=== PATIENT | female | born 1945 | race Caucasian/White ===

== ENCOUNTER 2017-04-13 15:05 | Inpatient (IN) | payer OTHER, MEDICARE ==
[~2017-04-13] VITALS: Ht 152.4 cm; Wt 56.3 kg
[2017-04-13] VITALS (7 sets, daily range): BP systolic 115–174; BP diastolic 66–86; PULSE 76–116; RESP 16–33; TEMP 97.6–97.8; O2SAT 93–100
[~2017-04-13 15:05] MED LIST: ALPR.25 PO; ESCI10TA PO; LEVO75TA3 PO; LOSA25TA31 PO; NADO20TA PO
--- NOTE | 2017-04-13 15:22 | PD ---
HPI Chief Complaint: Fall Time Seen by Provider: 15:08 Travel History International Travel<30 days: No Contact w/Intl Traveler<30days: No Traveled to known affect area: No History of Present Illness HPI The patient was seen and examined in the presence of the nurse. Patient called the ambulance to bring her in for evaluation of injury she suffered yesterday. Duration is 24 hours. Severity is moderate. She tripped at home in her apartment and landed on her left lower leg. She injured her left foot. She complains of pain in the foot. She has bruising on the knee and roth of the left side but no pain in either area. She has been walking on it. No alleviating factors. No other complaints than left foot pain. PFSH Past Medical History Hx Anticoagulant Therapy: No Arthritis: Yes Anxiety: Yes Cardiovascular Problems: Yes Coronary Artery Disease: Yes Thyroid Disease: Yes ?: Not Past Surgical History Hysterectomy: Yes Other Surgery: Yes (thyroid) Social History Alcohol Use: Yes (SOCIALLY ) Tobacco Use: No Substance Use: No Allergies-Medications (Allergen,Severity, Reaction): Coded Allergies: Sulfa (Verified Allergy, Severe, Rash, 04/13/17) Reported Meds & Prescriptions Reported Meds & Active Scripts Active Percocet (Oxycodone-Acetaminophen) 5-325 mg Tab 1 Tab PO Q6H PRN Reported Nadolol 80 Mg Tab 80 Mg PO DAILY Losartan (Losartan Potassium) 25 Mg Tab 25 Mg PO DAILY Levothyroxine (Levothyroxine Sodium) 75 Mcg Tab 75 Mcg PO DAILY Escitalopram (Escitalopram Oxalate) 10 Mg Tab 10 Mg PO DAILY Alprazolam 0.25 Mg Tab 0.25 Mg PO DIRECTED PRN Review of Systems General / Constitutional: No: Fever Eyes: No: Visual changes HENT: No: Headaches Cardiovascular: No: Chest Pain or Discomfort Respiratory: No: Shortness of Breath Gastrointestinal: No: Abdominal Pain Genitourinary: No: Dysuria Musculoskeletal: Positive: Pain Skin: Positive Change in Pigmentation, No Rash Neurologic: Positive: Change in Mentation, No: Weakness Psychiatric: No: Depression Endocrine: No: Polydipsia Hematologic/Lymphatic: No: Easy Bruising Physical Exam Narrative Left leg: There is some ecchymosis over the patella and roth but neither area are tender Left foot: There is ecchymosis and edema and tenderness over the forefoot. No malleoli tenderness GENERAL: Highly anxious well-developed patient with left foot pain SKIN: Focused skin assessment reveals no rash and nodules. Skin is Warm and dry. A lot of ecchymosis is over the left arm and leg primarily HEAD: Atraumatic. Normocephalic. EYES: Pupils equal and round. No scleral icterus. No injection or drainage. ENT: No nasal bleeding or discharge. Mucous membranes pink and moist. NECK: Trachea midline. No JVD. CARDIOVASCULAR: Regular rate and rhythm. No murmur appreciated. RESPIRATORY: No accessory muscle use. Clear to auscultation. Breath sounds equal bilaterally. GASTROINTESTINAL: Abdomen soft, non-tender, nondistended. Hepatic and splenic margins not palpable. MUSCULOSKELETAL: No obvious deformities. No clubbing. No cyanosis. NEUROLOGICAL: Awake and alert. No obvious cranial nerve deficits. Motor grossly within normal limits. Normal speech. PSYCHIATRIC: Very anxious mood and affect; insight and judgment poor. Data Data Last Documented VS Vital Signs Date Time Temp Pulse Resp B/P Pulse Ox O2 Delivery O2 Flow Rate FiO2 04/13/17 17:09 107 16 127/84 94 Room Air 04/13/17 15:09 97.8 Orders Foot, Complete ([id number]) (04/13/17 ) Ondansetron Inj (Zofran Inj) (04/13/17 15:30) Morphine Inj (Morphine Inj) (04/13/17 15:30) Morphine Inj (Morphine Inj) (04/13/17 16:15) Post Op Boot (Shoe) (04/13/17 ) Lorazepam Inj (Ativan Inj) (04/13/17 16:15) Basic Metabolic Panel (Bmp) (04/13/17 16:12) Complete Blood Count With Diff (04/13/17 16:12) Tibia/Fibula (Ap/Lat) (04/13/17 ) 3% Saline Inj (Sodium Chloride 3% Inj) (04/13/17 17:00) Alcohol (Ethanol) (04/13/17 16:30) Basic Metabolic Panel (Bmp) (04/13/17 18:30) Basic Metabolic Panel (Bmp) (04/13/17 20:30) Basic Metabolic Panel (Bmp) (04/13/17 22:30) Basic Metabolic Panel (Bmp) (04/14/17 00:30) Basic Metabolic Panel (Bmp) (04/14/17 02:30) Basic Metabolic Panel (Bmp) (04/14/17 04:30) Basic Metabolic Panel (Bmp) (04/14/17 06:30) Basic Metabolic Panel (Bmp) (04/14/17 08:30) Basic Metabolic Panel (Bmp) (04/14/17 10:30) Basic Metabolic Panel (Bmp) (04/14/17 12:30) Magnesium (Mg) (04/13/17 17:07) Thyroid Stimulating Hormone (04/13/17 17:07) Levothyroxine (Synthroid) (04/14/17 09:00) Nadolol (Corgard) (04/14/17 09:00) Shoe Cast (04/13/17 ) Losartan (Cozaar) (04/14/17 09:00) Clonidine (Catapres) (04/13/17 17:15) Admit To Inpatient (04/13/17 ) Vital Signs (Adult) Q4H (04/13/17 17:10) Neuro Checks Q4H (04/13/17 17:10) Activity Oob With Assistance (04/13/17 17:10) Bedside Glucose JOSELYN.AC&HS (04/13/17 17:10) Music Writer / Telemetry .CONTINUOUS (04/13/17 17:10) Intake + Output JOSELYN.QSHIFT (04/13/17 17:10) Diet Npo (04/13/17 Dinner) Sodium Chloride 0.9% Flush (Ns Flush) (04/13/17 17:15) Sodium Chloride 0.9% Flush (Ns Flush) (04/13/17 21:00) Acetaminophen (Tylenol) (04/13/17 17:15) Ondansetron Inj (Zofran Inj) (04/13/17 17:15) Complete Blood Count With Diff (04/14/17 06:00) Resp Oxygen David C Titrat 1-4 L (04/13/17 ) Pt Request For Service (04/13/17 17:10) St Request For Service (04/13/17 17:10) Case Management Consult (04/13/17 17:10) Scd Bilateral/Knee High JOSELYN.BID (04/13/17 17:10) Hollis Bilateral/Knee High JOSELYN.QSHIFT (04/13/17 17:10) Acetaminophen (Tylenol) (04/13/17 17:15) Naloxone Inj (Narcan Inj) (04/13/17 17:15) Docusate Sodium-Senna (Louann-Colace) (04/13/17 21:00) Inpatient Certification (04/13/17 ) Alcohol Withdrawal Asmt-Ciwa Q4HX18 (04/13/17 17:10) Flumazenil Inj (Romazicon Inj) (04/13/17 17:15) Lorazepam (Ativan) (04/13/17 17:15) Lorazepam (Ativan) (04/13/17 17:15) Lorazepam Inj (Ativan Inj) (04/13/17 17:15) Lorazepam Inj (Ativan Inj) (04/13/17 17:15) ^ Seizure Precautions (04/13/17 17:10) Admit Order (Ed Use Only) (04/13/17 17:22) Labs Laboratory Tests Test 04/13/17 16:30 White Blood Count 7.9 TH/MM3 Red Blood Count 3.26 MIL/MM3 Hemoglobin 9.9 GM/DL Hematocrit 30.2 % Mean Corpuscular Volume 92.7 FL Mean Corpuscular Hemoglobin 30.3 PG Mean Corpuscular Hemoglobin 32.7 % Concent Red Cell Distribution Width 14.4 % Platelet Count 415 TH/MM3 Mean Platelet Volume 7.6 FL Neutrophils (%) (Auto) 74.7 % Lymphocytes (%) (Auto) 10.4 % Monocytes (%) (Auto) 12.3 % Eosinophils (%) (Auto) 1.7 % Basophils (%) (Auto) 0.9 % Neutrophils # (Auto) 5.9 TH/MM3 Lymphocytes # (Auto) 0.8 TH/MM3 Monocytes # (Auto) 1.0 TH/MM3 Eosinophils # (Auto) 0.1 TH/MM3 Basophils # (Auto) 0.1 TH/MM3 CBC Comment DIFF FINAL Differential Comment Sodium Level 115 MEQ/L Potassium Level 4.1 MEQ/L Chloride Level 81 MEQ/L Carbon Dioxide Level 21.4 MEQ/L Anion Gap 13 MEQ/L Blood Urea Nitrogen 9 MG/DL Creatinine 0.69 MG/DL Estimat Glomerular Filtration 84 ML/MIN Rate Random Glucose 92 MG/DL Calcium Level 8.8 MG/DL Ethyl Alcohol Level LESS THAN 3 MG/DL MDM Medical Decision Making Medical Screen Exam Complete: Yes Emergency Medical Condition: Yes Medical Record Reviewed: Yes Differential Diagnosis Foot fracture, foot contusion, dislocation Narrative Course I have reviewed the patient's electronic medical record. Patient was last here in 2014 for dyspepsia symptoms. She had a sodium of 131 at that time IV placed I gave her 4 mg IV morphine and 4 g IV Zofran for symptom relief I reviewed her left foot x-rays which show no acute fracture. There is some arthritic change. Patient has some transient relief from the medication and then continued crying and asking for more pain medicine She seems to have a significant anxiety/emotional component to her presentation I gave her a second dose of morphine and Zofran as well as a dose of IV Ativan As she continued to I'll and pain regarding her left foot slight walking on it for 24 hours I continued to try to further evaluate make sure I was not missing anything. CBC shows mild anemia Metabolic profile shows critical hyponatremia of 115 CT of the foot without contrast was done to rule out occult fracture I reviewed her left tib-fib x-rays which are negative I gave her a postop shoe Patient admits to 2-4 alcoholic drinks today but this may be much higher. Suspect that she has metabolic encephalopathy from hyponatremia which is critically low at 1:15 but also some degree of alcohol withdrawal. I gave her second dose of IV Ativan for this reason. I started her on 3% sodium chloride solution at 30 cc per hour I reviewed with the hospitalist to evaluate the patient but recommended auto adjudication specialist manage this patient so I spoke with Dr. Cutler who will admit Critical Care Narrative Aggregate critical care time was 80 minutes. Time to perform other separately billable procedures was not included in the critical care time. My time did not include minutes spent treating any other patients simultaneously or on activities that did not directly contribute to the patient's treatment. The services I provided to this patient were to treat and/or prevent clinically significant deterioration that could result in: Seizure, hypoxemic brain injury , cardiopulmonary arrest I provided critical care services requiring my management, as noted below: Chart data review, documentation time, medication orders and management, vital sign assessments/reviewing monitor data, ordering and reviewing lab tests, ordering and interpreting/reviewing x-rays and diagnostic studies, care of the patient and discussion of the patient with the admitting physicians. Diagnosis Primary Impression: Acute metabolic encephalopathy Additional Impressions: Hyponatremia Alcohol withdrawal delirium Admitting Information Admitting Physician Requests: Admit Scripts Oxycodone-Acetaminophen (Percocet)5-325 mg Tab1 Tab PO Q6H PRN (PAIN) #20 TAB Ref 0 Prov:Man Baptiste MD 04/13/17 Man Baptiste MD April 13, 2017 15:22
[2017-04-13] MEDS ORDERED: MORPHINE SULFATE 4 MG/ML INJ IV PUSH ONE ×2 (15:30→16:15)
[2017-04-13] MEDS ORDERED: ONDANSETRON HCL 4 MG/2 ML VIAL IVP ONE (15:30)
[2017-04-13] MEDS ORDERED: LOSA25TA PO (15:32)
[2017-04-13] MEDS ORDERED: ESCI10TA PO (15:32)
[2017-04-13] MEDS ORDERED: LEVO75TA3 PO (15:32)
[2017-04-13] MEDS ORDERED: ALPR0.25 PO (15:32)
[2017-04-13] MEDS ORDERED: NADO80TA PO (15:32)
[2017-04-13] MEDS ORDERED: PERC5TAB12 PO (16:07)
[2017-04-13] MEDS ORDERED: LORazepam 2 MG/ML VIAL IV PUSH ONE ×2 (16:15→17:30)
--- NOTE | 2017-04-13 16:18 | RADHPO ---
EXAM DATE/TIME: 04/13/2017 15:31 [facility] COMPARISON: No previous studies available for comparison. INDICATIONS : Fell, left foot pain MEDICAL HISTORY : None. SURGICAL HISTORY : None. ENCOUNTER: Initial ACUITY: 1 day PAIN SCORE: 10/10 LOCATION: Left foot FINDINGS: There is bony fusion of the left 1st metatarsophalangeal joint. Arthritic changes are noted involvin g the tarsal-tarsal and tarsal-metatarsal joints in the midfoot. Plantar calcaneal spur is noted. T here is no acute fracture or dislocation of the left foot. There is an old healed fracture involving the shaft of the left 2nd metatarsal. CONCLUSION: 1. Arthritic changes involving the tarso-tarsal and tarsal-metatarsals joints in the midfoot. 2. Bony fusion of the left 1st metatarsophalangeal joint. 3. Plantar calcaneal spur. 4. No acute fracture or dislocation. Alex Whiteside MD on April 13, 2017 at 16:11 Board Certified Radiologist. This report was verified electronically.
[2017-04-13 16:37] LABS: AUTOMATED NEUTROPHIL # 5.9 TH/MM3 (1.8-7.7); BASOPHIL # 0.1 TH/MM3 (0-0.2); BASOPHIL % 0.9 % (0.0-2.0); EOSINOPHIL # 0.1 TH/MM3 (0-0.4); EOSINOPHIL % 1.7 % (0.0-4.0); HEMATOCRIT 30.2 % (35.0-46.0); HEMO FLAGS DIFF FINAL; LYMPH % 10.4 % (9.0-44.0); LYMPHOCYTE # 0.8 TH/MM3 (1.0-4.8); MEAN CELL VOLUME 92.7 FL (80.0-100.0); MEAN CORPUSCULAR HEMOGLOBIN 30.3 PG (27.0-34.0); MEAN CORPUSCULAR HGB CONC 32.7 % (32.0-36.0); MONO % 12.3 % (0.0-8.0); NEUT % 74.7 % (16.0-70.0); PLATELET COUNT 415 TH/MM3 (150-450); RED BLOOD COUNT 3.26 MIL/MM3 (4.00-5.30); RED CELL DISTRIBUTION WIDTH 14.4 % (11.6-17.2); WHITE BLOOD COUNT 7.9 TH/MM3 (4.0-11.0)
--- NOTE | 2017-04-13 16:43 | RADHPO ---
EXAM DATE/TIME: 04/13/2017 16:19 [facility] COMPARISON: No previous studies available for comparison. INDICATIONS : Left lower leg pain from fall MEDICAL HISTORY : None. SURGICAL HISTORY : None. ENCOUNTER: Initial ACUITY: 1 day PAIN SCORE: 10/10 LOCATION: Left lower leg FINDINGS: There is no acute fracture or dislocation of the right tibia or fibula. Moderate arthritic changes a re noted involving the patellofemoral and femoral tibial joints. CONCLUSION: 1. Moderate arthritic changes involving the femoral tibial and patellofemoral joints. 2. No acute fracture or dislocation. Alex Whiteside MD on April 13, 2017 at 16:39 Board Certified Radiologist. This report was verified electronically.
[2017-04-13 16:51] LABS: ANION GAP 13 MEQ/L (5-15); BICARBONATE 21.4 MEQ/L (21.0-32.0); BLOOD UREA NITROGEN 9 MG/DL (7-18); CHLORIDE 81 MEQ/L (98-107); POTASSIUM 4.1 MEQ/L (3.5-5.1)
[2017-04-13 16:53] LABS: SODIUM (NA) 115 MEQ/L (136-145)
[2017-04-13] MEDS ORDERED: 3% SALINE INJ 250 ML IV ONE (17:00)
[2017-04-13 17:15] LABS: GLOMERULAR FILTRATION RATE 84 ML/MIN (>89)
[2017-04-13] MEDS ORDERED: NALOXONE HCL 0.4 MG/ML AMP IV PRN (17:15)
[2017-04-13] MEDS ORDERED: LORazepam 2 MG TAB PO PRN (17:15)
[2017-04-13] MEDS ORDERED: ACETAMINOPHEN 325 MG TAB PO PRN (17:15)
[2017-04-13] MEDS ORDERED: cloNIDine HCL 0.1 MG TAB PO PRN (17:15)
[2017-04-13] MEDS ORDERED: LORazepam 2 MG/ML VIAL IV PUSH PRN (17:15)
[2017-04-13] MEDS ORDERED: ONDANSETRON HCL 4 MG/2 ML VIAL IVP PRN (17:15)
[2017-04-13] MEDS ORDERED: FLUMAZENIL 0.5 MG/5 ML VIAL IV PUSH PRN (17:15)
[2017-04-13] MEDS ORDERED: SODIUM CHLORIDE 0.9% FLUSH 10 ML FLUSH IV FLUSH PRN ×2 (17:15→18:00)
[2017-04-13] MEDS ORDERED: SODIUM CHLOR 0.9% 1000 ML INJ 1,000 ML IV SCH (17:54)
[2017-04-13] MEDS ORDERED: NITROGLYCERIN 2% OINT 1 GM PACKET TOPICAL PRN (18:00)
[2017-04-13] MEDS ORDERED: CHLORHEXIDINE GLUCONATE 2 % 1 PACK (2 CLOTHS) TOP PRN (18:00)
[2017-04-13] MEDS ORDERED: SENNOSIDES 8.6 MG TAB PO PRN (18:00)
[2017-04-13] MEDS ORDERED: MAGNESIUM HYDROXIDE SUSP 30 ML CUP PO PRN (18:00)
[2017-04-13] MEDS ORDERED: MISCELLANEOUS NURSING INFORMATION XX SCH (18:00)
[2017-04-13] MEDS ORDERED: LACTULOSE SYRUP 20 GM/30 ML CUP PO PRN (18:00)
[2017-04-13] MEDS ORDERED: ONDANSETRON HCL 4 MG/2 ML VIAL IV PRN (18:00)
[2017-04-13] MEDS ORDERED: BISACODYL 10 MG SUPP RECTAL PRN (18:00)
[2017-04-13] MEDS ORDERED: RESP: ALBUTEROL 2.5 MG/3 ML NEB (PRN) INH (18:00)
[2017-04-13 18:10] LABS: MAGNESIUM 1.5 MG/DL (1.5-2.5)
--- NOTE | 2017-04-13 18:33 | RADHPO ---
EXAM DATE/TIME: 04/13/2017 18:00 [facility] COMPARISON: CT BRAIN W/O CONTRAST, July 17, 2015, 11:07. INDICATIONS : Fell yesterday. Altered mental status. RADIATION DOSE: 57.30 CTDIvol (mGy) MEDICAL HISTORY : Hypertension. SURGICAL HISTORY : Hysterectomy. ENCOUNTER: Initial ACUITY: 2 days PAIN SCALE: 0/10 LOCATION: cranial TECHNIQUE: Multiple contiguous axial images were obtained of the head. Using automated exposure control and adj ustment of the mA and/or kV according to patient size, radiation dose was kept as low as reasonably a chievable to obtain optimal diagnostic quality images. FINDINGS: CEREBRUM: The ventricles are normal for age. No evidence of midline shift, mass lesion, hemorrhage or acute in farction. No extra-axial fluid collections are seen. POSTERIOR FOSSA: The cerebellum and brainstem are intact. The 4th ventricle is midline. The cerebellopontine angle i s unremarkable. EXTRACRANIAL: The visualized portion of the orbits is intact. Opacified right maxillary sinus and right ethmoid air cells consistent with probable sinusitis. SKULL: The calvaria is intact. No evidence of skull fracture. CONCLUSION: 1. No acute intracranial abnormality. 2. Opacified right maxillary sinus and right ethmoid air cells consistent with probable sinusitis. Alex Whiteside MD on April 13, 2017 at 18:30 Board Certified Radiologist. This report was verified electronically.
--- NOTE | 2017-04-13 18:56 | RADHPO ---
EXAM DATE/TIME: 04/13/2017 18:41 [facility] COMPARISON: CHEST SINGLE AP, August 21, 2015, 23:22. INDICATIONS : fall with left lower leg and foot pain, chest pain, pre admit. MEDICAL HISTORY : None. SURGICAL HISTORY : None. ENCOUNTER: Subsequent ACUITY: 2 days PAIN SCORE: Non-responsive. LOCATION: Bilateral chest FINDINGS: Patchy infiltrates are noted within the upper lung mancuso bilaterally consistent with possible develo ping pneumonia. Clinical correlation is recommended. The heart is mildly enlarged. Degenerative ch anges and scoliosis of the thoracolumbar spine are noted. CONCLUSION: 1. Patchiness within the upper lung mancuso bilaterally consistent with atelectasis and/or developing pneumonia. Clinical correlation is recommended. 2. Cardiomegaly. 3. Degenerative changes and scoliosis of the thoracolumbar spine. Alex Whiteside MD on April 13, 2017 at 18:52 Board Certified Radiologist. This report was verified electronically.
[2017-04-13 19:00] LABS: AST (GOT) 30 U/L (15-37)
[2017-04-13 19:01] LABS: ALT (GPT) 28 U/L (10-53); BETA-HYDROXYBUTYRATE 0.19 MMOL/L (0.00-0.39)
[2017-04-13 19:02] LABS: INDIRECT BILIRUBIN 0.6 MG/DL (0.0-0.8); TOTAL BILIRUBIN ADULT 0.8 MG/DL (0.2-1.0)
[2017-04-13 19:03] LABS: ALKALINE PHOSPHATASE 81 U/L (45-117)
[2017-04-13 19:48] LABS: POTASSIUM 3.3 MEQ/L (3.5-5.1)
[2017-04-13 19:58] LABS: CORTISOL 14.6 MCG/DL
[2017-04-13 19:59] LABS: URIC ACID 2.6 MG/DL (2.6-6.0)
[2017-04-13] MEDS ORDERED: SODIUM CHLOR 0.45% 1000 ML INJ 1,000 ML IV SCH (20:15)
[2017-04-13] MEDS ORDERED: SODIUM CHLORIDE 0.9% FLUSH 10 ML FLUSH IVF PRN (20:15)
[2017-04-13] MEDS ORDERED: POTASSIUM CHLOR 40 MEQ PREMIX 100 ML IV ONE (20:15)
--- NOTE | 2017-04-13 20:18 | PD.PROCEDR ---
Central Line Procedure REASON FOR PROCEDURE Central venous access PROCEDURE PERFORMED Central line placement: Right IJ CVL CONSENT Informed consent for procedure was obtained per Olaf Danielle. The risks and benefits of the procedure were discussed to include but limited to bleeding, clot formation, infection, and even . ANESTHESIA Local injection of 1% Lidocaine DESCRIPTION OF THE PROCEDURE The patient was placed in supine, mild Trendelenburg position. The area was exposed and cleansed with ChloraPrep, times two. Large sterile drape was used to cover the patient, with the site exposed, under sterile conditions including cap, face mask, sterile gown, and sterile gloves. On single attempt, the introducer needle was inserted with negative pressure in syringe and venous flash was obtained. The guide wire was then advanced without any restriction and the needle was removed. The dilator was used without any complications. Using Seldinger technique the triple-lumen antibiotic coated catheter was advanced over the guide wire to a depth of 16 centimeters. The guide wire was removed. All ports were aspirated with dark venous blood return and flushed easily with sterile saline. All ports were capped. Antibiotic disc was placed around central line at puncture site. The central line was secured to the skin with two interrupted 2.0 silk sutures. The area was bandaged with sterile see- through central line bandage. RADIOLOGICAL DATA Ultrasound guidance was used to locate right internal jugular vein. Doppler/ color flow was used to confirm venous flow. COMPLICATIONS: No apparent complications ESTIMATED BLOOD LOSS: Less than 1 cc. Cheo Wilkerson MD April 13, 2017 20:18
[2017-04-13 20:24] LABS: BLOOD GAS BASE EXCESS -1.8 mmol/L (-2-2); BLOOD GAS CARBOXYHEMOGLOBIN 1.8 % (0-4); BLOOD GAS HCO3 23 mmol/L (22-26); BLOOD GAS O2 HGB SATURATION 97 % (90-100); BLOOD GAS OXYGEN CONTENT 13.4 Vol % (12.0-20.0); BLOOD GAS PCO2 42 mmHG (38-42); BLOOD GAS PO2 163 mmHG (61-120); BLOOD GAS TOTAL HGB 9.6 G/DL (12.0-16.0); CRITICAL VALUE NO; DRAW SITE LT RADIAL; LITER FLOW 4 L/M; NUMBER OF ARTERIAL PUNCTURES 1; OXYGEN DEVICE NASAL CANNULA; STAT YES; TEMP CORR TO 98.6; ULNAR PULSE PRESENT
--- NOTE | 2017-04-13 20:37 | HHI.HP ---
HPI Service Critical Care Medicine Primary Care Physician No Primary Care Physician Admission Diagnosis metabolic encephalopathy,hyponatremia Diagnosis: (1) Acute metabolic encephalopathy Diagnosis: Principal (2) Hyponatremia Diagnosis: Principal (3) Hypothyroidism Diagnosis: Principal (4) Hypertension Diagnosis: Principal (5) Depression Diagnosis: Principal (6) Alcohol use Diagnosis: Principal (7) Narcotic drug use Diagnosis: Principal (8) Frequent falls Diagnosis: Principal (9) Hypokalemia Diagnosis: Principal (10) Hypomagnesemia Diagnosis: Principal (11) Normocytic anemia, not due to blood loss Diagnosis: Principal Chief Complaint: Presentation to [facility] with altered mental status Travel History International Travel<30 Days: No Contact w/Intl Traveler <30 Da: No Traveled to Known Affected Are: No History of Present Illness 71-year-old female. Date of admission 04/13/2017. Past medical history includes gait imbalance disorder with frequent falls, hypertension, depression, coronary artery disease status post stent 3, chronic benzodiazepine narcotic use and hypothyroidism. Of note she had an episode of altered mental status approximate 1 year ago due to chronic melatonin overdose according to her daughter Danielle. During the hospital sensation she actually struck her head and had 15 darwin placed at the affected site. She presents to [facility] today being brought in by her neighbor after recurrent falls on her left side. This is likely, she fell on her left leg and striking her left shoulder and left lower extremity against a wall Imaging of the leg revealed no acute fractures the left lower extremity or foot. Old left metatarsal fracture and degenerative joint disease was noted. She received morphine, Zofran with some relief. She became more agitated and received 4 mg of Ativan total and 12 mg of morphine for management of acute delirium and pain. CT head revealed no acute intracranial abnormalities except for right maxillary sinusitis/ethmoids cell sinusitis. Pertinent laboratories revealed a sodium 115. Initial thought this patient who drinks 2-4 alcoholic next daily likely more due to a son who years ago from cancer was going to withdrawals with falls at home to alcohol use. Alcohol level EGD was less than 3. Urine toxicology positive for opiates only which she takes Percocet as needed. 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 This has been held. Sodium is increased from 115 to 122 in the interim. Currently at 120 after being switched to half-normal saline. Every 2 hours sodiums continued to be drawn Review of Systems ROS Limitations: Altered Mental Status Past Family Social History Allergies: Coded Allergies: Sulfa (Verified Allergy, Severe, Rash, 04/13/17) Past Medical History Coronary artery disease with 3 stents Hypertension Depression Hypothyroidism Chronic narcotic use Chronic benzodiazepine use Past Surgical History Thyroidectomy Cardiac catheterization with 3 stents placed Reported Medications Losartan 25 mg by mouth daily Nadolol 80 mg by mouth daily Escitalopram 10 mg by mouth daily Xanax 0.25 mg every 6 hours as needed for anxiety Percocet 5/325 one tablet every 6 hours when necessary pain Levoxyl 75 g by mouth daily Nadolol 80 mg by mouth daily Active Ordered Medications Reviewed in EMR Family History Father from lung cancer. Mother of natural causes. Son one year ago with [place] cell carcinoma Social History Positive alcohol use. Daughter does not know how much but "could be a lot". Quit tobacco at age 27. No IV drug use. Physical Exam Vital Signs Vital Signs Date Time Temp Pulse Resp B/P Pulse Ox O2 Delivery O2 Flow Rate FiO2 04/13/17 19:27 93 16 115/74 93 Room Air 04/13/17 17:31 94 21 04/13/17 17:09 107 16 127/84 94 Room Air 04/13/17 15:20 18 98 Room Air 04/13/17 15:09 97.8 76 18 172/84 98 Physical Exam GENERAL: 71-year-old female, critically ill currently resting in bed on nasal cannula SKIN: Warm and dry. Multiple evolving ecchymoses to the left upper extremity, left lower extremity HEAD: Atraumatic. Normocephalic. EYES: Pupils equal and round about 3 mm bilaterally and reactive. No scleral icterus. No injection or drainage. ENT: No nasal bleeding or discharge. Mucous membranes pink and moist. Oropharynx without erythema NECK: Trachea midline. No JVD. CARDIOVASCULAR: Regular rate and rhythm. S1, S2. No S4. Without murmur RESPIRATORY: Few fine crackles appreciated posteriorly in the upper lobes bilaterally. No wheezes. Symmetrical excursion.. GASTROINTESTINAL: Abdomen soft, non-tender, nondistended. Hypoactive bowel sounds appreciated. Some ecchymosis to the left flank MUSCULOSKELETAL: Extremities with 1+ edema left lower extremity. Minimal edema left lower extremity.. NEUROLOGICAL: Arousable but falls asleep easily. Moving all 4 extremities spontaneously but not purposely. Positive gag. Currently protecting airway adequately. Laboratory Laboratory Tests Test 04/13/17 04/13/17 04/13/17 16:00 16:30 18:30 Uric Acid 2.6 Phosphorus Level 2.9 Magnesium Level 1.5 Triglycerides Level 94 Lipase 160 Thyroid Stimulating Hormone 5.400 3rd Gen White Blood Count 7.9 Red Blood Count 3.26 Hemoglobin 9.9 Hematocrit 30.2 Mean Corpuscular Volume 92.7 Mean Corpuscular Hemoglobin 30.3 Mean Corpuscular Hemoglobin 32.7 Concent Red Cell Distribution Width 14.4 Platelet Count 415 Mean Platelet Volume 7.6 Neutrophils (%) (Auto) 74.7 Lymphocytes (%) (Auto) 10.4 Monocytes (%) (Auto) 12.3 Eosinophils (%) (Auto) 1.7 Basophils (%) (Auto) 0.9 Neutrophils # (Auto) 5.9 Lymphocytes # (Auto) 0.8 Monocytes # (Auto) 1.0 Eosinophils # (Auto) 0.1 Basophils # (Auto) 0.1 CBC Comment DIFF FINAL Differential Comment Sodium Level 115 122 Potassium Level 4.1 3.3 Chloride Level 81 88 Carbon Dioxide Level 21.4 22.0 Anion Gap 13 12 Blood Urea Nitrogen 9 8 Creatinine 0.69 0.60 Estimat Glomerular Filtration 84 99 Rate Random Glucose 92 101 Calcium Level 8.8 8.1 Ethyl Alcohol Level LESS THAN 3 LESS THAN 3 Total Bilirubin 0.8 Direct Bilirubin 0.2 Indirect Bilirubin 0.6 Aspartate Amino Transf 30 (AST/SGOT) Alanine Aminotransferase 28 (ALT/SGPT) Alkaline Phosphatase 81 Ammonia 18 Troponin I LESS THAN 0.02 Total Protein 6.4 Albumin 3.5 Salicylates Level LESS THAN 1.7 B-Hydroxybutyrate 0.19 Result Diagram: 04/13/17 1630 04/13/17 1830 Imaging Last Impressions Tibia/Fibula X-Ray 04/13/17 0000 Signed Impressions: Service Date/Time: Thursday, April 13, 2017 16:19 - CONCLUSION: 1. Moderate arthritic changes involving the femoral tibial and patellofemoral joints. 2. No acute fracture or dislocation. Alex Whiteside MD Head CT 04/13/17 0000 Signed Impressions: Service Date/Time: Thursday, April 13, 2017 18:00 - CONCLUSION: 1. No acute intracranial abnormality. 2. Opacified right maxillary sinus and right ethmoid air cells consistent with probable sinusitis. Alex Whiteside MD Foot X-Ray 04/13/17 0000 Signed Impressions: Service Date/Time: Thursday, April 13, 2017 15:31 - CONCLUSION: 1. Arthritic changes involving the tarso-tarsal and tarsal-metatarsals joints in the midfoot. 2. Bony fusion of the left 1st metatarsophalangeal joint. 3. Plantar calcaneal spur. 4. No acute fracture or dislocation. Alex Whiteside MD Chest X-Ray 04/13/17 0000 Signed Impressions: Service Date/Time: Thursday, April 13, 2017 18:41 - CONCLUSION: 1. Patchiness within the upper lung mancuso bilaterally consistent with atelectasis and/or developing pneumonia. Clinical correlation is recommended. 2. Cardiomegaly. 3. Degenerative changes and scoliosis of the thoracolumbar spine. Alex Whiteside MD Assessment and Plan Assessment and Plan Neuro/Psych: Acute encephalopathy - toxic metabolic versus EtOH withdrawal versus other EtOH use Frequent falls CT brain 04/13 revealed no acute intracranial findings. Right maxillary and ethmoid space sinusitis We'll place on thiamine 100 mg IV daily/folate and multivitamin daily EtOH withdrawal protocol initiated CIWA protocol initiated Received 12 mg morphine 4 mg Ativan in ED to date Will need EEG/MRI brain/MRA brain and neck during this hospitalization once she has stabilized Holding Escitalopram 10 mg by mouth daily for depression. Holding Xanax 0.25 mg as needed for anxiety. Resume if clinically indicated Holding Percocet 5/325 tablet every 6 hours. Pain. Resume when clinically indicated CV: Hypertension Coronary artery disease status post stent 3 On nadolol 80 mg by mouth daily and losartan 25 mg daily for hypertension. As needed labetalol/hydralazine/Nitropaste to keep systolic blood pressure less than 160 Currently on one half will saline at 42 cc an hour. Initial EKG showed atrial fibrillation? Currently in sinus tachycardia. Initial troponin not indicative of underlying cardiac ischemia. Does have history of coronary artery stents 3. Resp: Possible pneumonia/aspiration versus community-acquired Chest x-ray revealed bilateral upper lobe opacities possible aspiration in light of acute delirium Nasal cannula to maintain saturations greater than equal to 92%. Currently on 4 L Incentive spirometry while awake As needed albuterol therapy for shortness of breath GI: Patient is currently nothing by mouth Protonix for GI prophylaxis Louann-Colace twice a day for bowel regimen ordered : Lynn will be placed for accurate I's and O's in a critically ill patient. UA no indication for culture Endo: Hypothyroidism TSH currently elevated 5.4. We'll check free 02/17. Will likely need increased from 75 to 88 g daily pending results Sliding-scale insulin with Accu-Cheks every 6 hours to maintain euglycemia/low regimen Renal: Creatinine currently within normal limits. Accurate I's and O's Monitor urine output Heme: Normocytic anemia No signs of active bleeding. No indications for transfusion of blood products at the present time Coags still pending ID: Possible aspiration pneumonia Check blood cultures 2, urine no indications for culture. We'll start on Zosyn/Zithromax for community-acquired pneumonia. See orders Msk: Osteoarthritis Thoracic scoliosis Left calcaneal spur old fracture 6 second metatarsal Degenerative joint disease left patellofemoral and femorotibial joints X-ray left foot revealed an effusion left first metatarsal. Arthritic changes to the tarsal/tarsal and tarsometatarsal joints. Calcaneal spur. Old fracture secondary tarsal. X-ray left tib/fib revealed moderate arthritic changes to the patellofemoral and femoral tibial joints. PT evaluate and treat FEN: Hypoosmolar Hyponatremia Hypokalemia Hypo-magnesium Serum and urine osm and urine sodium both pending at time of dictation. Cortisol within normal limits. TSH slightly elevated 5.4. Uric acid 2.6 at the lower end of normal. Discontinued 3% saline as sodium has increased from 115 to 122 within 2 hours. Currently on one half normal saline at 42 cc an hour. Serial sodiums every 2 hours. Avoid rapid correction greater than or less than 2 every 2 hours 2 g mag sulfate, 40 mEq KCl 1. Recheck in a.m. Access - Right IJ CVL placed 04/13 day #1 Prophylaxis - GI - Protonix - DVT - SCD/heparin subcutaneous will be held in light of oozing from central line Critical Care: The total critical care time was 55 minutes. Time to perform other separately billable procedures was not included in the critical care time. Code Status Full code Discussed Condition With Daughter Dr. Baptiste. Care plan discussed and all questions answered Problem Qualifiers (1) Hypothyroidism: Qualified Code: E03.9 - Hypothyroidism, unspecified type (2) Hypertension: Qualified Code: I10 - Essential hypertension (3) Depression: Qualified Code: F32.9 - Depression, unspecified depression type Cheo Wilkerson MD April 13, 2017 20:37
--- NOTE | 2017-04-13 20:46 | RADHPO ---
EXAM DATE/TIME: 04/13/2017 20:27 [facility] COMPARISON: CHEST SINGLE AP, April 13, 2017, 18:41. INDICATIONS : Central line placement. MEDICAL HISTORY : None. SURGICAL HISTORY : None. ENCOUNTER: Initial ACUITY: 1 day PAIN SCORE: Non-responsive. LOCATION: Bilateral chest FINDINGS: A right internal jugular central line has been placed and has its tip in the superior vena cava. The re is no pneumothorax. The heart is stable. The lungs are clear. Degenerative changes and scoliosi s of the thoracic spine are noted. CONCLUSION: 1. No pneumothorax status post placement of right internal jugular central line which has its tip in good position in the superior vena cava. Alex Whiteside MD on April 13, 2017 at 20:42 Board Certified Radiologist. This report was verified electronically.
[2017-04-13] MEDS ORDERED: DOCUSATE SODIUM 50 MG/SENNA 8.6 MG TAB PO SCH (21:00)
[2017-04-13] MEDS ORDERED: THIAMINE INJ 100 MG in SODIUM CHLORIDE 0.9% INJ 100 ML IV ONE (21:15)
--- NOTE | 2017-04-13 21:23 | EKG ---
Date Performed: 04/13/2017 Time Performed: 18:20:32 PTAGE: 71 years EKG: BASELINE ARTIFACT PRESENT. Atrial fibrillation with rapid ventricular response Poor R wave progression - probable normal variant Abnormal ECG NO PREVIOUS TRACING DOCTOR: Wagner Villa Interpretating Date/Time 04/13/2017 21:22:50
[2017-04-13 21:37] LABS: BLOOD, URINE NEG (NEG); GLUCOSE,URINE NEG (NEG); KETONE, URINE NEG (NEG); NITRITE,URINE NEG (NEG)
[2017-04-13 21:52] LABS: AMPHETAMINE, URINE NEG (NEG); BARBITURATES, URINE NEG (NEG); COCAINE, URINE NEG (NEG)
--- NOTE | 2017-04-13 22:03 | RADHPO ---
EXAM DATE/TIME: 04/13/2017 21:25 [facility] COMPARISON: No previous studies available for comparison. INDICATIONS : Bilateral leg swelling. MEDICAL HISTORY : Hypertension. Arthritis. Recent fall with ankle injury. Coronary artery disease. Anxiety. Thyroid di sease. SURGICAL HISTORY : Hysterectomy. Thyroid surgery. ENCOUNTER: Initial ACUITY: 2 day PAIN SCORE: Non-responsive LOCATION: Bilateral legs. TECHNIQUE: Venous ultrasound of the left and right leg was performed from the inguinal ligament to the proximal calf. Real-time, color Doppler and spectral tracing, compression and augmentation techniques were us ed. FINDINGS: RIGHT LEG: There is normal compressibility of the deep venous system from the inguinal region to the proximal ca lf. No echogenic clot is seen in the lumen of the common femoral, femoral, popliteal, and posterior tibial veins. There is a normal response of the venous system to proximal and distal augmentation an d respiration. LEFT LEG: There is normal compressibility of the deep venous system from the inguinal region to the proximal ca lf. No echogenic clot is seen in the lumen of the common femoral, femoral, popliteal, and posterior tibial veins. There is a normal response of the venous system to proximal and distal augmentation an d respiration. CONCLUSION: No evidence of deep venous thrombosis within the lower extremities. Alex Whiteside MD on April 13, 2017 at 22:01 Board Certified Radiologist. This report was verified electronically.
[2017-04-13 22:04] LABS: METHOD OF COLLECTION CATH; URINE COLOR YELLOW (YELLW/STRAW)
[2017-04-13 22:05] LABS: MUCUS URINE FEW /lpf (OCC); RBC, URINE 0-3 /hpf (0-3); SQUAMOUS EPITHELIAL CELL URINE 0-5 /hpf (0-5)
[2017-04-13 22:06] LABS: COMMENT (UR) CATH-CULT NOT IND; CULTURE IF INDICATED CATH CULTURE NOT IND; WBC, URINE 0-2 /hpf (0-5)
[2017-04-13] MEDS: SODIUM CHLORIDE 0.9% FLUSH 10 ML FLUSH IVF SCH (22:45)
[2017-04-13] MEDS: MAGNESIUM SULFATE 1 GM PREMIX 100 ML IV SCH (22:45)
[2017-04-13] MEDS: DOCUSATE SODIUM 50 MG/SENNA 8.6 MG TAB PO SCH (22:45)
[2017-04-13] MEDS: LORazepam 2 MG/ML VIAL IV PUSH PRN ×2 (22:45→23:38)
[2017-04-13] MEDS: SODIUM CHLORIDE 0.9% FLUSH 10 ML FLUSH IV FLUSH SCH ×2 (22:45)
[2017-04-13] MEDS ORDERED: CLEVIDIPINE INJ 50 ML IV SCH (23:00)
[2017-04-13] MEDS ORDERED: GELATIN 12 MM/7 MM FOAM TOPICAL ONE (23:15)
[2017-04-13] MEDS ORDERED: SODIUM CHLOR 0.45% IV ONE (23:45)
[2017-04-13] MEDS ORDERED: MAGNESIUM SULFATE IV ONE (23:45)
[2017-04-13 23:50] LABS: APTT (PATIENT) 31.3 SEC (24.3-30.1); PROTHROMBIN TIME - PATIENT 11.4 SEC (9.8-11.6)
[2017-04-14] VITALS (22 sets, daily range): BP systolic 96–160; BP diastolic 60–111; PULSE 66–118; RESP 22–31; TEMP 98.1–99.8; O2SAT 95–100
[2017-04-14 00:02] LABS: MAGNESIUM 1.5 MG/DL (1.5-2.5)
[2017-04-14 00:43] LABS: CKMB 14.2 NG/ML (0.5-3.6)
[2017-04-14] MEDS: LORazepam 2 MG/ML VIAL IV PUSH PRN ×7 (00:58→23:45)
[2017-04-14] MEDS: CHLORHEXIDINE GLUCONATE 2 % 1 PACK (2 CLOTHS) TOP SCH (04:00)
[2017-04-14 05:31] LABS: AUTOMATED NEUTROPHIL # 9.4 TH/MM3 (1.8-7.7); BASOPHIL % 0.1 % (0.0-2.0); EOSINOPHIL # 0.1 TH/MM3 (0-0.4); EOSINOPHIL % 0.5 % (0.0-4.0); HEMATOCRIT 28.2 % (35.0-46.0); HEMO FLAGS DIFF FINAL; LYMPHOCYTE # 0.4 TH/MM3 (1.0-4.8); MEAN CELL VOLUME 91.4 FL (80.0-100.0); MEAN CORPUSCULAR HEMOGLOBIN 30.9 PG (27.0-34.0); MEAN CORPUSCULAR HGB CONC 33.7 % (32.0-36.0); MONO % 8.2 % (0.0-8.0); NEUT % 87.2 % (16.0-70.0); PLATELET COUNT 415 TH/MM3 (150-450); RED BLOOD COUNT 3.08 MIL/MM3 (4.00-5.30); RED CELL DISTRIBUTION WIDTH 13.8 % (11.6-17.2); WHITE BLOOD COUNT 10.8 TH/MM3 (4.0-11.0)
[2017-04-14 05:57] LABS: ALKALINE PHOSPHATASE 88 U/L (45-117); ALT (GPT) 29 U/L (10-53); ANION GAP 9 MEQ/L (5-15); AST (GOT) 50 U/L (15-37); BICARBONATE 24.4 MEQ/L (21.0-32.0); BLOOD UREA NITROGEN 7 MG/DL (7-18); CHLORIDE 86 MEQ/L (98-107); GLOMERULAR FILTRATION RATE 109 ML/MIN (>89); MAGNESIUM 2.4 MG/DL (1.5-2.5); POTASSIUM 4.2 MEQ/L (3.5-5.1); TOTAL BILIRUBIN ADULT 0.9 MG/DL (0.2-1.0)
[2017-04-14 06:15] LABS: SODIUM (NA) 119 MEQ/L (136-145)
[2017-04-14 06:21] LABS: APTT (PATIENT) 32.9 SEC (24.3-30.1); PROTHROMBIN TIME - PATIENT 11.1 SEC (9.8-11.6)
[2017-04-14 06:38] LABS: ACETAMINOPHEN 3.8 MCG/ML (10.0-30.0)
--- NOTE | 2017-04-14 07:44 | HHI.CCPN ---
Subjective Remarks/Hospital Course 04/13: 71-year-old female. Date of admission 04/13/2017. Past medical history includes gait imbalance disorder with frequent falls, hypertension, depression, coronary artery disease status post stent 3, chronic benzodiazepine narcotic use and hypothyroidism. Of note she had an episode of altered mental status approximate 1 year ago due to chronic melatonin overdose according to her daughter Danielle. During the hospital sensation she actually struck her head and had 15 darwin placed at the affected site. She presents to [facility] today being brought in by her neighbor after recurrent falls on her left side. This is likely, she fell on her left leg and striking her left shoulder and left lower extremity against a wall Imaging of the leg revealed no acute fractures the left lower extremity or foot. Old left metatarsal fracture and degenerative joint disease was noted. She received morphine, Zofran with some relief. She became more agitated and received 4 mg of Ativan total and 12 mg of morphine for management of acute delirium and pain. CT head revealed no acute intracranial abnormalities except for right maxillary sinusitis/ethmoids cell sinusitis. Pertinent laboratories revealed a sodium 115. Initial thought this patient who drinks 2-4 alcoholic next daily likely more due to a son who years ago from cancer was going to withdrawals with falls at home to alcohol use. Alcohol level EGD was less than 3. Urine toxicology positive for opiates only which she takes Percocet as needed. 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 This has been held. Sodium is increased from 115 to 122 in the interim. Currently at 120 after being switched to half-normal saline. Every 2 hours sodiums continued to be drawn. 04/14: Awake, confused, disoriented. Moves all 4 extremities. Sodium level 119 this morning. Switching from 1/2NS to normal saline at 42 cc per hour with every 4 hourly sodiums. Discussed with patient's daughter, she feels that patient may have recently increased her alcohol intake. She states that patient was neurologically doing well till a day before her presentation and she was talking to her by phone every day for the last 2 weeks prior to her hospitalization. Objective Vital Signs Date Time Temp Pulse Resp B/P Pulse Ox O2 Delivery O2 Flow Rate FiO2 04/13/17 22:31 99 Nasal Cannula 2 04/13/17 20:34 102 20 174/86 04/13/17 17:31 21 04/13/17 15:09 97.8 Intake and Output 04/13/17 04/13/17 04/14/17 08:00 16:00 00:00 Output Total 400 ml Balance -400 ml Result Diagram: 04/14/17 0520 04/14/17 0420 Other Results Laboratory Tests Test 04/13/17 04/13/17 04/13/17 04/13/17 16:00 16:30 18:30 20:15 Uric Acid 2.6 MG/DL Phosphorus Level 2.9 MG/DL Magnesium Level 1.5 MG/DL Triglycerides Level 94 MG/DL Lipase 160 U/L Thyroid Stimulating Hormone 5.400 uIU/ML 3rd Gen White Blood Count 7.9 TH/MM3 Red Blood Count 3.26 MIL/MM3 Hemoglobin 9.9 GM/DL Hematocrit 30.2 % Mean Corpuscular Volume 92.7 FL Mean Corpuscular Hemoglobin 30.3 PG Mean Corpuscular Hemoglobin 32.7 % Concent Red Cell Distribution Width 14.4 % Platelet Count 415 TH/MM3 Mean Platelet Volume 7.6 FL Neutrophils (%) (Auto) 74.7 % Lymphocytes (%) (Auto) 10.4 % Monocytes (%) (Auto) 12.3 % Eosinophils (%) (Auto) 1.7 % Basophils (%) (Auto) 0.9 % Neutrophils # (Auto) 5.9 TH/MM3 Lymphocytes # (Auto) 0.8 TH/MM3 Monocytes # (Auto) 1.0 TH/MM3 Eosinophils # (Auto) 0.1 TH/MM3 Basophils # (Auto) 0.1 TH/MM3 CBC Comment DIFF FINAL Differential Comment Sodium Level 115 MEQ/L 122 MEQ/L Potassium Level 4.1 MEQ/L 3.3 MEQ/L Chloride Level 81 MEQ/L 88 MEQ/L Carbon Dioxide Level 21.4 MEQ/L 22.0 MEQ/L Anion Gap 13 MEQ/L 12 MEQ/L Blood Urea Nitrogen 9 MG/DL 8 MG/DL Creatinine 0.69 MG/DL 0.60 MG/DL Estimat Glomerular Filtration 84 ML/MIN 99 ML/MIN Rate Random Glucose 92 MG/DL 101 MG/DL Calcium Level 8.8 MG/DL 8.1 MG/DL Ethyl Alcohol Level LESS THAN 3 LESS THAN 3 MG/DL MG/DL Serum Osmolality 250 MOSM/KG Total Bilirubin 0.8 MG/DL Direct Bilirubin 0.2 MG/DL Indirect Bilirubin 0.6 MG/DL Aspartate Amino Transf 30 U/L (AST/SGOT) Alanine Aminotransferase 28 U/L (ALT/SGPT) Alkaline Phosphatase 81 U/L Ammonia 18 MCMOL/L Troponin I LESS THAN 0.02 NG/ML Total Protein 6.4 GM/DL Albumin 3.5 GM/DL Random Cortisol 14.6 MCG/DL Salicylates Level LESS THAN 1.7 MG/DL B-Hydroxybutyrate 0.19 MMOL/L Blood Gas Puncture Site LT RADIAL Blood Gas Patient Temperature 98.6 Blood Gas HCO3 23 mmol/L Blood Gas Base Excess -1.8 mmol/L Blood Gas Oxygen Saturation 97 % Arterial Blood pH 7.35 Arterial Blood Partial 42 mmHG Pressure CO2 Arterial Blood Partial 163 mmHG Pressure O2 Arterial Blood Oxygen Content 13.4 Vol % Arterial Blood 1.8 % Carboxyhemoglobin Arterial Blood Methemoglobin 1.0 % Blood Gas Hemoglobin 9.6 G/DL Oxygen Delivery Device NASAL CANNULA Blood Gas Liter Flow 4 L/M Test 04/13/17 04/13/17 04/13/17 04/14/17 20:32 21:18 22:45 02:30 Sodium Level 120 MEQ/L 119 MEQ/L 119 MEQ/L Urine Collection Type CATH Urine Color YELLOW Urine Turbidity CLEAR Urine pH 7.0 Urine Specific Koppel 1.012 Urine Protein NEG mg/dL Urine Glucose (UA) NEG mg/dL Urine Ketones NEG mg/dL Urine Occult Blood NEG Urine Nitrite NEG Urine Bilirubin NEG Urine Leukocyte Esterase NEG Urine RBC 0-3 /hpf Urine WBC 0-2 /hpf Urine Squamous Epithelial 0-5 /hpf Cells Urine Amorphous Sediment FEW Urine Mucus FEW /lpf Microscopic Urinalysis Comment CATH-CULT NOT IND Urine Opiates Screen POS Urine Barbiturates Screen NEG Urine Amphetamines Screen NEG Urine Benzodiazepines Screen NEG Urine Cocaine Screen NEG Urine Cannabinoids Screen NEG Urine Osmolality 375 MOSM/KG Urine Random Sodium 40 MEQ/L Prothrombin Time 11.4 SEC Prothromb Time International 1.0 RATIO Ratio Activated Partial 31.3 SEC Thromboplast Time Magnesium Level 1.5 MG/DL Total Creatine Kinase 567 U/L Creatine Kinase MB 14.2 NG/ML Creatine Kinase MB % 2.5 % Troponin I 0.23 NG/ML Thyroid Stimulating Hormone 8.370 uIU/ML 3rd Gen Acetaminophen Level 3.8 MCG/ML Test 04/14/17 04/14/17 04:20 05:20 Sodium Level 119 MEQ/L Potassium Level 4.2 MEQ/L Chloride Level 86 MEQ/L Carbon Dioxide Level 24.4 MEQ/L Anion Gap 9 MEQ/L Blood Urea Nitrogen 7 MG/DL Creatinine 0.55 MG/DL Estimat Glomerular Filtration 109 ML/MIN Rate Random Glucose 123 MG/DL Calcium Level 8.0 MG/DL Phosphorus Level 2.6 MG/DL Magnesium Level 2.4 MG/DL Total Bilirubin 0.9 MG/DL Aspartate Amino Transf 50 U/L (AST/SGOT) Alanine Aminotransferase 29 U/L (ALT/SGPT) Alkaline Phosphatase 88 U/L Total Protein 6.1 GM/DL Albumin 3.4 GM/DL White Blood Count 10.8 TH/MM3 Red Blood Count 3.08 MIL/MM3 Hemoglobin 9.5 GM/DL Hematocrit 28.2 % Mean Corpuscular Volume 91.4 FL Mean Corpuscular Hemoglobin 30.9 PG Mean Corpuscular Hemoglobin 33.7 % Concent Red Cell Distribution Width 13.8 % Platelet Count 415 TH/MM3 Mean Platelet Volume 7.0 FL Neutrophils (%) (Auto) 87.2 % Lymphocytes (%) (Auto) 4.0 % Monocytes (%) (Auto) 8.2 % Eosinophils (%) (Auto) 0.5 % Basophils (%) (Auto) 0.1 % Neutrophils # (Auto) 9.4 TH/MM3 Lymphocytes # (Auto) 0.4 TH/MM3 Monocytes # (Auto) 0.9 TH/MM3 Eosinophils # (Auto) 0.1 TH/MM3 Basophils # (Auto) 0.0 TH/MM3 CBC Comment DIFF FINAL Differential Comment Prothrombin Time 11.1 SEC Prothromb Time International 1.0 RATIO Ratio Activated Partial 32.9 SEC Thromboplast Time Lactic Acid Level 0.9 mmol/L Imaging Last Impressions Tibia/Fibula X-Ray 04/13/17 0000 Signed Impressions: Service Date/Time: Thursday, April 13, 2017 16:19 - CONCLUSION: 1. Moderate arthritic changes involving the femoral tibial and patellofemoral joints. 2. No acute fracture or dislocation. Alex Whiteside MD Head CT 04/13/17 0000 Signed Impressions: Service Date/Time: Thursday, April 13, 2017 18:00 - CONCLUSION: 1. No acute intracranial abnormality. 2. Opacified right maxillary sinus and right ethmoid air cells consistent with probable sinusitis. Alex Whiteside MD Foot X-Ray 04/13/17 0000 Signed Impressions: Service Date/Time: Thursday, April 13, 2017 15:31 - CONCLUSION: 1. Arthritic changes involving the tarso-tarsal and tarsal-metatarsals joints in the midfoot. 2. Bony fusion of the left 1st metatarsophalangeal joint. 3. Plantar calcaneal spur. 4. No acute fracture or dislocation. Alex Whiteside MD Chest X-Ray 04/13/17 0000 Signed Impressions: Service Date/Time: Thursday, April 13, 2017 18:41 - CONCLUSION: 1. Patchiness within the upper lung mancuso bilaterally consistent with atelectasis and/or developing pneumonia. Clinical correlation is recommended. 2. Cardiomegaly. 3. Degenerative changes and scoliosis of the thoracolumbar spine. Alex Whiteside MD Objective Remarks GENERAL: 71-year-old female, critically ill currently resting in bed on nasal cannula SKIN: Warm and dry. Multiple evolving ecchymoses to the left upper extremity, left lower extremity HEAD: Atraumatic. Normocephalic. EYES: Pupils equal and round about 3 mm bilaterally and reactive. No scleral icterus. No injection or drainage. ENT: No nasal bleeding or discharge. Mucous membranes pink and moist. Oropharynx without erythema NECK: Trachea midline. No JVD. CARDIOVASCULAR: Regular rate and rhythm. S1, S2. No S4. Without murmur RESPIRATORY: Few fine crackles appreciated posteriorly in the upper lobes bilaterally. No wheezes. Symmetrical excursion.. GASTROINTESTINAL: Abdomen soft, non-tender, nondistended. Hypoactive bowel sounds appreciated. Some ecchymosis to the left flank MUSCULOSKELETAL: Extremities with 1+ edema left lower extremity. Minimal edema left lower extremity.. NEUROLOGICAL: Arousable but falls asleep easily. Moving all 4 extremities spontaneously but not purposely. Positive gag. Currently protecting airway adequately. Urinary Catheter: Yes Assessment to: Continue Vascular Central Line Catheter: Yes Assessment to: Continue Date of Insertion: April 13, 2017 Line: Central Venous Catheter Side: Right Location: Jugular A/P Assessment and Plan Neuro/Psych: Acute encephalopathy - toxic metabolic versus EtOH withdrawal versus other EtOH use Frequent falls CT brain 04/13 revealed no acute intracranial findings. Right maxillary and ethmoid space sinusitis Continue thiamine 100 mg IV daily/folate and multivitamin daily. We will initiate Precedex drip to control agitation in an attempt to minimize benzodiazepines. EtOH withdrawal protocol initiated CIWA protocol initiated Received 12 mg morphine 4 mg Ativan in ED to date May need EEG/MRI brain/MRA brain and neck during this hospitalization if neurologic status does not improve with correction of hyponatremia. Holding Escitalopram 10 mg by mouth daily for depression. Holding Xanax 0.25 mg as needed for anxiety. Resume if clinically indicated Holding Percocet 5/325 tablet every 6 hours. Pain. Resume when clinically indicated CV: Hypertension Coronary artery disease status post stent 3 On nadolol 80 mg by mouth daily and losartan 25 mg daily for hypertension. As needed labetalol/hydralazine/Nitropaste to keep systolic blood pressure less than 160 On one half will saline at 42 cc an hour - switched to normal saline 04/14 Initial EKG showed atrial fibrillation? Currently in sinus tachycardia. Initial troponin not indicative of underlying cardiac ischemia. Does have history of coronary artery stents 3. Resp: Possible pneumonia/aspiration versus community-acquired Chest x-ray revealed bilateral upper lobe opacities possible aspiration in light of acute delirium Nasal cannula to maintain saturations greater than equal to 92%. Currently on 4 L Incentive spirometry while awake As needed albuterol therapy for shortness of breath GI: Patient is currently nothing by mouth Protonix for GI prophylaxis Louann-Colace twice a day for bowel regimen ordered : Shane for accurate I's and O's in a critically ill patient. UA no indication for culture Endo: Hypothyroidism TSH currently elevated 8.37 We'll check free 02/17. Will likely need increased from 75 to 88 g daily pending results Sliding-scale insulin with Accu-Cheks every 6 hours to maintain euglycemia/low regimen Renal: Creatinine currently within normal limits. Accurate I's and O's Monitor urine output Heme: Normocytic anemia No signs of active bleeding. No indications for transfusion of blood products at the present time Coags still pending ID: Possible aspiration pneumonia Check blood cultures 2, urine no indications for culture. We'll start on Zosyn/Zithromax for community-acquired pneumonia. See orders Msk: Osteoarthritis Thoracic scoliosis Left calcaneal spur old fracture 6 second metatarsal Degenerative joint disease left patellofemoral and femorotibial joints X-ray left foot revealed an effusion left first metatarsal. Arthritic changes to the tarsal/tarsal and tarsometatarsal joints. Calcaneal spur. Old fracture secondary tarsal. X-ray left tib/fib revealed moderate arthritic changes to the patellofemoral and femoral tibial joints. PT evaluate and treat FEN: Hypoosmolar Hyponatremia Hypokalemia Hypo-magnesium Serum and urine osm and urine sodium both pending at time of dictation. Cortisol within normal limits. TSH slightly elevated 5.4. Uric acid 2.6 at the lower end of normal. Discontinued 3% saline as sodium has increased from 115 to 122 within 2 hours. Currently on one half normal saline at 42 cc an hour. Serial sodiums every 2 hours. Avoid rapid correction greater than or less than 2 every 2 hours 2 g mag sulfate, 40 mEq KCl 1. Recheck in a.m. Access - Right IJ CVL placed 04/13 day #1 Prophylaxis - GI - Protonix - DVT - SCD/heparin subcutaneous will be held in light of oozing from central line Critical Care: The total critical care time was 30 minutes. Time to perform other separately billable procedures was not included in the critical care time. Jorge Shaw MD April 14, 2017 07:44
[2017-04-14] MEDS: LEVOTHYROXINE SODIUM 100 MCG VIAL IV PUSH SCH (08:00)
[2017-04-14] MEDS: SODIUM CHLOR 0.9% 1000 ML INJ 1,000 ML IV SCH ×2 (08:00→23:33)
[2017-04-14] MEDS ORDERED: DEXMEDETOMIDINE INJ 200 MCG in SODIUM CHLORIDE 0.9% INJ 50 ML IV SCH (08:30)
[2017-04-14] MEDS: PANTOPRAZOLE SODIUM 40 MG VIAL IV SCH (08:54)
[2017-04-14] MEDS: ARTIFICIAL TEARS OPTH SOLN 15 ML BTL EACH EYE SCH ×4 (08:54→18:00)
[2017-04-14] MEDS: SODIUM CHLORIDE 0.9% FLUSH 10 ML FLUSH IVF SCH (08:55)
[2017-04-14] MEDS: SODIUM CHLORIDE 0.9% FLUSH 10 ML FLUSH IV FLUSH SCH ×4 (08:55→21:00)
[2017-04-14] MEDS ORDERED: LEVOTHYROXINE SODIUM 75 MCG TAB PO SCH (09:00)
[2017-04-14] MEDS: MULTIVITAMIN TAB PO SCH (09:00)
[2017-04-14] MEDS: NADOLOL 20 MG TAB PO SCH (09:00)
[2017-04-14] MEDS ORDERED: NADOLOL 40 MG TAB PO SCH (09:00)
[2017-04-14] MEDS: THIAMINE INJ 100 MG in SODIUM CHLORIDE 0.9% INJ 100 ML IV SCH (09:00)
[2017-04-14] MEDS: FOLIC ACID 1 MG TAB PO SCH (09:00)
[2017-04-14] MEDS: DOCUSATE SODIUM 50 MG/SENNA 8.6 MG TAB PO SCH ×2 (09:00→21:00)
[2017-04-14] MEDS: LOSARTAN 25 MG TAB PO SCH (09:00)
[2017-04-15] VITALS (24 sets, daily range): BP systolic 91–173; BP diastolic 58–99; PULSE 56–104; RESP 18–27; TEMP 97.5–98; O2SAT 94–99
[2017-04-15] MEDS: CHLORHEXIDINE GLUCONATE 2 % 1 PACK (2 CLOTHS) TOP SCH (04:00)
[2017-04-15] MEDS: LEVOTHYROXINE SODIUM 100 MCG VIAL IV PUSH SCH ×2 (05:11→10:57)
[2017-04-15] MEDS: LORazepam 2 MG/ML VIAL IV PUSH PRN ×4 (05:11→23:44)
[2017-04-15 05:20] LABS: AUTOMATED NEUTROPHIL # 5.3 TH/MM3 (1.8-7.7); BASOPHIL % 0.7 % (0.0-2.0); EOSINOPHIL # 0.1 TH/MM3 (0-0.4); EOSINOPHIL % 1.8 % (0.0-4.0); HEMATOCRIT 22.8 % (35.0-46.0); LYMPH % 6.8 % (9.0-44.0); LYMPHOCYTE # 0.4 TH/MM3 (1.0-4.8); MEAN CELL VOLUME 92.3 FL (80.0-100.0); MEAN CORPUSCULAR HEMOGLOBIN 30.9 PG (27.0-34.0); MEAN CORPUSCULAR HGB CONC 33.5 % (32.0-36.0); MONO % 7.5 % (0.0-8.0); NEUT % 83.2 % (16.0-70.0); PLATELET COUNT 303 TH/MM3 (150-450); RED BLOOD COUNT 2.47 MIL/MM3 (4.00-5.30); RED CELL DISTRIBUTION WIDTH 14.2 % (11.6-17.2); WHITE BLOOD COUNT 6.3 TH/MM3 (4.0-11.0)
[2017-04-15 05:21] LABS: HEMO FLAGS DIFF FINAL
[2017-04-15 06:02] LABS: ALKALINE PHOSPHATASE 71 U/L (45-117); ALT (GPT) 31 U/L (10-53); ANION GAP 7 MEQ/L (5-15); AST (GOT) 79 U/L (15-37); BICARBONATE 24.3 MEQ/L (21.0-32.0); BLOOD UREA NITROGEN 5 MG/DL (7-18); CHLORIDE 92 MEQ/L (98-107); GLOMERULAR FILTRATION RATE 125 ML/MIN (>89); POTASSIUM 3.6 MEQ/L (3.5-5.1); TOTAL BILIRUBIN ADULT 0.8 MG/DL (0.2-1.0)
[2017-04-15 06:03] LABS: SODIUM (NA) 123 MEQ/L (136-145)
--- NOTE | 2017-04-15 07:58 | HHI.CCPN ---
Subjective Remarks/Hospital Course 04/13: 71-year-old female. Date of admission 04/13/2017. Past medical history includes gait imbalance disorder with frequent falls, hypertension, depression, coronary artery disease status post stent 3, chronic benzodiazepine narcotic use and hypothyroidism. Of note she had an episode of altered mental status approximate 1 year ago due to chronic melatonin overdose according to her daughter Danielle. During the hospital sensation she actually struck her head and had 15 darwin placed at the affected site. She presents to [facility] today being brought in by her neighbor after recurrent falls on her left side. This is likely, she fell on her left leg and striking her left shoulder and left lower extremity against a wall Imaging of the leg revealed no acute fractures the left lower extremity or foot. Old left metatarsal fracture and degenerative joint disease was noted. She received morphine, Zofran with some relief. She became more agitated and received 4 mg of Ativan total and 12 mg of morphine for management of acute delirium and pain. CT head revealed no acute intracranial abnormalities except for right maxillary sinusitis/ethmoids cell sinusitis. Pertinent laboratories revealed a sodium 115. Initial thought this patient who drinks 2-4 alcoholic next daily likely more due to a son who years ago from cancer was going to withdrawals with falls at home to alcohol use. Alcohol level EGD was less than 3. Urine toxicology positive for opiates only which she takes Percocet as needed. 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 This has been held. Sodium is increased from 115 to 122 in the interim. Currently at 120 after being switched to half-normal saline. Every 2 hours sodiums continued to be drawn. 04/14: Awake, confused, disoriented. Moves all 4 extremities. Sodium level 119 this morning. Switching from 1/2NS to normal saline at 42 cc per hour with every 4 hourly sodiums. Discussed with patient's daughter, she feels that patient may have recently increased her alcohol intake. She states that patient was neurologically doing well till a day before her presentation and she was talking to her by phone every day for the last 2 weeks prior to her hospitalization. 04/15: More awake. Not following commands this morning however per RN she was asking questions regarding why she was in the hospital earlier. Laying in bed comfortably. Objective Vital Signs Date Time Temp Pulse Resp B/P Pulse Ox O2 Delivery O2 Flow Rate FiO2 04/15/17 06:00 58 19 115/71 04/15/17 04:00 97.7 04/14/17 22:00 99 04/14/17 19:50 21 04/13/17 22:31 Nasal Cannula 2 Intake and Output 04/14/17 04/14/17 04/15/17 08:00 16:00 00:00 Intake Total 520 ml 1576 ml Output Total 3900 ml 475 ml Balance -3380 ml 1101 ml Result Diagram: 04/15/17 0500 04/15/17 0500 Imaging Last Impressions Tibia/Fibula X-Ray 04/13/17 0000 Signed Impressions: Service Date/Time: Thursday, April 13, 2017 16:19 - CONCLUSION: 1. Moderate arthritic changes involving the femoral tibial and patellofemoral joints. 2. No acute fracture or dislocation. Alex Whiteside MD Head CT 04/13/17 0000 Signed Impressions: Service Date/Time: Thursday, April 13, 2017 18:00 - CONCLUSION: 1. No acute intracranial abnormality. 2. Opacified right maxillary sinus and right ethmoid air cells consistent with probable sinusitis. Alex Whiteside MD Foot X-Ray 04/13/17 0000 Signed Impressions: Service Date/Time: Thursday, April 13, 2017 15:31 - CONCLUSION: 1. Arthritic changes involving the tarso-tarsal and tarsal-metatarsals joints in the midfoot. 2. Bony fusion of the left 1st metatarsophalangeal joint. 3. Plantar calcaneal spur. 4. No acute fracture or dislocation. Alex Whiteside MD Chest X-Ray 04/13/17 0000 Signed Impressions: Service Date/Time: Thursday, April 13, 2017 18:41 - CONCLUSION: 1. Patchiness within the upper lung mancuso bilaterally consistent with atelectasis and/or developing pneumonia. Clinical correlation is recommended. 2. Cardiomegaly. 3. Degenerative changes and scoliosis of the thoracolumbar spine. Alex Whiteside MD Objective Remarks GENERAL: 71-year-old female, currently resting in bed on nasal cannula SKIN: Warm and dry. Multiple evolving ecchymoses to the left upper extremity, left lower extremity HEAD: Atraumatic. Normocephalic. EYES: Pupils equal and round about 3 mm bilaterally and reactive. No scleral icterus. No injection or drainage. Pallor present ENT: No nasal bleeding or discharge. Mucous membranes pink and moist. Oropharynx without erythema NECK: Trachea midline. No JVD. CARDIOVASCULAR: Regular rate and rhythm. S1, S2. No S4. Without murmur RESPIRATORY: Few fine crackles appreciated posteriorly in the upper lobes bilaterally. No wheezes. Symmetrical excursion.. GASTROINTESTINAL: Abdomen soft, non-tender, nondistended. Hypoactive bowel sounds appreciated. Some ecchymosis to the left flank MUSCULOSKELETAL: Extremities with 1+ edema left lower extremity. Minimal edema left lower extremity.. NEUROLOGICAL: Arousable but falls asleep easily. Moving all 4 extremities spontaneously but not purposely. Positive gag. Currently protecting airway adequately. Urinary Catheter: Yes Assessment to: Continue Vascular Central Line Catheter: Yes Assessment to: Continue Date of Insertion: April 13, 2017 Line: Central Venous Catheter Side: Right Location: Jugular A/P Assessment and Plan Neuro/Psych: Acute encephalopathy - toxic metabolic versus EtOH withdrawal versus other EtOH use Frequent falls CT brain 04/13 revealed no acute intracranial findings. Right maxillary and ethmoid space sinusitis Continue thiamine 100 mg IV daily/folate and multivitamin daily. Continue Precedex drip to control agitation in an attempt to minimize benzodiazepines. EtOH withdrawal protocol initiated CIWA protocol initiated Received 12 mg morphine 4 mg Ativan in ED to date May need EEG/MRI brain/MRA brain and neck during this hospitalization if neurologic status does not improve with correction of hyponatremia. Holding Escitalopram 10 mg by mouth daily for depression. Holding Xanax 0.25 mg as needed for anxiety. Resume if clinically indicated Holding Percocet 5/325 tablet every 6 hours. Pain. Resume when clinically indicated CV: Hypertension Coronary artery disease status post stent 3 On nadolol 80 mg by mouth daily and losartan 25 mg daily for hypertension. As needed labetalol/hydralazine/Nitropaste to keep systolic blood pressure less than 160 On one half will saline at 42 cc an hour - switched to normal saline 04/14 Initial EKG showed atrial fibrillation? Currently in sinus tachycardia. Initial troponin not indicative of underlying cardiac ischemia. Does have history of coronary artery stents 3. Resp: Possible pneumonia/aspiration versus community-acquired Chest x-ray revealed bilateral upper lobe opacities possible aspiration in light of acute delirium Nasal cannula to maintain saturations greater than equal to 92%. Currently on 4 L Incentive spirometry while awake As needed albuterol therapy for shortness of breath GI: Patient is currently nothing by mouth Protonix for GI prophylaxis Louann-Colace twice a day for bowel regimen ordered : Lynn for accurate I's and O's in a critically ill patient. UA no indication for culture Endo: Hypothyroidism TSH currently elevated 8.37 We'll check free 02/17. Will likely need PO dose increased from 75 to 88 g daily pending results. Currently on IV Synthroid 50 g daily Sliding-scale insulin with Accu-Cheks every 6 hours to maintain euglycemia/low regimen Renal: Creatinine currently within normal limits. Accurate I's and O's Monitor urine output Heme: Normocytic anemia No signs of active bleeding. No indications for transfusion of blood products at the present time Basic anemia workup ordered ID: Possible aspiration pneumonia Check blood cultures 2, urine no indications for culture. Continue Zosyn/Zithromax for community-acquired pneumonia. Msk: Osteoarthritis Thoracic scoliosis Left calcaneal spur old fracture 6 second metatarsal Degenerative joint disease left patellofemoral and femorotibial joints X-ray left foot revealed an effusion left first metatarsal. Arthritic changes to the tarsal/tarsal and tarsometatarsal joints. Calcaneal spur. Old fracture secondary tarsal. X-ray left tib/fib revealed moderate arthritic changes to the patellofemoral and femoral tibial joints. PT evaluate and treat FEN: Hypoosmolar Hyponatremia Hypokalemia Hypo-magnesium Serum and urine osm and urine sodium both pending at time of dictation. Cortisol within normal limits. TSH slightly elevated 5.4. Uric acid 2.6 at the lower end of normal. Normal saline at 100 cc an hour Serial sodiums every 6 hours. Access - Right IJ CVL placed 04/13 Prophylaxis - GI - Protonix - DVT - SCD/heparin subcutaneous will be held in light of oozing from central line Critical Care: The total critical care time was 30 minutes. Time to perform other separately billable procedures was not included in the critical care time. Jorge Shaw MD April 15, 2017 07:58
[2017-04-15] MEDS: DOCUSATE SODIUM 50 MG/SENNA 8.6 MG TAB PO SCH ×2 (09:00→21:40)
[2017-04-15] MEDS: LOSARTAN 25 MG TAB PO SCH (09:00)
[2017-04-15] MEDS: MULTIVITAMIN TAB PO SCH (09:00)
[2017-04-15] MEDS: FOLIC ACID 1 MG TAB PO SCH (09:00)
[2017-04-15] MEDS: NADOLOL 20 MG TAB PO SCH (09:00)
[2017-04-15] MEDS: ARTIFICIAL TEARS OPTH SOLN 15 ML BTL EACH EYE SCH ×3 (09:00→18:21)
[2017-04-15] MEDS: SODIUM CHLOR 0.9% 1000 ML INJ 1,000 ML IV SCH ×2 (10:30→19:52)
[2017-04-15 10:43] LABS: RETIC % 2.8 % (0.4-3.0); REVIEW FLAG FINAL
[2017-04-15] MEDS: THIAMINE INJ 100 MG in SODIUM CHLORIDE 0.9% INJ 100 ML IV SCH (10:56)
[2017-04-15] MEDS: SODIUM CHLORIDE 0.9% FLUSH 10 ML FLUSH IV FLUSH SCH ×4 (10:57→21:40)
[2017-04-15] MEDS: SODIUM CHLORIDE 0.9% FLUSH 10 ML FLUSH IVF SCH (10:57)
[2017-04-15] MEDS: PANTOPRAZOLE SODIUM 40 MG VIAL IV SCH (10:57)
[2017-04-15] MEDS ORDERED: GADODIAMIDE PF 287 MG/ML 20 ML VIAL (for RAD MRI) IV ONE (16:10)
--- NOTE | 2017-04-15 16:46 | MG ---
cc: CAROLINA MCFADDEN Lab No: [id number] Date: 04/15/2017 Age: Sex: F Race: TECHNIQUE 17 channel EEG. DESCRIPTION The background rhythm shows generalized slowing in the theta frequency roughly 5-6 Hz amplitude 10-20 microvolts. There is some mild further slowing in the delta frequency as well at roughly 3-4 Hz. There is some muscle artifact present. No lateralizing features identified and no epileptic features identified. Hyperventilation was not done. Photic stimulation was done in a stepwise fashion with a poor driving response. INTERPRETATION Abnormal study with generalized slowing consistent with a mild degree of encephalopathy versus sleep activity. MD FRANCES Abel/jet /3:19 PM /4:45 PM
--- NOTE | 2017-04-15 18:25 | RADHPO ---
EXAM DATE/TIME: 04/15/2017 15:20 [facility] COMPARISON: No previous studies available for comparison. INDICATIONS : Altered mental status. Encephalopathy. CONTRAST: 20 cc Omniscan (gadodiamide) IV MEDICAL HISTORY : Hypertension. Cardiovascular disease SURGICAL HISTORY : Thyroidectomy. Hysterectomy. Cardiac stent. ENCOUNTER: Subsequent ACUITY: 3 day PAIN SCORE: 3/10 LOCATION: neck Percent stenosis is calculated using the diameter of the stenotic region over the diameter of the nor mal distal internal carotid artery. TECHNIQUE: Bolus infused MRA of the extracranial circulation was performed using a neurovascular coil. Post pro cessing was performed including rotating subvolume maximum intensity projections of each carotid michel ry, rotating full volume maximum intensity projections of both carotid arteries, sagittal and coronal sliding thin slab reformations of each carotid artery, and left oblique sliding thin slab reformatio n through the aortic arch to include the origin of the arch branch vessels. FINDINGS: Motion artifact degrades the examination significantly. These are the best obtainable images given th e patient's state of cooperation. AORTIC ARCH: The arch vessels are quite tortuous. Motion artifact degrades this portion of the exam. There is a th ree vessel origin of the great vessels from the aorta. No evidence of ostial narrowing. RIGHT CAROTID: The common carotid artery is intact. The carotid bulb has a normal configuration without ulceration or narrowing. The internal carotid artery lumen is smooth without stenosis. The external carotid ar shirley is intact. LEFT CAROTID: The vertebral arteries are poorly evaluated the particularly at their origins. The left vertebral art owen appears dominant and grossly patent. Right vertebral artery is poorly seen. VERTEBRALS: The vertebral arteries have a symmetric diameter. No stenotic lesions are seen. CONCLUSION: 1. Limited examination due to motion. These were the best obtainable images given the patient's state of cooperation. 2. No gross significant stenosis of either carotid artery observed. 3. Left vertebral artery grossly patent. Right is not visualized. Kaushik Miller Jr., MD on April 15, 2017 at 18:17 Board Certified Radiologist. This report was verified electronically.
[2017-04-15 18:35] LABS: SODIUM (NA) 126 MEQ/L (136-145)
--- NOTE | 2017-04-15 19:05 | RADHPO ---
EXAM DATE/TIME: 04/15/2017 15:20 [facility] COMPARISON: MRA CAROTIDS W CONTRAST, April 15, 2017, 15:20. INDICATIONS : Altered mental status. Encephalopathy. MEDICAL HISTORY : Hypertension. Cardiovascular disease SURGICAL HISTORY : Thyroidectomy. Hysterectomy. Cardiac stent. ENCOUNTER: Subsequent ACUITY: 3 day PAIN SCORE: 3/10 LOCATION: cranial Please note a normal MRA of the brain does not entirely exclude the possibility of a small aneurysm, nor the possibility of distal intracranial vessel disease. TECHNIQUE: 3D time of flight MRA was performed. Source images, multiplanar STS MIP, and 3D volume MIP reconstru ctions were reviewed. FINDINGS: The examination is limited by motion artifact. These were the best obtainable images given the patien t's state of cooperation. Variant anatomy is observed with a dominant left A1 segment and anterior co mmunicating artery. Persistent circulation bilaterally. A left vertebral artery supplies the ba silar. No right vertebral artery appreciated. Multiple areas of atherosclerotic plaque seen scattered throughout the visualized intracranial vessels. Areas of luminal narrowing are mild in nature within the supraclinoid right ICA and right M1 segment. Similar findings seen involving the left M1 segment .. Peripheral vessels are significantly limited in their evaluation. CONCLUSION: 1. Significantly limited study due to motion. These were the best obtainable images given the patient 's state of cooperation. 2. Scattered areas of mild luminal narrowing secondary to atherosclerotic plaque. Details given above . Kaushik Miller Jr., MD on April 15, 2017 at 19:01 Board Certified Radiologist. This report was verified electronically.
--- NOTE | 2017-04-15 19:07 | RADHPO ---
EXAM DATE/TIME: 04/15/2017 15:20 [facility] COMPARISON: No previous studies available for comparison. INDICATIONS : Altered mental status. Psychosis. CONTRAST: 20 cc Omniscan (gadodiamide) IV MEDICAL HISTORY : Hypertension. Cardiovascular disease SURGICAL HISTORY : Thyroidectomy. Hysterectomy. Cardiac stent. ENCOUNTER: Subsequent ACUITY: 3 day PAIN SCORE: 3/10 LOCATION: cranial TECHNIQUE: Multiplanar, multisequence MRI of the brain was performed both prior to and following the administrat ion of paramagnetic contrast. FINDINGS: The examination is degraded by motion artifact. These were the best obtainable images given the patie nt's state of cooperation. CEREBRUM: The ventricles are normal for age. No evidence of midline shift, mass lesion, hemorrhage or acute in farction. No extraaxial fluid collections are seen. The pituitary gland and suprasellar cistern are normal in configuration. WHITE MATTER: No significant signal abnormalities are seen in the white matter. POSTERIOR FOSSA: The cerebellum and brainstem are intact. The 4th ventricle is midline. The cerebellopontine angle is unremarkable. The cerebellar tonsils are normal in position. DIFFUSION IMAGING: No focal areas of restricted diffusion are seen. No evidence of acute infarction. EXTRACRANIAL: The visualized portions of the orbits and paranasal sinuses are unremarkable. POST-CONTRAST: No abnormal areas of parenchymal or dural enhancement. No evidence of blood-brain barrier breakdown. CONCLUSION: 1. Significantly limited study by motion artifact. These were the best obtainable images given the pa tient's state of cooperation. 2. No acute intracranial abnormality appreciated on these limited images. Kaushik Miller Jr., MD on April 15, 2017 at 19:04 Board Certified Radiologist. This report was verified electronically.
[2017-04-15 19:34] LABS: LDH SERUM 289 U/L (84-246)
[2017-04-15 19:59] LABS: FERRITIN 154 NG/ML (8-252); TRANSFERRIN IRON PROFILE 183 MG/DL (200-360)
[2017-04-15] MEDS: ACETAMINOPHEN 325 MG TAB PO PRN (21:40)
[2017-04-16] VITALS (27 sets, daily range): BP systolic 111–188; BP diastolic 53–99; PULSE 61–120; RESP 18–34; TEMP 97.1–98.2; O2SAT 96–100
[2017-04-16] MEDS: CHLORHEXIDINE GLUCONATE 2 % 1 PACK (2 CLOTHS) TOP SCH (04:00)
[2017-04-16] MEDS: hydrALAZINE HCL 20 MG/ML VIAL IV PUSH PRN (04:10)
[2017-04-16] MEDS: LABETALOL HCL 100 MG/20 ML VIAL IV PUSH PRN (05:26)
[2017-04-16] MEDS: SODIUM CHLOR 0.9% 1000 ML INJ 1,000 ML IV SCH ×3 (05:27→19:11)
[2017-04-16 05:33] LABS: ALKALINE PHOSPHATASE 76 U/L (45-117); ALT (GPT) 36 U/L (10-53); ANION GAP 11 MEQ/L (5-15); AST (GOT) 77 U/L (15-37); BICARBONATE 22.8 MEQ/L (21.0-32.0); BLOOD UREA NITROGEN 4 MG/DL (7-18); CHLORIDE 99 MEQ/L (98-107); GLOMERULAR FILTRATION RATE 131 ML/MIN (>89); SODIUM (NA) 133 MEQ/L (136-145); TOTAL BILIRUBIN ADULT 0.7 MG/DL (0.2-1.0)
[2017-04-16 07:35] LABS: AUTOMATED NEUTROPHIL # 6.5 TH/MM3 (1.8-7.7); BASOPHIL % 0.2 % (0.0-2.0); EOSINOPHIL # 0.1 TH/MM3 (0-0.4); EOSINOPHIL % 1.3 % (0.0-4.0); HEMATOCRIT 27.4 % (35.0-46.0); LYMPH % 7.9 % (9.0-44.0); LYMPHOCYTE # 0.6 TH/MM3 (1.0-4.8); MEAN CELL VOLUME 93.4 FL (80.0-100.0); MEAN CORPUSCULAR HEMOGLOBIN 30.9 PG (27.0-34.0); MEAN CORPUSCULAR HGB CONC 33.1 % (32.0-36.0); MONO % 7.1 % (0.0-8.0); NEUT % 83.5 % (16.0-70.0); PLATELET COUNT 369 TH/MM3 (150-450); RED BLOOD COUNT 2.94 MIL/MM3 (4.00-5.30); RED CELL DISTRIBUTION WIDTH 14.2 % (11.6-17.2); WHITE BLOOD COUNT 7.8 TH/MM3 (4.0-11.0)
[2017-04-16 07:36] LABS: HEMO FLAGS DIFF FINAL
[2017-04-16] MEDS: DOCUSATE SODIUM 50 MG/SENNA 8.6 MG TAB PO SCH ×2 (09:00→21:00)
[2017-04-16 09:24] LABS: POTASSIUM 2.9 MEQ/L (3.5-5.1)
[2017-04-16] MEDS ORDERED: POTASSIUM PHOSPHATE MONOBASIC 500 MG TAB PO/TUBE PRN (09:41)
[2017-04-16] MEDS ORDERED: POTASSIUM PHOSPHATE INJ 30 MMOL in SODIUM CHLOR 0.9% 250 ML INJ 250 ML IV PRN (09:41)
[2017-04-16] MEDS ORDERED: SODIUM PHOSPHATE INJ 30 MMOL in SODIUM CHLOR 0.9% 250 ML INJ 240 ML IV PRN (09:45)
[2017-04-16] MEDS ORDERED: POTASSIUM CHLORIDE 25 MEQ EFFERVESCENT TAB PO PRN (09:45)
[2017-04-16] MEDS ORDERED: POTASSIUM PHOSPHATE MONOBASIC 500 MG TAB PO PRN (09:45)
[2017-04-16] MEDS ORDERED: MAGNESIUM SULFATE INJ 2 GM in SODIUM CHLORIDE 0.9% INJ 96 ML IV PRN (09:45)
[2017-04-16] MEDS ORDERED: POTASSIUM CHLOR 20 MEQ PREMIX 100 ML IV PRN ×2 (09:45)
[2017-04-16] MEDS ORDERED: MAGNESIUM SULFATE INJ 4 GM in SODIUM CHLORIDE 0.9% INJ 92 ML IV PRN (09:45)
[2017-04-16] MEDS ORDERED: MAGNESIUM OXIDE 400 MG TAB PO PRN (09:45)
[2017-04-16] MEDS ORDERED: POTASSIUM CHLOR 40 MEQ PREMIX 100 ML IV PRN ×2 (09:45)
--- NOTE | 2017-04-16 09:59 | HHI.PR ---
Subjective Remarks in no acute distress. slightly lethargic but easily arousable. complaining of some back pain. daughter at the bedside. Objective Vitals Vital Signs Date Time Temp Pulse Resp B/P Pulse Ox O2 Delivery O2 Flow Rate FiO2 04/16/17 06:01 88 24 112/53 97 04/16/17 06:00 88 04/16/17 05:01 120 26 111/63 99 04/16/17 04:14 102 34 151/81 96 04/16/17 04:01 97.7 92 18 172/99 96 04/16/17 04:00 92 04/16/17 02:01 98 23 161/87 98 04/16/17 02:00 110 04/16/17 01:01 102 34 188/78 98 04/16/17 00:01 98.2 104 26 156/76 98 04/16/17 00:00 102 04/15/17 23:41 104 24 165/99 99 04/15/17 22:00 99 04/15/17 22:00 103 22 157/74 99 04/15/17 20:20 99 21 04/15/17 20:00 97.5 102 23 153/75 99 04/15/17 20:00 104 04/15/17 18:00 89 04/15/17 18:00 96 27 163/80 98 04/15/17 17:00 96 27 169/88 04/15/17 16:00 98.0 96 23 173/85 04/15/17 16:00 68 04/15/17 14:00 80 23 154/88 04/15/17 14:00 80 04/15/17 13:00 82 04/15/17 13:00 82 26 153/81 04/15/17 12:00 76 04/15/17 12:00 97.8 76 22 157/94 04/15/17 11:00 74 20 152/90 04/15/17 11:00 74 04/15/17 10:00 56 18 129/75 04/15/17 10:00 65 I/O 04/15/17 04/15/17 04/15/17 04/16/17 04/16/17 04/16/17 07:00 15:00 23:00 07:00 15:00 23:00 Intake Total 450 ml 250 ml 289 ml 830 ml Output Total 825 ml 510 ml 175 ml 1600 ml Balance -375 ml -260 ml 114 ml -770 ml Intake Oral 50 ml 30 ml IV Total 450 ml 250 ml 239 ml 800 ml Output Urine Total 825 ml 510 ml 175 ml 1600 ml Result Diagram: 04/16/1742904/16/17429 Imaging Last Impressions Neck Magnetic Resonance Angiography 04/15/17 Signed Impressions: Service Date/Time: Saturday, April 15, 2017 15:20 - CONCLUSION: 1. Limited examination due to motion. These were the best obtainable images given the patient's state of cooperation. 2. No gross significant stenosis of either carotid artery observed. 3. Left vertebral artery grossly patent. Right is not visualized. Kaushik Miller Jr., MD Chest X-Ray 04/13/172014 Signed Impressions: Service Date/Time: Thursday, April 13, 2017 20:27 - CONCLUSION: 1. No pneumothorax status post placement of right internal jugular central line which has its tip in good position in the superior vena cava. Alex Whiteside MD Tibia/Fibula X-Ray 04/13/17 Signed Impressions: Service Date/Time: Thursday, April 13, 2017 16:19 - CONCLUSION: 1. Moderate arthritic changes involving the femoral tibial and patellofemoral joints. 2. No acute fracture or dislocation. Alex Whiteside MD Lower Extremity Ultrasound 04/13/17 Signed Impressions: Service Date/Time: Thursday, April 13, 2017 21:25 - CONCLUSION: No evidence of deep venous thrombosis within the lower extremities. Alex Whiteside MD Head Magnetic Resonance Angiography 04/13/17 Signed Impressions: Service Date/Time: Saturday, April 15, 2017 15:20 - CONCLUSION: 1. Significantly limited study due to motion. These were the best obtainable images given the patient's state of cooperation. 2. Scattered areas of mild luminal narrowing secondary to atherosclerotic plaque. Details given above. Kaushik Miller Jr., MD Head CT 04/13/17 Signed Impressions: Service Date/Time: Thursday, April 13, 2017 18:00 - CONCLUSION: 1. No acute intracranial abnormality. 2. Opacified right maxillary sinus and right ethmoid air cells consistent with probable sinusitis. Alex Whiteside MD Foot X-Ray 04/13/17 Signed Impressions: Service Date/Time: Thursday, April 13, 2017 15:31 - CONCLUSION: 1. Arthritic changes involving the tarso-tarsal and tarsal-metatarsals joints in the midfoot. 2. Bony fusion of the left 1st metatarsophalangeal joint. 3. Plantar calcaneal spur. 4. No acute fracture or dislocation. Alex Whiteside MD Brain MRI 04/13/17 0000 Signed Impressions: Service Date/Time: Saturday, April 15, 2017 15:20 - CONCLUSION: 1. Significantly limited study by motion artifact. These were the best obtainable images given the patient's state of cooperation. 2. No acute intracranial abnormality appreciated on these limited images. Kaushik Miller Jr., MD Objective Remarks GENERAL: This is a well-nourished, well-developed patient, in no apparent distress. CARDIOVASCULAR: Regular rate and regular rhythm without murmurs, gallops, or rubs. RESPIRATORY: Clear to auscultation. Breath sounds equal bilaterally. No wheezes , rales, or rhonchi. GASTROINTESTINAL: Abdomen soft, non-tender, nondistended. Normal, active bowel sounds MUSCULOSKELETAL: Extremities without clubbing, cyanosis, or edema. NEURO: lethargic but easily arousable-oriented to person,place and partly to time. Procedures central line placement. Medications and IVs Current Medications Ondansetron HCl (Zofran Inj) 4 mg ONCE ONCE IVP Last administered on 15:26; Start 04/13/17 at 15:30; Stop 04/13/17 at 15:31; Status DC Morphine Sulfate (Morphine Inj) 4 mg ONCE ONCE IV PUSH Last administered on 15:27; Start 04/13/17 at 15:30; Stop 04/13/17 at 15:31; Status DC Morphine Sulfate (Morphine Inj) 4 mg ONCE ONCE IV PUSH Last administered on 16:31; Start 04/13/17 at 16:15; Stop 04/13/17 at 16:16; Status DC Lorazepam 1 mg 1 mg ONCE ONCE IV PUSH Last administered on 04/13/17 16:30; Start 04/13/17 at 16:15; Stop 04/13/17 at 16:16; Status DC Sodium Chloride (Sodium Chloride 3% Inj) 250 ml @ 30 mls/hr ONCE ONCE IV Last administered on 04/13/17 17:04; Start 04/13/17 at 17:00; Stop 04/13/17 at 17:55; Status DC Levothyroxine Sodium (Synthroid) 75 mcg DAILY PO ; Start 04/14/17 at 09:00; Stop 04/14/17 at 09:00; Status DC Nadolol (Corgard) 80 mg DAILY PO ; Start 04/14/17 at 09:00; Stop 04/14/17 at 09: 00; Status DC Losartan Potassium (Cozaar) 25 mg DAILY PO ; Start 04/14/17 at 09:00 Clonidine (Catapres) 0.1 mg Q6H PRN PO SBP> OR = 180, DBP> OR = 100; Start at 17:15 Sodium Chloride (NS Flush) 2 ml UNSCH PRN IV FLUSH FLUSH AFTER USING IV ACCESS ; Start 04/13/17 at 17:15 Sodium Chloride (NS Flush) 2 ml BID IV FLUSH Last administered on 04/15/17 19: 52; Start 04/13/17 at 21:00 Acetaminophen (Tylenol) 650 mg Q4H PRN PO TEMP > 100.4 Last administered on 21:40; Start 04/13/17 at 17:15 Ondansetron HCl (Zofran Inj) 4 mg Q6H PRN IVP NAUSEA OR VOMITING; Start at 17:15 Acetaminophen (Tylenol) 650 mg Q6H PRN PO PAIN SCALE 1 TO 2; Start 04/13/17 at 17:15; Stop 04/13/17 at 22:41; Status DC Naloxone HCl (Narcan Inj) 0.4 mg UNSCH PRN IV SEE LABEL COMMENTS; Start at 17:15 Senna/Docusate Sodium (Louann-Colace) 1 tab BID PO ; Start 04/13/17 at 21:00; Stop 04/13/17 at 21:00; Status DC Flumazenil (Romazicon Inj) 0.2 mg Q1M PRN IV PUSH SEE LABEL COMMENTS; Start at 17:15 Lorazepam (Ativan) 1 mg Q4H PRN PO CIWA 8 - 10; Start 04/13/17 at 17:15 Lorazepam (Ativan) 2 mg Q2H PRN PO CIWA 11-14; Start 04/13/17 at 17:15 Lorazepam (Ativan Inj) 2 mg Q1H PRN IV PUSH CIWA 15-20 Last administered on 23:44; Start 04/13/17 at 17:15 Lorazepam (Ativan Inj) 2 mg Q15M PRN IV PUSH CIWA > 20; Start 04/13/17 at 17:15 Lorazepam (Ativan Inj) 1 mg ONCE ONCE IV PUSH Last administered on 04/13/17 17:48; Start 04/13/17 at 17:30; Stop 04/13/17 at 17:31; Status DC Labetalol HCl (Trandate Inj) 10 mg Q1HR PRN IV PUSH SBP>160, DBP>90, HR>65 Last administered on 04/16/17 05:26; Start 04/13/17 at 18:00 Hydralazine HCl (Apresoline Inj) 10 mg Q1HR PRN IV PUSH SBP>160, DBP>90 Last administered on 04/16/17 04:10; Start 04/13/17 at 18:00 Nitroglycerin 2 inch 2 inch Q6HR PRN TOPICAL SBP>160, DBP>90; Start 04/13/17 at 18:00 Sodium Chloride (NS 1000 ml Inj) 1,000 ml @ 50 mls/hr Q20H IV Last administered on 04/13/17 17:54; Start 04/13/17 at 17:54; Stop 04/13/17 at 20:16 ; Status DC Sodium Chloride (NS Flush) 2 ml UNSCH PRN IV FLUSH FLUSH AFTER USING IV ACCESS ; Start 04/13/17 at 18:00 Sodium Chloride (NS Flush) 2 ml BID IV FLUSH Last administered on 04/15/17 21: 40; Start 04/13/17 at 21:00 Pantoprazole Sodium (Protonix Inj) 40 mg DAILY IV Last administered on 10:57; Start 04/14/17 at 09:00 Artificial Tears (Tears Naturale Opth Soln) 1 drop TID EACH EYE Last administered on 04/15/17 18:21; Start 04/13/17 at 18:00 Ondansetron HCl (Zofran Inj) 4 mg Q6H PRN IV NAUSEA OR VOMITING Last administered on 04/15/17 23:43; Start 04/13/17 at 18:00 Albuterol Sulfate (Albuterol Neb) 2.5 mg Q2HR NEB PRN INH SOB/WHEEZING; Start 04/13/17 at 18:00 Miscellaneous Information 1 [id number] Last administered on 04/13/17 18:00; Start 04/13/17 at 18:00 Chlorhexidine Gluconate (Chlorhexidine 2% Cloth) 3 pack Taper DAILY@04 TOP Last administered on 04/16/17 04:00; Start 04/14/17 at 04:00; Stop 04/10/18 at 03:59 Chlorhexidine Gluconate (Chlorhexidine 2% Cloth) 3 pack UNSCH PRN TOP HYGIENIC CARE; Start 04/13/17 at 18:00 Senna/Docusate Sodium (Louann-Colace) 1 tab BID PO Last administered on 21:40; Start 04/13/17 at 21:00 Magnesium Hydroxide (Milk Of Magnesia Liq) 30 ml Q12H PRN PO MILD - MODERATE CONSTIPATION; Start 04/13/17 at 18:00 Sennosides (Senokot) 17.2 mg Q12H PRN PO MODERATE - SEVERE CONSTIPATION; Start 04/13/17 at 18:00 Bisacodyl (Dulcolax Supp) 10 mg DAILY PRN RECTAL SEVERE CONSITIPATION; Start at 18:00 Lactulose 30 ml 30 ml DAILY PRN PO SEVERE CONSITIPATION; Start 04/13/17 at 18: 00 Magnesium Sulfate/ Dextrose 100 ml @ 100 mls/hr Q1H IV ; Start 04/13/17 at 20: 15; Stop 04/13/17 at 22:14; Status DC Sodium Chloride 1,000 ml @ 42 mls/hr [id number] IV Last administered on 21:00; Start 04/13/17 at 20:15; Stop 04/14/17 at 07:12; Status DC Potassium Chloride (KCl 40 Meq Premix Inj) 100 ml @ 25 mls/hr BOLUS ONCE IV Last administered on 04/13/17 22:50; Start 04/13/17 at 20:15; Stop 04/14/17 at 00:14; Status DC Sodium Chloride (NS Flush) DAILY IVF Last administered on 04/15/17 10:57; Start 04/13/17 at 20:15 Sodium Chloride UNSCH PRN IVF SEE PROTOCOL; Start 04/13/17 at 20:15 Thiamine HCl 100 mg/Sodium Chloride 101 ml @ 101 mls/hr ONCE ONCE IV Last administered on 04/13/17 21:59; Start 04/13/17 at 21:15; Stop 04/13/17 at 22:14 ; Status DC Thiamine HCl/ Sodium Chloride (Thiamine Inj/NS Inj) 101 ml @ 101 mls/hr DAILY IV Last administered on 04/15/17 10:56; Start 04/14/17 at 09:00 Folic Acid (Folate) 1 mg DAILY PO ; Start 04/14/17 at 09:00 Multivitamins 1 tab 1 tab DAILY PO ; Start 04/14/17 at 09:00 Clevidipine (Cleviprex Inj) 50 ml @ 0 mls/hr TITRATE IV ; Start 04/13/17 at 23: 00; Stop 04/15/17 at 15:21; Status DC Gelatin 1 foam 1 foam ONCE ONCE TOPICAL Last administered on 04/13/17 00:07; Start 04/13/17 at 23:15; Stop 04/13/17 at 23:16; Status DC Magnesium Sulfate 2 gm/Sodium Chloride 154 ml @ 77 mls/hr Q2H ONCE IV Last administered on 04/13/17 00:07; Start 04/13/17 at 23:45; Stop 04/14/17 at 01:44 ; Status DC Sodium Chloride (NS 1000 ml Inj) 1,000 ml @ 100 mls/hr Q10H IV Last administered on 04/16/17 06:10; Start 04/14/17 at 08:00 Levothyroxine Sodium (Synthroid Inj) 50 mcg DAILY@06 IV PUSH Last administered on 04/15/17 10:57; Start 04/14/17 at 08:00 Nadolol 80 mg 80 mg DAILY PO ; Start 04/14/17 at 09:00 Dexmedetomidine HCl/Sodium Chloride (Precedex Inj/NS Inj) 52 ml @ 0 mls/hr TITRATE IV Last administered on 04/14/17 08:54; Start 04/14/17 at 08:30; Stop 04/16/17 at 06:47; Status DC Gadodiamide (Omniscan Pf Inj) 20 ml STK-MED ONCE IV Last administered on 15:00; Start 04/15/17 at 16:10; Stop 04/15/17 at 16:11; Status DC Oxycodone HCl 10 mg 10 mg NOW PO Last administered on 04/16/17 00:41; Start at 00:45; Stop 04/16/17 at 02:30; Status DC Iron Sucrose/ Sodium Chloride (Venofer Inj/NS Inj) 110 ml @ 110 mls/hr DAILY IV ; Start 04/16/17 at 09:00; Stop 04/18/17 at 09:59 Date of Insertion: April 13, 2017 Line: Central Venous Catheter Side: Right Location: Jugular A/P Assessment and Plan A/P Acute encephalopathy - toxic metabolic versus EtOH withdrawal versus other EtOH use Frequent falls CT brain 04/13 revealed no acute intracranial findings. Right maxillary and ethmoid space sinusitis Continue thiamine 100 mg IV daily/folate and multivitamin daily. EtOH withdrawal protocol initiated CIWA protocol initiated Holding Escitalopram 10 mg by mouth daily for depression. Holding Xanax 0.25 mg as needed for anxiety. Resume if clinically indicated Holding Percocet 5/325 tablet every 6 hours. Pain. Resume when clinically indicated NPO for now PT/ST following. Hypertension Coronary artery disease status post stent 3 On nadolol 80 mg by mouth daily and losartan 25 mg daily for hypertension. As needed labetalol/hydralazine/Nitropaste to keep systolic blood pressure less than 160 Hypothyroidism TSH currently elevated 8.37 Currently on IV Synthroid 50 g daily. Sliding-scale insulin with Accu-Cheks every 6 hours to maintain euglycemia/low regimen Normocytic anemia No signs of active bleeding. 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 Arthritic changes to the tarsal/tarsal and tarsometatarsal joints. Calcaneal spur. Old fracture secondary tarsal. X-ray left tib/fib revealed moderate arthritic changes to the patellofemoral and femoral tibial joints. PT evaluate and treat FEN: Hypo osmolar Hyponatremia-improving. Hypokalemia-will replace. [id number]. Cortisol within normal limits. TSH slightly elevated 5.4. Uric acid 2.6 at the lower end of normal. Normal saline at 100 cc an hour Serial sodiums every 6 hours. Access - Right IJ CVL placed 04/13 Prophylaxis - GI - Protonix - DVT - SCD/heparin subcutaneous will be held in light of oozing from central line Valencia Syed MD April 16, 2017 09:59 Valencia Syed MD April 16, 2017 09:59 - GI - Protonix - DVT - SCD/heparin subcutaneous will be held in light of oozing from central line Valencia Syed MD April 16, 2017 09:59
[2017-04-16] MEDS: PANTOPRAZOLE SODIUM 40 MG VIAL IV SCH (11:18)
[2017-04-16] MEDS: THIAMINE INJ 100 MG in SODIUM CHLORIDE 0.9% INJ 100 ML IV SCH (11:19)
[2017-04-16] MEDS: IRON SUCROSE INJ 200 MG in SODIUM CHLORIDE 0.9% INJ 100 ML IV SCH (11:19)
[2017-04-16] MEDS: ARTIFICIAL TEARS OPTH SOLN 15 ML BTL EACH EYE SCH ×3 (11:20→18:38)
[2017-04-16] MEDS: SODIUM CHLORIDE 0.9% FLUSH 10 ML FLUSH IVF SCH (11:20)
[2017-04-16] MEDS: SODIUM CHLORIDE 0.9% FLUSH 10 ML FLUSH IV FLUSH SCH ×4 (11:20→21:50)
[2017-04-16] MEDS: LOSARTAN 25 MG TAB PO SCH (12:13)
[2017-04-16] MEDS: NADOLOL 20 MG TAB PO SCH (12:13)
[2017-04-16] MEDS: FOLIC ACID 1 MG TAB PO SCH (12:14)
[2017-04-16] MEDS: MULTIVITAMIN TAB PO SCH (12:14)
[2017-04-16 18:51] LABS: BICARBONATE 21.9 MEQ/L (21.0-32.0); POTASSIUM 4.6 MEQ/L (3.5-5.1)
--- NOTE | 2017-04-16 21:36 | RADHPO ---
EXAM DATE/TIME: 04/16/2017 21:00 [facility] COMPARISON: No previous studies available for comparison. INDICATIONS : Trauma, fall. Left hip pain. ORAL CONTRAST: No oral contrast ingested. RADIATION DOSE: 13.70 CTDIvol (mGy) MEDICAL HISTORY : Non-responsive. SURGICAL HISTORY : Non-responsive. ENCOUNTER: Initial ACUITY: 3 days PAIN SCALE: 8/10 LOCATION: Left hip TECHNIQUE: Volumetric scanning of the abdomen and pelvis was performed. Using automated exposure control and ad justment of the mA and/or kV according to patient size, radiation dose was kept as low as reasonably achievable to obtain optimal diagnostic quality images. FINDINGS: LOWER LUNGS: Small posterior layering bilateral pleural effusions. LIVER: Homogeneous density without lesion. There is no dilation of the biliary tree. A solitary calcified g allstone within an otherwise normal appearing gallbladder. SPLEEN: Normal size without lesion. PANCREAS: Within normal limits. KIDNEYS: Normal in size and shape. There is no mass, stone, or hydronephrosis. ADRENAL GLANDS: Within normal limits. VASCULAR: Scattered calcified atherosclerotic plaque without aneurysmal change.. BOWEL/MESENTERY: The stomach, small bowel, and colon demonstrate no acute abnormality. There is no free intraperitone al air or fluid. ABDOMINAL WALL: Within normal limits. RETROPERITONEUM: There is no lymphadenopathy. BLADDER: There is a Lynn balloon within the urinary bladder. An air-fluid level seen within the urinary bladd er. No wall thickening. No bladder stone. REPRODUCTIVE: Within normal limits. INGUINAL: There is no lymphadenopathy or hernia. MUSCULOSKELETAL: A scoliotic and degenerative lumbar spine. No fracture is observed. In particular, no left hip fractu re. CONCLUSION: 1. No acute abnormality. 2. Cholelithiasis. 3. Small bilateral pleural effusions. Kaushik Miller Jr., MD on April 16, 2017 at 21:28 Board Certified Radiologist. This report was verified electronically.
[2017-04-16] MEDS ORDERED: MORPHINE SULFATE 4 MG/ML INJ IV PUSH ONE (21:45)
[2017-04-17] VITALS (23 sets, daily range): BP systolic 117–174; BP diastolic 70–103; PULSE 56–84; RESP 12–32; TEMP 96.5–98.7; O2SAT 93–99
[2017-04-17] MEDS: CHLORHEXIDINE GLUCONATE 2 % 1 PACK (2 CLOTHS) TOP SCH (04:00)
[2017-04-17 05:15] LABS: POTASSIUM 3.9 MEQ/L (3.5-5.1)
[2017-04-17 05:19] LABS: BICARBONATE 21.9 MEQ/L (21.0-32.0)
[2017-04-17] MEDS: LEVOTHYROXINE SODIUM 100 MCG VIAL IV PUSH SCH (07:41)
[2017-04-17] MEDS: PANTOPRAZOLE SODIUM 40 MG VIAL IV SCH (09:00)
--- NOTE | 2017-04-17 09:20 | HHI.PR ---
Subjective Remarks has much improved and much more alert today. denies significant pain. daughter at the bedside. d/w the RN. Objective Vitals Vital Signs Date Time Temp Pulse Resp B/P Pulse Ox O2 Delivery O2 Flow Rate FiO2 04/17/17 05:00 74 21 117/73 97 04/17/17 04:00 98.4 68 18 129/73 95 04/17/17 04:00 74 04/17/17 02:00 73 18 120/71 99 04/17/17 02:00 72 04/17/17 00:00 98.2 73 18 122/70 99 04/17/17 00:00 70 04/16/17 22:01 70 18 117/64 98 04/16/17 22:00 70 04/16/17 20:03 98 21 04/16/17 20:01 97.1 72 24 134/80 97 04/16/17 20:00 67 04/16/17 18:00 98.1 61 25 146/81 99 04/16/17 18:00 61 04/16/17 16:00 67 04/16/17 16:00 98.1 68 27 156/88 98 04/16/17 15:00 70 24 145/82 99 04/16/17 14:00 72 24 125/78 100 04/16/17 14:00 101 04/16/17 13:00 90 24 135/66 96 04/16/17 12:10 98 04/16/17 12:00 89 04/16/17 12:00 97.8 100 23 142/72 96 04/16/17 11:00 98 23 135/78 97 04/16/17 10:00 98 04/16/17 10:00 96 22 121/81 97 I/O 04/16/17 04/16/17 04/16/17 04/17/17 04/17/17 04/17/17 07:00 15:00 23:00 07:00 15:00 23:00 Intake Total 830 ml 855 ml 1063 ml Output Total 1600 ml 560 ml 300 ml 150 ml Balance -770 ml 295 ml 763 ml -150 ml Intake Oral 30 ml 55 ml IV Total 800 ml 800 ml 1063 ml Output Urine Total 1600 ml 560 ml 300 ml 150 ml Result Diagram: 04/16/17 0430 04/17/17 0500 Imaging Last Impressions Abdomen/Pelvis CT 04/16/17 Signed Impressions: Service Date/Time: Sunday, April 16, 2017 21:00 - CONCLUSION: 1. No acute abnormality. 2. Cholelithiasis. 3. Small bilateral pleural effusions. Kaushik Miller Jr., MD Neck Magnetic Resonance Angiography 04/15/17 Signed Impressions: Service Date/Time: Saturday, April 15, 2017 15:20 - CONCLUSION: 1. Limited examination due to motion. These were the best obtainable images given the patient's state of cooperation. 2. No gross significant stenosis of either carotid artery observed. 3. Left vertebral artery grossly patent. Right is not visualized. Kaushik Miller Jr., MD Chest X-Ray 04/13/172014 Signed Impressions: Service Date/Time: Thursday, April 13, 2017 20:27 - CONCLUSION: 1. No pneumothorax status post placement of right internal jugular central line which has its tip in good position in the superior vena cava. Alex Whiteside MD Tibia/Fibula X-Ray 04/13/17 Signed Impressions: Service Date/Time: Thursday, April 13, 2017 16:19 - CONCLUSION: 1. Moderate arthritic changes involving the femoral tibial and patellofemoral joints. 2. No acute fracture or dislocation. Alex Whiteside MD Lower Extremity Ultrasound 04/13/17 Signed Impressions: Service Date/Time: Thursday, April 13, 2017 21:25 - CONCLUSION: No evidence of deep venous thrombosis within the lower extremities. Alex Whiteside MD Head Magnetic Resonance Angiography 04/13/17 Signed Impressions: Service Date/Time: Saturday, April 15, 2017 15:20 - CONCLUSION: 1. Significantly limited study due to motion. These were the best obtainable images given the patient's state of cooperation. 2. Scattered areas of mild luminal narrowing secondary to atherosclerotic plaque. Details given above. Kaushik Miller Jr., MD Head CT 04/13/17 Signed Impressions: Service Date/Time: Thursday, April 13, 2017 18:00 - CONCLUSION: 1. No acute intracranial abnormality. 2. Opacified right maxillary sinus and right ethmoid air cells consistent with probable sinusitis. Alex Whiteside MD Foot X-Ray 04/13/17 Signed Impressions: Service Date/Time: Thursday, April 13, 2017 15:31 - CONCLUSION: 1. Arthritic changes involving the tarso-tarsal and tarsal-metatarsals joints in the midfoot. 2. Bony fusion of the left 1st metatarsophalangeal joint. 3. Plantar calcaneal spur. 4. No acute fracture or dislocation. Alex Whiteside MD Brain MRI 04/13/17 0000 Signed Impressions: Service Date/Time: Saturday, April 15, 2017 15:20 - CONCLUSION: 1. Significantly limited study by motion artifact. These were the best obtainable images given the patient's state of cooperation. 2. No acute intracranial abnormality appreciated on these limited images. Kaushik Miller Jr., MD Objective Remarks GENERAL: This is a well-nourished, well-developed patient, in no apparent distress. CARDIOVASCULAR: Regular rate and regular rhythm without murmurs, gallops, or rubs. RESPIRATORY: Clear to auscultation. Breath sounds equal bilaterally. No wheezes , rales, or rhonchi. GASTROINTESTINAL: Abdomen soft, non-tender, nondistended. Normal, active bowel sounds MUSCULOSKELETAL: Extremities without clubbing, cyanosis, or edema. NEURO: much more alert today. Procedures central line placement. Medications and IVs Current Medications Ondansetron HCl (Zofran Inj) 4 mg ONCE ONCE IVP Last administered on 15:26; Start 04/13/17 at 15:30; Stop 04/13/17 at 15:31; Status DC Morphine Sulfate (Morphine Inj) 4 mg ONCE ONCE IV PUSH Last administered on 15:27; Start 04/13/17 at 15:30; Stop 04/13/17 at 15:31; Status DC Morphine Sulfate (Morphine Inj) 4 mg ONCE ONCE IV PUSH Last administered on 16:31; Start 04/13/17 at 16:15; Stop 04/13/17 at 16:16; Status DC Lorazepam 1 mg 1 mg ONCE ONCE IV PUSH Last administered on 04/13/17 16:30; Start 04/13/17 at 16:15; Stop 04/13/17 at 16:16; Status DC Sodium Chloride (Sodium Chloride 3% Inj) 250 ml @ 30 mls/hr ONCE ONCE IV Last administered on 04/13/17 17:04; Start 04/13/17 at 17:00; Stop 04/13/17 at 17:55; Status DC Levothyroxine Sodium (Synthroid) 75 mcg DAILY PO ; Start 04/14/17 at 09:00; Stop 04/14/17 at 09:00; Status DC Nadolol (Corgard) 80 mg DAILY PO ; Start 04/14/17 at 09:00; Stop 04/14/17 at 09: 00; Status DC Losartan Potassium (Cozaar) 25 mg DAILY PO Last administered on 04/16/17 12:13 ; Start 04/14/17 at 09:00 Clonidine (Catapres) 0.1 mg Q6H PRN PO SBP> OR = 180, DBP> OR = 100; Start at 17:15 Sodium Chloride (NS Flush) 2 ml UNSCH PRN IV FLUSH FLUSH AFTER USING IV ACCESS ; Start 04/13/17 at 17:15 Sodium Chloride (NS Flush) 2 ml BID IV FLUSH Last administered on 04/16/17 21: 50; Start 04/13/17 at 21:00 Acetaminophen (Tylenol) 650 mg Q4H PRN PO TEMP > 100.4 Last administered on 21:40; Start 04/13/17 at 17:15 Ondansetron HCl (Zofran Inj) 4 mg Q6H PRN IVP NAUSEA OR VOMITING; Start at 17:15 Acetaminophen (Tylenol) 650 mg Q6H PRN PO PAIN SCALE 1 TO 2; Start 04/13/17 at 17:15; Stop 04/13/17 at 22:41; Status DC Naloxone HCl (Narcan Inj) 0.4 mg UNSCH PRN IV SEE LABEL COMMENTS; Start at 17:15 Senna/Docusate Sodium (Louann-Colace) 1 tab BID PO ; Start 04/13/17 at 21:00; Stop 04/13/17 at 21:00; Status DC Flumazenil (Romazicon Inj) 0.2 mg Q1M PRN IV PUSH SEE LABEL COMMENTS; Start at 17:15 Lorazepam (Ativan) 1 mg Q4H PRN PO CIWA 8 - 10; Start 04/13/17 at 17:15 Lorazepam (Ativan) 2 mg Q2H PRN PO CIWA 11-14; Start 04/13/17 at 17:15 Lorazepam (Ativan Inj) 2 mg Q1H PRN IV PUSH CIWA 15-20 Last administered on 23:44; Start 04/13/17 at 17:15 Lorazepam (Ativan Inj) 2 mg Q15M PRN IV PUSH CIWA > 20; Start 04/13/17 at 17:15 Lorazepam (Ativan Inj) 1 mg ONCE ONCE IV PUSH Last administered on 04/13/17 17:48; Start 04/13/17 at 17:30; Stop 04/13/17 at 17:31; Status DC Labetalol HCl (Trandate Inj) 10 mg Q1HR PRN IV PUSH SBP>160, DBP>90, HR>65 Last administered on 04/16/17 05:26; Start 04/13/17 at 18:00 Hydralazine HCl (Apresoline Inj) 10 mg Q1HR PRN IV PUSH SBP>160, DBP>90 Last administered on 04/16/17 04:10; Start 04/13/17 at 18:00 Nitroglycerin 2 inch 2 inch Q6HR PRN TOPICAL SBP>160, DBP>90; Start 04/13/17 at 18:00 Sodium Chloride (NS 1000 ml Inj) 1,000 ml @ 50 mls/hr Q20H IV Last administered on 04/13/17 17:54; Start 04/13/17 at 17:54; Stop 04/13/17 at 20:16 ; Status DC Sodium Chloride (NS Flush) 2 ml UNSCH PRN IV FLUSH FLUSH AFTER USING IV ACCESS ; Start 04/13/17 at 18:00 Sodium Chloride (NS Flush) 2 ml BID IV FLUSH Last administered on 04/16/17 11: 20; Start 04/13/17 at 21:00 Pantoprazole Sodium (Protonix Inj) 40 mg DAILY IV Last administered on 11:18; Start 04/14/17 at 09:00 Artificial Tears (Tears Naturale Opth Soln) 1 drop TID EACH EYE Last administered on 04/16/17 18:38; Start 04/13/17 at 18:00 Ondansetron HCl (Zofran Inj) 4 mg Q6H PRN IV NAUSEA OR VOMITING Last administered on 04/15/17 23:43; Start 04/13/17 at 18:00 Albuterol Sulfate (Albuterol Neb) 2.5 mg Q2HR NEB PRN INH SOB/WHEEZING; Start 04/13/17 at 18:00 Miscellaneous Information 1 [id number] Last administered on 04/13/17 18:00; Start 04/13/17 at 18:00 Chlorhexidine Gluconate (Chlorhexidine 2% Cloth) 3 pack Taper DAILY@04 TOP Last administered on 04/17/17 04:00; Start 04/14/17 at 04:00; Stop 04/10/18 at 03:59 Chlorhexidine Gluconate (Chlorhexidine 2% Cloth) 3 pack UNSCH PRN TOP HYGIENIC CARE; Start 04/13/17 at 18:00 Senna/Docusate Sodium (Louann-Colace) 1 tab BID PO Last administered on 21:40; Start 04/13/17 at 21:00 Magnesium Hydroxide (Milk Of Magnesia Liq) 30 ml Q12H PRN PO MILD - MODERATE CONSTIPATION; Start 04/13/17 at 18:00 Sennosides (Senokot) 17.2 mg Q12H PRN PO MODERATE - SEVERE CONSTIPATION; Start 04/13/17 at 18:00 Bisacodyl (Dulcolax Supp) 10 mg DAILY PRN RECTAL SEVERE CONSITIPATION; Start at 18:00 Lactulose 30 ml 30 ml DAILY PRN PO SEVERE CONSITIPATION; Start 04/13/17 at 18: 00 Magnesium Sulfate/ Dextrose 100 ml @ 100 mls/hr Q1H IV ; Start 04/13/17 at 20: 15; Stop 04/13/17 at 22:14; Status DC Sodium Chloride 1,000 ml @ 42 mls/hr [id number] IV Last administered on 21:00; Start 04/13/17 at 20:15; Stop 04/14/17 at 07:12; Status DC Potassium Chloride (KCl 40 Meq Premix Inj) 100 ml @ 25 mls/hr BOLUS ONCE IV Last administered on 04/13/17 22:50; Start 04/13/17 at 20:15; Stop 04/14/17 at 00:14; Status DC Sodium Chloride (NS Flush) DAILY IVF Last administered on 04/16/17 11:20; Start 04/13/17 at 20:15 Sodium Chloride UNSCH PRN IVF SEE PROTOCOL; Start 04/13/17 at 20:15 Thiamine HCl 100 mg/Sodium Chloride 101 ml @ 101 mls/hr ONCE ONCE IV Last administered on 04/13/17 21:59; Start 04/13/17 at 21:15; Stop 04/13/17 at 22:14 ; Status DC Thiamine HCl/ Sodium Chloride (Thiamine Inj/NS Inj) 101 ml @ 101 mls/hr DAILY IV Last administered on 04/16/17 11:19; Start 04/14/17 at 09:00 Folic Acid (Folate) 1 mg DAILY PO Last administered on 04/16/17 12:14; Start 04/14/17 at 09:00 Multivitamins 1 tab 1 tab DAILY PO Last administered on 04/16/17 12:14; Start 04/14/17 at 09:00 Clevidipine (Cleviprex Inj) 50 ml @ 0 mls/hr TITRATE IV ; Start 04/13/17 at 23: 00; Stop 04/15/17 at 15:21; Status DC Gelatin 1 foam 1 foam ONCE ONCE TOPICAL Last administered on 04/13/17 00:07; Start 04/13/17 at 23:15; Stop 04/13/17 at 23:16; Status DC Magnesium Sulfate 2 gm/Sodium Chloride 154 ml @ 77 mls/hr Q2H ONCE IV Last administered on 04/13/17 00:07; Start 04/13/17 at 23:45; Stop 04/14/17 at 01:44 ; Status DC Sodium Chloride (NS 1000 ml Inj) 1,000 ml @ 100 mls/hr Q10H IV Last administered on 04/16/17 19:11; Start 04/14/17 at 08:00 Levothyroxine Sodium (Synthroid Inj) 50 mcg DAILY@06 IV PUSH Last administered on 04/17/17 07:41; Start 04/14/17 at 08:00 Nadolol 80 mg 80 mg DAILY PO Last administered on 04/16/17 12:13; Start at 09:00 Dexmedetomidine HCl/Sodium Chloride (Precedex Inj/NS Inj) 52 ml @ 0 mls/hr TITRATE IV Last administered on 04/14/17 08:54; Start 04/14/17 at 08:30; Stop 04/16/17 at 06:47; Status DC Gadodiamide (Omniscan Pf Inj) 20 ml STK-MED ONCE IV Last administered on 15:00; Start 04/15/17 at 16:10; Stop 04/15/17 at 16:11; Status DC Oxycodone HCl 10 mg 10 mg NOW PO Last administered on 04/16/17 00:41; Start at 00:45; Stop 04/16/17 at 02:30; Status DC Iron Sucrose 200 mg/Sodium Chloride 110 ml @ 110 mls/hr DAILY IV Last administered on 04/16/17 11:19; Start 04/16/17 at 09:00; Stop 04/18/17 at 09:59 Potassium Chloride 100 ml @ 50 mls/hr Q2H PRN IV For Potassium 2.8 - 3.2 mEq/ L Last administered on 04/16/17 11:20; Start 04/16/17 at 09:45 Potassium Chloride (KCl 20 Meq Premix Inj) 100 ml @ 50 mls/hr Q2H PRN IV For Potassium 2.8 - 3.2 mEq/L; Start 04/16/17 at 09:45 Potassium Bicarb/ Potassium Chloride 50 meq 50 meq UNSCH PRN PO For Potassium 3.3 - 3.5 mEq/L; Start 04/16/17 at 09:45 Potassium Chloride 100 ml @ 25 mls/hr UNSCH PRN IV For Potassium 3.3 - 3.5 mEq /L; Start 04/16/17 at 09:45 Potassium Chloride 100 ml @ 50 mls/hr Q2H PRN IV For Potassium 3.3 - 3.5 mEq/L ; Start 04/16/17 at 09:45 Magnesium Sulfate/ Sodium Chloride (Magnesium Sulfate Inj/NS Inj) 100 ml @ 50 mls/hr UNSCH PRN IV For Magnesium 0.9 - 1.1 mg/dL; Start 04/16/17 at 09:45 Magnesium Oxide 800 mg 800 mg UNSCH PRN PO For Magnesium 1.2 - 1.6 mg/dL; Start 04/16/17 at 09:45 Magnesium Sulfate/ Sodium Chloride (Magnesium Sulfate Inj/NS Inj) 100 ml @ 50 mls/hr UNSCH PRN IV For Magnesium 1.2 - 1.6 mg/dL; Start 04/16/17 at 09:45 Potassium Phosphate 2000 mg 2,000 mg Q4H PRN PO For Phosphorus < 2.5 mg/dL; Start 04/16/17 at 09:45 Sodium Phosphate/ Sodium Chloride (Sodium Phosphate Inj/NS 250 ml Inj) 250 ml @ 42 mls/hr UNSCH PRN IV For Phosphorus < 2.5 mg/dL; Start 04/16/17 at 09:45 Potassium Phosphate 2000 mg 2,000 mg UNSCH PRN PO/TUBE SEE LABEL COMMENTS; Start 04/16/17 at 09:41 Potassium Phosphate/Sodium Chloride (Potassium Phosphate Inj/NS 250 ml Inj) 260 ml @ 42 mls/hr UNSCH PRN IV SEE LABEL COMMENTS; Start 04/16/17 at 09:41 Oxycodone HCl (Roxicodone) 5 mg ONCE ONCE PO Last administered on 04/16/17 20 :24; Start 04/16/17 at 20:15; Stop 04/16/17 at 20:20; Status DC Morphine Sulfate (Morphine Inj) 2 mg ONCE ONCE IV PUSH Last administered on 21:52; Start 04/16/17 at 21:45; Stop 04/16/17 at 21:46; Status DC Date of Insertion: April 13, 2017 Line: Central Venous Catheter Side: Right Location: Jugular A/P Assessment and Plan A/P Acute encephalopathy - toxic metabolic versus EtOH withdrawal versus other- improving. EtOH use Frequent falls CT brain 04/13 revealed no acute intracranial findings. Right maxillary and ethmoid space sinusitis Continue thiamine 100 mg IV daily/folate and multivitamin daily. EtOH withdrawal protocol initiated CIWA protocol initiated Holding Escitalopram 10 mg by mouth daily for depression. Holding Xanax 0.25 mg as needed for anxiety. Resume if clinically indicated Holding Percocet 5/325 tablet every 6 hours. Pain. Resume when clinically indicated on mechanical soft diet per ST PT/ST following. Hypertension Coronary artery disease status post stent 3 On nadolol 80 mg by mouth daily and losartan 25 mg daily for hypertension. As needed labetalol/hydralazine/Nitropaste to keep systolic blood pressure less than 160 Hypothyroidism TSH currently elevated 8.37 Currently on IV Synthroid 50 g daily- change to her po regimen- TSH in a few weeks as outpatient. Sliding-scale insulin with Accu-Cheks every 6 hours to maintain euglycemia/low regimen Normocytic anemia No signs of active bleeding. 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 Arthritic changes to the tarsal/tarsal and tarsometatarsal joints. Calcaneal spur. Old fracture secondary tarsal. X-ray left tib/fib revealed moderate arthritic changes to the patellofemoral and femoral tibial joints. PT evaluate and treat Hypo osmolar Hyponatremia-resolved. Hypokalemia-replaced. Efyd-erwteuacj-laymnrdy. Cortisol within normal limits. TSH slightly elevated 5.4. Uric acid 2.6 at the lower end of normal. Normal saline at 100 cc an hour Prophylaxis - GI - Protonix - DVT - SCD/heparin subcutaneous will be held in light of oozing from central line dc central line and mendoza cath. transfer to telemetry. d/w the RN. Discharge Planning dc home within the next one-two days. the daughter wants to take her home. Valencia Syed MD Apr 17, 2017 09:20
[2017-04-17] MEDS: THIAMINE HCL 100 MG TAB PO SCH (10:00)
[2017-04-17] MEDS: IRON SUCROSE INJ 200 MG in SODIUM CHLORIDE 0.9% INJ 100 ML IV SCH (10:18)
[2017-04-17] MEDS: ARTIFICIAL TEARS OPTH SOLN 15 ML BTL EACH EYE SCH ×3 (10:19→18:00)
[2017-04-17] MEDS: FOLIC ACID 1 MG TAB PO SCH (10:20)
[2017-04-17] MEDS: MULTIVITAMIN TAB PO SCH (10:20)
[2017-04-17] MEDS: ACETAMINOPHEN 325 MG TAB PO PRN (10:20)
[2017-04-17] MEDS: DOCUSATE SODIUM 50 MG/SENNA 8.6 MG TAB PO SCH ×2 (10:20→22:46)
[2017-04-17] MEDS: LOSARTAN 25 MG TAB PO SCH (10:20)
[2017-04-17] MEDS: SODIUM CHLORIDE 0.9% FLUSH 10 ML FLUSH IVF SCH (10:21)
[2017-04-17] MEDS: NADOLOL 20 MG TAB PO SCH (10:21)
[2017-04-17] MEDS: SODIUM CHLORIDE 0.9% FLUSH 10 ML FLUSH IV FLUSH SCH ×3 (10:21→22:46)
[2017-04-17] MEDS: SODIUM CHLOR 0.9% 1000 ML INJ 1,000 ML IV SCH ×2 (11:41→21:41)
[2017-04-17] MEDS ORDERED: oxyCODONE/ACETAMINOPHEN 5 MG/325 MG TAB PO PRN (12:00)
--- NOTE | 2017-04-17 22:04 | RADHPO ---
EXAM DATE/TIME: 04/17/2017 21:31 [facility] COMPARISON: No previous studies available for comparison. INDICATIONS : Right neck swelling after IJ removal RADIATION DOSE: 10.30 CTDIvol (mGy) MEDICAL HISTORY : Hypertension. Hypothyroidism. SURGICAL HISTORY : Coronary artery stent. ENCOUNTER: Initial ACUITY: 1 day PAIN SCORE: 10/10 LOCATION: Right neck TECHNIQUE: Volumetric scanning of the neck was performed. Using automated exposure control and adjustment of th e mA and/or kV according to patient size, radiation dose was kept as low as reasonably achievable to obtain optimal diagnostic quality images. FINDINGS: Subcutaneous edema as well as thickening of the platysmas muscle is seen on the right. No fluid colle ction or hematoma. No adenopathy. Postsurgical changes and mild mucosal thickening involving the maxi llary sinuses bilaterally. CONCLUSION: 1. Edema involving the right neck. No abscess or hematoma. Kaushik Miller Jr., MD on April 17, 2017 at 22:00 Board Certified Radiologist. This report was verified electronically.
[2017-04-17] MEDS: MORPHINE SULFATE 4 MG/ML INJ IV PUSH PRN (22:29)
--- NOTE | 2017-04-17 23:46 | RADHPO ---
EXAM DATE/TIME: 04/17/2017 22:59 [facility] COMPARISON: No previous studies available for comparison. INDICATIONS : Right neck and face swelling MEDICAL HISTORY : Hypertension. Arthritis. Recent fall with ankle injury. Coronary artery disease. Anxiety. Thyroid di sease. SURGICAL HISTORY : Hysterectomy. Thyroid surgery. ENCOUNTER: Initial ACUITY: 1 day PAIN SCORE: 9/10 LOCATION: Right arm. FINDINGS: The exam is nondiagnostic secondary to lack of cooperation from the patient. At the level of the palp able abnormality no discrete mass is identified. The jugular vein is patent. CONCLUSION: 1. Nondiagnostic evaluation secondary to lack of patient cooperation. Sony Armstrong MD on April 17, 2017 at 23:43 Board Certified Radiologist. This report was verified electronically.
[2017-04-18] VITALS (16 sets, daily range): BP systolic 120–204; BP diastolic 61–111; PULSE 76–98; RESP 20–38; TEMP 96.8–99.7; O2SAT 82–99
[2017-04-18] MEDS: LORazepam 1 MG TAB PO PRN (00:52)
[2017-04-18] MEDS: LORazepam 2 MG/ML VIAL IV PUSH PRN (02:52)
[2017-04-18] MEDS: CHLORHEXIDINE GLUCONATE 2 % 1 PACK (2 CLOTHS) TOP SCH ×2 (04:00→23:15)
[2017-04-18] MEDS: LEVOTHYROXINE SODIUM 75 MCG TAB PO SCH (06:00)
[2017-04-18] MEDS: SODIUM CHLOR 0.9% 1000 ML INJ 1,000 ML IV SCH ×3 (07:41→21:44)
[2017-04-18] MEDS ORDERED: VANCOMYCIN INJ 1,250 MG in SODIUM CHLOR 0.9% 250 ML INJ 250 ML IV ONE (08:30)
[2017-04-18] MEDS ORDERED: Vancomycin Consult Pharmacy 1 EA OTHER SCH (08:30)
--- NOTE | 2017-04-18 08:43 | HHI.PR ---
Subjective Remarks significant change in her mental status since yesterday. the patient is restless and confused. had a low grade fever last night. noted that had a significant swelling at the site of previous central line. d/w the RN and the daughter at the bedside. Objective Vitals Vital Signs Date Time Temp Pulse Resp B/P Pulse Ox O2 Delivery O2 Flow Rate FiO2 04/18/17 06:11 97 Nasal Cannula 2.00 04/18/17 06:10 90 21 04/18/17 04:16 99.0 89 20 136/82 96 04/18/17 01:09 99.7 83 22 148/96 97 04/17/17 20:30 96 21 04/17/17 20:16 96.5 56 12 174/103 93 04/17/17 18:00 78 31 04/17/17 17:49 96 21 04/17/17 17:00 74 25 148/89 04/17/17 16:00 98.5 78 26 157/92 04/17/17 15:00 78 28 153/81 04/17/17 14:52 78 26 151/74 04/17/17 14:34 76 24 162/89 04/17/17 14:00 76 23 170/84 97 04/17/17 13:00 70 19 130/79 98 04/17/17 12:23 80 22 139/79 04/17/17 12:00 82 04/17/17 12:00 98.3 82 21 153/97 96 04/17/17 11:20 3 04/17/17 11:00 78 04/17/17 11:00 78 32 135/72 98 04/17/17 10:15 80 24 139/79 98 04/17/17 10:00 84 04/17/17 10:00 78 23 150/81 98 04/17/17 09:00 84 04/17/17 09:00 84 26 148/77 99 I/O 04/17/17 04/17/17 04/17/17 04/18/17 04/18/17 04/18/17 07:00 15:00 23:00 07:00 15:00 23:00 Intake Total 711 ml Output Total 150 ml 350 ml Balance -150 ml 361 ml Intake Oral 220 ml IV Total 491 ml Output Urine Total 150 ml 350 ml # Voids 1 6 Result Diagram: 04/16/17 0430 04/17/17 0500 Imaging Last Impressions Upper Extremity Ultrasound 04/17/17 Signed Impressions: Service Date/Time: April 22:59 - CONCLUSION: 1. Nondiagnostic evaluation secondary to lack of patient cooperation. Sony Armstrong MD Neck CT 04/17/17 Signed Impressions: Service Date/Time: April 21:31 - CONCLUSION: 1. Edema involving the right neck. No abscess or hematoma. Kaushik Miller Jr., MD Abdomen/Pelvis CT 04/16/17 Signed Impressions: Service Date/Time: Sunday, April 16, 2017 21:00 - CONCLUSION: 1. No acute abnormality. 2. Cholelithiasis. 3. Small bilateral pleural effusions. Kaushik Miller Jr., MD Neck Magnetic Resonance Angiography 04/15/17 Signed Impressions: Service Date/Time: Saturday, April 15, 2017 15:20 - CONCLUSION: 1. Limited examination due to motion. These were the best obtainable images given the patient's state of cooperation. 2. No gross significant stenosis of either carotid artery observed. 3. Left vertebral artery grossly patent. Right is not visualized. Kaushik Miller Jr., MD Chest X-Ray 04/13/172014 Signed Impressions: Service Date/Time: Thursday, April 13, 2017 20:27 - CONCLUSION: 1. No pneumothorax status post placement of right internal jugular central line which has its tip in good position in the superior vena cava. Alex Whiteside MD Tibia/Fibula X-Ray 04/13/17 Signed Impressions: Service Date/Time: Thursday, April 13, 2017 16:19 - CONCLUSION: 1. Moderate arthritic changes involving the femoral tibial and patellofemoral joints. 2. No acute fracture or dislocation. Alex Whiteside MD Lower Extremity Ultrasound 04/13/17 Signed Impressions: Service Date/Time: Thursday, April 13, 2017 21:25 - CONCLUSION: No evidence of deep venous thrombosis within the lower extremities. Alex Whiteside MD Head Magnetic Resonance Angiography 04/13/17 Signed Impressions: Service Date/Time: Saturday, April 15, 2017 15:20 - CONCLUSION: 1. Significantly limited study due to motion. These were the best obtainable images given the patient's state of cooperation. 2. Scattered areas of mild luminal narrowing secondary to atherosclerotic plaque. Details given above. Kaushik Miller Jr., MD Head CT 04/13/17 0000 Signed Impressions: Service Date/Time: Thursday, April 13, 2017 18:00 - CONCLUSION: 1. No acute intracranial abnormality. 2. Opacified right maxillary sinus and right ethmoid air cells consistent with probable sinusitis. Alex Whiteside MD Foot X-Ray 04/13/17 0000 Signed Impressions: Service Date/Time: Thursday, April 13, 2017 15:31 - CONCLUSION: 1. Arthritic changes involving the tarso-tarsal and tarsal-metatarsals joints in the midfoot. 2. Bony fusion of the left 1st metatarsophalangeal joint. 3. Plantar calcaneal spur. 4. No acute fracture or dislocation. Alex Whiteside MD Brain MRI 04/13/17 0000 Signed Impressions: Service Date/Time: Saturday, April 15, 2017 15:20 - CONCLUSION: 1. Significantly limited study by motion artifact. These were the best obtainable images given the patient's state of cooperation. 2. No acute intracranial abnormality appreciated on these limited images. Kaushik Miller Jr., MD Objective Remarks GENERAL: This is a well-nourished, well-developed patient, in no apparent distress. Neck; right neck is swollen, warm and hard to touch CARDIOVASCULAR: Regular rate and regular rhythm without murmurs, gallops, or rubs. RESPIRATORY: Clear to auscultation. Breath sounds equal bilaterally. No wheezes , rales, or rhonchi. GASTROINTESTINAL: Abdomen soft, non-tender, nondistended. Normal, active bowel sounds MUSCULOSKELETAL: Extremities without clubbing, cyanosis, or edema. NEURO: much more alert today. Procedures central line placement. Medications and IVs Current Medications Ondansetron HCl (Zofran Inj) 4 mg ONCE ONCE IVP Last administered on 15:26; Start 04/13/17 at 15:30; Stop 04/13/17 at 15:31; Status DC Morphine Sulfate (Morphine Inj) 4 mg ONCE ONCE IV PUSH Last administered on 15:27; Start 04/13/17 at 15:30; Stop 04/13/17 at 15:31; Status DC Morphine Sulfate (Morphine Inj) 4 mg ONCE ONCE IV PUSH Last administered on 16:31; Start 04/13/17 at 16:15; Stop 04/13/17 at 16:16; Status DC Lorazepam 1 mg 1 mg ONCE ONCE IV PUSH Last administered on 04/13/17 16:30; Start 04/13/17 at 16:15; Stop 04/13/17 at 16:16; Status DC Sodium Chloride (Sodium Chloride 3% Inj) 250 ml @ 30 mls/hr ONCE ONCE IV Last administered on 04/13/17 17:04; Start 04/13/17 at 17:00; Stop 04/13/17 at 17:55; Status DC Levothyroxine Sodium (Synthroid) 75 mcg DAILY PO ; Start 04/14/17 at 09:00; Stop 04/14/17 at 09:00; Status DC Nadolol (Corgard) 80 mg DAILY PO ; Start 04/14/17 at 09:00; Stop 04/14/17 at 09: 00; Status DC Losartan Potassium (Cozaar) 25 mg DAILY PO Last administered on 04/17/17 10:20 ; Start 04/14/17 at 09:00 Clonidine (Catapres) 0.1 mg Q6H PRN PO SBP> OR = 180, DBP> OR = 100; Start at 17:15 Sodium Chloride (NS Flush) 2 ml UNSCH PRN IV FLUSH FLUSH AFTER USING IV ACCESS ; Start 04/13/17 at 17:15; Stop 04/17/17 at 22:18; Status DC Sodium Chloride (NS Flush) 2 ml BID IV FLUSH Last administered on 04/17/17 10: 21; Start 04/13/17 at 21:00; Stop 04/17/17 at 22:18; Status DC Acetaminophen (Tylenol) 650 mg Q4H PRN PO FEVER/PAIN < 5. Last administered on 04/17/17 10:20; Start 04/13/17 at 17:15 Ondansetron HCl (Zofran Inj) 4 mg Q6H PRN IVP NAUSEA OR VOMITING; Start at 17:15; Stop 04/17/17 at 22:18; Status DC Acetaminophen (Tylenol) 650 mg Q6H PRN PO PAIN SCALE 1 TO 2; Start 04/13/17 at 17:15; Stop 04/13/17 at 22:41; Status DC Naloxone HCl (Narcan Inj) 0.4 mg UNSCH PRN IV SEE LABEL COMMENTS; Start at 17:15 Senna/Docusate Sodium (Louann-Colace) 1 tab BID PO ; Start 04/13/17 at 21:00; Stop 04/13/17 at 21:00; Status DC Flumazenil (Romazicon Inj) 0.2 mg Q1M PRN IV PUSH SEE LABEL COMMENTS; Start at 17:15 Lorazepam (Ativan) 1 mg Q4H PRN PO CIWA 8 - 10 Last administered on 04/18/17 00 :52; Start 04/13/17 at 17:15 Lorazepam (Ativan) 2 mg Q2H PRN PO CIWA 11-14; Start 04/13/17 at 17:15 Lorazepam (Ativan Inj) 2 mg Q1H PRN IV PUSH CIWA 15-20 Last administered on 04/18 02:52; Start 04/13/17 at 17:15 Lorazepam (Ativan Inj) 2 mg Q15M PRN IV PUSH CIWA > 20; Start 04/13/17 at 17:15 Lorazepam (Ativan Inj) 1 mg ONCE ONCE IV PUSH Last administered on 04/13/17 17:48; Start 04/13/17 at 17:30; Stop 04/13/17 at 17:31; Status DC Labetalol HCl (Trandate Inj) 10 mg Q1HR PRN IV PUSH SBP>160, DBP>90, HR>65 Last administered on 04/16/17 05:26; Start 04/13/17 at 18:00 Hydralazine HCl (Apresoline Inj) 10 mg Q1HR PRN IV PUSH SBP>160, DBP>90 Last administered on 04/16/17 04:10; Start 04/13/17 at 18:00 Nitroglycerin 2 inch 2 inch Q6HR PRN TOPICAL SBP>160, DBP>90; Start 04/13/17 at 18:00 Sodium Chloride (NS 1000 ml Inj) 1,000 ml @ 50 mls/hr Q20H IV Last administered on 04/13/17 17:54; Start 04/13/17 at 17:54; Stop 04/13/17 at 20:16 ; Status DC Sodium Chloride (NS Flush) 2 ml UNSCH PRN IV FLUSH FLUSH AFTER USING IV ACCESS ; Start 04/13/17 at 18:00 Sodium Chloride (NS Flush) 2 ml BID IV FLUSH Last administered on 04/17/17 22: 46; Start 04/13/17 at 21:00 Pantoprazole Sodium (Protonix Inj) 40 mg DAILY IV Last administered on 09:00; Start 04/14/17 at 09:00 Artificial Tears (Tears Naturale Opth Soln) 1 drop TID EACH EYE Last administered on 04/17/17 13:00; Start 04/13/17 at 18:00 Ondansetron HCl (Zofran Inj) 4 mg Q6H PRN IV NAUSEA OR VOMITING Last administered on 04/15/17 23:43; Start 04/13/17 at 18:00 Albuterol Sulfate (Albuterol Neb) 2.5 mg Q2HR NEB PRN INH SOB/WHEEZING; Start 04/13/17 at 18:00 Miscellaneous Information 1 [id number] Last administered on 04/13/17 18:00; Start 04/13/17 at 18:00 Chlorhexidine Gluconate (Chlorhexidine 2% Cloth) 3 pack Taper DAILY@04 TOP Last administered on 04/17/17 04:00; Start 04/14/17 at 04:00; Stop 04/10/18 at 03:59 Chlorhexidine Gluconate (Chlorhexidine 2% Cloth) 3 pack UNSCH PRN TOP HYGIENIC CARE; Start 04/13/17 at 18:00 Senna/Docusate Sodium (Louann-Colace) 1 tab BID PO Last administered on 04/17/17 22:46; Start 04/13/17 at 21:00 Magnesium Hydroxide (Milk Of Magnesia Liq) 30 ml Q12H PRN PO MILD - MODERATE CONSTIPATION; Start 04/13/17 at 18:00 Sennosides (Senokot) 17.2 mg Q12H PRN PO MODERATE - SEVERE CONSTIPATION; Start 04/13/17 at 18:00 Bisacodyl (Dulcolax Supp) 10 mg DAILY PRN RECTAL SEVERE CONSITIPATION; Start at 18:00 Lactulose 30 ml 30 ml DAILY PRN PO SEVERE CONSITIPATION; Start 04/13/17 at 18: 00 Magnesium Sulfate/ Dextrose 100 ml @ 100 mls/hr Q1H IV ; Start 04/13/17 at 20: 15; Stop 04/13/17 at 22:14; Status DC Sodium Chloride 1,000 ml @ 42 mls/hr [id number] IV Last administered on 21:00; Start 04/13/17 at 20:15; Stop 04/14/17 at 07:12; Status DC Potassium Chloride (KCl 40 Meq Premix Inj) 100 ml @ 25 mls/hr BOLUS ONCE IV Last administered on 04/13/17 22:50; Start 04/13/17 at 20:15; Stop 04/14/17 at 00:14; Status DC Sodium Chloride (NS Flush) DAILY IVF Last administered on 04/17/17 10:21; Start 04/13/17 at 20:15 Sodium Chloride UNSCH PRN IVF SEE PROTOCOL; Start 04/13/17 at 20:15 Thiamine HCl 100 mg/Sodium Chloride 101 ml @ 101 mls/hr ONCE ONCE IV Last administered on 04/13/17 21:59; Start 04/13/17 at 21:15; Stop 04/13/17 at 22:14 ; Status DC Thiamine HCl/ Sodium Chloride (Thiamine Inj/NS Inj) 101 ml @ 101 mls/hr DAILY IV Last administered on 04/16/17 11:19; Start 04/14/17 at 09:00; Stop 04/17/17 at 09:17; Status DC Folic Acid (Folate) 1 mg DAILY PO Last administered on 04/17/17 10:20; Start at 09:00 Multivitamins 1 tab 1 tab DAILY PO Last administered on 04/17/17 10:20; Start 04/14/17 at 09:00 Clevidipine (Cleviprex Inj) 50 ml @ 0 mls/hr TITRATE IV ; Start 04/13/17 at 23: 00; Stop 04/15/17 at 15:21; Status DC Gelatin 1 foam 1 foam ONCE ONCE TOPICAL Last administered on 04/13/17 00:07; Start 04/13/17 at 23:15; Stop 04/13/17 at 23:16; Status DC Magnesium Sulfate 2 gm/Sodium Chloride 154 ml @ 77 mls/hr Q2H ONCE IV Last administered on 04/13/17 00:07; Start 04/13/17 at 23:45; Stop 04/14/17 at 01:44 ; Status DC Sodium Chloride (NS 1000 ml Inj) 1,000 ml @ 100 mls/hr Q10H IV Last administered on 04/17/17 21:41; Start 04/14/17 at 08:00 Levothyroxine Sodium (Synthroid Inj) 50 mcg DAILY@06 IV PUSH Last administered on 04/17/17 07:41; Start 04/14/17 at 08:00; Stop 04/17/17 at 09:23; Status DC Nadolol 80 mg 80 mg DAILY PO Last administered on 04/17/17 10:21; Start at 09:00 Dexmedetomidine HCl/Sodium Chloride (Precedex Inj/NS Inj) 52 ml @ 0 mls/hr TITRATE IV Last administered on 04/14/17 08:54; Start 04/14/17 at 08:30; Stop 04/16/17 at 06:47; Status DC Gadodiamide (Omniscan Pf Inj) 20 ml STK-MED ONCE IV Last administered on 15:00; Start 04/15/17 at 16:10; Stop 04/15/17 at 16:11; Status DC Oxycodone HCl 10 mg 10 mg NOW PO Last administered on 04/16/17 00:41; Start at 00:45; Stop 04/16/17 at 02:30; Status DC Iron Sucrose 200 mg/Sodium Chloride 110 ml @ 110 mls/hr DAILY IV Last administered on 04/17/17 10:18; Start 04/16/17 at 09:00; Stop 04/18/17 at 09:59 Potassium Chloride 100 ml @ 50 mls/hr Q2H PRN IV For Potassium 2.8 - 3.2 mEq/ L Last administered on 04/16/17 11:20; Start 04/16/17 at 09:45; Stop 04/17/17 at 09:16; Status DC Potassium Chloride (KCl 20 Meq Premix Inj) 100 ml @ 50 mls/hr Q2H PRN IV For Potassium 2.8 - 3.2 mEq/L; Start 04/16/17 at 09:45; Stop 04/17/17 at 09:16; Status DC Potassium Bicarb/ Potassium Chloride 50 meq 50 meq UNSCH PRN PO For Potassium 3.3 - 3.5 mEq/L; Start 04/16/17 at 09:45; Stop 04/17/17 at 09:16; Status DC Potassium Chloride 100 ml @ 25 mls/hr UNSCH PRN IV For Potassium 3.3 - 3.5 mEq /L; Start 04/16/17 at 09:45; Stop 04/17/17 at 09:16; Status DC Potassium Chloride 100 ml @ 50 mls/hr Q2H PRN IV For Potassium 3.3 - 3.5 mEq/L ; Start 04/16/17 at 09:45; Stop 04/17/17 at 09:16; Status DC Magnesium Sulfate/ Sodium Chloride (Magnesium Sulfate Inj/NS Inj) 100 ml @ 50 mls/hr UNSCH PRN IV For Magnesium 0.9 - 1.1 mg/dL; Start 04/16/17 at 09:45; Stop 04/17/17 at 09:16; Status DC Magnesium Oxide 800 mg 800 mg UNSCH PRN PO For Magnesium 1.2 - 1.6 mg/dL; Start 04/16/17 at 09:45; Stop 04/17/17 at 09:16; Status DC Magnesium Sulfate/ Sodium Chloride (Magnesium Sulfate Inj/NS Inj) 100 ml @ 50 mls/hr UNSCH PRN IV For Magnesium 1.2 - 1.6 mg/dL; Start 04/16/17 at 09:45; Stop 04/17/17 at 09:16; Status DC Potassium Phosphate 2000 mg 2,000 mg Q4H PRN PO For Phosphorus < 2.5 mg/dL; Start 04/16/17 at 09:45; Stop 04/17/17 at 09:17; Status DC Sodium Phosphate/ Sodium Chloride (Sodium Phosphate Inj/NS 250 ml Inj) 250 ml @ 42 mls/hr UNSCH PRN IV For Phosphorus < 2.5 mg/dL; Start 04/16/17 at 09:45 Potassium Phosphate 2000 mg 2,000 mg UNSCH PRN PO/TUBE SEE LABEL COMMENTS; Start 04/16/17 at 09:41; Stop 04/17/17 at 09:17; Status DC Potassium Phosphate/Sodium Chloride (Potassium Phosphate Inj/NS 250 ml Inj) 260 ml @ 42 mls/hr UNSCH PRN IV SEE LABEL COMMENTS; Start 04/16/17 at 09:41; Stop 04/17/17 at 09:17; Status DC Oxycodone HCl (Roxicodone) 5 mg ONCE ONCE PO Last administered on 04/16/17 20 :24; Start 04/16/17 at 20:15; Stop 04/16/17 at 20:20; Status DC Morphine Sulfate (Morphine Inj) 2 mg ONCE ONCE IV PUSH Last administered on 21:52; Start 04/16/17 at 21:45; Stop 04/16/17 at 21:46; Status DC Thiamine HCl (Vitamin B1) 100 mg DAILY PO Last administered on 04/17/17 10:00; Start 04/17/17 at 10:00 Levothyroxine Sodium (Synthroid) 75 mcg DAILY@0600 PO ; Start 04/18/17 at 06:00 Oxycodone/ Acetaminophen (Percocet 5-325 Mg) 1 tab Q6HR PRN PO PAIN > 5 Last administered on 04/17/17 22:46; Start 04/17/17 at 12:00 Morphine Sulfate (Morphine Inj) 2 mg Q3H PRN IV PUSH breakthrough pain Last administered on 04/17/17 22:29; Start 04/17/17 at 22:15 Date of Insertion: April 13, 2017 Line: Central Venous Catheter Side: Right Location: Jugular A/P Assessment and Plan A/P Acute encephalopathy - toxic metabolic versus EtOH withdrawal - now worse compared to yesterday EtOH use Frequent falls will repeat CT head today check ABG and CXR neuro checks EtOH withdrawal protocol initiated CIWA protocol initiated NPO for now PT/ST following. right neck swelling at the site of previous central line placement neck CT with no hematoma or abscess obtain blood cultures and start broad spectrum IV antibiotics consult general surgery Hypertension Coronary artery disease status post stent 3 On nadolol 80 mg by mouth daily and losartan 25 mg daily for hypertension. As needed labetalol/hydralazine/Nitropaste to keep systolic blood pressure less than 160 Hypothyroidism TSH currently elevated 8.37 continue levothyroxine. TSH to be repeated in 2- 3 weeks as outpatient. Sliding-scale insulin with Accu-Cheks every 6 hours to maintain euglycemia/low regimen Normocytic anemia No signs of active bleeding. 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 Arthritic changes to the tarsal/tarsal and tarsometatarsal joints. Calcaneal spur. Old fracture secondary tarsal. X-ray left tib/fib revealed moderate arthritic changes to the patellofemoral and femoral tibial joints. PT evaluate and treat Hypo osmolar Hyponatremia-improving. Hypokalemia-will replace. [id number]. Cortisol within normal limits. TSH slightly elevated 5.4. Uric acid 2.6 at the lower end of normal. Normal saline at 100 cc an hour Serial sodiums every 6 hours. Prophylaxis - GI - Protonix - DVT - SCD will transfer back to ICU for close monitoring of her mental status. d/w the daughter and the RN at the bedside. Discharge Planning not ready for discharge. Valencia Syed MD Apr 18, 2017 08:43
[2017-04-18 08:50] LABS: BLOOD GAS VENOUS BASE EXCESS -5.7 mmol/L (-2-2); BLOOD GAS VENOUS HCO3 19 mmol/L (22-26); BLOOD GAS VENOUS O2 CONTENT 7.4 Vol % (9.0-17.0); BLOOD GAS VENOUS O2 HGB SAT 66 % (70-76); BLOOD GAS VENOUS PCO2 37 mmHg (44-48); BLOOD GAS VENOUS PO2 40 mmHg (35-40); BLOOD GAS VENOUS pH 7.34 (7.360-7.400); CRITICAL VALUE NO; LITER FLOW 2 L/M; OXYGEN DEVICE NASAL CANNULA; TEMP CORR TO 98.6
[2017-04-18 08:51] LABS: DRAW SITE RT RADIAL; STAT NO
[2017-04-18] MEDS: MULTIVITAMIN TAB PO SCH (09:00)
[2017-04-18] MEDS: ARTIFICIAL TEARS OPTH SOLN 15 ML BTL EACH EYE SCH ×3 (09:00→18:00)
[2017-04-18] MEDS: LOSARTAN 25 MG TAB PO SCH (09:00)
[2017-04-18] MEDS: THIAMINE HCL 100 MG TAB PO SCH (09:00)
[2017-04-18] MEDS: NADOLOL 20 MG TAB PO SCH (09:00)
[2017-04-18] MEDS: SODIUM CHLORIDE 0.9% FLUSH 10 ML FLUSH IVF SCH (09:00)
[2017-04-18] MEDS: DOCUSATE SODIUM 50 MG/SENNA 8.6 MG TAB PO SCH ×2 (09:00→21:00)
[2017-04-18] MEDS: FOLIC ACID 1 MG TAB PO SCH (09:00)
[2017-04-18] MEDS: SODIUM CHLORIDE 0.9% FLUSH 10 ML FLUSH IV FLUSH SCH ×2 (09:00→21:38)
--- NOTE | 2017-04-18 09:12 | RADHPO ---
EXAM DATE/TIME: 04/18/2017 08:55 [facility] COMPARISON: CHEST SINGLE AP, April 13, 2017, 20:27. INDICATIONS : Fever. MEDICAL HISTORY : unobtainable SURGICAL HISTORY : unobtainable ENCOUNTER: Subsequent ACUITY: 4 - 6 days PAIN SCORE: 0/10 LOCATION: Bilateral chest FINDINGS: Single AP view of the chest. The lungs are clear. Cardiomediastinal silhouette within normal limits. No evidence of pleural effusion or pneumothorax. CONCLUSION: No acute cardiopulmonary disease identified. Asher Mcgowan MD on April 18, 2017 at 9:10 Board Certified Radiologist. This report was verified electronically.
[2017-04-18] MEDS ORDERED: HALOPERIDOL LACTATE 5 MG/ML AMP IM ONE (10:00)
[2017-04-18] MEDS: PANTOPRAZOLE SODIUM 40 MG VIAL IV SCH (10:31)
[2017-04-18 12:46] LABS: AUTOMATED NEUTROPHIL # 17.6 TH/MM3 (1.8-7.7); BASOPHIL # 0.2 TH/MM3 (0-0.2); BASOPHIL % 0.9 % (0.0-2.0); EOSINOPHIL % 0.1 % (0.0-4.0); HEMATOCRIT 24.2 % (35.0-46.0); LYMPH % 4.2 % (9.0-44.0); LYMPHOCYTE # 0.9 TH/MM3 (1.0-4.8); MEAN CELL VOLUME 94.3 FL (80.0-100.0); MEAN CORPUSCULAR HEMOGLOBIN 31.9 PG (27.0-34.0); MEAN CORPUSCULAR HGB CONC 33.8 % (32.0-36.0); MONO % 8.1 % (0.0-8.0); NEUT % 86.7 % (16.0-70.0); PLATELET COUNT 295 TH/MM3 (150-450); RED BLOOD COUNT 2.57 MIL/MM3 (4.00-5.30); RED CELL DISTRIBUTION WIDTH 14.5 % (11.6-17.2); WHITE BLOOD COUNT 20.3 TH/MM3 (4.0-11.0)
[2017-04-18 12:50] LABS: HEMO FLAGS DIFF FINAL
[2017-04-18 12:58] LABS: CHLORIDE 103 MEQ/L (98-107); POTASSIUM 3.8 MEQ/L (3.5-5.1); SODIUM (NA) 133 MEQ/L (136-145)
[2017-04-18 13:02] LABS: ANION GAP 9 MEQ/L (5-15); BICARBONATE 20.9 MEQ/L (21.0-32.0); BLOOD UREA NITROGEN 6 MG/DL (7-18)
[2017-04-18] MEDS: IRON SUCROSE INJ 200 MG in SODIUM CHLORIDE 0.9% INJ 100 ML IV SCH (13:25)
[2017-04-18 14:00] LABS: ALKALINE PHOSPHATASE 117 U/L (45-117); ALT (GPT) 830 U/L (10-53); AST (GOT) 1332 U/L (15-37); GLOMERULAR FILTRATION RATE 89 ML/MIN (>89); TOTAL BILIRUBIN ADULT 1.3 MG/DL (0.2-1.0)
[2017-04-18] MEDS: PIPERACIL-TAZO 3.375 GM PREMIX 50 ML IV SCH ×3 (14:53→21:38)
[2017-04-18] MEDS: hydrALAZINE HCL 20 MG/ML VIAL IV PUSH PRN (14:53)
[2017-04-18] MEDS: VANCOMYCIN INJ 1,250 MG in SODIUM CHLOR 0.9% 250 ML INJ 250 ML IV SCH (14:54)
[2017-04-18] MEDS: MORPHINE SULFATE 4 MG/ML INJ IV PUSH PRN (17:04)
--- NOTE | 2017-04-18 17:16 | HHI.PR ---
Addendum To [facility] Progress Not Reason for addendum: Additonal documentation (CBC and CMP resulted; with leukocytosis/ and markedly elevated LFT's; patient will be treated as sepsis likely due to right facial cellulitis with broad spectrum IV antibiotics- pending the blood cultures- will consult ID and GI- will check abdominal sonogram.) Valencia Syed MD Apr 18, 2017 17:16
--- NOTE | 2017-04-18 19:08 | RADHPO ---
EXAM DATE/TIME: 04/18/2017 18:17 [facility] COMPARISON: CT ABDOMEN & PELVIS W/O CONTRAST, April 16, 2017, 21:00. INDICATIONS : Increased lab values. MEDICAL HISTORY : Hypertension. Hypothyroidism. Gait imbalance disorder. Coronary artery disease. Chronic benzodiazep ine narcotic use. Altered mental status. Depression. SURGICAL HISTORY : Thyroidectomy. Craniotomy. Cardiac cath. ENCOUNTER: Initial ACUITY: 1 day PAIN SCORE: Nonresponsive. LOCATION: Bilateral upper quadrant MEASUREMENTS: LIVER: 15.1 cm length COMMON DUCT: 5 mm RIGHT KIDNEY: 8.8 x 3.6 x 3.8 cm SPLEEN: 7.9 cm length FINDINGS: LIVER: Normal echotexture without focal lesion or ductal dilatation. COMMON DUCT: No intraluminal mass or stone visualized. GALLBLADDER: There is a solitary calcified gallstone measuring 15 mm. Patient was unable to turn left lateral decu bitus to see if this is lodged within the neck. There is mild wall thickening measuring 4 mm. A trace amount of fluid is seen adjacent to the gallbladder. PANCREAS: The visualized portions are within normal limits. RIGHT KIDNEY: No hydronephrosis, stone or mass. SPLEEN: No focal lesion. CONCLUSION: 1. Cholelithiasis with mild gallbladder wall thickening and minimal pericholecystic fluid. This raise s concern for possible acute cholecystitis. Consider HIDA scan. Kaushik Miller Jr., MD on April 18, 2017 at 19:03 Board Certified Radiologist. This report was verified electronically.
[2017-04-18] MEDS ORDERED: LORazepam 2 MG/ML VIAL IV PUSH ONE (20:45)
--- NOTE | 2017-04-18 21:09 | PD.CONS ---
HPI Service General surgery Consult Requested By Reason for Consult Right neck swelling Primary Care Physician No Primary Care Physician History of Present Illness 71-year-old female hospitalized for about 5 days with acute metabolic encephalopathy and possible pneumonia. She had been improving and was transferred out of the ICU yesterday. Unfortunately, she declined today was transferred back to intensive care. The patient had a right internal jugular central line removed yesterday. She was noted to have swelling at the site which apparently was quite pronounced yesterday. Her daughter is present and states that the swelling is actually improved today. Her white blood count went up to 20,000 today. Last night she underwent ultrasound of the neck and CT of the neck. She was noted to have soft tissue swelling and edema but no abscess or fluid collection. The history is obtained from the patient's daughter, the patient's bedside nurse, and the chart. Review of Systems ROS Limitations: Clinical Condition (review of systems is not able to be obtained from the patient due to encephalopathy), Altered Mental Status Past Family Social History Past Medical History Coronary artery disease with 3 stents Hypertension Depression Hypothyroidism Chronic narcotic use Chronic benzodiazepine use Past Surgical History Thyroidectomy Cardiac catheterization with 3 stents placed Reported Medications Reported Meds & Active Scripts Active Percocet (Oxycodone-Acetaminophen) 5-325 mg Tab 1 Tab PO Q6H PRN Reported Nadolol 80 Mg Tab 80 Mg PO DAILY Losartan (Losartan Potassium) 25 Mg Tab 25 Mg PO DAILY Levothyroxine (Levothyroxine Sodium) 75 Mcg Tab 75 Mcg PO DAILY Escitalopram (Escitalopram Oxalate) 10 Mg Tab 10 Mg PO DAILY Alprazolam 0.25 Mg Tab 0.25 Mg PO DIRECTED PRN Allergies: Coded Allergies: Sulfa (Verified Allergy, Severe, Rash, 04/13/17) Active Ordered Medications Current Medications Medications (Trade) Dose Ordered Sig/Laina Route Start Time Stop Time Status Last Admin (Cozaar) 25 mg DAILY PO 04/14/17 09:00 04/17/17 10:20 (Catapres) 0.1 mg Q6H PRN PO 04/13/17 17:15 (Tylenol) 650 mg Q4H PRN PO 04/13/17 17:15 6/1/17 10:20 (Narcan Inj) 0.4 mg UNSCH PRN IV 04/13/17 17:15 (Romazicon Inj) 0.2 mg Q1M PRN IV PUSH 04/13/17 17:15 (Ativan) 1 mg Q4H PRN PO 04/13/17 17:15 04/18/17 00:52 (Ativan) 2 mg Q2H PRN PO 04/13/17 17:15 04/18/17 13:33 (Ativan Inj) 2 mg Q1H PRN IV PUSH 04/13/17 17:15 04/18/17 02:52 (Ativan Inj) 2 mg Q15M PRN IV PUSH 04/13/17 17:15 (Trandate Inj) 10 mg Q1HR PRN IV PUSH 04/13/17 18:00 04/16/17 05:26 (Apresoline Inj) 10 mg Q1HR PRN IV PUSH 04/13/17 18:00 04/18/17 14:53 (Nitroglycerin 2% Oint) 2 inch Q6HR PRN TOPICAL 04/13/17 18:00 (NS Flush) 2 ml UNSCH PRN IV FLUSH 04/13/17 18:00 (NS Flush) 2 ml BID IV FLUSH 04/13/17 21:00 04/18/17 09:00 (Protonix Inj) 40 mg DAILY IV 04/14/17 09:00 04/18/17 10:31 (Tears Naturale Opth Soln) 1 drop TID EACH EYE 04/13/17 18:00 04/18/17 18:00 (Zofran Inj) 4 mg Q6H PRN IV 04/13/17 18:00 04/15/17 23:43 Miscellaneous Information 1 Q361D XX 04/13/17 18:00 04/13/17 18:00 (Chlorhexidine 2% Cloth) 3 pack Taper DAILY@04 TOP 04/14/17 04:00 04/10/18 03:59 04/17/17 04:00 (Chlorhexidine 2% Cloth) 3 pack UNSCH PRN TOP 04/13/17 18:00 (Louann-Colace) 1 tab BID PO 04/13/17 21:00 04/17/17 22:46 (Milk Of Magnesia Liq) 30 ml Q12H PRN PO 04/13/17 18:00 (Senokot) 17.2 mg Q12H PRN PO 04/13/17 18:00 (Dulcolax Supp) 10 mg DAILY PRN RECTAL 04/13/17 18:00 (Lactulose Liq) 30 ml DAILY PRN PO 04/13/17 18:00 (NS Flush) DAILY IVF 04/13/17 20:15 04/18/17 09:00 (NS Flush) UNSCH PRN IVF 04/13/17 20:15 (Folate) 1 mg DAILY PO 04/14/17 09:00 04/17/17 10:20 Multivitamins 1 tab 1 tab DAILY PO 04/14/17 09:00 04/17/17 10:20 (NS 1000 ml Inj) 1,000 ml @ 100 mls/hr Q10H IV 04/14/17 08:00 04/18/17 17:41 Nadolol 80 mg 80 mg DAILY PO 04/14/17 09:00 04/17/17 10:21 (Sodium Phosphate Inj/NS 250 ml Inj) 250 ml @ 42 mls/hr UNSCH PRN IV 04/16/17 09:45 (Vitamin B1) 100 mg DAILY PO 04/17/17 10:00 04/17/17 10:00 (Synthroid) 75 mcg DAILY@0600 PO 04/18/17 06:00 (Percocet 5-325 Mg) 1 tab Q6HR PRN PO 04/17/17 12:00 04/17/17 22:46 Morphine Sulfate 2 mg 2 mg Q3H PRN IV PUSH 04/17/17 22:15 04/18/17 17:04 Pharmacy Profile Note 0 ml @ 0 mls/hr UNSCH OTHER 04/18/17 08:30 Piperacillin Sod/ Tazobactam Sod 50 ml @ 100 mls/hr Q6H IV 04/18/17 09:00 04/18/17 15:00 (Vancomycin Inj/ NS 250 ml Inj) 262.5 ml @ 250 mls/hr Q18H IV 04/18/17 10:00 04/18/17 14:54 Miscellaneous Information SPECIFIC LAB TO BE DRAWN:VANCOMYCIN TROUGH DATE TO... ONCE ONCE .XX 04/20/17 15:45 04/20/17 15:46 Family History Noncontributory Social History No IV drug use or tobacco use. She does drink alcohol and the quantity is not known for certain. Physical Exam Vital Signs Vital Signs Date Time Temp Pulse Resp B/P Pulse Ox O2 Delivery O2 Flow Rate FiO2 04/18/17 18:00 99.0 80 38 120/61 04/18/17 16:00 84 35 140/77 04/18/17 14:00 86 36 163/102 96 04/18/17 12:00 97.7 92 35 204/111 96 04/18/17 08:40 95 Nasal Cannula 2.00 04/18/17 08:00 96.8 98 20 158/95 94 04/18/17 06:11 97 Nasal Cannula 2.00 04/18/17 06:10 90 21 04/18/17 04:16 99.0 89 20 136/82 96 04/18/17 01:09 99.7 83 22 148/96 97 Physical Exam GENERAL: Laying in bed, minimally responsive. She appears to be in mild respiratory distress. HEAD: Normocephalic. Atraumatic. EYES: Pupils equal round and reactive to light bilaterally. No scleral icterus. NECK: The right neck from the tragus down to the clavicle is indurated with mild erythema. I do not see any fluctuance. There is no stridor. CHEST: Tachypneic. Decreased breath sounds in the right. Mild distress. CARDIOVASCULAR: Regular rate and rhythm. ABDOMEN: Soft, mild diffuse tenderness. SKIN: Cool, pale, dry, nonjaundiced. Laboratory Laboratory Tests Test 04/18/17 04/18/17 08:35 12:40 Blood Gas Puncture Site RT RADIAL Blood Gas Patient Temperature 98.6 Venous Blood pH 7.34 Venous Blood Partial Pressure 37 CO2 Venous Blood Partial Pressure 40 O2 Venous Blood HCO3 19 Venous Blood Oxygen Saturation 66 Venous Blood Oxygen Content 7.4 Venous Blood Base Excess -5.7 Oxygen Delivery Device NASAL CANNULA Blood Gas Liter Flow 2 White Blood Count 20.3 Red Blood Count 2.57 Hemoglobin 8.2 Hematocrit 24.2 Mean Corpuscular Volume 94.3 Mean Corpuscular Hemoglobin 31.9 Mean Corpuscular Hemoglobin 33.8 Concent Red Cell Distribution Width 14.5 Platelet Count 295 Mean Platelet Volume 6.8 Neutrophils (%) (Auto) 86.7 Lymphocytes (%) (Auto) 4.2 Monocytes (%) (Auto) 8.1 Eosinophils (%) (Auto) 0.1 Basophils (%) (Auto) 0.9 Neutrophils # (Auto) 17.6 Lymphocytes # (Auto) 0.9 Monocytes # (Auto) 1.6 Eosinophils # (Auto) 0.0 Basophils # (Auto) 0.2 CBC Comment DIFF FINAL Differential Comment Sodium Level 133 Potassium Level 3.8 Chloride Level 103 Carbon Dioxide Level 20.9 Anion Gap 9 Blood Urea Nitrogen 6 Creatinine 0.66 Estimat Glomerular Filtration 89 Rate Random Glucose 114 Lactic Acid Level 1.6 Calcium Level 7.9 Total Bilirubin 1.3 Aspartate Amino Transf 1332 (AST/SGOT) Alanine Aminotransferase 830 (ALT/SGPT) Alkaline Phosphatase 117 Ammonia 58 Total Protein 5.8 Albumin 2.9 Lipase 568 Date/Time Procedure Status Source Growth 04/18/17 12:40 Aerobic Blood Culture Received Blood Peripheral Pending 04/18/17 12:40 Anaerobic Blood Culture Received Blood Peripheral Pending Result Diagram: 04/18/17 1240 04/18/17 1240 Assessment and Plan Assessment and Plan 71-year-old female with soft tissue infection of the right neck probably associated with recent central internal jugular line. She has had multiple imaging studies and the internal jugular vein was patent and there is no evidence of abscess. She has been started on vancomycin and Zosyn. I recommend continued treatment with IV antibiotics. She does not need incision and drainage at this time. Alberto Snow MD Apr 18, 2017 21:08
[2017-04-19] VITALS (55 sets, daily range): BP systolic 110–173; BP diastolic 57–114; PULSE 70–100; RESP 17–29; TEMP 97.5–98.8; O2SAT 93–99
[2017-04-19] MEDS: PIPERACIL-TAZO 3.375 GM PREMIX 50 ML IV SCH ×4 (02:45→21:01)
[2017-04-19] MEDS: LEVOTHYROXINE SODIUM 75 MCG TAB PO SCH (02:45)
[2017-04-19] MEDS: VANCOMYCIN INJ 1,250 MG in SODIUM CHLOR 0.9% 250 ML INJ 250 ML IV SCH ×2 (02:45→21:48)
[2017-04-19] MEDS: SODIUM CHLORIDE 0.9% FLUSH 10 ML FLUSH IV FLUSH SCH ×2 (09:00→21:01)
[2017-04-19] MEDS: DOCUSATE SODIUM 50 MG/SENNA 8.6 MG TAB PO SCH ×2 (09:00→21:00)
[2017-04-19] MEDS: LOSARTAN 25 MG TAB PO SCH (09:00)
[2017-04-19] MEDS: SODIUM CHLORIDE 0.9% FLUSH 10 ML FLUSH IVF SCH (09:00)
--- NOTE | 2017-04-19 09:43 | HHI.PR ---
Subjective Remarks not as restless as yesterday. but still very lethargic. no fever today. somewhat tachypneic but in no acute distress. daughter at the bedside. Objective Vitals Vital Signs Date Time Temp Pulse Resp B/P Pulse Ox O2 Delivery O2 Flow Rate FiO2 04/19/17 08:48 97 21 04/19/17 06:01 76 26 123/82 96 04/19/17 06:00 75 04/19/17 05:01 78 28 153/79 94 04/19/17 04:01 97.5 78 25 128/85 93 04/19/17 04:00 79 04/19/17 03:01 78 25 128/75 93 04/19/17 02:01 80 27 123/78 93 04/19/17 02:00 100 04/19/17 01:01 78 26 150/78 97 04/19/17 00:01 97.7 76 25 149/90 99 04/19/17 00:00 77 04/18/17 23:00 76 23 155/86 99 04/18/17 22:00 79 04/18/17 22:00 78 27 134/75 82 04/18/17 21:00 80 28 148/80 88 04/18/17 20:00 98.7 82 28 145/75 96 04/18/17 20:00 76 04/18/17 19:25 95 Nasal Cannula 2.00 04/18/17 19:00 80 27 144/100 98 04/18/17 18:00 99.0 80 38 120/61 04/18/17 16:00 84 35 140/77 04/18/17 14:00 86 36 163/102 96 04/18/17 12:00 97.7 92 35 204/111 96 I/O 04/18/17 04/18/17 04/18/17 04/19/17 04/19/17 04/19/17 07:00 15:00 23:00 07:00 15:00 23:00 Intake Total 450 ml 800 ml 1131 ml Balance 450 ml 800 ml 1131 ml Intake Oral 0 ml IV Total 450 ml 800 ml 1131 ml # Voids 6 2 1 1 Result Diagram: 04/18/17 1240 04/18/17 1240 Imaging Last Impressions Liver Ultrasound 04/18/17 0000 Signed Impressions: Service Date/Time: Rex, April 18, 2017 18:17 - CONCLUSION: 1. Cholelithiasis with mild gallbladder wall thickening and minimal pericholecystic fluid. This raises concern for possible acute cholecystitis. Consider HIDA scan. Kaushik Miller Jr., MD Chest X-Ray 04/18/17 Signed Impressions: Service Date/Time: Tuesday, April 18, 2017 08:55 - CONCLUSION: No acute cardiopulmonary disease identified. Asher Mcgowan MD Upper Extremity Ultrasound 04/17/17 Signed Impressions: Service Date/Time: April 22:59 - CONCLUSION: 1. Nondiagnostic evaluation secondary to lack of patient cooperation. Sony Armstrong MD Neck CT 04/17/17 Signed Impressions: Service Date/Time: April 21:31 - CONCLUSION: 1. Edema involving the right neck. No abscess or hematoma. Kaushik Miller Jr., MD Abdomen/Pelvis CT 04/16/17 Signed Impressions: Service Date/Time: Sunday, April 16, 2017 21:00 - CONCLUSION: 1. No acute abnormality. 2. Cholelithiasis. 3. Small bilateral pleural effusions. Kaushik Miller Jr., MD Neck Magnetic Resonance Angiography 04/15/17 Signed Impressions: Service Date/Time: Saturday, April 15, 2017 15:20 - CONCLUSION: 1. Limited examination due to motion. These were the best obtainable images given the patient's state of cooperation. 2. No gross significant stenosis of either carotid artery observed. 3. Left vertebral artery grossly patent. Right is not visualized. Kaushik Miller Jr., MD Tibia/Fibula X-Ray 04/13/17 Signed Impressions: Service Date/Time: Thursday, April 13, 2017 16:19 - CONCLUSION: 1. Moderate arthritic changes involving the femoral tibial and patellofemoral joints. 2. No acute fracture or dislocation. Alex Whiteside MD Lower Extremity Ultrasound 04/13/17 Signed Impressions: Service Date/Time: Thursday, April 13, 2017 21:25 - CONCLUSION: No evidence of deep venous thrombosis within the lower extremities. Alex Whiteside MD Head Magnetic Resonance Angiography 04/13/17 Signed Impressions: Service Date/Time: Saturday, April 15, 2017 15:20 - CONCLUSION: 1. Significantly limited study due to motion. These were the best obtainable images given the patient's state of cooperation. 2. Scattered areas of mild luminal narrowing secondary to atherosclerotic plaque. Details given above. Kaushik Miller Jr., MD Head CT 04/13/17 0000 Signed Impressions: Service Date/Time: Thursday, April 13, 2017 18:00 - CONCLUSION: 1. No acute intracranial abnormality. 2. Opacified right maxillary sinus and right ethmoid air cells consistent with probable sinusitis. Alex Whiteside MD Foot X-Ray 04/13/17 0000 Signed Impressions: Service Date/Time: Thursday, April 13, 2017 15:31 - CONCLUSION: 1. Arthritic changes involving the tarso-tarsal and tarsal-metatarsals joints in the midfoot. 2. Bony fusion of the left 1st metatarsophalangeal joint. 3. Plantar calcaneal spur. 4. No acute fracture or dislocation. Alex Whiteside MD Brain MRI 04/13/17 0000 Signed Impressions: Service Date/Time: Saturday, April 15, 2017 15:20 - CONCLUSION: 1. Significantly limited study by motion artifact. These were the best obtainable images given the patient's state of cooperation. 2. No acute intracranial abnormality appreciated on these limited images. Kaushik Miller Jr., MD Objective Remarks GENERAL: This is a well-nourished, well-developed patient, in no apparent distress. Neck; right neck is swollen, warm and hard to touch CARDIOVASCULAR: Regular rate and regular rhythm without murmurs, gallops, or rubs. RESPIRATORY: Clear to auscultation. Breath sounds equal bilaterally. No wheezes , rales, or rhonchi. GASTROINTESTINAL: Abdomen soft, non-tender, nondistended. Normal, active bowel sounds MUSCULOSKELETAL: Extremities without clubbing, cyanosis, or edema. NEURO: much more alert today. Procedures central line placement. Medications and IVs Current Medications Ondansetron HCl (Zofran Inj) 4 mg ONCE ONCE IVP Last administered on 15:26; Start 04/13/17 at 15:30; Stop 04/13/17 at 15:31; Status DC Morphine Sulfate (Morphine Inj) 4 mg ONCE ONCE IV PUSH Last administered on 15:27; Start 04/13/17 at 15:30; Stop 04/13/17 at 15:31; Status DC Morphine Sulfate (Morphine Inj) 4 mg ONCE ONCE IV PUSH Last administered on 16:31; Start 04/13/17 at 16:15; Stop 04/13/17 at 16:16; Status DC Lorazepam 1 mg 1 mg ONCE ONCE IV PUSH Last administered on 04/13/17 16:30; Start 04/13/17 at 16:15; Stop 04/13/17 at 16:16; Status DC Sodium Chloride (Sodium Chloride 3% Inj) 250 ml @ 30 mls/hr ONCE ONCE IV Last administered on 04/13/17 17:04; Start 04/13/17 at 17:00; Stop 04/13/17 at 17:55; Status DC Levothyroxine Sodium (Synthroid) 75 mcg DAILY PO ; Start 04/14/17 at 09:00; Stop 04/14/17 at 09:00; Status DC Nadolol (Corgard) 80 mg DAILY PO ; Start 04/14/17 at 09:00; Stop 04/14/17 at 09: 00; Status DC Losartan Potassium (Cozaar) 25 mg DAILY PO Last administered on 04/17/17 10:20 ; Start 04/14/17 at 09:00 Clonidine (Catapres) 0.1 mg Q6H PRN PO SBP> OR = 180, DBP> OR = 100; Start at 17:15 Sodium Chloride (NS Flush) 2 ml UNSCH PRN IV FLUSH FLUSH AFTER USING IV ACCESS ; Start 04/13/17 at 17:15; Stop 04/17/17 at 22:18; Status DC Sodium Chloride (NS Flush) 2 ml BID IV FLUSH Last administered on 04/17/17 10: 21; Start 04/13/17 at 21:00; Stop 04/17/17 at 22:18; Status DC Acetaminophen (Tylenol) 650 mg Q4H PRN PO FEVER/PAIN < 5. Last administered on 04/17/17 10:20; Start 04/13/17 at 17:15 Ondansetron HCl (Zofran Inj) 4 mg Q6H PRN IVP NAUSEA OR VOMITING; Start at 17:15; Stop 04/17/17 at 22:18; Status DC Acetaminophen (Tylenol) 650 mg Q6H PRN PO PAIN SCALE 1 TO 2; Start 04/13/17 at 17:15; Stop 04/13/17 at 22:41; Status DC Naloxone HCl (Narcan Inj) 0.4 mg UNSCH PRN IV SEE LABEL COMMENTS; Start at 17:15 Senna/Docusate Sodium (Louann-Colace) 1 tab BID PO ; Start 04/13/17 at 21:00; Stop 04/13/17 at 21:00; Status DC Flumazenil (Romazicon Inj) 0.2 mg Q1M PRN IV PUSH SEE LABEL COMMENTS; Start at 17:15 Lorazepam (Ativan) 1 mg Q4H PRN PO CIWA 8 - 10 Last administered on 04/18/17 00 :52; Start 04/13/17 at 17:15 Lorazepam (Ativan) 2 mg Q2H PRN PO CIWA 11-14 Last administered on 04/18/17 13: 33; Start 04/13/17 at 17:15 Lorazepam (Ativan Inj) 2 mg Q1H PRN IV PUSH CIWA 15-20 Last administered on 04/18 02:52; Start 04/13/17 at 17:15 Lorazepam (Ativan Inj) 2 mg Q15M PRN IV PUSH CIWA > 20; Start 04/13/17 at 17:15 Lorazepam (Ativan Inj) 1 mg ONCE ONCE IV PUSH Last administered on 04/13/17 17:48; Start 04/13/17 at 17:30; Stop 04/13/17 at 17:31; Status DC Labetalol HCl (Trandate Inj) 10 mg Q1HR PRN IV PUSH SBP>160, DBP>90, HR>65 Last administered on 04/16/17 05:26; Start 04/13/17 at 18:00 Hydralazine HCl (Apresoline Inj) 10 mg Q1HR PRN IV PUSH SBP>160, DBP>90 Last administered on 04/18/17 14:53; Start 04/13/17 at 18:00 Nitroglycerin 2 inch 2 inch Q6HR PRN TOPICAL SBP>160, DBP>90; Start 04/13/17 at 18:00 Sodium Chloride (NS 1000 ml Inj) 1,000 ml @ 50 mls/hr Q20H IV Last administered on 04/13/17 17:54; Start 04/13/17 at 17:54; Stop 04/13/17 at 20:16 ; Status DC Sodium Chloride (NS Flush) 2 ml UNSCH PRN IV FLUSH FLUSH AFTER USING IV ACCESS ; Start 04/13/17 at 18:00 Sodium Chloride (NS Flush) 2 ml BID IV FLUSH Last administered on 04/18/17 21: 38; Start 04/13/17 at 21:00 Pantoprazole Sodium (Protonix Inj) 40 mg DAILY IV Last administered on 10:31; Start 04/14/17 at 09:00 Artificial Tears (Tears Naturale Opth Soln) 1 drop TID EACH EYE Last administered on 04/18/17 18:00; Start 04/13/17 at 18:00 Ondansetron HCl (Zofran Inj) 4 mg Q6H PRN IV NAUSEA OR VOMITING Last administered on 04/15/17 23:43; Start 04/13/17 at 18:00 Albuterol Sulfate (Albuterol Neb) 2.5 mg Q2HR NEB PRN INH SOB/WHEEZING; Start 04/13/17 at 18:00 Miscellaneous Information 1 [id number] Last administered on 04/13/17 18:00; Start 04/13/17 at 18:00 Chlorhexidine Gluconate (Chlorhexidine 2% Cloth) Taper DAILY@04 TOP Last administered on 04/18/17 23:15; Start 04/14/17 at 04:00; Stop 04/10/18 at 03:59 Chlorhexidine Gluconate (Chlorhexidine 2% Cloth) 3 pack UNSCH PRN TOP HYGIENIC CARE; Start 04/13/17 at 18:00 Senna/Docusate Sodium (Louann-Colace) 1 tab BID PO Last administered on 04/17/17 22:46; Start 04/13/17 at 21:00 Magnesium Hydroxide (Milk Of Magnesia Liq) 30 ml Q12H PRN PO MILD - MODERATE CONSTIPATION; Start 04/13/17 at 18:00 Sennosides (Senokot) 17.2 mg Q12H PRN PO MODERATE - SEVERE CONSTIPATION; Start 04/13/17 at 18:00 Bisacodyl (Dulcolax Supp) 10 mg DAILY PRN RECTAL SEVERE CONSITIPATION; Start at 18:00 Lactulose 30 ml 30 ml DAILY PRN PO SEVERE CONSITIPATION; Start 04/13/17 at 18: 00 Magnesium Sulfate/ Dextrose 100 ml @ 100 mls/hr Q1H IV ; Start 04/13/17 at 20: 15; Stop 04/13/17 at 22:14; Status DC Sodium Chloride 1,000 ml @ 42 mls/hr [id number] IV Last administered on 21:00; Start 04/13/17 at 20:15; Stop 04/14/17 at 07:12; Status DC Potassium Chloride (KCl 40 Meq Premix Inj) 100 ml @ 25 mls/hr BOLUS ONCE IV Last administered on 04/13/17 22:50; Start 04/13/17 at 20:15; Stop 04/14/17 at 00:14; Status DC Sodium Chloride (NS Flush) DAILY IVF Last administered on 04/18/17 09:00; Start 04/13/17 at 20:15 Sodium Chloride UNSCH PRN IVF SEE PROTOCOL; Start 04/13/17 at 20:15 Thiamine HCl 100 mg/Sodium Chloride 101 ml @ 101 mls/hr ONCE ONCE IV Last administered on 04/13/17 21:59; Start 04/13/17 at 21:15; Stop 04/13/17 at 22:14 ; Status DC Thiamine HCl/ Sodium Chloride (Thiamine Inj/NS Inj) 101 ml @ 101 mls/hr DAILY IV Last administered on 04/16/17 11:19; Start 04/14/17 at 09:00; Stop 04/17/17 at 09:17; Status DC Folic Acid (Folate) 1 mg DAILY PO Last administered on 04/17/17 10:20; Start at 09:00 Multivitamins 1 tab 1 tab DAILY PO Last administered on 04/17/17 10:20; Start 04/14/17 at 09:00 Clevidipine (Cleviprex Inj) 50 ml @ 0 mls/hr TITRATE IV ; Start 04/13/17 at 23: 00; Stop 04/15/17 at 15:21; Status DC Gelatin 1 foam 1 foam ONCE ONCE TOPICAL Last administered on 04/13/17 00:07; Start 04/13/17 at 23:15; Stop 04/13/17 at 23:16; Status DC Magnesium Sulfate 2 gm/Sodium Chloride 154 ml @ 77 mls/hr Q2H ONCE IV Last administered on 04/13/17 00:07; Start 04/13/17 at 23:45; Stop 04/14/17 at 01:44 ; Status DC Sodium Chloride (NS 1000 ml Inj) 1,000 ml @ 100 mls/hr Q10H IV Last administered on 04/18/17 21:44; Start 04/14/17 at 08:00 Levothyroxine Sodium (Synthroid Inj) 50 mcg DAILY@06 IV PUSH Last administered on 04/17/17 07:41; Start 04/14/17 at 08:00; Stop 04/17/17 at 09:23; Status DC Nadolol 80 mg 80 mg DAILY PO Last administered on 04/17/17 10:21; Start at 09:00 Dexmedetomidine HCl/Sodium Chloride (Precedex Inj/NS Inj) 52 ml @ 0 mls/hr TITRATE IV Last administered on 04/14/17 08:54; Start 04/14/17 at 08:30; Stop 04/16/17 at 06:47; Status DC Gadodiamide (Omniscan Pf Inj) 20 ml STK-MED ONCE IV Last administered on 15:00; Start 04/15/17 at 16:10; Stop 04/15/17 at 16:11; Status DC Oxycodone HCl 10 mg 10 mg NOW PO Last administered on 04/16/17 00:41; Start at 00:45; Stop 04/16/17 at 02:30; Status DC Iron Sucrose 200 mg/Sodium Chloride 110 ml @ 110 mls/hr DAILY IV Last administered on 04/18/17 13:25; Start 04/16/17 at 09:00; Stop 04/18/17 at 09:59; Status DC Potassium Chloride 100 ml @ 50 mls/hr Q2H PRN IV For Potassium 2.8 - 3.2 mEq/ L Last administered on 04/16/17 11:20; Start 04/16/17 at 09:45; Stop 04/17/17 at 09:16; Status DC Potassium Chloride (KCl 20 Meq Premix Inj) 100 ml @ 50 mls/hr Q2H PRN IV For Potassium 2.8 - 3.2 mEq/L; Start 04/16/17 at 09:45; Stop 04/17/17 at 09:16; Status DC Potassium Bicarb/ Potassium Chloride 50 meq 50 meq UNSCH PRN PO For Potassium 3.3 - 3.5 mEq/L; Start 04/16/17 at 09:45; Stop 04/17/17 at 09:16; Status DC Potassium Chloride 100 ml @ 25 mls/hr UNSCH PRN IV For Potassium 3.3 - 3.5 mEq /L; Start 04/16/17 at 09:45; Stop 04/17/17 at 09:16; Status DC Potassium Chloride 100 ml @ 50 mls/hr Q2H PRN IV For Potassium 3.3 - 3.5 mEq/L ; Start 04/16/17 at 09:45; Stop 04/17/17 at 09:16; Status DC Magnesium Sulfate/ Sodium Chloride (Magnesium Sulfate Inj/NS Inj) 100 ml @ 50 mls/hr UNSCH PRN IV For Magnesium 0.9 - 1.1 mg/dL; Start 04/16/17 at 09:45; Stop 04/17/17 at 09:16; Status DC Magnesium Oxide 800 mg 800 mg UNSCH PRN PO For Magnesium 1.2 - 1.6 mg/dL; Start 04/16/17 at 09:45; Stop 04/17/17 at 09:16; Status DC Magnesium Sulfate/ Sodium Chloride (Magnesium Sulfate Inj/NS Inj) 100 ml @ 50 mls/hr UNSCH PRN IV For Magnesium 1.2 - 1.6 mg/dL; Start 04/16/17 at 09:45; Stop 04/17/17 at 09:16; Status DC Potassium Phosphate 2000 mg 2,000 mg Q4H PRN PO For Phosphorus < 2.5 mg/dL; Start 04/16/17 at 09:45; Stop 04/17/17 at 09:17; Status DC Sodium Phosphate/ Sodium Chloride (Sodium Phosphate Inj/NS 250 ml Inj) 250 ml @ 42 mls/hr UNSCH PRN IV For Phosphorus < 2.5 mg/dL; Start 04/16/17 at 09:45 Potassium Phosphate 2000 mg 2,000 mg UNSCH PRN PO/TUBE SEE LABEL COMMENTS; Start 04/16/17 at 09:41; Stop 04/17/17 at 09:17; Status DC Potassium Phosphate/Sodium Chloride (Potassium Phosphate Inj/NS 250 ml Inj) 260 ml @ 42 mls/hr UNSCH PRN IV SEE LABEL COMMENTS; Start 04/16/17 at 09:41; Stop 04/17/17 at 09:17; Status DC Oxycodone HCl (Roxicodone) 5 mg ONCE ONCE PO Last administered on 04/16/17 20 :24; Start 04/16/17 at 20:15; Stop 04/16/17 at 20:20; Status DC Morphine Sulfate (Morphine Inj) 2 mg ONCE ONCE IV PUSH Last administered on 21:52; Start 04/16/17 at 21:45; Stop 04/16/17 at 21:46; Status DC Thiamine HCl (Vitamin B1) 100 mg DAILY PO Last administered on 04/17/17 10:00; Start 04/17/17 at 10:00 Levothyroxine Sodium (Synthroid) 75 mcg DAILY@0600 PO ; Start 04/18/17 at 06:00 Oxycodone/ Acetaminophen (Percocet 5-325 Mg) 1 tab Q6HR PRN PO PAIN > 5 Last administered on 04/17/17 22:46; Start 04/17/17 at 12:00 Morphine Sulfate 2 mg 2 mg Q3H PRN IV PUSH breakthrough pain Last administered on 04/18/17 17:04; Start 04/17/17 at 22:15 Vancomycin HCl 1250 mg/Sodium Chloride 262.5 ml @ 262.5 mls/ hr ONCE ONCE IV ; Start 04/18/17 at 08:30; Stop 04/18/17 at 09:08; Status DC Pharmacy Profile Note 0 ml @ 0 mls/hr UNSCH OTHER ; Start 04/18/17 at 08:30 Piperacillin Sod/ Tazobactam Sod 50 ml @ 100 mls/hr Q6H IV Last administered on 04/19/17 02:45; Start 04/18/17 at 09:00 Vancomycin HCl/ Sodium Chloride (Vancomycin Inj/ NS 250 ml Inj) 262.5 ml @ 250 mls/hr Q18H IV Last administered on 04/19/17 02:45; Start 04/18/17 at 10:00 Miscellaneous Information SPECIFIC LAB TO BE DRAWN:VANCOMYCIN TROUGH DATE TO... ONCE ONCE .XX ; Start 04/20/17 at 15:45; Stop 04/20/17 at 15:46 Haloperidol Lactate (Haldol Inj) 2 mg ONCE ONCE IM Last administered on 10:28; Start 04/18/17 at 10:00; Stop 04/18/17 at 10:01; Status DC Lorazepam (Ativan Inj) 2 mg ONCE ONCE IV PUSH Last administered on 04/18/17 21 :37; Start 04/18/17 at 20:45; Stop 04/18/17 at 20:50; Status DC Date of Insertion: April 13, 2017 Line: Central Venous Catheter Side: Right Location: Jugular A/P Assessment and Plan A/P Acute encephalopathy -likely due to sepsis- patient has a history of ETOH abuse in the past Frequent falls CT head pending. neuro checks EtOH withdrawal protocol initiated CIWA protocol initiated continue IV Abx NPO for now PT/ST following. sepsis due to right facial cellulitis ( the site of previous central line) and cholecystitis continue broad spectrum IV antibiotic right facial cellulitis- at the site of previous central line neck CT with no hematoma or abscess follow blood cultures and continue broad spectrum IV antibiotics surgery consult appreciated and no need for surgical intervention at this time cholecystitis with elevated LFT's keep NPO continue IV Abx LFT's today pending . consulted GI Hypertension Coronary artery disease status post stent 3 On nadolol 80 mg by mouth daily and losartan 25 mg daily for hypertension; of note the po meds are on hold due to change in mental status As needed labetalol/hydralazine/Nitropaste to keep systolic blood pressure less than 160 Hypothyroidism TSH currently elevated 8.37 . resume levothyroxine when able to take po. TSH to be repeated in 2-3 weeks as outpatient. Sliding-scale insulin with Accu-Cheks every 6 hours to maintain euglycemia/low regimen Normocytic anemia No signs of active bleeding. 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 Arthritic changes to the tarsal/tarsal and tarsometatarsal joints. Calcaneal spur. Old fracture secondary tarsal. X-ray left tib/fib revealed moderate arthritic changes to the patellofemoral and femoral tibial joints. PT evaluate and treat Hypo osmolar Hyponatremia-improved. Hypokalemia-replaced. Lopo-cyqhhalpb-[id number]. Cortisol within normal limits. Uric acid 2.6 at the lower end of normal. continue Normal saline at 100 cc an hour Prophylaxis - GI - Protonix - DVT - SCD will continue to monitor in ICU. Discharge Planning not ready for discharge. Valencia Syed MD Apr 19, 2017 09:43
[2017-04-19] MEDS: LORazepam 2 MG/ML VIAL IV PUSH PRN (10:15)
[2017-04-19] MEDS: PANTOPRAZOLE SODIUM 40 MG VIAL IV SCH (10:15)
[2017-04-19] MEDS: MORPHINE SULFATE 4 MG/ML INJ IV PUSH PRN ×2 (10:16→15:53)
--- NOTE | 2017-04-19 10:59 | RADHPO ---
EXAM DATE/TIME: 04/19/2017 10:20 [facility] COMPARISON: CT BRAIN W/O CONTRAST, April 13, 2017, 18:00. INDICATIONS : Fall with bruising all along patients left side of her body. RADIATION DOSE: 61.10 CTDIvol (mGy) MEDICAL HISTORY : Metabolic encephalopathy SURGICAL HISTORY : ENCOUNTER: Initial ACUITY: 4 - 6 days PAIN SCALE: Non-responsive LOCATION: Left cranial bruising. TECHNIQUE: Multiple contiguous axial images were obtained of the head. Using automated exposure control and adj ustment of the mA and/or kV according to patient size, radiation dose was kept as low as reasonably a chievable to obtain optimal diagnostic quality images. FINDINGS: CEREBRUM: The ventricles are normal for age. No evidence of midline shift, mass lesion, hemorrhage or acute in farction. No extra-axial fluid collections are seen. POSTERIOR FOSSA: The cerebellum and brainstem are intact. The 4th ventricle is midline. The cerebellopontine angle i s unremarkable. EXTRACRANIAL: Moderate partial opacification of the maxillary sinuses and mucosal thickening of the sphenoid and et hmoid sinuses. SKULL: Right-sided temporoparietal soft tissue swelling. The calvaria is intact. No evidence of skull fract ure. CONCLUSION: No acute intracranial findings. Asher Mcgowan MD on April 19, 2017 at 10:55 Board Certified Radiologist. This report was verified electronically.
[2017-04-19] MEDS ORDERED: ENALAPRILAT 1.25 MG/ML VIAL IV PUSH PRN (11:00)
[2017-04-19 11:50] LABS: AUTOMATED NEUTROPHIL # 15.8 TH/MM3 (1.8-7.7); BASOPHIL % 0.2 % (0.0-2.0); EOSINOPHIL # 0.1 TH/MM3 (0-0.4); EOSINOPHIL % 0.7 % (0.0-4.0); HEMATOCRIT 22.8 % (35.0-46.0); LYMPHOCYTE # 0.5 TH/MM3 (1.0-4.8); MEAN CELL VOLUME 94.3 FL (80.0-100.0); MEAN CORPUSCULAR HEMOGLOBIN 31.7 PG (27.0-34.0); MEAN CORPUSCULAR HGB CONC 33.6 % (32.0-36.0); MONO % 4.4 % (0.0-8.0); NEUT % 91.7 % (16.0-70.0); PLATELET COUNT 121 TH/MM3 (150-450); RED BLOOD COUNT 2.41 MIL/MM3 (4.00-5.30); RED CELL DISTRIBUTION WIDTH 14.9 % (11.6-17.2); WHITE BLOOD COUNT 17.2 TH/MM3 (4.0-11.0)
[2017-04-19 11:53] LABS: HEMO FLAGS AUTO DIFF
[2017-04-19 11:59] LABS: CHLORIDE 107 MEQ/L (98-107); POTASSIUM 3.3 MEQ/L (3.5-5.1); SODIUM (NA) 138 MEQ/L (136-145)
[2017-04-19 12:02] LABS: ANION GAP 13 MEQ/L (5-15); BICARBONATE 18.1 MEQ/L (21.0-32.0)
[2017-04-19 12:03] LABS: BLOOD UREA NITROGEN 12 MG/DL (7-18)
[2017-04-19 12:06] LABS: GLOMERULAR FILTRATION RATE 95 ML/MIN (>89)
[2017-04-19 12:07] LABS: TOTAL BILIRUBIN ADULT 1.7 MG/DL (0.2-1.0)
[2017-04-19 12:08] LABS: ALKALINE PHOSPHATASE 127 U/L (45-117)
[2017-04-19 12:14] LABS: ALT (GPT) 3125 U/L (10-53)
[2017-04-19 12:27] LABS: SCAN/DIFF AUTO DIFF CONFIRMED
[2017-04-19 12:40] LABS: AST (GOT) 4923 U/L (15-37)
[2017-04-19] MEDS: NS + KCL 20 MEQ INJ 1,000 ML IV SCH (15:51)
[2017-04-19] MEDS: ARTIFICIAL TEARS OPTH SOLN 15 ML BTL EACH EYE SCH ×3 (15:54→18:00)
--- NOTE | 2017-04-19 20:33 | MB ---
cc: ROSA M LABOY MD DATE OF CONSULTATION 04/19/17 REASON FOR CONSULTATION Abnormal liver enzymes. HISTORY OF PRESENT ILLNESS A 71-year-old female patient who was admitted on April 13, 2017 with history of neurological disorder including gait imbalance, frequent falls and history of hypertension, depression, coronary artery disease status post stenting. She is in chronic benzodiazepine narcotic use and history of hypothyroidism. She presented to the hospital with a change in mental status attributed to acute metabolic encephalopathy, hyponatremia, hypothyroidism. The patient was hospitalized and was treated as such and received aggressive hydration, nutritional support and DT precautions and thiamine. During the hospitalization, she showed significant improvement, although she continued to have decreased level of consciousness part of that attributed to her medication given to relieve her chronic back pain. During hospitalization, the patient was also found to have abnormal liver enzymes at the beginning that drastically increased over the last two days to a level reaching now to an AST of 4923, ALT 5100 and they were normal on April 16. The patient's ammonia level also found to be elevated at 58, total bilirubin of 4.7. GI consulted for further evaluation. At the current time, the patient is lethargic, confused and difficult to arouse and most of the data obtained from the patient's daughter who was at the bedside. No specific symptoms reported to the daughter or to the hospital staff. The patient denies any nausea, vomiting, change in urine color or abdominal pain. Denies any fevers, chills or rigors. REVIEW OF SYSTEMS All 14 elements were negative as per family other than in history of present illness. PAST MEDICAL HISTORY 1. Neurological disorder in the form of gait imbalance and frequent falls 2. Hypertension, 3. Depression, 4. Coronary artery disease status post stenting x3 5. History of benzodiazepine dependency 6. Hypothyroidism. PAST SURGICAL HISTORY 1. Thyroidectomy 2. Cardiac cath with stent placement MEDICATIONS Reported on admission 1. Losartan 2. Nadolol 3. Citalopram 4. Xanax 5. Percocet 6. Thyroxine FAMILY HISTORY Her father from lung cancer. Mother from natural causes. SOCIAL HISTORY Positive for alcohol use. She is an ex-smoker but no history of IV drug abuse. PHYSICAL EXAMINATION GENERAL: At the current time, the patient is lethargic, not responding to communication but responds to painful stimulation, hemodynamically stable. VITAL SIGNS: Blood pressure of 123/80, respiratory rate 26, pulse 76, pulse oximetry 97%. HEAD/NECK: Normocephalic, atraumatic. Pupils equal and reactive to light. Supple neck. No lymphadenopathy. No thyromegaly. CHEST: Clear to auscultation bilaterally with decreased air entry to the bases bilaterally. HEART: Regular rate and rhythm. No murmurs. ABDOMEN: Soft, nontender. No hepatosplenomegaly. No palpable masses. EXTREMITIES: Normal pulses. No edema. NEUROLOGIC: Difficult to assess secondary to her mental status. SKIN: No rashes. LABORATORY DATA White count 17.2, platelets of 121, hemoglobin of 7.6, hematocrit 22.8. Total bilirubin 1.7, AST 4923, ALT 3125, alkaline phosphatase 127, albumin 2.9, ammonia 5.8. MISBAH negative. IMAGING STUDIES CT showed no acute abnormalities except for cholelithiasis and small bilateral pleural effusion but no evidence of acute cholecystitis. Ultrasound showed a cholelithiasis with mild gallbladder wall thickening, minimal cholecystic fluid with possibility of acute cholecystitis to consider HIDA scan. ASSESSMENT/PLAN A 71-year-old female patient who presented with 1. Acute increase in liver enzymes in the form of transaminitis suggested of acute hepatocellular injury in a previously normal liver enzymes a few days ago. Differential diagnosis includes viral hepatitis, autoimmune hepatitis, vascular occlusion or insufficiency, drug-induced and medication-induced hepatocellular injury. 2. Features suggestive of a chronic liver disease in the form of reverse of AST, ALT ratio, low platelet counts suggestive of a chronic liver disease as underlying etiology. 3. Anemia with drop in H&H without evidence of active bleeding clinically. 4. History of alcohol use in the past and toxicology screen positive for opiates in the urine. 5. Multiple medical comorbid conditions including frequent falls and change in mental status. RECOMMENDATIONS We will check viral serology for hepatitis B and C. Check liver Doppler ultrasound to rule out hepatic vein thrombosis. Avoid all hepatotoxic medications for the time being. Check other autoimmune markers including anti-smooth muscle antibodies, Anti liver kidney microsomal antibodies and would treat with lactulose for encephalopathy and consider underlying chronic liver disease. We will follow up with you. Thank you for the consultation. Rosa M QURESHI/ /7:38 PM /8:08 PM
[2017-04-19] MEDS ORDERED: SODIUM CHLORID 0.9% 500 ML INJ 500 ML IV ONE (23:15)
[2017-04-20] VITALS (42 sets, daily range): BP systolic 112–187; BP diastolic 61–123; PULSE 68–99; RESP 15–39; TEMP 97.4–97.9; O2SAT 89–100
[2017-04-20] MEDS: NS + KCL 20 MEQ INJ 1,000 ML IV SCH ×3 (01:55→20:32)
[2017-04-20] MEDS: PIPERACIL-TAZO 3.375 GM PREMIX 50 ML IV SCH ×4 (02:54→20:33)
[2017-04-20] MEDS: CHLORHEXIDINE GLUCONATE 2 % 1 PACK (2 CLOTHS) TOP SCH ×2 (04:00→20:35)
[2017-04-20] MEDS: LOSARTAN 25 MG TAB PO SCH (09:00)
[2017-04-20] MEDS: DOCUSATE SODIUM 50 MG/SENNA 8.6 MG TAB PO SCH ×2 (09:00→20:34)
[2017-04-20] MEDS: MORPHINE SULFATE 4 MG/ML INJ IV PUSH PRN ×3 (09:09→20:34)
[2017-04-20] MEDS: PANTOPRAZOLE SODIUM 40 MG VIAL IV SCH (09:44)
[2017-04-20] MEDS: SODIUM CHLORIDE 0.9% FLUSH 10 ML FLUSH IV FLUSH SCH ×2 (09:45→20:34)
[2017-04-20] MEDS: ARTIFICIAL TEARS OPTH SOLN 15 ML BTL EACH EYE SCH ×3 (09:45→18:00)
--- NOTE | 2017-04-20 10:27 | HHI.PR ---
Subjective Remarks in no acute distress. still lethargic but opens the eyes briefly to calling her name. no fever. Objective Vitals Vital Signs Date Time Temp Pulse Resp B/P Pulse Ox O2 Delivery O2 Flow Rate FiO2 04/20/17 10:05 100 21 04/20/17 06:00 75 04/20/17 06:00 78 18 134/71 89 04/20/17 05:28 68 17 119/66 97 04/20/17 04:28 97.4 68 16 124/64 98 04/20/17 04:00 68 04/20/17 03:28 70 17 112/64 98 04/20/17 02:28 68 18 142/103 98 04/20/17 02:00 70 04/20/17 01:28 70 19 137/74 98 04/20/17 00:28 97.5 72 19 140/86 98 04/20/17 00:00 71 04/19/17 22:46 70 18 123/69 98 04/19/17 22:31 70 17 120/74 98 04/19/17 22:16 70 18 130/65 98 04/19/17 22:01 70 19 120/70 97 04/19/17 22:00 88 04/19/17 21:46 76 20 149/82 96 04/19/17 21:31 72 20 127/64 97 04/19/17 21:16 70 19 112/62 96 04/19/17 21:01 70 18 116/57 97 04/19/17 20:46 70 19 110/61 96 04/19/17 20:31 70 19 118/66 97 04/19/17 20:16 72 19 113/63 97 04/19/17 20:01 97.5 72 20 120/68 96 04/19/17 20:00 76 04/19/17 19:46 72 19 127/70 97 04/19/17 19:40 96 21 04/19/17 19:31 72 20 140/66 96 04/19/17 19:16 70 19 126/68 97 04/19/17 19:01 70 19 126/68 97 04/19/17 18:31 72 21 138/77 97 04/19/17 18:16 82 24 170/114 97 04/19/17 18:01 72 22 144/83 99 04/19/17 18:00 88 04/19/17 17:46 72 19 135/69 99 04/19/17 17:31 70 20 139/77 98 04/19/17 17:16 70 20 145/69 99 04/19/17 17:01 74 20 155/67 98 04/19/17 16:01 98.8 76 21 144/75 97 04/19/17 16:00 72 04/19/17 15:01 76 21 134/81 96 04/19/17 14:01 74 22 129/71 97 04/19/17 14:00 70 04/19/17 13:01 74 21 144/79 96 04/19/17 12:01 97.9 80 27 150/88 96 04/19/17 12:00 73 04/19/17 11:00 72 20 127/73 98 04/19/17 10:30 72 20 136/68 98 I/O 04/19/17 04/19/17 04/19/17 04/20/17 04/20/17 04/20/17 07:00 15:00 23:00 07:00 15:00 23:00 Intake Total 1131 ml 863 ml 866 ml 1200 ml Output Total 0 ml 525 ml 225 ml Balance 1131 ml 863 ml 341 ml 975 ml Intake Oral 0 ml 0 ml 0 ml IV Total 1131 ml 863 ml 866 ml 1200 ml Output Urine Total 0 ml 525 ml 225 ml Stool Total 0 ml # Voids 1 # Bowel Movements 0 0 Result Diagram: 04/19/17 1115 04/19/17 1115 Imaging Last Impressions Head CT 04/19/17 0000 Signed Impressions: Service Date/Time: Wednesday, April 19, 2017 10:20 - CONCLUSION: No acute intracranial findings. Asher Mcgowan MD Liver Ultrasound 04/18/17 0000 Signed Impressions: Service Date/Time: Tuesday, April 18, 2017 18:17 - CONCLUSION: 1. Cholelithiasis with mild gallbladder wall thickening and minimal pericholecystic fluid. This raises concern for possible acute cholecystitis. Consider HIDA scan. Kaushik Miller Jr., MD Chest X-Ray 04/18/17 0000 Signed Impressions: Service Date/Time: Tuesday, April 18, 2017 08:55 - CONCLUSION: No acute cardiopulmonary disease identified. Asher Mcgowan MD Upper Extremity Ultrasound 04/17/17 0000 Signed Impressions: Service Date/Time: April 22:59 - CONCLUSION: 1. Nondiagnostic evaluation secondary to lack of patient cooperation. Sony Armstrong MD Neck CT 04/17/17 Signed Impressions: Service Date/Time: April 21:31 - CONCLUSION: 1. Edema involving the right neck. No abscess or hematoma. Kaushik Miller Jr., MD Abdomen/Pelvis CT 04/16/17 Signed Impressions: Service Date/Time: Sunday, April 16, 2017 21:00 - CONCLUSION: 1. No acute abnormality. 2. Cholelithiasis. 3. Small bilateral pleural effusions. Kaushik Miller Jr., MD Neck Magnetic Resonance Angiography 04/15/17 0000 Signed Impressions: Service Date/Time: Saturday, April 15, 2017 15:20 - CONCLUSION: 1. Limited examination due to motion. These were the best obtainable images given the patient's state of cooperation. 2. No gross significant stenosis of either carotid artery observed. 3. Left vertebral artery grossly patent. Right is not visualized. Kaushik Miller Jr., MD Tibia/Fibula X-Ray 04/13/17 Signed Impressions: Service Date/Time: Thursday, April 13, 2017 16:19 - CONCLUSION: 1. Moderate arthritic changes involving the femoral tibial and patellofemoral joints. 2. No acute fracture or dislocation. Alex Whiteside MD Lower Extremity Ultrasound 04/13/17 Signed Impressions: Service Date/Time: Thursday, April 13, 2017 21:25 - CONCLUSION: No evidence of deep venous thrombosis within the lower extremities. Alex Whiteside MD Head Magnetic Resonance Angiography 04/13/17 0000 Signed Impressions: Service Date/Time: Saturday, April 15, 2017 15:20 - CONCLUSION: 1. Significantly limited study due to motion. These were the best obtainable images given the patient's state of cooperation. 2. Scattered areas of mild luminal narrowing secondary to atherosclerotic plaque. Details given above. Kaushik Miller Jr., MD Foot X-Ray 04/13/17 0000 Signed Impressions: Service Date/Time: Thursday, April 13, 2017 15:31 - CONCLUSION: 1. Arthritic changes involving the tarso-tarsal and tarsal-metatarsals joints in the midfoot. 2. Bony fusion of the left 1st metatarsophalangeal joint. 3. Plantar calcaneal spur. 4. No acute fracture or dislocation. Alex Whiteside MD Brain MRI 04/13/17 0000 Signed Impressions: Service Date/Time: Saturday, April 15, 2017 15:20 - CONCLUSION: 1. Significantly limited study by motion artifact. These were the best obtainable images given the patient's state of cooperation. 2. No acute intracranial abnormality appreciated on these limited images. Kaushik Miller Jr., MD Objective Remarks GENERAL: This is a well-nourished, well-developed patient, in no apparent distress. Neck; right neck is swollen, warm and hard to touch CARDIOVASCULAR: Regular rate and regular rhythm without murmurs, gallops, or rubs. RESPIRATORY: Clear to auscultation. Breath sounds equal bilaterally. No wheezes , rales, or rhonchi. GASTROINTESTINAL: Abdomen soft, non-tender, nondistended. Normal, active bowel sounds MUSCULOSKELETAL: Extremities without clubbing, cyanosis, or edema. NEURO: much more alert today. Procedures central line placement. Medications and IVs Current Medications Ondansetron HCl (Zofran Inj) 4 mg ONCE ONCE IVP Last administered on 15:26; Start 04/13/17 at 15:30; Stop 04/13/17 at 15:31; Status DC Morphine Sulfate (Morphine Inj) 4 mg ONCE ONCE IV PUSH Last administered on 15:27; Start 04/13/17 at 15:30; Stop 04/13/17 at 15:31; Status DC Morphine Sulfate (Morphine Inj) 4 mg ONCE ONCE IV PUSH Last administered on 16:31; Start 04/13/17 at 16:15; Stop 04/13/17 at 16:16; Status DC Lorazepam 1 mg 1 mg ONCE ONCE IV PUSH Last administered on 04/13/17 16:30; Start 04/13/17 at 16:15; Stop 04/13/17 at 16:16; Status DC Sodium Chloride (Sodium Chloride 3% Inj) 250 ml @ 30 mls/hr ONCE ONCE IV Last administered on 04/13/17 17:04; Start 04/13/17 at 17:00; Stop 04/13/17 at 17:55; Status DC Levothyroxine Sodium (Synthroid) 75 mcg DAILY PO ; Start 04/14/17 at 09:00; Stop 04/14/17 at 09:00; Status DC Nadolol (Corgard) 80 mg DAILY PO ; Start 04/14/17 at 09:00; Stop 04/14/17 at 09: 00; Status DC Losartan Potassium (Cozaar) 25 mg DAILY PO Last administered on 04/17/17 10:20 ; Start 04/14/17 at 09:00 Clonidine (Catapres) 0.1 mg Q6H PRN PO SBP> OR = 180, DBP> OR = 100; Start at 17:15 Sodium Chloride (NS Flush) 2 ml UNSCH PRN IV FLUSH FLUSH AFTER USING IV ACCESS ; Start 04/13/17 at 17:15; Stop 04/17/17 at 22:18; Status DC Sodium Chloride (NS Flush) 2 ml BID IV FLUSH Last administered on 04/17/17 10: 21; Start 04/13/17 at 21:00; Stop 04/17/17 at 22:18; Status DC Acetaminophen (Tylenol) 650 mg Q4H PRN PO FEVER/PAIN < 5. Last administered on 04/17/17 10:20; Start 04/13/17 at 17:15 Ondansetron HCl (Zofran Inj) 4 mg Q6H PRN IVP NAUSEA OR VOMITING; Start at 17:15; Stop 04/17/17 at 22:18; Status DC Acetaminophen (Tylenol) 650 mg Q6H PRN PO PAIN SCALE 1 TO 2; Start 04/13/17 at 17:15; Stop 04/13/17 at 22:41; Status DC Naloxone HCl (Narcan Inj) 0.4 mg UNSCH PRN IV SEE LABEL COMMENTS; Start at 17:15 Senna/Docusate Sodium (Louann-Colace) 1 tab BID PO ; Start 04/13/17 at 21:00; Stop 04/13/17 at 21:00; Status DC Flumazenil (Romazicon Inj) 0.2 mg Q1M PRN IV PUSH SEE LABEL COMMENTS; Start at 17:15 Lorazepam (Ativan) 1 mg Q4H PRN PO CIWA 8 - 10 Last administered on 04/18/17 00 :52; Start 04/13/17 at 17:15 Lorazepam (Ativan) 2 mg Q2H PRN PO CIWA 11-14 Last administered on 04/18/17 13: 33; Start 04/13/17 at 17:15 Lorazepam (Ativan Inj) 2 mg Q1H PRN IV PUSH CIWA 15-20 Last administered on 04/19 10:15; Start 04/13/17 at 17:15 Lorazepam (Ativan Inj) 2 mg Q15M PRN IV PUSH CIWA > 20; Start 04/13/17 at 17:15 Lorazepam (Ativan Inj) 1 mg ONCE ONCE IV PUSH Last administered on 04/13/17 17:48; Start 04/13/17 at 17:30; Stop 04/13/17 at 17:31; Status DC Labetalol HCl (Trandate Inj) 10 mg Q1HR PRN IV PUSH SBP>160, DBP>90, HR>65 Last administered on 04/16/17 05:26; Start 04/13/17 at 18:00 Hydralazine HCl (Apresoline Inj) 10 mg Q1HR PRN IV PUSH SBP>160, DBP>90 Last administered on 04/18/17 14:53; Start 04/13/17 at 18:00 Nitroglycerin 2 inch 2 inch Q6HR PRN TOPICAL SBP>160, DBP>90; Start 04/13/17 at 18:00 Sodium Chloride (NS 1000 ml Inj) 1,000 ml @ 50 mls/hr Q20H IV Last administered on 04/13/17 17:54; Start 04/13/17 at 17:54; Stop 04/13/17 at 20:16 ; Status DC Sodium Chloride (NS Flush) 2 ml UNSCH PRN IV FLUSH FLUSH AFTER USING IV ACCESS ; Start 04/13/17 at 18:00 Sodium Chloride (NS Flush) 2 ml BID IV FLUSH Last administered on 04/20/17 09: 45; Start 04/13/17 at 21:00 Pantoprazole Sodium (Protonix Inj) 40 mg DAILY IV Last administered on 09:44; Start 04/14/17 at 09:00 Artificial Tears (Tears Naturale Opth Soln) 1 drop TID EACH EYE Last administered on 04/20/17 09:45; Start 04/13/17 at 18:00 Ondansetron HCl (Zofran Inj) 4 mg Q6H PRN IV NAUSEA OR VOMITING Last administered on 04/15/17 23:43; Start 04/13/17 at 18:00 Albuterol Sulfate (Albuterol Neb) 2.5 mg Q2HR NEB PRN INH SOB/WHEEZING; Start 04/13/17 at 18:00 Miscellaneous Information 1 [id number] Last administered on 04/13/17 18:00; Start 04/13/17 at 18:00 Chlorhexidine Gluconate (Chlorhexidine 2% Cloth) Taper DAILY@04 TOP Last administered on 04/20/17 04:00; Start 04/14/17 at 04:00; Stop 04/10/18 at 03:59 Chlorhexidine Gluconate (Chlorhexidine 2% Cloth) 3 pack UNSCH PRN TOP HYGIENIC CARE; Start 04/13/17 at 18:00 Senna/Docusate Sodium (Louann-Colace) 1 tab BID PO Last administered on 04/17/17 22:46; Start 04/13/17 at 21:00 Magnesium Hydroxide (Milk Of Magnesia Liq) 30 ml Q12H PRN PO MILD - MODERATE CONSTIPATION; Start 04/13/17 at 18:00 Sennosides (Senokot) 17.2 mg Q12H PRN PO MODERATE - SEVERE CONSTIPATION; Start 04/13/17 at 18:00 Bisacodyl (Dulcolax Supp) 10 mg DAILY PRN RECTAL SEVERE CONSITIPATION; Start at 18:00 Lactulose 30 ml 30 ml DAILY PRN PO SEVERE CONSITIPATION; Start 04/13/17 at 18: 00 Magnesium Sulfate/ Dextrose 100 ml @ 100 mls/hr Q1H IV ; Start 04/13/17 at 20: 15; Stop 04/13/17 at 22:14; Status DC Sodium Chloride 1,000 ml @ 42 mls/hr [id number] IV Last administered on 21:00; Start 04/13/17 at 20:15; Stop 04/14/17 at 07:12; Status DC Potassium Chloride (KCl 40 Meq Premix Inj) 100 ml @ 25 mls/hr BOLUS ONCE IV Last administered on 04/13/17 22:50; Start 04/13/17 at 20:15; Stop 04/14/17 at 00:14; Status DC Sodium Chloride (NS Flush) DAILY IVF Last administered on 04/18/17 09:00; Start 04/13/17 at 20:15 Sodium Chloride UNSCH PRN IVF SEE PROTOCOL; Start 04/13/17 at 20:15 Thiamine HCl 100 mg/Sodium Chloride 101 ml @ 101 mls/hr ONCE ONCE IV Last administered on 04/13/17 21:59; Start 04/13/17 at 21:15; Stop 04/13/17 at 22:14 ; Status DC Thiamine HCl/ Sodium Chloride (Thiamine Inj/NS Inj) 101 ml @ 101 mls/hr DAILY IV Last administered on 04/16/17 11:19; Start 04/14/17 at 09:00; Stop 04/17/17 at 09:17; Status DC Folic Acid (Folate) 1 mg DAILY PO Last administered on 04/17/17 10:20; Start at 09:00; Status Hold Multivitamins 1 tab 1 tab DAILY PO Last administered on 04/17/17 10:20; Start 04/14/17 at 09:00; Status Hold Clevidipine (Cleviprex Inj) 50 ml @ 0 mls/hr TITRATE IV ; Start 04/13/17 at 23: 00; Stop 04/15/17 at 15:21; Status DC Gelatin 1 foam 1 foam ONCE ONCE TOPICAL Last administered on 04/13/17 00:07; Start 04/13/17 at 23:15; Stop 04/13/17 at 23:16; Status DC Magnesium Sulfate 2 gm/Sodium Chloride 154 ml @ 77 mls/hr Q2H ONCE IV Last administered on 04/13/17 00:07; Start 04/13/17 at 23:45; Stop 04/14/17 at 01:44 ; Status DC Sodium Chloride (NS 1000 ml Inj) 1,000 ml @ 100 mls/hr Q10H IV Last administered on 04/18/17 21:44; Start 04/14/17 at 08:00; Stop 04/19/17 at 13:07; Status DC Levothyroxine Sodium (Synthroid Inj) 50 mcg DAILY@06 IV PUSH Last administered on 04/17/17 07:41; Start 04/14/17 at 08:00; Stop 04/17/17 at 09:23; Status DC Nadolol 80 mg 80 mg DAILY PO Last administered on 04/17/17 10:21; Start at 09:00; Status Hold Dexmedetomidine HCl/Sodium Chloride (Precedex Inj/NS Inj) 52 ml @ 0 mls/hr TITRATE IV Last administered on 04/14/17 08:54; Start 04/14/17 at 08:30; Stop 04/16/17 at 06:47; Status DC Gadodiamide (Omniscan Pf Inj) 20 ml STK-MED ONCE IV Last administered on 15:00; Start 04/15/17 at 16:10; Stop 04/15/17 at 16:11; Status DC Oxycodone HCl 10 mg 10 mg NOW PO Last administered on 04/16/17 00:41; Start at 00:45; Stop 04/16/17 at 02:30; Status DC Iron Sucrose 200 mg/Sodium Chloride 110 ml @ 110 mls/hr DAILY IV Last administered on 04/18/17 13:25; Start 04/16/17 at 09:00; Stop 04/18/17 at 09:59; Status DC Potassium Chloride 100 ml @ 50 mls/hr Q2H PRN IV For Potassium 2.8 - 3.2 mEq/ L Last administered on 04/16/17 11:20; Start 04/16/17 at 09:45; Stop 04/17/17 at 09:16; Status DC Potassium Chloride (KCl 20 Meq Premix Inj) 100 ml @ 50 mls/hr Q2H PRN IV For Potassium 2.8 - 3.2 mEq/L; Start 04/16/17 at 09:45; Stop 04/17/17 at 09:16; Status DC Potassium Bicarb/ Potassium Chloride 50 meq 50 meq UNSCH PRN PO For Potassium 3.3 - 3.5 mEq/L; Start 04/16/17 at 09:45; Stop 04/17/17 at 09:16; Status DC Potassium Chloride 100 ml @ 25 mls/hr UNSCH PRN IV For Potassium 3.3 - 3.5 mEq /L; Start 04/16/17 at 09:45; Stop 04/17/17 at 09:16; Status DC Potassium Chloride 100 ml @ 50 mls/hr Q2H PRN IV For Potassium 3.3 - 3.5 mEq/L ; Start 04/16/17 at 09:45; Stop 04/17/17 at 09:16; Status DC Magnesium Sulfate/ Sodium Chloride (Magnesium Sulfate Inj/NS Inj) 100 ml @ 50 mls/hr UNSCH PRN IV For Magnesium 0.9 - 1.1 mg/dL; Start 04/16/17 at 09:45; Stop 04/17/17 at 09:16; Status DC Magnesium Oxide 800 mg 800 mg UNSCH PRN PO For Magnesium 1.2 - 1.6 mg/dL; Start 04/16/17 at 09:45; Stop 04/17/17 at 09:16; Status DC Magnesium Sulfate/ Sodium Chloride (Magnesium Sulfate Inj/NS Inj) 100 ml @ 50 mls/hr UNSCH PRN IV For Magnesium 1.2 - 1.6 mg/dL; Start 04/16/17 at 09:45; Stop 04/17/17 at 09:16; Status DC Potassium Phosphate 2000 mg 2,000 mg Q4H PRN PO For Phosphorus < 2.5 mg/dL; Start 04/16/17 at 09:45; Stop 04/17/17 at 09:17; Status DC Sodium Phosphate/ Sodium Chloride (Sodium Phosphate Inj/NS 250 ml Inj) 250 ml @ 42 mls/hr UNSCH PRN IV For Phosphorus < 2.5 mg/dL; Start 04/16/17 at 09:45 Potassium Phosphate 2000 mg 2,000 mg UNSCH PRN PO/TUBE SEE LABEL COMMENTS; Start 04/16/17 at 09:41; Stop 04/17/17 at 09:17; Status DC Potassium Phosphate/Sodium Chloride (Potassium Phosphate Inj/NS 250 ml Inj) 260 ml @ 42 mls/hr UNSCH PRN IV SEE LABEL COMMENTS; Start 04/16/17 at 09:41; Stop 04/17/17 at 09:17; Status DC Oxycodone HCl (Roxicodone) 5 mg ONCE ONCE PO Last administered on 04/16/17t 20 :24; Start 04/16/17 at 20:15; Stop 04/16/17 at 20:20; Status DC Morphine Sulfate (Morphine Inj) 2 mg ONCE ONCE IV PUSH Last administered on 21:52; Start 04/16/17 at 21:45; Stop 04/16/17 at 21:46; Status DC Thiamine HCl (Vitamin B1) 100 mg DAILY PO Last administered on 04/17/17 10:00; Start 04/17/17 at 10:00; Status Hold Levothyroxine Sodium (Synthroid) 75 mcg DAILY@0600 PO ; Start 04/18/17 at 06:00; Status Hold Oxycodone/ Acetaminophen (Percocet 5-325 Mg) 1 tab Q6HR PRN PO PAIN > 5 Last administered on 04/17/17 22:46; Start 04/17/17 at 12:00 Morphine Sulfate 2 mg 2 mg Q3H PRN IV PUSH breakthrough pain Last administered on 04/20/17 09:09; Start 04/17/17 at 22:15 Vancomycin HCl 1250 mg/Sodium Chloride 262.5 ml @ 262.5 mls/ hr ONCE ONCE IV ; Start 04/18/17 at 08:30; Stop 04/18/17 at 09:08; Status DC Pharmacy Profile Note 0 ml @ 0 mls/hr UNSCH OTHER ; Start 04/18/17 at 08:30 Piperacillin Sod/ Tazobactam Sod 50 ml @ 100 mls/hr Q6H IV Last administered on 04/20/17 02:54; Start 04/18/17 at 09:00 Vancomycin HCl/ Sodium Chloride (Vancomycin Inj/ NS 250 ml Inj) 262.5 ml @ 250 mls/hr Q18H IV Last administered on 04/19/17 21:48; Start 04/18/17 at 10:00 Miscellaneous Information SPECIFIC LAB TO BE DRAWN:VANCOMYCIN TROUGH DATE TO... ONCE ONCE .XX ; Start 04/20/17 at 15:45; Stop 04/20/17 at 15:46 Haloperidol Lactate (Haldol Inj) 2 mg ONCE ONCE IM Last administered on 10:28; Start 04/18/17 at 10:00; Stop 04/18/17 at 10:01; Status DC Lorazepam (Ativan Inj) 2 mg ONCE ONCE IV PUSH Last administered on 04/18/17 21 :37; Start 04/18/17 at 20:45; Stop 04/18/17 at 20:50; Status DC Enalaprilat 1.25 mg 1.25 mg Q8H PRN IV PUSH SBP> OR = 180, DBP> OR = 100; Start 04/19/17 at 11:00 Potassium Chloride/Sodium Chloride 1,000 ml @ 100 mls/hr Q10H IV Last administered on 04/20/17 01:55; Start 04/19/17 at 14:00 Sodium Chloride (NS 500 ml Inj) 500 ml @ 500 mls/hr BOLUS ONCE IV Last administered on 04/19/17 23:27; Start 04/19/17 at 23:15; Stop 04/20/17 at 00:14; Status DC Date of Insertion: April 13, 2017 Line: Central Venous Catheter Side: Right Location: Jugular A/P Assessment and Plan A/P Acute encephalopathy -likely due to sepsis- patient has a history of ETOH abuse in the past Frequent falls CT head with no acute abnormality. neuro checks on CIWA protocol continue IV Abx NPO for now PT/ST following. sepsis due to right facial cellulitis ( the site of previous central line) and cholecystitis continue broad spectrum IV antibiotic blood cultures with staph aureus. will repeat the blood cultures and check echo. ID consult pending. right facial cellulitis- at the site of previous central line neck CT with no hematoma or abscess follow blood cultures and continue broad spectrum IV antibiotics surgery consult appreciated and no need for surgical intervention at this time cholecystitis with elevated LFT's keep NPO continue IV Abx LFT's today pending . GI consult appreciated hepatitis panel pending. Hypertension Coronary artery disease status post stent 3 On nadolol 80 mg by mouth daily and losartan 25 mg daily for hypertension; of note the po meds are on hold due to change in mental status As needed labetalol/hydralazine/Nitropaste to keep systolic blood pressure less than 160 Hypothyroidism TSH currently elevated 8.37 . resume levothyroxine when able to take po. TSH to be repeated in 2-3 weeks as outpatient. Sliding-scale insulin with Accu-Cheks every 6 hours to maintain euglycemia/low regimen Normocytic anemia No signs of active bleeding. No indications for transfusion of blood products at the present time will monitor H/H for now. 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 Arthritic changes to the tarsal/tarsal and tarsometatarsal joints. Calcaneal spur. Old fracture secondary tarsal. X-ray left tib/fib revealed moderate arthritic changes to the patellofemoral and femoral tibial joints. PT to follow. Hypo osmolar Hyponatremia-improved. Hypokalemia-replaced. [id number]. Cortisol within normal limits. Uric acid 2.6 at the lower end of normal. continue Normal saline at 100 cc an hour Prophylaxis - GI - Protonix - DVT - SCD will continue to monitor in ICU. Discharge Planning not ready for discharge. Valencia Syed MD Apr 20, 2017 10:27 Valencia Syed MD Apr 20, 2017 10:27
[2017-04-20 12:24] LABS: AUTOMATED NEUTROPHIL # 14.3 TH/MM3 (1.8-7.7); BASOPHIL # 0.1 TH/MM3 (0-0.2); BASOPHIL % 0.8 % (0.0-2.0); EOSINOPHIL # 0.1 TH/MM3 (0-0.4); EOSINOPHIL % 0.6 % (0.0-4.0); HEMATOCRIT 24.6 % (35.0-46.0); LYMPHOCYTE # 0.8 TH/MM3 (1.0-4.8); MEAN CELL VOLUME 95.9 FL (80.0-100.0); MEAN CORPUSCULAR HEMOGLOBIN 31.5 PG (27.0-34.0); MEAN CORPUSCULAR HGB CONC 32.8 % (32.0-36.0); MONO % 6.3 % (0.0-8.0); NEUT % 87.3 % (16.0-70.0); PLATELET COUNT 170 TH/MM3 (150-450); RED BLOOD COUNT 2.56 MIL/MM3 (4.00-5.30); RED CELL DISTRIBUTION WIDTH 15.3 % (11.6-17.2); WHITE BLOOD COUNT 16.3 TH/MM3 (4.0-11.0)
[2017-04-20 12:45] LABS: CHLORIDE 112 MEQ/L (98-107); POTASSIUM 3.2 MEQ/L (3.5-5.1); SODIUM (NA) 143 MEQ/L (136-145)
[2017-04-20 12:48] LABS: ANION GAP 12 MEQ/L (5-15); BICARBONATE 19.4 MEQ/L (21.0-32.0)
[2017-04-20 12:49] LABS: BLOOD UREA NITROGEN 13 MG/DL (7-18)
[2017-04-20 12:52] LABS: GLOMERULAR FILTRATION RATE 95 ML/MIN (>89)
[2017-04-20] MEDS: LABETALOL HCL 100 MG/20 ML VIAL IV PUSH PRN (12:52)
[2017-04-20 12:53] LABS: TOTAL BILIRUBIN ADULT 1.5 MG/DL (0.2-1.0)
[2017-04-20 12:54] LABS: ALKALINE PHOSPHATASE 133 U/L (45-117)
[2017-04-20 12:57] LABS: HEMO FLAGS DIFF FINAL
[2017-04-20 12:59] LABS: ALT (GPT) 2110 U/L (10-53); AST (GOT) 1918 U/L (15-37)
[2017-04-20] MEDS ORDERED: POTASSIUM CHLOR 20 MEQ PREMIX 100 ML IV PRN ×2 (13:15)
[2017-04-20] MEDS ORDERED: MAGNESIUM SULFATE INJ 2 GM in SODIUM CHLORIDE 0.9% INJ 96 ML IV PRN (13:15)
[2017-04-20] MEDS ORDERED: SODIUM PHOSPHATE INJ 30 MMOL in SODIUM CHLOR 0.9% 250 ML INJ 240 ML IV PRN (13:15)
[2017-04-20] MEDS ORDERED: POTASSIUM PHOSPHATE MONOBASIC 500 MG TAB PO PRN (13:15)
[2017-04-20] MEDS ORDERED: POTASSIUM CHLOR 40 MEQ PREMIX 100 ML IV PRN ×2 (13:15)
[2017-04-20] MEDS ORDERED: POTASSIUM CHLORIDE 25 MEQ EFFERVESCENT TAB PO PRN (13:15)
[2017-04-20] MEDS ORDERED: MAGNESIUM SULFATE INJ 4 GM in SODIUM CHLORIDE 0.9% INJ 92 ML IV PRN (13:15)
[2017-04-20] MEDS ORDERED: MAGNESIUM OXIDE 400 MG TAB PO PRN (13:15)
[2017-04-20] MEDS ORDERED: POTASSIUM PHOSPHATE MONOBASIC 500 MG TAB PO/TUBE PRN (13:15)
--- NOTE | 2017-04-20 13:53 | PD.CONS ---
History of Present Illness Service ID CONSULT DR MENDEZ Consult Requested By Reason for Consult FEVER, LEUKOCYCTOSIS Primary Care Physician No Primary Care Physician Diagnoses: (1) Frequent falls (2) Alcohol withdrawal delirium (3) Acute metabolic encephalopathy History of Present Illness 71 Y/O FEMALE ADM WITH FREQUENT FALLS. SHE FELL AT HOME AND CAME IN WITH LEFT FOOT PAIN. SHE WAS FOUND TO HAVE LOW SODIUM. SHE WAS ADM AND DID IMPROVE HOWEVER SHE HAD A RIGHT IJ AND WAS PULLED IT OUT. BC WERE POSITIVE 2 FO 4 BOTTLES FOR STAPH AUREUS. SHE WAS STARTED ON VANCO/ZOSYN 04/18. SHE IS CONTINUING TO HAVE FEVERS. ID CONSULTED TO ASSIST WITH TREATMENT. SHE WAS DOING WELL AND TRANSFERRED TO FLOOR AND RETURNED OBTUNDED TO ICU. WBC IS 116 TODAY DOWN FROM 20. SHE HAS A FIRM SWELLING AT HER RIGHT JAW INTO HER NECK. PT NOT ABLE TO GIVE MUCH HISTORY. Past Family Social History Allergies: Coded Allergies: Sulfa (Verified Allergy, Severe, Rash, 04/13/17) Past Medical History Past Medical History Coronary artery disease with 3 stents Hypertension Depression Hypothyroidism Chronic narcotic use Chronic benzodiazepine use Past Surgical History Past Surgical History Thyroidectomy Cardiac catheterization with 3 stents placed Reported Medications Reported Medications Losartan 25 mg by mouth daily Nadolol 80 mg by mouth daily Escitalopram 10 mg by mouth daily Xanax 0.25 mg every 6 hours as needed for anxiety Percocet 5/325 one tablet every 6 hours when necessary pain Levoxyl 75 g by mouth daily Nadolol 80 mg by mouth daily Active Ordered Medications ZOSYN/VANCO Family History Family History Father from lung cancer. Mother of natural causes. Son one year ago with Christina cell carcinoma Social History Social History Positive alcohol use. Daughter does not know how much but "could be a lot". Quit tobacco at age 27. No IV drug use. Physical Exam Vital Signs Vital Signs Date Time Temp Pulse Resp B/P Pulse Ox O2 Delivery O2 Flow Rate FiO2 04/20/17 10:05 100 21 04/20/17 06:00 75 04/20/17 06:00 78 18 134/71 89 04/20/17 05:28 68 17 119/66 97 04/20/17 04:28 97.4 68 16 124/64 98 04/20/17 04:00 68 04/20/17 03:28 70 17 112/64 98 04/20/17 02:28 68 18 142/103 98 04/20/17 02:00 70 04/20/17 01:28 70 19 137/74 98 04/20/17 00:28 97.5 72 19 140/86 98 04/20/17 00:00 71 04/19/17 22:46 70 18 123/69 98 04/19/17 22:31 70 17 120/74 98 04/19/17 22:16 70 18 130/65 98 04/19/17 22:01 70 19 120/70 97 04/19/17 22:00 88 04/19/17 21:46 76 20 149/82 96 04/19/17 21:31 72 20 127/64 97 04/19/17 21:16 70 19 112/62 96 04/19/17 21:01 70 18 116/57 97 04/19/17 20:46 70 19 110/61 96 04/19/17 20:31 70 19 118/66 97 04/19/17 20:16 72 19 113/63 97 04/19/17 20:01 97.5 72 20 120/68 96 04/19/17 20:00 76 04/19/17 19:46 72 19 127/70 97 04/19/17 19:40 96 21 04/19/17 19:31 72 20 140/66 96 04/19/17 19:16 70 19 126/68 97 04/19/17 19:01 70 19 126/68 97 04/19/17 18:31 72 21 138/77 97 04/19/17 18:16 82 24 170/114 97 04/19/17 18:01 72 22 144/83 99 04/19/17 18:00 88 04/19/17 17:46 72 19 135/69 99 04/19/17 17:31 70 20 139/77 98 04/19/17 17:16 70 20 145/69 99 04/19/17 17:01 74 20 155/67 98 04/19/17 16:01 98.8 76 21 144/75 97 04/19/17 16:00 72 04/19/17 15:01 76 21 134/81 96 04/19/17 14:01 74 22 129/71 97 04/19/17 14:00 70 Physical Exam GENERAL: This is a patient, in no apparent distress. SKIN: No rashes, ecchymoses or lesions. Cool and dry. HEAD: Atraumatic. Normocephalic. No temporal or scalp tenderness. EYES: Pupils equal round and reactive. . ENT: Nose without bleeding, purulent drainage or septal hematoma. Throat without erythema, tonsillar hypertrophy or exudate. Uvula midline. Airway patent. NECK: Trachea midline. No JVD or lymphadenopathy. Supple, nontender, no meningeal signs. right jaw/ swelling and indurated no redness CARDIOVASCULAR: Regular rate and rhythm without murmurs, gallops, or rubs. RESPIRATORY: COURSE EQUAL NO RHONCHI GASTROINTESTINAL: Abdomen soft, non-tender, nondistended. No hepato-splenomegaly , or palpable masses. No guarding. MUSCULOSKELETAL: Extremities without clubbing, cyanosis, or edema. No joint tenderness, effusion, or edema noted. No calf tenderness. Negative Homans sign bilaterally. NEUROLOGICAL: LETHARGIC DIFFICULT TO AROUSE Laboratory Laboratory Tests Test 04/20/17 12:10 White Blood Count 16.3 Red Blood Count 2.56 Hemoglobin 8.1 Hematocrit 24.6 Mean Corpuscular Volume 95.9 Mean Corpuscular Hemoglobin 31.5 Mean Corpuscular Hemoglobin 32.8 Concent Red Cell Distribution Width 15.3 Platelet Count 170 Mean Platelet Volume 7.2 Neutrophils (%) (Auto) 87.3 Lymphocytes (%) (Auto) 5.0 Monocytes (%) (Auto) 6.3 Eosinophils (%) (Auto) 0.6 Basophils (%) (Auto) 0.8 Neutrophils # (Auto) 14.3 Lymphocytes # (Auto) 0.8 Monocytes # (Auto) 1.0 Eosinophils # (Auto) 0.1 Basophils # (Auto) 0.1 CBC Comment DIFF FINAL Differential Comment Sodium Level 143 Potassium Level 3.2 Chloride Level 112 Carbon Dioxide Level 19.4 Anion Gap 12 Blood Urea Nitrogen 13 Creatinine 0.62 Estimat Glomerular Filtration 95 Rate Random Glucose 71 Calcium Level 8.0 Total Bilirubin 1.5 Aspartate Amino Transf 1918 (AST/SGOT) Alanine Aminotransferase 2110 (ALT/SGPT) Alkaline Phosphatase 133 Ammonia 30 Total Protein 5.1 Albumin 2.6 Date/Time Procedure Status Source Growth 04/20/17 12:15 Aerobic Blood Culture Received Blood Peripheral Pending 04/20/17 12:15 Anaerobic Blood Culture Received Blood Peripheral Pending 04/18/17 12:40 Aerobic Blood Culture - Preliminary Resulted Blood Peripheral NO GROWTH IN 2 DAYS 04/18/17 12:40 Anaerobic Blood Culture - Preliminary Resulted Staphylococcus Aureus Result Diagram: 04/20/17 1210 04/20/17 1210 Assessment and Plan Problem List: (1) Depression Status: Acute (2) Alcohol withdrawal delirium Status: Acute (3) Frequent falls Status: Acute (4) Cellulitis and abscess of face Status: Acute Plan: continue zosyn/vancomycin follow trough check echo 2d repeat cultures negative but bc 04/18 + staph aureus add doxycycline may need repeat ct neck if swelling worsens (5) Alcohol use Status: Acute Problem Qualifiers (1) Depression: Qualified Code: F32.9 - Depression, unspecified depression type Tara Lynch Apr 20, 2017 13:53
[2017-04-20] MEDS: LORazepam 1 MG TAB PO PRN (15:32)
[2017-04-20] MEDS ORDERED: PHARMACY ORDERED LAB ONE (15:45)
[2017-04-20] MEDS: POTASSIUM PHOSPHATE INJ 30 MMOL in SODIUM CHLOR 0.9% 250 ML INJ 250 ML IV PRN (16:31)
[2017-04-20] MEDS: VANCOMYCIN INJ 1,250 MG in SODIUM CHLOR 0.9% 250 ML INJ 250 ML IV SCH (16:42)
[2017-04-20] MEDS ORDERED: DOXYCYCLINE 100 MG IV SCH (18:00)
[2017-04-20] MEDS: DOXYCYCLINE 100 MG/NS 100 ML IV SCH ×2 (20:33)
[2017-04-20] MEDS: hydrALAZINE HCL 20 MG/ML VIAL IV PUSH PRN (22:46)
[2017-04-21] VITALS (21 sets, daily range): BP systolic 131–171; BP diastolic 68–98; PULSE 72–86; RESP 18–35; TEMP 97–98.1; O2SAT 97–99
[2017-04-21] MEDS: PIPERACIL-TAZO 3.375 GM PREMIX 50 ML IV SCH ×2 (03:46→08:16)
[2017-04-21 04:38] LABS: POTASSIUM 4.6 MEQ/L (3.5-5.1)
[2017-04-21] MEDS: PANTOPRAZOLE SODIUM 40 MG VIAL IV SCH (08:15)
[2017-04-21] MEDS: VANCOMYCIN INJ 1,250 MG in SODIUM CHLOR 0.9% 250 ML INJ 250 ML IV SCH (08:16)
[2017-04-21] MEDS: DOXYCYCLINE 100 MG/NS 100 ML IV SCH ×2 (08:16)
[2017-04-21] MEDS: NS + KCL 20 MEQ INJ 1,000 ML IV SCH ×3 (08:16→21:38)
[2017-04-21] MEDS: SODIUM CHLORIDE 0.9% FLUSH 10 ML FLUSH IV FLUSH SCH ×2 (08:17→21:00)
[2017-04-21] MEDS: DOCUSATE SODIUM 50 MG/SENNA 8.6 MG TAB PO SCH ×2 (08:17→21:00)
[2017-04-21] MEDS: LOSARTAN 25 MG TAB PO SCH (08:17)
[2017-04-21] MEDS: ARTIFICIAL TEARS OPTH SOLN 15 ML BTL EACH EYE SCH ×3 (08:31→17:06)
--- NOTE | 2017-04-21 10:19 | HHI.PR ---
Subjective Remarks still lethargic but seems more responsive today. remains afebrile. not as tachypneic as yesterday. d/w the RN. Objective Vitals Vital Signs Date Time Temp Pulse Resp B/P Pulse Ox O2 Delivery O2 Flow Rate FiO2 04/21/17 08:03 99 21 04/21/17 07:00 76 04/21/17 07:00 76 20 147/88 99 04/21/17 06:00 80 04/21/17 06:00 80 22 142/79 99 04/21/17 05:00 82 04/21/17 05:00 82 24 140/71 97 04/21/17 04:00 82 22 142/78 98 04/21/17 04:00 82 04/21/17 02:00 80 04/21/17 02:00 80 19 131/70 98 04/21/17 01:00 80 04/21/17 01:00 80 22 136/75 98 04/21/17 00:00 82 04/21/17 00:00 97.6 82 21 134/68 97 04/20/17 22:40 80 04/20/17 22:40 80 27 178/109 04/20/17 22:30 78 19 187/115 98 04/20/17 22:30 78 04/20/17 22:00 80 26 161/94 98 04/20/17 22:00 80 04/20/17 21:30 78 21 139/83 97 04/20/17 21:30 78 04/20/17 21:00 80 20 143/80 96 04/20/17 21:00 80 04/20/17 20:30 80 21 157/80 95 04/20/17 20:30 80 04/20/17 20:15 95 21 04/20/17 20:00 97.9 82 24 161/83 96 04/20/17 20:00 82 04/20/17 19:40 80 04/20/17 19:40 80 22 165/84 96 04/20/17 19:22 78 21 153/88 97 04/20/17 19:22 78 04/20/17 19:02 80 04/20/17 19:02 80 28 169/96 96 04/20/17 18:42 80 23 169/97 97 04/20/17 18:22 78 22 176/94 97 04/20/17 18:17 76 22 164/86 97 04/20/17 18:14 97.6 78 27 176/100 98 04/20/17 18:11 99 04/20/17 18:00 76 31 97 04/20/17 17:00 70 15 99 04/20/17 16:00 72 15 99 04/20/17 16:00 77 04/20/17 15:50 74 28 157/89 97 04/20/17 15:00 78 22 148/88 96 04/20/17 14:41 80 19 159/83 95 04/20/17 14:21 78 23 124/94 96 04/20/17 14:00 81 04/20/17 14:00 78 25 159/76 97 04/20/17 13:00 72 17 156/100 96 04/20/17 12:00 97.6 78 23 162/98 98 04/20/17 12:00 73 04/20/17 11:00 72 17 114/61 98 I/O 04/20/17 04/20/17 04/20/17 04/21/17 04/21/17 04/21/17 07:00 15:00 23:00 07:00 15:00 23:00 Intake Total 1200 ml 1115 ml 1105 ml 655 ml Output Total 225 ml 250 ml 600 ml 275 ml Balance 975 ml 865 ml 505 ml 380 ml Intake Oral 0 ml 30 ml IV Total 1200 ml 1085 ml 1105 ml 655 ml Output Urine Total 225 ml 250 ml 600 ml 275 ml # Bowel Movements 0 0 0 0 Result Diagram: 04/20/17 1210 04/21/17 0300 Imaging Last Impressions Head CT 04/19/17 0000 Signed Impressions: Service Date/Time: Wednesday, April 19, 2017 10:20 - CONCLUSION: No acute intracranial findings. Asher Mcgowan MD Liver Ultrasound 04/18/17 0000 Signed Impressions: Service Date/Time: Tuesday, April 18, 2017 18:17 - CONCLUSION: 1. Cholelithiasis with mild gallbladder wall thickening and minimal pericholecystic fluid. This raises concern for possible acute cholecystitis. Consider HIDA scan. Kaushik Miller Jr., MD Chest X-Ray 04/18/17 0000 Signed Impressions: Service Date/Time: Tuesday, April 18, 2017 08:55 - CONCLUSION: No acute cardiopulmonary disease identified. Asher Mcgowan MD Upper Extremity Ultrasound 04/17/17 Signed Impressions: Service Date/Time: April 22:59 - CONCLUSION: 1. Nondiagnostic evaluation secondary to lack of patient cooperation. Sony Armstrong MD Neck CT 04/17/17 Signed Impressions: Service Date/Time: April 21:31 - CONCLUSION: 1. Edema involving the right neck. No abscess or hematoma. Kaushik Miller Jr., MD Abdomen/Pelvis CT 04/16/17 Signed Impressions: Service Date/Time: Sunday, April 16, 2017 21:00 - CONCLUSION: 1. No acute abnormality. 2. Cholelithiasis. 3. Small bilateral pleural effusions. Kaushik Mliler Jr., MD Neck Magnetic Resonance Angiography 04/15/17 Signed Impressions: Service Date/Time: Saturday, April 15, 2017 15:20 - CONCLUSION: 1. Limited examination due to motion. These were the best obtainable images given the patient's state of cooperation. 2. No gross significant stenosis of either carotid artery observed. 3. Left vertebral artery grossly patent. Right is not visualized. Kaushik Miller Jr., MD Tibia/Fibula X-Ray 04/13/17 Signed Impressions: Service Date/Time: Thursday, April 13, 2017 16:19 - CONCLUSION: 1. Moderate arthritic changes involving the femoral tibial and patellofemoral joints. 2. No acute fracture or dislocation. Alex Whiteside MD Lower Extremity Ultrasound 04/13/17 Signed Impressions: Service Date/Time: Thursday, April 13, 2017 21:25 - CONCLUSION: No evidence of deep venous thrombosis within the lower extremities. Alex Whiteside MD Head Magnetic Resonance Angiography 04/13/17 Signed Impressions: Service Date/Time: Saturday, April 15, 2017 15:20 - CONCLUSION: 1. Significantly limited study due to motion. These were the best obtainable images given the patient's state of cooperation. 2. Scattered areas of mild luminal narrowing secondary to atherosclerotic plaque. Details given above. Kaushik Miller Jr., MD Foot X-Ray 04/13/17 Signed Impressions: Service Date/Time: Thursday, April 13, 2017 15:31 - CONCLUSION: 1. Arthritic changes involving the tarso-tarsal and tarsal-metatarsals joints in the midfoot. 2. Bony fusion of the left 1st metatarsophalangeal joint. 3. Plantar calcaneal spur. 4. No acute fracture or dislocation. Alex Whiteside MD Brain MRI 04/13/17 0000 Signed Impressions: Service Date/Time: Saturday, April 15, 2017 15:20 - CONCLUSION: 1. Significantly limited study by motion artifact. These were the best obtainable images given the patient's state of cooperation. 2. No acute intracranial abnormality appreciated on these limited images. Kaushik Miller Jr., MD Objective Remarks GENERAL: This is a well-nourished, well-developed patient, in no apparent distress. Neck; right neck is swollen, warm and hard to touch CARDIOVASCULAR: Regular rate and regular rhythm without murmurs, gallops, or rubs. RESPIRATORY: Clear to auscultation. Breath sounds equal bilaterally. No wheezes , rales, or rhonchi. GASTROINTESTINAL: Abdomen soft, non-tender, nondistended. Normal, active bowel sounds MUSCULOSKELETAL: Extremities without clubbing, cyanosis, or edema. NEURO: still lethargic but seems more responsive today. Procedures central line placement. Medications and IVs Current Medications Ondansetron HCl (Zofran Inj) 4 mg ONCE ONCE IVP Last administered on 15:26; Start 04/13/17 at 15:30; Stop 04/13/17 at 15:31; Status DC Morphine Sulfate (Morphine Inj) 4 mg ONCE ONCE IV PUSH Last administered on 15:27; Start 04/13/17 at 15:30; Stop 04/13/17 at 15:31; Status DC Morphine Sulfate (Morphine Inj) 4 mg ONCE ONCE IV PUSH Last administered on 16:31; Start 04/13/17 at 16:15; Stop 04/13/17 at 16:16; Status DC Lorazepam 1 mg 1 mg ONCE ONCE IV PUSH Last administered on 04/13/17 16:30; Start 04/13/17 at 16:15; Stop 04/13/17 at 16:16; Status DC Sodium Chloride (Sodium Chloride 3% Inj) 250 ml @ 30 mls/hr ONCE ONCE IV Last administered on 04/13/17 17:04; Start 04/13/17 at 17:00; Stop 04/13/17 at 17:55; Status DC Levothyroxine Sodium (Synthroid) 75 mcg DAILY PO ; Start 04/14/17 at 09:00; Stop 04/14/17 at 09:00; Status DC Nadolol (Corgard) 80 mg DAILY PO ; Start 04/14/17 at 09:00; Stop 04/14/17 at 09: 00; Status DC Losartan Potassium (Cozaar) 25 mg DAILY PO Last administered on 04/21/17 08:17 ; Start 04/14/17 at 09:00 Clonidine (Catapres) 0.1 mg Q6H PRN PO SBP> OR = 180, DBP> OR = 100 Last administered on 04/20/17 18:55; Start 04/13/17 at 17:15 Sodium Chloride (NS Flush) 2 ml UNSCH PRN IV FLUSH FLUSH AFTER USING IV ACCESS ; Start 04/13/17 at 17:15; Stop 04/17/17 at 22:18; Status DC Sodium Chloride (NS Flush) 2 ml BID IV FLUSH Last administered on 04/17/17 10: 21; Start 04/13/17 at 21:00; Stop 04/17/17 at 22:18; Status DC Acetaminophen (Tylenol) 650 mg Q4H PRN PO FEVER/PAIN < 5. Last administered on 04/17/17 10:20; Start 04/13/17 at 17:15 Ondansetron HCl (Zofran Inj) 4 mg Q6H PRN IVP NAUSEA OR VOMITING; Start at 17:15; Stop 04/17/17 at 22:18; Status DC Acetaminophen (Tylenol) 650 mg Q6H PRN PO PAIN SCALE 1 TO 2; Start 04/13/17 at 17:15; Stop 04/13/17 at 22:41; Status DC Naloxone HCl (Narcan Inj) 0.4 mg UNSCH PRN IV SEE LABEL COMMENTS; Start at 17:15 Senna/Docusate Sodium (Louann-Colace) 1 tab BID PO ; Start 04/13/17 at 21:00; Stop 04/13/17 at 21:00; Status DC Flumazenil (Romazicon Inj) 0.2 mg Q1M PRN IV PUSH SEE LABEL COMMENTS; Start at 17:15 Lorazepam (Ativan) 1 mg Q4H PRN PO CIWA 8 - 10 Last administered on 04/20/17 15 :32; Start 04/13/17 at 17:15 Lorazepam (Ativan) 2 mg Q2H PRN PO CIWA 11-14 Last administered on 04/18/17 13: 33; Start 04/13/17 at 17:15 Lorazepam (Ativan Inj) 2 mg Q1H PRN IV PUSH CIWA 15-20 Last administered on 04/19 10:15; Start 04/13/17 at 17:15 Lorazepam (Ativan Inj) 2 mg Q15M PRN IV PUSH CIWA > 20; Start 04/13/17 at 17:15 Lorazepam (Ativan Inj) 1 mg ONCE ONCE IV PUSH Last administered on 04/13/17 17:48; Start 04/13/17 at 17:30; Stop 04/13/17 at 17:31; Status DC Labetalol HCl (Trandate Inj) 10 mg Q1HR PRN IV PUSH SBP>160, DBP>90, HR>65 Last administered on 04/20/17 12:52; Start 04/13/17 at 18:00 Hydralazine HCl (Apresoline Inj) 10 mg Q1HR PRN IV PUSH SBP>160, DBP>90 Last administered on 04/20/17 22:46; Start 04/13/17 at 18:00 Nitroglycerin 2 inch 2 inch Q6HR PRN TOPICAL SBP>160, DBP>90; Start 04/13/17 at 18:00 Sodium Chloride (NS 1000 ml Inj) 1,000 ml @ 50 mls/hr Q20H IV Last administered on 04/13/17 17:54; Start 04/13/17 at 17:54; Stop 04/13/17 at 20:16 ; Status DC Sodium Chloride (NS Flush) 2 ml UNSCH PRN IV FLUSH FLUSH AFTER USING IV ACCESS ; Start 04/13/17 at 18:00 Sodium Chloride (NS Flush) 2 ml BID IV FLUSH Last administered on 04/21/17 08: 17; Start 04/13/17 at 21:00 Pantoprazole Sodium (Protonix Inj) 40 mg DAILY IV Last administered on 08:15; Start 04/14/17 at 09:00 Artificial Tears (Tears Naturale Opth Soln) 1 drop TID EACH EYE Last administered on 04/21/17 08:31; Start 04/13/17 at 18:00 Ondansetron HCl (Zofran Inj) 4 mg Q6H PRN IV NAUSEA OR VOMITING Last administered on 04/15/17 23:43; Start 04/13/17 at 18:00 Albuterol Sulfate (Albuterol Neb) 2.5 mg Q2HR NEB PRN INH SOB/WHEEZING; Start 04/13/17 at 18:00 Miscellaneous Information 1 [id number] Last administered on 04/13/17 18:00; Start 04/13/17 at 18:00 Chlorhexidine Gluconate (Chlorhexidine 2% Cloth) Taper DAILY@04 TOP Last administered on 04/20/17 20:35; Start 04/14/17 at 04:00; Stop 04/10/18 at 03:59 Chlorhexidine Gluconate (Chlorhexidine 2% Cloth) 3 pack UNSCH PRN TOP HYGIENIC CARE; Start 04/13/17 at 18:00 Senna/Docusate Sodium (Louann-Colace) 1 tab BID PO Last administered on 04/21/17 08:17; Start 04/13/17 at 21:00 Magnesium Hydroxide (Milk Of Magnesia Liq) 30 ml Q12H PRN PO MILD - MODERATE CONSTIPATION; Start 04/13/17 at 18:00 Sennosides (Senokot) 17.2 mg Q12H PRN PO MODERATE - SEVERE CONSTIPATION; Start 04/13/17 at 18:00 Bisacodyl (Dulcolax Supp) 10 mg DAILY PRN RECTAL SEVERE CONSITIPATION; Start at 18:00 Lactulose 30 ml 30 ml DAILY PRN PO SEVERE CONSITIPATION; Start 04/13/17 at 18: 00 Magnesium Sulfate/ Dextrose 100 ml @ 100 mls/hr Q1H IV ; Start 04/13/17 at 20: 15; Stop 04/13/17 at 22:14; Status DC Sodium Chloride 1,000 ml @ 42 mls/hr [id number] IV Last administered on 21:00; Start 04/13/17 at 20:15; Stop 04/14/17 at 07:12; Status DC Potassium Chloride (KCl 40 Meq Premix Inj) 100 ml @ 25 mls/hr BOLUS ONCE IV Last administered on 04/13/17 22:50; Start 04/13/17 at 20:15; Stop 04/14/17 at 00:14; Status DC Sodium Chloride (NS Flush) DAILY IVF Last administered on 04/18/17 09:00; Start 04/13/17 at 20:15; Stop 04/20/17 at 12:09; Status DC Sodium Chloride UNSCH PRN IVF SEE PROTOCOL; Start 04/13/17 at 20:15; Stop 04/20 at 12:09; Status DC Thiamine HCl 100 mg/Sodium Chloride 101 ml @ 101 mls/hr ONCE ONCE IV Last administered on 04/13/17 21:59; Start 04/13/17 at 21:15; Stop 04/13/17 at 22:14 ; Status DC Thiamine HCl/ Sodium Chloride (Thiamine Inj/NS Inj) 101 ml @ 101 mls/hr DAILY IV Last administered on 04/16/17 11:19; Start 04/14/17 at 09:00; Stop 04/17/17 at 09:17; Status DC Folic Acid (Folate) 1 mg DAILY PO Last administered on 04/17/17 10:20; Start at 09:00; Status Hold Multivitamins 1 tab 1 tab DAILY PO Last administered on 04/17/17 10:20; Start 04/14/17 at 09:00; Status Hold Clevidipine (Cleviprex Inj) 50 ml @ 0 mls/hr TITRATE IV ; Start 04/13/17 at 23: 00; Stop 04/15/17 at 15:21; Status DC Gelatin 1 foam 1 foam ONCE ONCE TOPICAL Last administered on 04/13/17 00:07; Start 04/13/17 at 23:15; Stop 04/13/17 at 23:16; Status DC Magnesium Sulfate 2 gm/Sodium Chloride 154 ml @ 77 mls/hr Q2H ONCE IV Last administered on 04/13/17 00:07; Start 04/13/17 at 23:45; Stop 04/14/17 at 01:44 ; Status DC Sodium Chloride (NS 1000 ml Inj) 1,000 ml @ 100 mls/hr Q10H IV Last administered on 04/18/17 21:44; Start 04/14/17 at 08:00; Stop 04/19/17 at 13:07; Status DC Levothyroxine Sodium (Synthroid Inj) 50 mcg DAILY@06 IV PUSH Last administered on 04/17/17 07:41; Start 04/14/17 at 08:00; Stop 04/17/17 at 09:23; Status DC Nadolol 80 mg 80 mg DAILY PO Last administered on 04/17/17 10:21; Start at 09:00; Status Hold Dexmedetomidine HCl/Sodium Chloride (Precedex Inj/NS Inj) 52 ml @ 0 mls/hr TITRATE IV Last administered on 04/14/17 08:54; Start 04/14/17 at 08:30; Stop 04/16/17 at 06:47; Status DC Gadodiamide (Omniscan Pf Inj) 20 ml STK-MED ONCE IV Last administered on 15:00; Start 04/15/17 at 16:10; Stop 04/15/17 at 16:11; Status DC Oxycodone HCl 10 mg 10 mg NOW PO Last administered on 04/16/17 00:41; Start at 00:45; Stop 04/16/17 at 02:30; Status DC Iron Sucrose 200 mg/Sodium Chloride 110 ml @ 110 mls/hr DAILY IV Last administered on 04/18/17 13:25; Start 04/16/17 at 09:00; Stop 04/18/17 at 09:59; Status DC Potassium Chloride 100 ml @ 50 mls/hr Q2H PRN IV For Potassium 2.8 - 3.2 mEq/ L Last administered on 04/16/17 11:20; Start 04/16/17 at 09:45; Stop 04/17/17 at 09:16; Status DC Potassium Chloride (KCl 20 Meq Premix Inj) 100 ml @ 50 mls/hr Q2H PRN IV For Potassium 2.8 - 3.2 mEq/L; Start 04/16/17 at 09:45; Stop 04/17/17 at 09:16; Status DC Potassium Bicarb/ Potassium Chloride 50 meq 50 meq UNSCH PRN PO For Potassium 3.3 - 3.5 mEq/L; Start 04/16/17 at 09:45; Stop 04/17/17 at 09:16; Status DC Potassium Chloride 100 ml @ 25 mls/hr UNSCH PRN IV For Potassium 3.3 - 3.5 mEq /L; Start 04/16/17 at 09:45; Stop 04/17/17 at 09:16; Status DC Potassium Chloride 100 ml @ 50 mls/hr Q2H PRN IV For Potassium 3.3 - 3.5 mEq/L ; Start 04/16/17 at 09:45; Stop 04/17/17 at 09:16; Status DC Magnesium Sulfate/ Sodium Chloride (Magnesium Sulfate Inj/NS Inj) 100 ml @ 50 mls/hr UNSCH PRN IV For Magnesium 0.9 - 1.1 mg/dL; Start 04/16/17 at 09:45; Stop 04/17/17 at 09:16; Status DC Magnesium Oxide 800 mg 800 mg UNSCH PRN PO For Magnesium 1.2 - 1.6 mg/dL; Start 04/16/17 at 09:45; Stop 04/17/17 at 09:16; Status DC Magnesium Sulfate/ Sodium Chloride (Magnesium Sulfate Inj/NS Inj) 100 ml @ 50 mls/hr UNSCH PRN IV For Magnesium 1.2 - 1.6 mg/dL; Start 04/16/17 at 09:45; Stop 04/17/17 at 09:16; Status DC Potassium Phosphate 2000 mg 2,000 mg Q4H PRN PO For Phosphorus < 2.5 mg/dL; Start 04/16/17 at 09:45; Stop 04/17/17 at 09:17; Status DC Sodium Phosphate/ Sodium Chloride (Sodium Phosphate Inj/NS 250 ml Inj) 250 ml @ 42 mls/hr UNSCH PRN IV For Phosphorus < 2.5 mg/dL; Start 04/16/17 at 09:45 Potassium Phosphate 2000 mg 2,000 mg UNSCH PRN PO/TUBE SEE LABEL COMMENTS; Start 04/16/17 at 09:41; Stop 04/17/17 at 09:17; Status DC Potassium Phosphate/Sodium Chloride (Potassium Phosphate Inj/NS 250 ml Inj) 260 ml @ 42 mls/hr UNSCH PRN IV SEE LABEL COMMENTS; Start 04/16/17 at 09:41; Stop 04/17/17 at 09:17; Status DC Oxycodone HCl (Roxicodone) 5 mg ONCE ONCE PO Last administered on 04/16/17 20 :24; Start 04/16/17 at 20:15; Stop 04/16/17 at 20:20; Status DC Morphine Sulfate (Morphine Inj) 2 mg ONCE ONCE IV PUSH Last administered on 21:52; Start 04/16/17 at 21:45; Stop 04/16/17 at 21:46; Status DC Thiamine HCl (Vitamin B1) 100 mg DAILY PO Last administered on 04/17/17 10:00; Start 04/17/17 at 10:00; Status Hold Levothyroxine Sodium (Synthroid) 75 mcg DAILY@0600 PO ; Start 04/18/17 at 06:00; Status Hold Oxycodone/ Acetaminophen (Percocet 5-325 Mg) 1 tab Q6HR PRN PO PAIN > 5 Last administered on 04/17/17 22:46; Start 04/17/17 at 12:00 Morphine Sulfate 2 mg 2 mg Q3H PRN IV PUSH breakthrough pain Last administered on 04/20/17 20:34; Start 04/17/17 at 22:15 Vancomycin HCl 1250 mg/Sodium Chloride 262.5 ml @ 262.5 mls/ hr ONCE ONCE IV ; Start 04/18/17 at 08:30; Stop 04/18/17 at 09:08; Status DC Pharmacy Profile Note 0 ml @ 0 mls/hr UNSCH OTHER ; Start 04/18/17 at 08:30 Piperacillin Sod/ Tazobactam Sod 50 ml @ 100 mls/hr Q6H IV Last administered on 04/21/17 08:16; Start 04/18/17 at 09:00 Vancomycin HCl/ Sodium Chloride (Vancomycin Inj/ NS 250 ml Inj) 262.5 ml @ 250 mls/hr Q18H IV Last administered on 04/21/17 08:16; Start 04/18/17 at 10:00 Miscellaneous Information SPECIFIC LAB TO BE DRAWN:VANCOMYCIN TROUGH DATE TO... ONCE ONCE .XX ; Start 04/20/17 at 15:45; Stop 04/20/17 at 15:46; Status DC Haloperidol Lactate (Haldol Inj) 2 mg ONCE ONCE IM Last administered on 10:28; Start 04/18/17 at 10:00; Stop 04/18/17 at 10:01; Status DC Lorazepam (Ativan Inj) 2 mg ONCE ONCE IV PUSH Last administered on 04/18/17 21 :37; Start 04/18/17 at 20:45; Stop 04/18/17 at 20:50; Status DC Enalaprilat 1.25 mg 1.25 mg Q8H PRN IV PUSH SBP> OR = 180, DBP> OR = 100; Start 04/19/17 at 11:00 Potassium Chloride/Sodium Chloride 1,000 ml @ 100 mls/hr Q10H IV Last administered on 04/21/17 08:16; Start 04/19/17 at 14:00 Sodium Chloride 500 ml @ 500 mls/hr BOLUS ONCE IV Last administered on 23:27; Start 04/19/17 at 23:15; Stop 04/20/17 at 00:14; Status DC Potassium Chloride 100 ml @ 50 mls/hr Q2H PRN IV For Potassium 2.8 - 3.2 mEq/L ; Start 04/20/17 at 13:15 Potassium Chloride (KCl 20 Meq Premix Inj) 100 ml @ 50 mls/hr Q2H PRN IV For Potassium 2.8 - 3.2 mEq/L; Start 04/20/17 at 13:15 Potassium Bicarb/ Potassium Chloride 50 meq 50 meq UNSCH PRN PO For Potassium 3.3 - 3.5 mEq/L; Start 04/20/17 at 13:15 Potassium Chloride 100 ml @ 25 mls/hr UNSCH PRN IV For Potassium 3.3 - 3.5 mEq /L; Start 04/20/17 at 13:15 Potassium Chloride 100 ml @ 50 mls/hr Q2H PRN IV For Potassium 3.3 - 3.5 mEq/L ; Start 04/20/17 at 13:15 Magnesium Sulfate/ Sodium Chloride (Magnesium Sulfate Inj/NS Inj) 100 ml @ 50 mls/hr UNSCH PRN IV For Magnesium 0.9 - 1.1 mg/dL; Start 04/20/17 at 13:15 Magnesium Oxide 800 mg 800 mg UNSCH PRN PO For Magnesium 1.2 - 1.6 mg/dL; Start 04/20/17 at 13:15 Magnesium Sulfate/ Sodium Chloride (Magnesium Sulfate Inj/NS Inj) 100 ml @ 50 mls/hr UNSCH PRN IV For Magnesium 1.2 - 1.6 mg/dL; Start 04/20/17 at 13:15 Potassium Phosphate 2000 mg 2,000 mg Q4H PRN PO For Phosphorus < 2.5 mg/dL; Start 04/20/17 at 13:15 Sodium Phosphate/ Sodium Chloride (Sodium Phosphate Inj/NS 250 ml Inj) 250 ml @ 42 mls/hr UNSCH PRN IV For Phosphorus < 2.5 mg/dL; Start 04/20/17 at 13:15 Potassium Phosphate 2000 mg 2,000 mg UNSCH PRN PO/TUBE SEE LABEL COMMENTS; Start 04/20/17 at 13:15 Potassium Phosphate/Sodium Chloride (Potassium Phosphate Inj/NS 250 ml Inj) 260 ml @ 42 mls/hr UNSCH PRN IV SEE LABEL COMMENTS Last administered on 04/20/17 16:31; Start 04/20/17 at 13:15 Doxycycline Hyclate 100 mg 100 mg Q12H IV ; Start 04/20/17 at 18:00; Stop at 18:46; Status DC Doxycycline Hyclate/Sodium Chloride (Vibramycin Inj/ NS Inj) 100 ml @ 100 mls/ hr Q12H IV Last administered on 04/21/17 08:16; Start 04/20/17 at 20:00 Date of Insertion: April 13, 2017 Line: Central Venous Catheter Side: Right Location: Jugular A/P Assessment and Plan A/P Acute encephalopathy -likely due to sepsis- patient has a history of ETOH abuse in the past Frequent falls CT head with no acute abnormality. continue neuro checks on CIWA protocol continue IV Abx continue to keep NPO for now due to altered mentation PT/ST following. sepsis due to right facial cellulitis ( the site of previous central line) and questionable cholecystitis bacteremia with staph aureus continue broad spectrum IV antibiotic. blood cultures with staph aureus. will repeat the blood cultures and check echo. ID consult appreciated. right facial cellulitis- at the site of previous central line neck CT with no hematoma or abscess follow blood cultures and continue broad spectrum IV antibiotics surgery consult appreciated and no need for surgical intervention at this time cholecystitis with elevated LFT's keep NPO continue IV Abx LFT's today pending . GI consult appreciated hepatitis panel pending. Hypertension Coronary artery disease status post stent 3 On nadolol 80 mg by mouth daily and losartan 25 mg daily for hypertension; of note the po meds are on hold due to change in mental status As needed labetalol/hydralazine/vasotec to keep systolic blood pressure less than 160 Hypothyroidism TSH currently elevated 8.37 . resume levothyroxine when able to take po. TSH to be repeated in 2-3 weeks as outpatient. Sliding-scale insulin with Accu-Cheks every 6 hours to maintain euglycemia/low regimen Normocytic anemia No signs of active bleeding. No indications for transfusion of blood products at the present time will monitor H/H for now. 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 Arthritic changes to the tarsal/tarsal and tarsometatarsal joints. Calcaneal spur. Old fracture secondary tarsal. X-ray left tib/fib revealed moderate arthritic changes to the patellofemoral and femoral tibial joints. PT to follow. Hypo osmolar Hyponatremia-improved. Hypokalemia-replaced. [id number]. Cortisol within normal limits. Uric acid 2.6 at the lower end of normal. continue Normal saline at 100 cc an hour Prophylaxis - GI - Protonix - DVT - SCD will continue to monitor in ICU. Discharge Planning not ready for discharge. Valencia Syed MD Apr 21, 2017 10:19
[2017-04-21 11:46] LABS: AUTOMATED NEUTROPHIL # 8.7 TH/MM3 (1.8-7.7); BASOPHIL # 0.5 TH/MM3 (0-0.2); BASOPHIL % 4.2 % (0.0-2.0); EOSINOPHIL # 0.1 TH/MM3 (0-0.4); EOSINOPHIL % 0.7 % (0.0-4.0); HEMATOCRIT 24.3 % (35.0-46.0); LYMPH % 8.5 % (9.0-44.0); MEAN CELL VOLUME 96.4 FL (80.0-100.0); MEAN CORPUSCULAR HEMOGLOBIN 31.8 PG (27.0-34.0); MEAN CORPUSCULAR HGB CONC 32.9 % (32.0-36.0); MONO % 11.3 % (0.0-8.0); NEUT % 75.3 % (16.0-70.0); PLATELET COUNT 135 TH/MM3 (150-450); RED BLOOD COUNT 2.52 MIL/MM3 (4.00-5.30); RED CELL DISTRIBUTION WIDTH 15.6 % (11.6-17.2); WHITE BLOOD COUNT 11.6 TH/MM3 (4.0-11.0)
[2017-04-21 11:48] LABS: HEMO FLAGS DIFF FINAL
[2017-04-21 12:01] LABS: CHLORIDE 117 MEQ/L (98-107); POTASSIUM 3.9 MEQ/L (3.5-5.1); SODIUM (NA) 148 MEQ/L (136-145)
[2017-04-21 12:04] LABS: ANION GAP 12 MEQ/L (5-15); BICARBONATE 19.2 MEQ/L (21.0-32.0); BLOOD UREA NITROGEN 11 MG/DL (7-18)
[2017-04-21 12:07] LABS: AST (GOT) 923 U/L (15-37); GLOMERULAR FILTRATION RATE 84 ML/MIN (>89)
[2017-04-21 12:09] LABS: TOTAL BILIRUBIN ADULT 1.6 MG/DL (0.2-1.0)
[2017-04-21 12:10] LABS: ALKALINE PHOSPHATASE 134 U/L (45-117)
[2017-04-21 12:15] LABS: ALT (GPT) 1640 U/L (10-53)
--- NOTE | 2017-04-21 14:17 | EC ---
Study Study Date:04/14/2017 STUDY CONCLUSIONS SUMMARY - Left ventricle: The cavity size was normal. Wall thickness was normal. Systolic function was vigorous. The estimated ejection fraction was in the range of 65% to 70%. Regional wall motion abnormalities cannot be excluded. - Aortic valve: Trace regurgitation. Valve area: 2.2cm^2(VTI). Valve area: 2.22cm^2 (Vmax). - Mitral valve: Mildly calcified annulus. - Tricuspid valve: Moderate-severe regurgitation. - Pulmonary arteries: Systolic pressure was moderately to severely increased. PA peak pressure: 74mm Hg (S). - Pericardium, extracardiac: There was a left pleural effusion. If LV function is below 40, please consider prescribing an ACEI or ARB or document rationale for non-use. PROCEDURE DATA STUDY STATUS: Elective. Procedure: Transthoracic echocardiography. Image quality was suboptimal. Scanning was performed from the parasternal, apical, and subcostal acoustic windows. Study completion: The patient tolerated the procedure well. Transthoracic echocardiography. M-mode, complete 2D, complete spectral Doppler, and color Doppler. Height: Height: 60in. Weight: Weight: 122.7lb. Body mass index: BMI: 24kg/m^2. Body surface area: BSA: 1.52m^2. Patient status: Inpatient. CARDIAC ANATOMY LEFT VENTRICLE: Not well visualized. The cavity size was normal. Wall thickness was normal. Systolic function was vigorous. The estimated ejection fraction was in the range of 65% to 70%. Regional wall motion abnormalities cannot be excluded. AORTIC VALVE: Poorly visualized. Doppler: Transvalvular velocity was within the normal range. There was no stenosis. Trace regurgitation. Valve area: 2.2cm^2(VTI). Indexed valve area: 1.45cm^2/m^2 (VTI). Valve area: 2.22cm^2 (Vmax). Indexed valve area: 1.46cm^2/m^2 (Vmax). Mean gradient: 5mm Hg (S). Peak gradient: 10mm Hg (S). AORTA: Aortic root: The aortic root was normal in size. MITRAL VALVE: Mildly calcified annulus. Doppler: Transvalvular velocity was within the normal range. There was no evidence for stenosis. Trace to mild regurgitation. Peak gradient: 3mm Hg (D). LEFT ATRIUM: The atrium was normal in size. RIGHT VENTRICLE: Poorly visualized. The cavity size was normal. PULMONIC VALVE: Poorly visualized. Doppler: Transvalvular velocity was within the normal range. There was no evidence for stenosis. Trace regurgitation. TRICUSPID VALVE: Poorly visualized. Structurally normal valve. Doppler: Transvalvular velocity was within the normal range. Moderate-severe regurgitation. PULMONARY ARTERY: The main pulmonary artery was normal-sized. Systolic pressure was moderately to severely increased. RIGHT ATRIUM: Poorly visualized. PERICARDIUM: There was no pericardial effusion. SYSTEMIC VEINS: Inferior vena cava: Not visualized. Pleura: There was a left pleural effusion. Patient weight: 122.7lb _Ejection fraction:_ 65-75% _Fractional shortening:_ 32% up to 5Kg 5-11.5Kg 11.6-22.9Kg 23-45Kg 45-57Kg Aortic Root 7-13 <17 13-22 17-27 17-27 LA diam 6-13 <23 24-38 33-47 37-40 RVID 10-17 7-15 7-15 7-18 8-17 LVIDd 12-22 <32 24-38 33-47 37-40 LVPW 2-4 3-6 5-7 6-8 7-8 IVS 2-4 3-6 5-7 6-8 7-8 BASIC MEASUREMENTS ADULT NORMAL Left ventricle LV internal dimension, ED, chordal 43.9 mm 43-52 level, PLAX LV internal dimension, ES, chordal 27.8 mm 23-38 level, PLAX Fractional shortening, chordal level, 37 % >29 PLAX LV posterior wall thickness, ED 8.31 mm IVS/LVPW ratio, ED 1.17 <1.3 Ventricular septum Septal thickness, ED 9.7 mm Aortic valve Leaflet separation 20 mm 15-26 Aorta Root diameter, ED 31 mm Left atrium Anterior-posterior dimension 30 mm Anterior-posterior dimension index 1.97 cm/m^2 <2.2 BASIC MEASUREMENTS ADULT NORMAL Aortic valve Leaflet separation 20 mm 15-26 DOPPLER MEASUREMENTS ADULT NORMAL Main pulmonary artery Pressure, S *74 mm Hg =30 Aortic valve Peak velocity, S 161 cm/s Mean velocity, S 109 cm/s VTI, S 26.3 cm Mean gradient, S 5 mm Hg Peak gradient, S 10 mm Hg Valve area, VTI 2.2 cm^2 Valve area index, VTI 1.45 cm^2/m^2 Valve area, Vmax 2.22 cm^2 Valve area index, Vmax 1.46 cm^2/m^2 Mitral valve Peak E-wave velocity 89.3 cm/s Peak A-wave velocity 90.3 cm/s Deceleration time *127 ms 150-230 Peak gradient, D 3 mm Hg Peak E/A ratio 1 Tricuspid valve Regurgitant peak velocity 406 cm/s Peak RV-RA gradient, S 66 mm Hg Maximal regurgitant velocity 406 cm/s Systemic veins Estimated CVP 10 mm Hg Right ventricle RV pressure, S *76 mm Hg <30 Pulmonic valve Peak velocity, S 79 cm/s LEGEND: Mean values are shown as u=mean value. Asterisk (*) cortes values outside specified normal range. Prepared and signed by Wagner Villa [id number]
[2017-04-21] MEDS: LORazepam 1 MG TAB PO PRN (14:32)
--- NOTE | 2017-04-21 15:59 | HHI.IDPN ---
Subjective Subjective Remarks No Fevers Continues to be lethargic / restless. Family reports that swelling on rt side of face is improved Antibiotics Vancomycin, Doxy and Zosyn Lines Peripheral Past Medical History Coronary artery disease with 3 stents Hypertension Depression Hypothyroidism Chronic narcotic use Chronic benzodiazepine u Allergies: Coded Allergies: Sulfa (Verified Allergy, Severe, Rash, 04/13/17) Review of Systems Constitutional Constitutional Remarks No fever chills Objective . Vital Signs Date Time Temp Pulse Resp B/P Pulse Ox O2 Delivery O2 Flow Rate FiO2 04/21/17 08:03 99 21 04/21/17 07:00 76 04/21/17 07:00 76 20 147/88 99 04/21/17 06:00 80 04/21/17 06:00 80 22 142/79 99 04/21/17 05:00 82 04/21/17 05:00 82 24 140/71 97 04/21/17 04:00 82 22 142/78 98 04/21/17 04:00 82 04/21/17 02:00 80 04/21/17 02:00 80 19 131/70 98 04/21/17 01:00 80 04/21/17 01:00 80 22 136/75 98 04/21/17 00:00 82 04/21/17 00:00 97.6 82 21 134/68 97 04/20/17 22:40 80 04/20/17 22:40 80 27 178/109 04/20/17 22:30 78 19 187/115 98 04/20/17 22:30 78 04/20/17 22:00 80 26 161/94 98 04/20/17 22:00 80 04/20/17 21:30 78 21 139/83 97 04/20/17 21:30 78 04/20/17 21:00 80 20 143/80 96 04/20/17 21:00 80 04/20/17 20:30 80 21 157/80 95 04/20/17 20:30 80 04/20/17 20:15 95 21 04/20/17 20:00 97.9 82 24 161/83 96 04/20/17 20:00 82 04/20/17 19:40 80 04/20/17 19:40 80 22 165/84 96 04/20/17 19:22 78 21 153/88 97 04/20/17 19:22 78 04/20/17 19:02 80 04/20/17 19:02 80 28 169/96 96 04/20/17 18:42 80 23 169/97 97 04/20/17 18:22 78 22 176/94 97 04/20/17 18:17 76 22 164/86 97 04/20/17 18:14 97.6 78 27 176/100 98 04/20/17 18:11 99 04/20/17 18:00 76 31 97 04/20/17 17:00 70 15 99 04/20/17 16:00 72 15 99 04/20/17 16:00 77 04/20/17 04/20/17 04/21/17 15:00 23:00 07:00 Intake Total 1115 ml 1105 ml 655 ml Output Total 250 ml 600 ml 275 ml Balance 865 ml 505 ml 380 ml Intake Oral 30 ml IV Total 1085 ml 1105 ml 655 ml Output Urine Total 250 ml 600 ml 275 ml # Bowel Movements 0 0 0 . Laboratory Tests Test 04/20/17 04/21/17 12:10 11:30 White Blood Count 16.3 TH/MM3 11.6 TH/MM3 Red Blood Count 2.56 MIL/MM3 2.52 MIL/MM3 Hemoglobin 8.1 GM/DL 8.0 GM/DL Hematocrit 24.6 % 24.3 % Mean Corpuscular Volume 95.9 FL 96.4 FL Mean Corpuscular Hemoglobin 31.5 PG 31.8 PG Mean Corpuscular Hemoglobin 32.8 % 32.9 % Concent Red Cell Distribution Width 15.3 % 15.6 % Platelet Count 170 TH/MM3 135 TH/MM3 Mean Platelet Volume 7.2 FL 7.3 FL Neutrophils (%) (Auto) 87.3 % 75.3 % Lymphocytes (%) (Auto) 5.0 % 8.5 % Monocytes (%) (Auto) 6.3 % 11.3 % Eosinophils (%) (Auto) 0.6 % 0.7 % Basophils (%) (Auto) 0.8 % 4.2 % Neutrophils # (Auto) 14.3 TH/MM3 8.7 TH/MM3 Lymphocytes # (Auto) 0.8 TH/MM3 1.0 TH/MM3 Monocytes # (Auto) 1.0 TH/MM3 1.3 TH/MM3 Eosinophils # (Auto) 0.1 TH/MM3 0.1 TH/MM3 Basophils # (Auto) 0.1 TH/MM3 0.5 TH/MM3 CBC Comment DIFF FINAL DIFF FINAL Differential Comment Laboratory Tests Test 04/20/17 04/21/17 04/21/17 12:10 03:00 11:30 Sodium Level 143 MEQ/L 148 MEQ/L Potassium Level 3.2 MEQ/L 4.6 MEQ/L 3.9 MEQ/L Chloride Level 112 MEQ/L 117 MEQ/L Carbon Dioxide Level 19.4 MEQ/L 19.2 MEQ/L Anion Gap 12 MEQ/L 12 MEQ/L Blood Urea Nitrogen 13 MG/DL 11 MG/DL Creatinine 0.62 MG/DL 0.69 MG/DL Estimat Glomerular Filtration 95 ML/MIN 84 ML/MIN Rate Random Glucose 71 MG/DL 77 MG/DL Calcium Level 8.0 MG/DL 7.9 MG/DL Phosphorus Level 1.6 MG/DL 3.5 MG/DL Total Bilirubin 1.5 MG/DL 1.6 MG/DL Aspartate Amino Transf 1918 U/L 923 U/L (AST/SGOT) Alanine Aminotransferase 2110 U/L 1640 U/L (ALT/SGPT) Alkaline Phosphatase 133 U/L 134 U/L Ammonia 30 MCMOL/L Total Protein 5.1 GM/DL 5.5 GM/DL Albumin 2.6 GM/DL 2.7 GM/DL Microbiology Date/Time Procedure Status Source Growth 04/20/17 12:10 Aerobic Blood Culture - Preliminary Resulted Blood Peripheral NO GROWTH IN 1 DAY 04/20/17 12:10 Anaerobic Blood Culture - Preliminary Resulted Blood Peripheral NO GROWTH IN 1 DAY 04/20/17 12:15 Aerobic Blood Culture - Preliminary Resulted Blood Peripheral NO GROWTH IN 1 DAY 04/20/17 12:15 Anaerobic Blood Culture - Final Resulted Blood Peripheral QNS - SEE AEROBE REPORT Physical Exam GENERAL: This is a lethargic pt somewhat restless - difficult to arouse SKIN: No rashes, e. HEAD: Rt Pre auricular area with swelling - hard not fluctuant - better than yesterday. EYES: Pupils equal round and reactive. . ENT: Nose without bleeding, purulent drainage or septal hematoma. Throat without erythema, tonsillar hypertrophy or exudate. Uvula midline. Airway patent. NECK: Trachea midline. No JVD or lymphadenopathy. Supple, nontender, no meningeal signs. right jaw/ swelling and indurated no redness CARDIOVASCULAR: Regular rate and rhythm without murmurs, gallops, or rubs. RESPIRATORY: COURSE EQUAL NO RHONCHI GASTROINTESTINAL: Abdomen soft, non-tender, nondistended. No hepato-splenomegaly , or palpable masses. No guarding. MUSCULOSKELETAL: Extremities without clubbing, cyanosis, or edema. No joint tenderness, effusion, or edema noted. No calf tenderness. Negative Homans sign bilaterally. NEUROLOGICAL: LETHARGIC DIFFICULT TO AROUSE Assessment & Plan Diagnosis: (1) Acute metabolic encephalopathy (2) Cellulitis and abscess of face Plan: Follow clinically May need repeat scan (3) Sepsis due to methicillin susceptible Staphylococcus aureus Plan: Stop IV Vancomycin, Doxy and Zosyn Follow repeat Blood cultures Start IV Unasyn 3 g q6hrs Check Echocardiogram Flor Palacio MD Apr 21, 2017 15:59
--- NOTE | 2017-04-21 16:20 | HHI.GIFU ---
GI Follow-up Note Consult Follow-up Subjective: Patient laying in bed comfortably, no new complaints except confused. Objective: PHYSICAL EXAMINATION: Vitals signs stable No fever HEENT: Pupils round and reactive to light; normocephalic; atraumatic; no jaundice. Throat is clear. NECK: Neck is supple, no JVD, no lymphadenopathy. CHEST: Chest is clear to auscultation and percussion. CARDIAC: Regular rate and rhythm with no murmur gallop or rubs. ABDOMEN: Soft, nondistended, nontender; no hepatosplenomegaly; bowel sounds are present in all four quadrants. EXTREMITIES: No clubbing, cyanosis, or edema. SKIN: Normal; no rash; no jaundice. [employer]: No focal deficits; alert and oriented times three. Available Data (labs, X- Rays, Procedues) : Last Impressions Head CT 04/19/17 Signed Impressions: Service Date/Time: Wednesday, April 19, 2017 10:20 - CONCLUSION: No acute intracranial findings. Asher Mcgowan MD Liver Ultrasound 04/18/17 Signed Impressions: Service Date/Time: Tuesday, April 18, 2017 18:17 - CONCLUSION: 1. Cholelithiasis with mild gallbladder wall thickening and minimal pericholecystic fluid. This raises concern for possible acute cholecystitis. Consider HIDA scan. Kaushik Miller Jr., MD Chest X-Ray 04/18/17 Signed Impressions: Service Date/Time: Tuesday, April 18, 2017 08:55 - CONCLUSION: No acute cardiopulmonary disease identified. Asher Mcgowan MD Upper Extremity Ultrasound 04/17/17 Signed Impressions: Service Date/Time: April 22:59 - CONCLUSION: 1. Nondiagnostic evaluation secondary to lack of patient cooperation. Sony Armstrong MD Neck CT 04/17/17 Signed Impressions: Service Date/Time: April 21:31 - CONCLUSION: 1. Edema involving the right neck. No abscess or hematoma. Kaushik Miller Jr., MD Abdomen/Pelvis CT 04/16/17 Signed Impressions: Service Date/Time: Sunday, April 16, 2017 21:00 - CONCLUSION: 1. No acute abnormality. 2. Cholelithiasis. 3. Small bilateral pleural effusions. Kaushik Miller Jr., MD Neck Magnetic Resonance Angiography 04/15/17 Signed Impressions: Service Date/Time: Saturday, April 15, 2017 15:20 - CONCLUSION: 1. Limited examination due to motion. These were the best obtainable images given the patient's state of cooperation. 2. No gross significant stenosis of either carotid artery observed. 3. Left vertebral artery grossly patent. Right is not visualized. Kaushik Miller Jr., MD Tibia/Fibula X-Ray 04/13/17 Signed Impressions: Service Date/Time: Thursday, April 13, 2017 16:19 - CONCLUSION: 1. Moderate arthritic changes involving the femoral tibial and patellofemoral joints. 2. No acute fracture or dislocation. Alex Whiteside MD Lower Extremity Ultrasound 04/13/17 Signed Impressions: Service Date/Time: Thursday, April 13, 2017 21:25 - CONCLUSION: No evidence of deep venous thrombosis within the lower extremities. Alex Whiteside MD Head Magnetic Resonance Angiography 04/13/17 Signed Impressions: Service Date/Time: Saturday, April 15, 2017 15:20 - CONCLUSION: 1. Significantly limited study due to motion. These were the best obtainable images given the patient's state of cooperation. 2. Scattered areas of mild luminal narrowing secondary to atherosclerotic plaque. Details given above. Kaushik Miller Jr., MD Foot X-Ray 04/13/17 Signed Impressions: Service Date/Time: Thursday, April 13, 2017 15:31 - CONCLUSION: 1. Arthritic changes involving the tarso-tarsal and tarsal-metatarsals joints in the midfoot. 2. Bony fusion of the left 1st metatarsophalangeal joint. 3. Plantar calcaneal spur. 4. No acute fracture or dislocation. Alex Whiteside MD Brain MRI 04/13/17 Signed Impressions: Service Date/Time: Saturday, April 15, 2017 15:20 - CONCLUSION: 1. Significantly limited study by motion artifact. These were the best obtainable images given the patient's state of cooperation. 2. No acute intracranial abnormality appreciated on these limited images. Kaushik Miller Jr., MD Laboratory Tests Test 04/20/17 04/20/17 04/21/17 04/21/17 12:10 16:35 03:00 11:30 White Blood Count 16.3 TH/MM3 11.6 TH/MM3 Red Blood Count 2.56 MIL/MM3 2.52 MIL/MM3 Hemoglobin 8.1 GM/DL 8.0 GM/DL Hematocrit 24.6 % 24.3 % Mean Corpuscular Volume 95.9 FL 96.4 FL Mean Corpuscular Hemoglobin 31.5 PG 31.8 PG Mean Corpuscular Hemoglobin 32.8 % 32.9 % Concent Red Cell Distribution Width 15.3 % 15.6 % Platelet Count 170 TH/MM3 135 TH/MM3 Mean Platelet Volume 7.2 FL 7.3 FL Neutrophils (%) (Auto) 87.3 % 75.3 % Lymphocytes (%) (Auto) 5.0 % 8.5 % Monocytes (%) (Auto) 6.3 % 11.3 % Eosinophils (%) (Auto) 0.6 % 0.7 % Basophils (%) (Auto) 0.8 % 4.2 % Neutrophils # (Auto) 14.3 TH/MM3 8.7 TH/MM3 Lymphocytes # (Auto) 0.8 TH/MM3 1.0 TH/MM3 Monocytes # (Auto) 1.0 TH/MM3 1.3 TH/MM3 Eosinophils # (Auto) 0.1 TH/MM3 0.1 TH/MM3 Basophils # (Auto) 0.1 TH/MM3 0.5 TH/MM3 CBC Comment DIFF FINAL DIFF FINAL Differential Comment Sodium Level 143 MEQ/L 148 MEQ/L Potassium Level 3.2 MEQ/L 4.6 MEQ/L 3.9 MEQ/L Chloride Level 112 MEQ/L 117 MEQ/L Carbon Dioxide Level 19.4 MEQ/L 19.2 MEQ/L Anion Gap 12 MEQ/L 12 MEQ/L Blood Urea Nitrogen 13 MG/DL 11 MG/DL Creatinine 0.62 MG/DL 0.69 MG/DL Estimat Glomerular Filtration 95 ML/MIN 84 ML/MIN Rate Random Glucose 71 MG/DL 77 MG/DL Calcium Level 8.0 MG/DL 7.9 MG/DL Phosphorus Level 1.6 MG/DL 3.5 MG/DL Total Bilirubin 1.5 MG/DL 1.6 MG/DL Aspartate Amino Transf 1918 U/L 923 U/L (AST/SGOT) Alanine Aminotransferase 2110 U/L 1640 U/L (ALT/SGPT) Alkaline Phosphatase 133 U/L 134 U/L Ammonia 30 MCMOL/L Total Protein 5.1 GM/DL 5.5 GM/DL Albumin 2.6 GM/DL 2.7 GM/DL Hepatitis A IgM Antibody NEGATIVE Hepatitis B Surface Antigen NEGATIVE Hepatitis B Core IgM Antibody NEGATIVE Hepatitis C Antibody NEGATIVE Vancomycin Level Trough 14.1 MCG/ML Allergies Coded Allergies Type Severity Reaction Last Updated Verified Sulfa Allergy Severe Rash 04/13/17 Yes Active Scripts Medications Dose Route/Sig Days Date Category Percocet (Oxycodone-Acetaminophen) 5-325 mg Tab 1 Tab PO Q6H PRN 04/13/17 Rx Nadolol 80 Mg Tab 80 Mg PO DAILY 04/13/17 Reported Losartan (Losartan Potassium) 25 Mg Tab 25 Mg PO DAILY 04/13/17 Reported Levothyroxine (Levothyroxine Sodium) 75 Mcg Tab 75 Mcg PO DAILY 04/13/17 Reported Escitalopram (Escitalopram Oxalate) 10 Mg Tab 10 Mg PO DAILY 04/13/17 Reported Alprazolam 0.25 Mg Tab 0.25 Mg PO DIRECTED PRN 04/13/17 Reported ASSESSMENT/PLAN: seen and examined in the presence of family. Lfts improving, suspect shock liver. Serologies -ve so far. Doppler U/S-p. Simplify antibiotic regimen as much as possible. Discussed with the nurse. Repeat labs tomorrow. It was a pleasure seeing [place] Kaminski. Thank you for this consult. Entered by: Ronny Hernandez MD Apr 21, 2017 16:20
[2017-04-21] MEDS: MORPHINE SULFATE 4 MG/ML INJ IV PUSH PRN ×2 (16:47→22:17)
[2017-04-21] MEDS: AMPICILLIN-SULBACTAM INJ 3 GM in SODIUM CHLORIDE 0.9% INJ 100 ML IV SCH ×2 (16:47→21:36)
[2017-04-21] MEDS: hydrALAZINE HCL 20 MG/ML VIAL IV PUSH PRN (17:04)
[2017-04-22] VITALS (29 sets, daily range): BP systolic 115–167; BP diastolic 62–105; PULSE 66–90; RESP 15–39; TEMP 97.4–98.6; O2SAT 97–99
[2017-04-22] MEDS: MORPHINE SULFATE 4 MG/ML INJ IV PUSH PRN (01:53)
[2017-04-22] MEDS: hydrALAZINE HCL 20 MG/ML VIAL IV PUSH PRN ×4 (01:53→21:18)
[2017-04-22] MEDS: CHLORHEXIDINE GLUCONATE 2 % 1 PACK (2 CLOTHS) TOP SCH (04:00)
[2017-04-22] MEDS: AMPICILLIN-SULBACTAM INJ 3 GM in SODIUM CHLORIDE 0.9% INJ 100 ML IV SCH ×4 (04:15→21:18)
[2017-04-22 06:44] LABS: CHLORIDE 119 MEQ/L (98-107); SODIUM (NA) 147 MEQ/L (136-145)
[2017-04-22 06:48] LABS: ANION GAP 11 MEQ/L (5-15); BICARBONATE 16.6 MEQ/L (21.0-32.0); BLOOD UREA NITROGEN 9 MG/DL (7-18)
[2017-04-22 06:51] LABS: AST (GOT) 607 U/L (15-37); GLOMERULAR FILTRATION RATE 90 ML/MIN (>89)
[2017-04-22 06:52] LABS: TOTAL BILIRUBIN ADULT 1.3 MG/DL (0.2-1.0)
[2017-04-22 06:54] LABS: ALKALINE PHOSPHATASE 135 U/L (45-117)
[2017-04-22 07:14] LABS: POTASSIUM 4.6 MEQ/L (3.5-5.1)
[2017-04-22 07:42] LABS: ALT (GPT) 25 U/L (10-53)
[2017-04-22] MEDS: ARTIFICIAL TEARS OPTH SOLN 15 ML BTL EACH EYE SCH ×3 (07:52→18:40)
[2017-04-22] MEDS: LOSARTAN 25 MG TAB PO SCH (09:00)
[2017-04-22] MEDS: DOCUSATE SODIUM 50 MG/SENNA 8.6 MG TAB PO SCH ×2 (09:00→21:00)
--- NOTE | 2017-04-22 09:03 | EC ---
Study Study Date:04/21/2017 STUDY CONCLUSIONS SUMMARY - Procedure narrative: Transthoracic echocardiography. Image quality was poor. Scanning was performed from the parasternal, apical, and subcostal acoustic windows. - Left ventricle: The cavity size was normal. Wall thickness was normal. Systolic function was normal. The estimated ejection fraction was in the range of 55% to 60%. Wall motion was normal; there were no regional wall motion abnormalities. - Pulmonary arteries: PA peak pressure: 55mm Hg (S). Impressions: No evidence of endocarditis. If LV function is below 40, please consider prescribing an ACEI or ARB or document rationale for non-use. PROCEDURE DATA STUDY STATUS: Elective. Procedure: Transthoracic echocardiography. Image quality was poor. Scanning was performed from the parasternal, apical, and subcostal acoustic windows. Study completion: The patient tolerated the procedure well. Transthoracic echocardiography. M-mode, complete 2D, complete spectral Doppler, and color Doppler. Patient status: Inpatient. CARDIAC ANATOMY LEFT VENTRICLE: The cavity size was normal. Wall thickness was normal. Systolic function was normal. The estimated ejection fraction was in the range of 55% to 60%. Wall motion was normal; there were no regional wall motion abnormalities. AORTIC VALVE: Trileaflet; normal thickness leaflets. Doppler: Transvalvular velocity was within the normal range. There was no stenosis. No regurgitation. AORTA: Aortic root: The aortic root was normal in size. MITRAL VALVE: Structurally normal valve. Doppler: Transvalvular velocity was within the normal range. There was no evidence for stenosis. No regurgitation. LEFT ATRIUM: The atrium was normal in size. RIGHT VENTRICLE: The cavity size was normal. Wall thickness was normal. PULMONIC VALVE: Doppler: Transvalvular velocity was within the normal range. There was no evidence for stenosis. No regurgitation. TRICUSPID VALVE: Structurally normal valve. Doppler: Transvalvular velocity was within the normal range. No regurgitation. PULMONARY ARTERY: The main pulmonary artery was normal-sized. Systolic pressure was within the normal range. RIGHT ATRIUM: The atrium was normal in size. PERICARDIUM: There was no pericardial effusion. SYSTEMIC VEINS: Inferior vena cava: The vessel was normal in size. BASIC MEASUREMENTS ADULT NORMAL Left ventricle LV internal dimension, ED, chordal level, 44.5 mm 43-52 PLAX LV internal dimension, ES, chordal level, 29.7 mm 23-38 PLAX Fractional shortening, chordal level, PLAX 33 % >29 LV posterior wall thickness, ED 9.83 mm IVS/LVPW ratio, ED 1.14 <1.3 Ventricular septum Septal thickness, ED 11.2 mm Aortic valve Leaflet separation 22 mm 15-26 Right ventricle RV internal dimension, ED, PLAX 25.7 mm 19-38 BASIC MEASUREMENTS ADULT NORMAL Aortic valve Leaflet separation 22 mm 15-26 Aorta Root diameter, ED 35 mm 20-37 Left atrium Anterior-posterior dimension, ES 38 mm 19-40 LA/aortic root ratio 1.09 DOPPLER MEASUREMENTS ADULT NORMAL Main pulmonary artery Pressure, S *55 mm Hg =30 Tricuspid valve Regurgitant peak velocity 334 cm/s Peak RV-RA gradient, S 45 mm Hg Maximal regurgitant velocity 334 cm/s Systemic veins Estimated CVP 10 mm Hg Right ventricle RV pressure, S *55 mm Hg <30 LEGEND: Mean values are shown as u=mean value. Asterisk (*) cortes values outside specified normal range. Prepared and signed by Rudy Clayton [id number]
[2017-04-22] MEDS: 1/2 NS + KCL 20 MEQ INJ 1,000 ML IV SCH ×2 (09:11→21:19)
[2017-04-22] MEDS: PANTOPRAZOLE SODIUM 40 MG VIAL IV SCH (09:18)
[2017-04-22] MEDS: SODIUM CHLORIDE 0.9% FLUSH 10 ML FLUSH IV FLUSH SCH ×2 (09:22→21:00)
--- NOTE | 2017-04-22 12:05 | HHI.PR ---
Subjective Remarks Patient family at bedside. They say that she was making good eye contact yesterday, however this morning slightly more somnolent. Obeys command, but does not open eyes. She received Ativan last night for agitation. Also received morphine overnight. Family says this is likely making her tired. Discussed condition with family bedside. We'll limit sedating medications. Objective Vital Signs Date Time Temp Pulse Resp B/P Pulse Ox O2 Delivery O2 Flow Rate FiO2 04/22/17 11:00 82 21 148/91 98 04/22/17 10:00 80 23 142/84 98 04/22/17 10:00 76 04/22/17 09:00 82 21 157/82 98 04/22/17 08:59 99 21 04/22/17 08:00 98.2 82 21 161/84 99 04/22/17 08:00 82 04/22/17 06:01 70 15 133/81 99 04/22/17 06:00 70 04/22/17 05:01 70 16 137/73 99 04/22/17 04:01 97.8 68 15 115/62 99 04/22/17 04:00 68 04/22/17 03:01 74 17 134/74 98 04/22/17 02:01 74 16 163/87 99 04/22/17 02:00 76 04/22/17 01:01 66 16 166/87 99 04/22/17 00:01 97.6 68 18 137/79 99 04/22/17 00:00 70 04/21/17 23:01 72 18 146/79 98 04/21/17 22:01 82 21 160/77 98 04/21/17 22:00 80 04/21/17 21:01 82 23 157/95 98 04/21/17 20:05 97 21 04/21/17 20:01 98.1 80 23 161/90 98 04/21/17 20:00 80 04/21/17 18:00 97.0 86 24 144/80 98 04/21/17 16:00 80 35 168/94 98 04/21/17 14:00 82 25 168/96 98 I/O 04/21/17 04/21/17 04/21/17 04/22/17 04/22/17 04/22/17 07:00 15:00 23:00 07:00 15:00 23:00 Intake Total 655 ml 10 ml 541 ml 747 ml Output Total 275 ml 375 ml 300 ml 400 ml Balance 380 ml -365 ml 241 ml 347 ml Intake Oral 10 ml 20 ml IV Total 655 ml 521 ml 747 ml Output Urine Total 275 ml 375 ml 300 ml 400 ml # Bowel Movements 0 0 0 0 Result Diagram: 04/21/17 1130 04/22/17 0430 Objective Remarks GENERAL: Patient lying in bed. Appears comfortable. Responds to verbal stimulation. Obeys commands. Nonverbal. Moving all extremities SKIN: Warm and dry. HEAD: Normocephalic. EYES: No scleral icterus. No injection or drainage. NECK: Supple, trachea midline. No JVD or lymphadenopathy. CARDIOVASCULAR: Regular rate and rhythm without murmurs, gallops, or rubs. RESPIRATORY: Breath sounds equal bilaterally. No accessory muscle use. GASTROINTESTINAL: Abdomen soft, non-tender, nondistended. MUSCULOSKELETAL: No cyanosis. Left lower extremity edema. BACK: Nontender without obvious deformity. No CVA tenderness. A/P Assessment and Plan === 04/22/17 Hypernatremia. Secondary to fluids. Change to half-normal saline. Encephalopathy with Oversedation. Worsening. Discontinue sedating medications. And add back if necessary Left lower extremity edema. Ultrasound to rule out DVT. Transaminitis-LFT's improving . //Acute encephalopathy -likely due to sepsis- //patient has a history of ETOH abuse in the past //Frequent falls CT head with no acute abnormality. continue neuro checks on CIWA protocol continue IV Abx continue to keep NPO for now due to altered mentation PT/ST following. //sepsis due to right facial cellulitis ( the site of previous central line) and questionable cholecystitis //bacteremia with staph aureus continue broad spectrum IV antibiotic. blood cultures with staph aureus. will repeat the blood cultures and check echo. ID consult appreciated. //right facial cellulitis- at the site of previous central line -neck CT with no hematoma or abscess follow blood cultures and continue broad spectrum IV antibiotics surgery consult appreciated and no need for surgical intervention at this time //cholecystitis with elevated LFT's keep NPO continue IV Abx -LFT's improving . GI consult appreciated hepatitis panel pending. //Hypertension Coronary artery disease status post stent 3 On nadolol 80 mg by mouth daily and losartan 25 mg daily for hypertension; of note the po meds are on hold due to change in mental status As needed labetalol/hydralazine/vasotec to keep systolic blood pressure less than 160 //Hypothyroidism TSH currently elevated 8.37 . resume levothyroxine when able to take po. TSH to be repeated in 2-3 weeks as outpatient. Sliding-scale insulin with Accu-Cheks every 6 hours to maintain euglycemia/low regimen //Normocytic anemia No signs of active bleeding. No indications for transfusion of blood products at the present time will monitor H/H for now. 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 Arthritic changes to the tarsal/tarsal and tarsometatarsal joints. Calcaneal spur. Old fracture secondary tarsal. X-ray left tib/fib revealed moderate arthritic changes to the patellofemoral and femoral tibial joints. PT to follow. //Hypo osmolar Hyponatremia-improved. //Hypokalemia-replaced. //Ochc-[id number]-tdfatduo. Cortisol within normal limits. Uric acid 2.6 at the lower end of normal. 1/2saline at 100 cc an hour //Prophylaxis - GI - Protonix - DVT - SCD will continue to monitor in ICU. Discharge Planning Continue monitoring in ICU. Rachid Morales MD Apr 22, 2017 12:05
--- NOTE | 2017-04-22 15:58 | HHI.GIFU ---
GI Follow-up Note Consult Follow-up Subjective: Patient laying in bed comfortably, no new complaints except confusion Objective: PHYSICAL EXAMINATION: Vitals signs stable No fever HEENT: Pupils round and reactive to light; normocephalic; atraumatic; no jaundice. Throat is clear. NECK: Neck is supple, no JVD, no lymphadenopathy. CHEST: Chest is clear to auscultation and percussion. CARDIAC: Regular rate and rhythm with no murmur gallop or rubs. ABDOMEN: Soft, nondistended, nontender; no hepatosplenomegaly; bowel sounds are present in all four quadrants. EXTREMITIES: No clubbing, cyanosis, or edema. SKIN: Normal; no rash; no jaundice. [employer]: No focal deficits; alert and oriented times three. Available Data (labs, X- Rays, Procedues) : Last Impressions Head CT 04/19/17 Signed Impressions: Service Date/Time: Wednesday, April 19, 2017 10:20 - CONCLUSION: No acute intracranial findings. Asher Mcgowan MD Liver Ultrasound 04/18/17 Signed Impressions: Service Date/Time: Tuesday, April 18, 2017 18:17 - CONCLUSION: 1. Cholelithiasis with mild gallbladder wall thickening and minimal pericholecystic fluid. This raises concern for possible acute cholecystitis. Consider HIDA scan. Kaushik Miller Jr., MD Chest X-Ray 04/18/17 Signed Impressions: Service Date/Time: Tuesday, April 18, 2017 08:55 - CONCLUSION: No acute cardiopulmonary disease identified. Asher Mcgowan MD Upper Extremity Ultrasound 04/17/17 Signed Impressions: Service Date/Time: April 22:59 - CONCLUSION: 1. Nondiagnostic evaluation secondary to lack of patient cooperation. Snoy Armstrong MD Neck CT 04/17/17 Signed Impressions: Service Date/Time: April 21:31 - CONCLUSION: 1. Edema involving the right neck. No abscess or hematoma. Kaushik Miller Jr., MD Abdomen/Pelvis CT 04/16/17 Signed Impressions: Service Date/Time: Sunday, April 16, 2017 21:00 - CONCLUSION: 1. No acute abnormality. 2. Cholelithiasis. 3. Small bilateral pleural effusions. Kaushik Miller Jr., MD Neck Magnetic Resonance Angiography 04/15/17 Signed Impressions: Service Date/Time: Saturday, April 15, 2017 15:20 - CONCLUSION: 1. Limited examination due to motion. These were the best obtainable images given the patient's state of cooperation. 2. No gross significant stenosis of either carotid artery observed. 3. Left vertebral artery grossly patent. Right is not visualized. Kaushik Miller Jr., MD Tibia/Fibula X-Ray 04/13/17 Signed Impressions: Service Date/Time: Thursday, April 13, 2017 16:19 - CONCLUSION: 1. Moderate arthritic changes involving the femoral tibial and patellofemoral joints. 2. No acute fracture or dislocation. Alex Whiteside MD Lower Extremity Ultrasound 04/13/17 Signed Impressions: Service Date/Time: Thursday, April 13, 2017 21:25 - CONCLUSION: No evidence of deep venous thrombosis within the lower extremities. Alex Whiteside MD Head Magnetic Resonance Angiography 04/13/17 Signed Impressions: Service Date/Time: Saturday, April 15, 2017 15:20 - CONCLUSION: 1. Significantly limited study due to motion. These were the best obtainable images given the patient's state of cooperation. 2. Scattered areas of mild luminal narrowing secondary to atherosclerotic plaque. Details given above. Kaushik Miller Jr., MD Foot X-Ray 04/13/17 Signed Impressions: Service Date/Time: Thursday, April 13, 2017 15:31 - CONCLUSION: 1. Arthritic changes involving the tarso-tarsal and tarsal-metatarsals joints in the midfoot. 2. Bony fusion of the left 1st metatarsophalangeal joint. 3. Plantar calcaneal spur. 4. No acute fracture or dislocation. Alex Whiteside MD Brain MRI 04/13/17 Signed Impressions: Service Date/Time: Saturday, April 15, 2017 15:20 - CONCLUSION: 1. Significantly limited study by motion artifact. These were the best obtainable images given the patient's state of cooperation. 2. No acute intracranial abnormality appreciated on these limited images. Kaushik Miller Jr., MD Laboratory Tests Test 04/20/17 04/21/17 04/21/17 04/22/17 16:35 03:00 11:30 04:30 Vancomycin Level Trough 14.1 MCG/ML Potassium Level 4.6 MEQ/L 3.9 MEQ/L 4.6 MEQ/L Phosphorus Level 3.5 MG/DL White Blood Count 11.6 TH/MM3 Red Blood Count 2.52 MIL/MM3 Hemoglobin 8.0 GM/DL Hematocrit 24.3 % Mean Corpuscular Volume 96.4 FL Mean Corpuscular Hemoglobin 31.8 PG Mean Corpuscular Hemoglobin 32.9 % Concent Red Cell Distribution Width 15.6 % Platelet Count 135 TH/MM3 Mean Platelet Volume 7.3 FL Neutrophils (%) (Auto) 75.3 % Lymphocytes (%) (Auto) 8.5 % Monocytes (%) (Auto) 11.3 % Eosinophils (%) (Auto) 0.7 % Basophils (%) (Auto) 4.2 % Neutrophils # (Auto) 8.7 TH/MM3 Lymphocytes # (Auto) 1.0 TH/MM3 Monocytes # (Auto) 1.3 TH/MM3 Eosinophils # (Auto) 0.1 TH/MM3 Basophils # (Auto) 0.5 TH/MM3 CBC Comment DIFF FINAL Differential Comment Sodium Level 148 MEQ/L 147 MEQ/L Chloride Level 117 MEQ/L 119 MEQ/L Carbon Dioxide Level 19.2 MEQ/L 16.6 MEQ/L Anion Gap 12 MEQ/L 11 MEQ/L Blood Urea Nitrogen 11 MG/DL 9 MG/DL Creatinine 0.69 MG/DL 0.65 MG/DL Estimat Glomerular Filtration 84 ML/MIN 90 ML/MIN Rate Random Glucose 77 MG/DL 77 MG/DL Calcium Level 7.9 MG/DL 7.8 MG/DL Total Bilirubin 1.6 MG/DL 1.3 MG/DL Aspartate Amino Transf 923 U/L 607 U/L (AST/SGOT) Alanine Aminotransferase 1640 U/L 25 U/L (ALT/SGPT) Alkaline Phosphatase 134 U/L 135 U/L Total Protein 5.5 GM/DL 5.5 GM/DL Albumin 2.7 GM/DL 2.4 GM/DL Allergies Coded Allergies Type Severity Reaction Last Updated Verified Sulfa Allergy Severe Rash 04/13/17 Yes Active Scripts Medications Dose Route/Sig Days Date Category Percocet (Oxycodone-Acetaminophen) 5-325 mg Tab 1 Tab PO Q6H PRN 04/13/17 Rx Nadolol 80 Mg Tab 80 Mg PO DAILY 04/13/17 Reported Losartan (Losartan Potassium) 25 Mg Tab 25 Mg PO DAILY 04/13/17 Reported Levothyroxine (Levothyroxine Sodium) 75 Mcg Tab 75 Mcg PO DAILY 04/13/17 Reported Escitalopram (Escitalopram Oxalate) 10 Mg Tab 10 Mg PO DAILY 04/13/17 Reported Alprazolam 0.25 Mg Tab 0.25 Mg PO DIRECTED PRN 04/13/17 Reported ASSESSMENT/PLAN: seen and examined, Still confused. CT head and ammonia levels normal. Lfts improving. Probable shock liver. Consider neurology evaluation. GI will sign off. Thank you It was a pleasure seeing Cuba Kaminski. Thank you for this consult. Entered by: Ronny Hernandez MD Apr 22, 2017 15:58
--- NOTE | 2017-04-22 16:24 | RADHPO ---
EXAM DATE/TIME: 04/22/2017 15:40 [facility] COMPARISON: US ABDOMEN - LIVER, April 18, 2017, 18:17. INDICATIONS : Left leg swelling. MEDICAL HISTORY : Left leg swelling. CAD. SURGICAL HISTORY : Hysterectomy. ENCOUNTER: Subsequent ACUITY: 1 day PAIN SCORE: Non-responsive LOCATION: Left leg. TECHNIQUE: Venous ultrasound of the leg was performed from the inguinal ligament to the proximal calf. Real-nuvia e, color Doppler and spectral tracing, compression and augmentation techniques were used. FINDINGS: There is normal compressibility of the deep venous system from the inguinal region to the proximal ca lf. No echogenic clot is seen in the lumen of the common femoral, femoral, popliteal, and posterior tibial veins. There is a normal response of the venous system to proximal and distal augmentation an d respiration. CONCLUSION: 1. No DVT identified. Alfredito Colorado MD on April 22, 2017 at 16:22 Board Certified Radiologist. This report was verified electronically.
--- NOTE | 2017-04-22 17:15 | HHI.IDPN ---
Note Infectious Disease Note ID coverage. Patient seen and examined. Very restless. Eyes open but not responding to commands. thrashing head from side to side. Afebrile. Blood cultures noted. 04/18 MSSA. 04/20 NEGATIVE. 2D ECHO - No vegetations seen. Antibiotics Unasyn. Lines Peripheral Past Medical History Coronary artery disease with 3 stents Hypertension Depression Hypothyroidism Chronic narcotic use Chronic benzodiazepine u Allergies: Coded Allergies: Sulfa (Verified Allergy, Severe, Rash, 04/13/17) Objective Vital Signs Date Time Temp Pulse Resp B/P Pulse Ox O2 Delivery O2 Flow Rate FiO2 04/22/17 16:09 98.6 86 25 164/98 98 04/22/17 15:30 88 30 167/83 97 04/22/17 15:00 88 28 165/90 98 04/22/17 14:00 86 04/22/17 14:00 88 32 161/95 97 04/22/17 12:00 97.4 82 25 149/92 98 04/22/17 12:00 82 04/22/17 11:00 82 21 148/91 98 04/22/17 10:00 80 23 142/84 98 04/22/17 10:00 76 04/22/17 09:00 82 21 157/82 98 04/22/17 08:59 99 21 04/22/17 08:00 98.2 82 21 161/84 99 04/22/17 08:00 82 04/22/17 06:01 70 15 133/81 99 04/22/17 06:00 70 04/22/17 05:01 70 16 137/73 99 04/22/17 04:01 97.8 68 15 115/62 99 04/22/17 04:00 68 04/22/17 03:01 74 17 134/74 98 04/22/17 02:01 74 16 163/87 99 04/22/17 02:00 76 04/22/17 01:01 66 16 166/87 99 04/22/17 00:01 97.6 68 18 137/79 99 04/22/17 00:00 70 04/21/17 23:01 72 18 146/79 98 04/21/17 22:01 82 21 160/77 98 04/21/17 22:00 80 04/21/17 21:01 82 23 157/95 98 04/21/17 20:05 97 21 04/21/17 20:01 98.1 80 23 161/90 98 04/21/17 20:00 80 04/21/17 18:00 97.0 86 24 144/80 98 04/21/17 04/21/17 04/22/17 15:00 23:00 07:00 Intake Total 10 ml 541 ml 747 ml Output Total 375 ml 300 ml 400 ml Balance -365 ml 241 ml 347 ml Intake Oral 10 ml 20 ml IV Total 521 ml 747 ml Output Urine Total 375 ml 300 ml 400 ml # Bowel Movements 0 0 0 Laboratory Tests Test 04/21/17 11:30 White Blood Count 11.6 TH/MM3 Red Blood Count 2.52 MIL/MM3 Hemoglobin 8.0 GM/DL Hematocrit 24.3 % Mean Corpuscular Volume 96.4 FL Mean Corpuscular Hemoglobin 31.8 PG Mean Corpuscular Hemoglobin 32.9 % Concent Red Cell Distribution Width 15.6 % Platelet Count 135 TH/MM3 Mean Platelet Volume 7.3 FL Neutrophils (%) (Auto) 75.3 % Lymphocytes (%) (Auto) 8.5 % Monocytes (%) (Auto) 11.3 % Eosinophils (%) (Auto) 0.7 % Basophils (%) (Auto) 4.2 % Neutrophils # (Auto) 8.7 TH/MM3 Lymphocytes # (Auto) 1.0 TH/MM3 Monocytes # (Auto) 1.3 TH/MM3 Eosinophils # (Auto) 0.1 TH/MM3 Basophils # (Auto) 0.5 TH/MM3 CBC Comment DIFF FINAL Differential Comment Laboratory Tests Test 04/21/17 04/21/17 04/22/17 03:00 11:30 04:30 Potassium Level 4.6 MEQ/L 3.9 MEQ/L 4.6 MEQ/L Phosphorus Level 3.5 MG/DL Sodium Level 148 MEQ/L 147 MEQ/L Chloride Level 117 MEQ/L 119 MEQ/L Carbon Dioxide Level 19.2 MEQ/L 16.6 MEQ/L Anion Gap 12 MEQ/L 11 MEQ/L Blood Urea Nitrogen 11 MG/DL 9 MG/DL Creatinine 0.69 MG/DL 0.65 MG/DL Estimat Glomerular Filtration 84 ML/MIN 90 ML/MIN Rate Random Glucose 77 MG/DL 77 MG/DL Calcium Level 7.9 MG/DL 7.8 MG/DL Total Bilirubin 1.6 MG/DL 1.3 MG/DL Aspartate Amino Transf 923 U/L 607 U/L (AST/SGOT) Alanine Aminotransferase 1640 U/L 25 U/L (ALT/SGPT) Alkaline Phosphatase 134 U/L 135 U/L Total Protein 5.5 GM/DL 5.5 GM/DL Albumin 2.7 GM/DL 2.4 GM/DL Microbiology Date/Time Procedure Status Source Growth 04/20/17 12:10 Aerobic Blood Culture - Preliminary Resulted Blood Peripheral NO GROWTH IN 2 DAYS 04/20/17 12:10 Anaerobic Blood Culture - Preliminary Resulted Blood Peripheral NO GROWTH IN 2 DAYS 04/20/17 12:15 Aerobic Blood Culture - Preliminary Resulted Blood Peripheral NO GROWTH IN 2 DAYS 04/20/17 12:15 Anaerobic Blood Culture - Final Resulted Blood Peripheral QNS - SEE AEROBE REPORT GENERAL: Patient is in no acute distress. HEENT: EOMI, No icterus. Swelling at the R. lateral neck at angle of the jaw. No erythema. NECK: Supple. LUNGS: Clear breath sounds. CARDIAC: Regular rate and rhythm. No audible murmur. ABDOMEN: Soft, non tender. EXTREMITIES: No CCE. SKIN: No rash. NEURO: Restless. Difficult to assess. Assessment & Plan Diagnosis: (1) Acute metabolic encephalopathy. (2) Cellulitis and abscess of face. Plan: Follow clinically (3) Sepsis due to methicillin susceptible Staphylococcus aureus. WBC improving. Plan: Continue IV Unasyn 3 g q6hrs Follow repeat Blood cultures Iglesia Real MD Apr 22, 2017 17:15
[2017-04-22] MEDS ORDERED: HALOPERIDOL LACTATE 5 MG/ML AMP IV ONE (19:00)
[2017-04-23] VITALS (28 sets, daily range): BP systolic 126–178; BP diastolic 69–104; PULSE 68–88; RESP 18–38; TEMP 96.7–97.9; O2SAT 97–100
[2017-04-23] MEDS: AMPICILLIN-SULBACTAM INJ 3 GM in SODIUM CHLORIDE 0.9% INJ 100 ML IV SCH ×4 (03:05→22:13)
[2017-04-23] MEDS: CHLORHEXIDINE GLUCONATE 2 % 1 PACK (2 CLOTHS) TOP SCH (03:05)
[2017-04-23] MEDS: 1/2 NS + KCL 20 MEQ INJ 1,000 ML IV SCH (04:07)
[2017-04-23 05:38] LABS: BASOPHIL % 0.2 % (0.0-2.0); EOSINOPHIL # 0.1 TH/MM3 (0-0.4); EOSINOPHIL % 0.8 % (0.0-4.0); HEMATOCRIT 25.4 % (35.0-46.0); LYMPH % 11.7 % (9.0-44.0); LYMPHOCYTE # 1.1 TH/MM3 (1.0-4.8); MEAN CELL VOLUME 98.7 FL (80.0-100.0); MEAN CORPUSCULAR HGB CONC 32.5 % (32.0-36.0); MONO % 13.7 % (0.0-8.0); NEUT % 73.6 % (16.0-70.0); PLATELET COUNT 214 TH/MM3 (150-450); RED BLOOD COUNT 2.58 MIL/MM3 (4.00-5.30); RED CELL DISTRIBUTION WIDTH 16.6 % (11.6-17.2); WHITE BLOOD COUNT 9.5 TH/MM3 (4.0-11.0)
[2017-04-23 06:17] LABS: HEMO FLAGS DIFF FINAL
[2017-04-23 06:25] LABS: BICARBONATE 19.5 MEQ/L (21.0-32.0); INDIRECT BILIRUBIN 0.5 MG/DL (0.0-0.8); MAGNESIUM 1.5 MG/DL (1.5-2.5); POTASSIUM 3.5 MEQ/L (3.5-5.1); TOTAL BILIRUBIN ADULT 1.1 MG/DL (0.2-1.0)
[2017-04-23] MEDS: PANTOPRAZOLE SODIUM 40 MG VIAL IV SCH (08:36)
[2017-04-23] MEDS: SODIUM CHLORIDE 0.9% FLUSH 10 ML FLUSH IV FLUSH SCH ×2 (08:36→22:13)
[2017-04-23] MEDS: DOCUSATE SODIUM 50 MG/SENNA 8.6 MG TAB PO SCH ×2 (09:00→21:00)
[2017-04-23] MEDS: LOSARTAN 25 MG TAB PO SCH (09:00)
[2017-04-23] MEDS ORDERED: POTASSIUM CHLORIDE INJ 20 MEQ, SODIUM CHLORIDE 23.4% INJ 38.5 MEQ in WATER STERILE FOR ... IV SCH (10:00)
--- NOTE | 2017-04-23 10:12 | HHI.PR ---
Subjective Remarks Patient more alert today, still not talking. Waking up, opening eyes, being commands. Moving. Objective Vital Signs Date Time Temp Pulse Resp B/P Pulse Ox O2 Delivery O2 Flow Rate FiO2 04/23/17 09:51 99 21 04/23/17 06:00 82 04/23/17 06:00 88 22 160/79 97 04/23/17 05:00 82 26 154/78 97 04/23/17 04:00 97.7 82 25 155/78 97 04/23/17 04:00 82 04/23/17 03:00 82 26 150/77 97 04/23/17 02:00 84 26 141/92 97 04/23/17 02:00 84 04/23/17 01:00 86 30 166/87 97 04/23/17 00:00 97.7 88 31 156/99 97 04/23/17 00:00 88 04/22/17 23:00 88 36 154/81 98 04/22/17 22:00 90 30 149/77 97 04/22/17 22:00 90 04/22/17 21:00 98 21 04/22/17 21:00 82 31 162/91 98 04/22/17 20:00 97.9 89 36 151/105 97 04/22/17 20:00 89 04/22/17 19:00 85 31 162/91 98 04/22/17 18:00 88 04/22/17 18:00 88 39 156/96 98 04/22/17 17:00 88 36 161/83 98 04/22/17 16:09 98.6 86 25 164/98 98 04/22/17 16:00 88 04/22/17 15:30 88 30 167/83 97 04/22/17 15:00 88 28 165/90 98 04/22/17 14:00 86 04/22/17 14:00 88 32 161/95 97 04/22/17 12:00 97.4 82 25 149/92 98 04/22/17 12:00 82 04/22/17 11:00 82 21 148/91 98 I/O 04/22/17 04/22/17 04/22/17 04/23/17 04/23/17 04/23/17 07:00 15:00 23:00 07:00 15:00 23:00 Intake Total 747 ml 1089 ml 780 ml 840 ml Output Total 400 ml 450 ml 475 ml 450 ml Balance 347 ml 639 ml 305 ml 390 ml Intake Oral 0 ml IV Total 747 ml 1089 ml 780 ml 840 ml Output Urine Total 400 ml 450 ml 475 ml 450 ml # Bowel Movements 0 0 Result Diagram: 04/23/17 0500 04/23/17 0500 Objective Remarks GENERAL: Patient lying in bed. Opens eyes, moaning spontaneously today. SKIN: Warm and dry. HEAD: Normocephalic. EYES: No scleral icterus. No injection or drainage. NECK: Supple, trachea midline. No JVD. CARDIOVASCULAR: Regular rate and rhythm without murmurs, gallops, or rubs. RESPIRATORY: Breath sounds equal bilaterally. No accessory muscle use. GASTROINTESTINAL: Abdomen soft, non-tender, nondistended. MUSCULOSKELETAL: No cyanosis. Left lower extremity edema. Unchanged. No redness. BACK: Nontender without obvious deformity. No CVA tenderness. A/P Assessment and Plan =====04/23/17======= //enCephalopathy improving off of sedating medications. //Hypernatremia. Not improving Continue half normal saline. Insert NG tube with free water flushes. //Severe protein calorie Malnutrition. Has not eaten since admission. Please NG tube with tube feeds. //Hypophosphatemia. 1.8 Replaced //Left lower extremity edema. Ultrasound negative for DVT. //Transaminitis. Overall improving. Could be lab error or yesterday. //Acute encephalopathy -likely due to sepsis- //patient has a history of ETOH abuse in the past //Frequent falls CT head with no acute abnormality. continue neuro checks on CIWA protocol continue IV Abx continue to keep NPO for now due to altered mentation PT/ST following. //sepsis due to right facial cellulitis ( the site of previous central line) and questionable cholecystitis //bacteremia with staph aureus continue broad spectrum IV antibiotic. blood cultures with staph aureus. will repeat the blood cultures and check echo. ID consult appreciated. //right facial cellulitis- at the site of previous central line -neck CT with no hematoma or abscess follow blood cultures and continue broad spectrum IV antibiotics surgery consult appreciated and no need for surgical intervention at this time //cholecystitis with elevated LFT's keep NPO continue IV Abx -LFT's improving . GI consult appreciated Continue to follow liver function //Hypertension Coronary artery disease status post stent 3 On nadolol 80 mg by mouth daily and losartan 25 mg daily for hypertension; of note the po meds are on hold due to change in mental status As needed labetalol/hydralazine/vasotec to keep systolic blood pressure less than 160 //Hypothyroidism TSH currently elevated 8.37 . resume levothyroxine when able to take po. TSH to be repeated in 2-3 weeks as outpatient. Sliding-scale insulin with Accu-Cheks every 6 hours to maintain euglycemia/low regimen //Normocytic anemia No signs of active bleeding. No indications for transfusion of blood products at the present time will monitor H/H for now. 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 Arthritic changes to the tarsal/tarsal and tarsometatarsal joints. Calcaneal spur. Old fracture secondary tarsal. X-ray left tib/fib revealed moderate arthritic changes to the patellofemoral and femoral tibial joints. PT to follow. //Hypo osmolar Hyponatremia-improved. //Hypokalemia-replaced. //[id number]-qfolpfag. Cortisol within normal limits. Uric acid 2.6 at the lower end of normal. 1/2saline at 100 cc an hour //Prophylaxis - GI - Protonix - DVT - SCD will continue to monitor in ICU. Discharge Planning Continue monitoring in ICU. Rachid Morales MD Apr 23, 2017 10:12
[2017-04-23] MEDS ORDERED: THIAMINE INJ 100 MG in SODIUM CHLORIDE 0.9% INJ 100 ML IV ONE (11:00)
[2017-04-23] MEDS: LABETALOL HCL 100 MG/20 ML VIAL IV PUSH PRN ×3 (11:06→18:15)
[2017-04-23] MEDS: DEXT 5%-NACL 0.45% 1000 ML INJ 1,000 ML IV SCH ×2 (11:53→19:48)
[2017-04-23] MEDS: ARTIFICIAL TEARS OPTH SOLN 15 ML BTL EACH EYE SCH ×3 (11:55→18:14)
--- NOTE | 2017-04-23 12:10 | RADHPO ---
EXAM DATE/TIME: 04/23/2017 11:10 [facility] COMPARISON: No previous studies available for comparison. INDICATIONS : Post nasogastric tube placement. MEDICAL HISTORY : None. Left leg swelling. CAD. SURGICAL HISTORY : Hysterectomy. ENCOUNTER: Subsequent ACUITY: 2 weeks PAIN SCORE: Non-responsive. LOCATION: abdomen FINDINGS: On this examination there is an NG tube in place. The tip appears to be in the proximal small bowel. The bowel gas pattern is grossly unremarkable. There is diffuse degenerative changes of the thoracic and lumbar spine with scoliosis. CONCLUSION: There is an NG tube in place. The tip appears to be in the proximal small bowel. Wenceslao Rivera MD on April 23, 2017 at 12:07 Board Certified Radiologist. This report was verified electronically.
--- NOTE | 2017-04-23 14:49 | HHI.IDPN ---
Note Infectious Disease Note ID coverage. Patient seen and examined. Patient is calmer. Daughter at bedside. Not opening eyes or following commands. Afebrile. Blood cultures 04/18 MSSA. Blood cultures 04/20 NEGATIVE. 2D ECHO - No vegetations seen. Antibiotics Unasyn. Lines Peripheral Past Medical History Coronary artery disease with 3 stents Hypertension Depression Hypothyroidism Chronic narcotic use Chronic benzodiazepine u Allergies: Coded Allergies: Sulfa (Verified Allergy, Severe, Rash, 04/13/17) Objective Vital Signs Date Time Temp Pulse Resp B/P Pulse Ox O2 Delivery O2 Flow Rate FiO2 04/23/17 12:00 97.8 76 24 167/90 98 04/23/17 12:00 76 04/23/17 11:07 68 23 146/80 98 04/23/17 11:07 68 04/23/17 11:00 78 04/23/17 11:00 78 22 178/104 98 04/23/17 10:00 80 04/23/17 10:00 80 21 165/96 98 04/23/17 09:51 99 21 04/23/17 09:00 80 04/23/17 09:00 80 22 159/90 97 04/23/17 08:38 80 04/23/17 08:38 80 22 157/95 98 04/23/17 08:00 97.7 82 22 168/87 97 04/23/17 08:00 82 04/23/17 06:00 82 04/23/17 06:00 88 22 160/79 97 04/23/17 05:00 82 26 154/78 97 04/23/17 04:00 97.7 82 25 155/78 97 04/23/17 04:00 82 04/23/17 03:00 82 26 150/77 97 04/23/17 02:00 84 26 141/92 97 04/23/17 02:00 84 04/23/17 01:00 86 30 166/87 97 04/23/17 00:00 97.7 88 31 156/99 97 04/23/17 00:00 88 04/22/17 23:00 88 36 154/81 98 04/22/17 22:00 90 30 149/77 97 04/22/17 22:00 90 04/22/17 21:00 98 21 04/22/17 21:00 82 31 162/91 98 04/22/17 20:00 97.9 89 36 151/105 97 04/22/17 20:00 89 04/22/17 19:00 85 31 162/91 98 04/22/17 18:00 88 04/22/17 18:00 88 39 156/96 98 04/22/17 17:00 88 36 161/83 98 04/22/17 16:09 98.6 86 25 164/98 98 04/22/17 16:00 88 04/22/17 15:30 88 30 167/83 97 04/22/17 15:00 88 28 165/90 98 04/22/17 04/22/17 04/23/17 15:00 23:00 07:00 Intake Total 1089 ml 780 ml 840 ml Output Total 450 ml 475 ml 450 ml Balance 639 ml 305 ml 390 ml Intake Oral 0 ml IV Total 1089 ml 780 ml 840 ml Output Urine Total 450 ml 475 ml 450 ml # Bowel Movements 0 Laboratory Tests Test 04/23/17 05:00 White Blood Count 9.5 TH/MM3 Red Blood Count 2.58 MIL/MM3 Hemoglobin 8.3 GM/DL Hematocrit 25.4 % Mean Corpuscular Volume 98.7 FL Mean Corpuscular Hemoglobin 32.0 PG Mean Corpuscular Hemoglobin 32.5 % Concent Red Cell Distribution Width 16.6 % Platelet Count 214 TH/MM3 Mean Platelet Volume 7.2 FL Neutrophils (%) (Auto) 73.6 % Lymphocytes (%) (Auto) 11.7 % Monocytes (%) (Auto) 13.7 % Eosinophils (%) (Auto) 0.8 % Basophils (%) (Auto) 0.2 % Neutrophils # (Auto) 7.0 TH/MM3 Lymphocytes # (Auto) 1.1 TH/MM3 Monocytes # (Auto) 1.3 TH/MM3 Eosinophils # (Auto) 0.1 TH/MM3 Basophils # (Auto) 0.0 TH/MM3 CBC Comment DIFF FINAL Differential Comment Laboratory Tests Test 04/22/17 04/23/17 04:30 05:00 Sodium Level 147 MEQ/L 147 MEQ/L Potassium Level 4.6 MEQ/L 3.5 MEQ/L Chloride Level 119 MEQ/L 115 MEQ/L Carbon Dioxide Level 16.6 MEQ/L 19.5 MEQ/L Anion Gap 11 MEQ/L 13 MEQ/L Blood Urea Nitrogen 9 MG/DL 7 MG/DL Creatinine 0.65 MG/DL 0.59 MG/DL Estimat Glomerular Filtration 90 ML/MIN 101 ML/MIN Rate Random Glucose 77 MG/DL 83 MG/DL Calcium Level 7.8 MG/DL 7.4 MG/DL Total Bilirubin 1.3 MG/DL 1.1 MG/DL Aspartate Amino Transf 607 U/L 310 U/L (AST/SGOT) Alanine Aminotransferase 25 U/L 1014 U/L (ALT/SGPT) Alkaline Phosphatase 135 U/L 123 U/L Total Protein 5.5 GM/DL 5.4 GM/DL Albumin 2.4 GM/DL 2.6 GM/DL Phosphorus Level 1.8 MG/DL Magnesium Level 1.5 MG/DL Direct Bilirubin 0.6 MG/DL Indirect Bilirubin 0.5 MG/DL Microbiology Abdomen X-Ray 04/23/17 0000 Signed Impressions: Service Date/Time: Sunday, April 23, 2017 11:10 - CONCLUSION: There is an NG tube in place. The tip appears to be in the proximal small bowel. Wenceslao Rivera MD Lower Extremity Ultrasound 04/22/17 0000 Signed Impressions: Service Date/Time: Saturday, April 22, 2017 15:40 - CONCLUSION: 1. No DVT identified. Alfredito Colorado MD Date/Time Procedure Status Source Growth 04/20/17 12:10 Aerobic Blood Culture - Preliminary Resulted Blood Peripheral NO GROWTH IN 2 DAYS 04/20/17 12:10 Anaerobic Blood Culture - Preliminary Resulted Blood Peripheral NO GROWTH IN 2 DAYS 04/20/17 12:15 Aerobic Blood Culture - Preliminary Resulted Blood Peripheral NO GROWTH IN 2 DAYS 04/20/17 12:15 Anaerobic Blood Culture - Final Resulted Blood Peripheral QNS - SEE AEROBE REPORT GENERAL: Lethargic. HEENT: EOMI, No icterus. Swelling at the R. lateral neck at angle of the jaw. No erythema. NECK: Supple. LUNGS: Decreased clear breath sounds. CARDIAC: Regular rate and rhythm. No audible murmur. ABDOMEN: Soft, non tender. No reaction to palpation. EXTREMITIES: No CCE. SKIN: No rash. NEURO: Lethargic. Difficult to assess. Assessment & Plan Diagnosis: (1) Acute metabolic encephalopathy. Altered Mental Status not improving. May not be related to Sepsis. (2) Cellulitis and abscess of face. Plan: Follow clinically (3) Sepsis due to methicillin susceptible Staphylococcus aureus. WBC improving. Plan: Continue IV Unasyn 3 g q6hrs Follow repeat Blood cultures Neurology consult to evaluate cause of AMS. Plans discussed with daughter. Iglesia Real MD Apr 23, 2017 14:49
[2017-04-24] VITALS (26 sets, daily range): BP systolic 138–171; BP diastolic 77–102; PULSE 72–102; RESP 20–32; TEMP 97.7–97.9; O2SAT 98–100
[2017-04-24] MEDS: AMPICILLIN-SULBACTAM INJ 3 GM in SODIUM CHLORIDE 0.9% INJ 100 ML IV SCH ×4 (03:33→23:22)
[2017-04-24] MEDS: CHLORHEXIDINE GLUCONATE 2 % 1 PACK (2 CLOTHS) TOP SCH (03:40)
[2017-04-24] MEDS: DEXT 5%-NACL 0.45% 1000 ML INJ 1,000 ML IV SCH ×2 (06:16→16:37)
[2017-04-24 06:17] LABS: AUTOMATED NEUTROPHIL # 7.8 TH/MM3 (1.8-7.7); BASOPHIL # 0.2 TH/MM3 (0-0.2); BASOPHIL % 1.7 % (0.0-2.0); EOSINOPHIL # 0.3 TH/MM3 (0-0.4); HEMATOCRIT 27.5 % (35.0-46.0); LYMPH % 8.3 % (9.0-44.0); LYMPHOCYTE # 0.8 TH/MM3 (1.0-4.8); MEAN CELL VOLUME 97.5 FL (80.0-100.0); MEAN CORPUSCULAR HEMOGLOBIN 31.8 PG (27.0-34.0); MEAN CORPUSCULAR HGB CONC 32.6 % (32.0-36.0); MONO % 8.9 % (0.0-8.0); NEUT % 78.1 % (16.0-70.0); PLATELET COUNT 231 TH/MM3 (150-450); RED BLOOD COUNT 2.82 MIL/MM3 (4.00-5.30); RED CELL DISTRIBUTION WIDTH 16.9 % (11.6-17.2)
[2017-04-24 06:28] LABS: HEMO FLAGS AUTO DIFF
[2017-04-24 06:41] LABS: BICARBONATE 23.5 MEQ/L (21.0-32.0); INDIRECT BILIRUBIN 0.5 MG/DL (0.0-0.8); MAGNESIUM 1.3 MG/DL (1.5-2.5); TOTAL BILIRUBIN ADULT 0.9 MG/DL (0.2-1.0)
[2017-04-24 07:14] LABS: POTASSIUM 2.6 MEQ/L (3.5-5.1)
[2017-04-24 07:30] LABS: BURR CELLS 1+ (NORMAL); KERATOCYTES OCC (NORMAL); OVALOCYTES 1+ (NORMAL); SCAN/DIFF AUTO DIFF CONFIRMED
[2017-04-24 08:19] LABS: CALCIUM-PROTEIN CORRECTED 8.1 MG/DL (8.5-10.1)
[2017-04-24 08:19] LABS: APTT (PATIENT) 35.5 SEC (24.3-30.1); INTERNATIONAL NORMALIZED RATIO 1.6 RATIO; PROTHROMBIN TIME - PATIENT 17.8 SEC (9.8-11.6)
[2017-04-24] MEDS ORDERED: THIAMINE HCL 200 MG/2 ML VIAL IM SCH (09:00)
[2017-04-24] MEDS: DOCUSATE SODIUM 50 MG/SENNA 8.6 MG TAB PO SCH ×2 (09:00→21:00)
[2017-04-24] MEDS: LOSARTAN 25 MG TAB PO SCH (09:00)
[2017-04-24] MEDS: ARTIFICIAL TEARS OPTH SOLN 15 ML BTL EACH EYE SCH ×3 (09:00→18:46)
[2017-04-24] MEDS: PANTOPRAZOLE SODIUM 40 MG VIAL IV SCH (09:01)
[2017-04-24] MEDS: SODIUM CHLORIDE 0.9% FLUSH 10 ML FLUSH IV FLUSH SCH ×2 (09:03→23:23)
[2017-04-24] MEDS: LABETALOL HCL 100 MG/20 ML VIAL IV PUSH PRN ×2 (10:28→16:36)
--- NOTE | 2017-04-24 10:44 | MB ---
cc: CAROLINA MCFADDEN M.D. DATE OF CONSULTATION 04/24/2017 REASON FOR CONSULTATION Mental status change. HISTORY OF PRESENT ILLNESS Ms. Kaminski is a 71-year-old female who was admitted April 13 brought in by a neighbor after falling and having mental status changes with confusion. She was found to have a low sodium of 115. She also has a history of alcohol abuse, drinking two to four alcoholic drinks daily. She was treated with 3% saline. Her sodium has improved. According to the nurse, she was getting better with her mental status, but then developed decline with more confusion and lethargy. She also has a neck cellulitis and was felt to be possibly septic from that. Her pain medications and sedatives have been on hold and she has been demonstrating some mild improvement, but still very minimally responsive and very confused. When I asked the patient about headache, she denies any headaches, but because of her confusion, her history may not be that accurate. PAST MEDICAL HISTORY 1. History of coronary artery disease with stents 2. Chronic benzodiazepine and narcotic use 3. Hypothyroidism 4. Hypertension MEDICATIONS Current medications are: 1. Ampicillin 2. Potassium chloride 3. Magnesium sulfate 4. Sodium phosphate 5. Vasotec as needed for hypertension 6. Cozaar 25 mg daily 7. Protonix 40 mg IV daily 8. Louann-Colace 9. Apresoline as needed 10. Labetalol as needed 11. Artificial tears 12. Zofran as needed for nausea 13. Milk of Magnesia 14. Senokot p.r.n. 15. Clonidine p.r.n. 16. Tylenol p.r.n. NEUROLOGIC EXAMINATION Blood pressure is 157/99, pulse 78, respiratory rate is 28, temperature 97.8 degrees. Higher cortical function, the patient is lying supine with her eyes closed. She follows simple commands such as gripping. She tries to open her eyes when I ask her to do so, but does not follow any more complex commands. She does not have any discernible speech only mumbling. Cranial nerves: The pupils are 3 mm symmetric, reactive. Extraocular movements intact to doll's maneuver. No facial asymmetry is noted. On motor exam, she has as no asymmetry. She can move both upper and lower extremities equally. Reflexes symmetric. CT of the brain is unremarkable. LABORATORY DATA White count is 10,000, hemoglobin is 9, hematocrit 27%, platelets 231,000, PT 11.1, INR 1, APTT 32.9. Sodium is 140 today, potassium 2.6, chloride is 106, CO2 is 23.5. The BUN is 4, creatinine 0.7, GFR is 83, glucose 223, calcium 7.1. AST is 150, ALT 759, ammonia level is 30 on April 20. On April 18, it is 58. B12 level was 561, TSH 8.37 which was elevated. Cortisol 14.6, total protein 5.3. IMPRESSION I suspect probable metabolic encephalopathy from numerous fractures. She has a history of alcohol abuse which may be contributory in that she may be experiencing some withdrawal symptomatology also. There may be some element of sepsis from her cellulitis contributing. Her serum calcium was low at 7.1. She does have a relatively low total protein and albumin. Hypocalcemia could be contributory although we will check a protein corrected calcium level. The [facility] infection is a consideration, although at this time, she is not febrile. She does no nuchal rigidity. She denies headaches, but it is difficult to get a good history from her due to her mental status change. Stroke is less likely given the normal CT scan finding and also the lack of any focal deficit on exam. RECOMMENDATIONS Continue supportive care. We will start her on thiamine because of her history of alcohol abuse. She may be hypothyroid. We will defer to the medical service regarding this. We will also check a protein corrected calcium. I would like to go ahead and order a lumbar puncture to be sure there is no [facility] infection and also obtain a brain MRI as well as EEG for further evaluation. MD FRANCES Abel/FLORENCIO /7:28 AM /10:26 AM
[2017-04-24] MEDS: THIAMINE INJ 100 MG in SODIUM CHLORIDE 0.9% INJ 100 ML IV SCH (10:52)
--- NOTE | 2017-04-24 10:59 | RADHPO ---
EXAM DATE/TIME: 04/24/2017 09:54 [facility] COMPARISON: MRA BRAIN W/O CONTRAST, April 15, 2017, 15:20. INDICATIONS : CVA. Psychosis, encephalopathy. MEDICAL HISTORY : Hypertension. Coronary artery disease. SURGICAL HISTORY : Thyroidectomy. Hysterectomy. Coronary artery stent. ENCOUNTER: Initial ACUITY: 1 day PAIN SCORE: 0/10 LOCATION: Head. TECHNIQUE: Multiplanar, multisequence MRI of the brain was performed without contrast. FINDINGS: The examination is severely degraded due to motion artifact. The ventricles are normal in size and configuration. No abnormal extra-axial fluid collections are se en. No mass lesion is identified. No findings to indicate acute cortical infarction are present on the diffusion restricted images. The appearance of the posterior fossa is unremarkable. Sagittal T1-weighted images demonstrate normal formation of the corpus callosum and midline structure s. The cerebellar tonsils are in their appropriate location. CONCLUSION: 1. Limited examination due to motion artifact. 2. No acute abnormality identified. Alfredito Colorado MD on April 24, 2017 at 10:50 Board Certified Radiologist. This report was verified electronically.
[2017-04-24] MEDS: POTASSIUM PHOSPHATE INJ 30 MMOL in SODIUM CHLOR 0.9% 250 ML INJ 250 ML IV PRN (11:19)
--- NOTE | 2017-04-24 11:25 | HHI.PR ---
Subjective Remarks Patient talking today. Says her name, says her daughter's name. Improved alertness. Positive bowel movement. Objective Vital Signs Date Time Temp Pulse Resp B/P Pulse Ox O2 Delivery O2 Flow Rate FiO2 04/24/17 07:47 100 21 04/24/17 04:01 78 28 157/99 99 04/24/17 04:00 102 04/24/17 03:01 76 23 153/81 98 04/24/17 02:01 76 20 159/87 98 04/24/17 02:00 72 04/24/17 01:01 76 22 143/82 99 04/24/17 00:01 97.8 76 22 144/84 100 04/24/17 00:00 86 04/23/17 23:01 74 19 154/75 100 04/23/17 22:02 74 38 154/85 98 04/23/17 22:00 76 04/23/17 21:01 72 20 153/82 99 04/23/17 20:01 96.7 72 18 145/77 100 04/23/17 20:00 73 04/23/17 19:33 100 21 04/23/17 19:01 70 20 161/86 100 04/23/17 18:16 74 04/23/17 18:16 74 23 126/69 100 04/23/17 18:00 76 21 160/90 100 04/23/17 18:00 76 04/23/17 16:00 97.9 76 25 147/91 99 04/23/17 16:00 76 04/23/17 15:00 76 23 159/83 99 04/23/17 15:00 76 04/23/17 14:00 74 04/23/17 14:00 74 23 144/88 99 04/23/17 12:00 97.8 76 24 167/90 98 04/23/17 12:00 76 I/O 04/23/17 04/23/17 04/23/17 04/24/17 04/24/17 04/24/17 07:00 15:00 23:00 07:00 15:00 23:00 Intake Total 840 ml 1401 ml 1188 ml Output Total 450 ml 800 ml 500 ml Balance 390 ml 601 ml 688 ml IV Total 840 ml 1242 ml 901 ml Tube Feeding 167 ml TPN/PPN 39 ml Other 120 ml 120 ml Output Urine Total 450 ml 800 ml 500 ml # Bowel Movements 2 Result Diagram: 04/24/17 0555 04/24/17 0555 Imaging Last Impressions Brain MRI 04/24/17 0000 Signed Impressions: Service Date/Time: April 09:54 - CONCLUSION: 1. Limited examination due to motion artifact. 2. No acute abnormality identified. Alfredito Colorado MD Abdomen X-Ray 04/23/17 0000 Signed Impressions: Service Date/Time: Sunday, April 23, 2017 11:10 - CONCLUSION: There is an NG tube in place. The tip appears to be in the proximal small bowel. Wenceslao Rivera MD Lower Extremity Ultrasound 04/22/17 0000 Signed Impressions: Service Date/Time: Saturday, April 22, 2017 15:40 - CONCLUSION: 1. No DVT identified. Alfredito Colorado MD Head CT 04/19/17 0000 Signed Impressions: Service Date/Time: Wednesday, April 19, 2017 10:20 - CONCLUSION: No acute intracranial findings. Asher Mcgowan MD Liver Ultrasound 04/18/17 0000 Signed Impressions: Service Date/Time: Tuesday, April 18, 2017 18:17 - CONCLUSION: 1. Cholelithiasis with mild gallbladder wall thickening and minimal pericholecystic fluid. This raises concern for possible acute cholecystitis. Consider HIDA scan. Kaushik Miller Jr., MD Chest X-Ray 04/18/17 Signed Impressions: Service Date/Time: Tuesday, April 18, 2017 08:55 - CONCLUSION: No acute cardiopulmonary disease identified. Asher Mcgowan MD Upper Extremity Ultrasound 04/17/17 0000 Signed Impressions: Service Date/Time: April 22:59 - CONCLUSION: 1. Nondiagnostic evaluation secondary to lack of patient cooperation. Sony Armstrong MD Neck CT 04/17/17 0000 Signed Impressions: Service Date/Time: April 21:31 - CONCLUSION: 1. Edema involving the right neck. No abscess or hematoma. Kaushik Miller Jr., MD Abdomen/Pelvis CT 04/16/17 0000 Signed Impressions: Service Date/Time: Sunday, April 16, 2017 21:00 - CONCLUSION: 1. No acute abnormality. 2. Cholelithiasis. 3. Small bilateral pleural effusions. Kaushik Miller Jr., MD Neck Magnetic Resonance Angiography 04/15/17 0000 Signed Impressions: Service Date/Time: Saturday, April 15, 2017 15:20 - CONCLUSION: 1. Limited examination due to motion. These were the best obtainable images given the patient's state of cooperation. 2. No gross significant stenosis of either carotid artery observed. 3. Left vertebral artery grossly patent. Right is not visualized. Kaushik Miller Jr., MD Tibia/Fibula X-Ray 04/13/17 0000 Signed Impressions: Service Date/Time: Thursday, April 13, 2017 16:19 - CONCLUSION: 1. Moderate arthritic changes involving the femoral tibial and patellofemoral joints. 2. No acute fracture or dislocation. Alex Whiteside MD Head Magnetic Resonance Angiography 04/13/17 0000 Signed Impressions: Service Date/Time: Saturday, April 15, 2017 15:20 - CONCLUSION: 1. Significantly limited study due to motion. These were the best obtainable images given the patient's state of cooperation. 2. Scattered areas of mild luminal narrowing secondary to atherosclerotic plaque. Details given above. Kaushik Miller Jr., MD Foot X-Ray 04/13/17 0000 Signed Impressions: Service Date/Time: Thursday, April 13, 2017 15:31 - CONCLUSION: 1. Arthritic changes involving the tarso-tarsal and tarsal-metatarsals joints in the midfoot. 2. Bony fusion of the left 1st metatarsophalangeal joint. 3. Plantar calcaneal spur. 4. No acute fracture or dislocation. Alex Whiteside MD Objective Remarks GENERAL: Patient lying in bed. Opens eyes, says her name. Identifies daughter at bedside. Follows all commands. Denies pain. SKIN: Warm and dry. HEAD: Normocephalic. EYES: No scleral icterus. No injection or drainage. NECK: Supple, trachea midline. No JVD. CARDIOVASCULAR: Regular rate and rhythm without murmurs, gallops, or rubs. RESPIRATORY: Breath sounds equal bilaterally. No accessory muscle use. GASTROINTESTINAL: Abdomen soft, non-tender, nondistended. MUSCULOSKELETAL: No cyanosis. Left lower extremity edema. Unchanged. No redness. BACK: Nontender without obvious deformity. No CVA tenderness. A/P Assessment and Plan =====04/24/17======= //encephalopathy. Improving again today. -MRI findings. Neurology consulted. Continue thiamine supplementation. //Hypernatremia. Resolved. Continue free water flushes. //Severe protein calorie Malnutrition. Continue feedings via NG tube. //Refeeding syndrome. -With hypophosphatemia, hypomagnesemia, hypokalemia. Replace all and recheck. //Transaminitis. Continues improving. //Acute encephalopathy -likely due to sepsis- //patient has a history of ETOH abuse in the past //Frequent falls CT head, MRI head with no acute abnormality. continue neuro checks Stopped CIWA protocol continue IV Abx continue to keep NPO for now due to altered mentation --Continue NG tube feeding. PT/ST following. //sepsis due to right facial cellulitis ( the site of previous central line) and questionable cholecystitis //bacteremia with staph aureus continue broad spectrum IV antibiotic. blood cultures with staph aureus. will repeat the blood cultures and check echo. ID following. Appreciate assistance. Continue antibiotics as per infectious disease. //right facial cellulitis- at the site of previous central line -neck CT with no hematoma or abscess follow blood cultures and continue broad spectrum IV antibiotics surgery consult appreciated and no need for surgical intervention at this time //cholecystitis with elevated LFT's keep NPO continue IV Abx -LFT's and 10 you improving . GI consult appreciated Continue to follow liver function //Hypertension Coronary artery disease status post stent 3 On nadolol 80 mg by mouth daily and losartan 25 mg daily for hypertension; of note the po meds are on hold due to change in mental status As needed labetalol/hydralazine/vasotec to keep systolic blood pressure less than 160 //Hypothyroidism TSH currently elevated 8.37 . resume levothyroxine when able to take po. TSH to be repeated in 2-3 weeks as outpatient. Sliding-scale insulin with Accu-Cheks every 6 hours to maintain euglycemia/low regimen //Normocytic anemia No signs of active bleeding. No indications for transfusion of blood products at the present time will monitor H/H for now. 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 Arthritic changes to the tarsal/tarsal and tarsometatarsal joints. Calcaneal spur. Old fracture secondary tarsal. X-ray left tib/fib revealed moderate arthritic changes to the patellofemoral and femoral tibial joints. PT to follow. //Hypo osmolar Hyponatremia-improved. //Hypokalemia-replaced. //[id number]. Cortisol within normal limits. Uric acid 2.6 at the lower end of normal. 1/2saline at 100 cc an hour //Prophylaxis - GI - Protonix - DVT - SCD Discharge Planning Continue monitoring in ICU. Rachid Morales MD Apr 24, 2017 11:25
[2017-04-24] MEDS ORDERED: POTASSIUM CHLORIDE 25 MEQ EFFERVESCENT TAB PO ONE (11:30)
[2017-04-24] MEDS ORDERED: SODIUM PHOSPHATE INJ 15 MMOL in SODIUM CHLORIDE 0.9% INJ 150 ML IV ONE (11:30)
[2017-04-24] MEDS ORDERED: MAGNESIUM SULFATE 1 GM PREMIX 100 ML IV SCH (11:30)
--- NOTE | 2017-04-24 12:14 | HHI.IDPN ---
Note Infectious Disease Note ID follow up Patient is calmer this am. Remains confused. Attempting to open her eyes but is having difficulty keeping eyes open. Speech is garbled. Daughter at bedside says she responded to and recognized her and called her by name. Afebrile. LFTs remain elevated. Blood cultures 04/18 MSSA. Blood culture 04/20 NEGATIVE. 2D ECHO - No vegetations seen. Antibiotics Unasyn. Lines Peripheral Past Medical History Coronary artery disease with 3 stents Hypertension Depression Hypothyroidism Chronic narcotic use Chronic benzodiazepine u Allergies: Coded Allergies: Sulfa (Verified Allergy, Severe, Rash, 04/13/17) Objective Vital Signs Date Time Temp Pulse Resp B/P Pulse Ox O2 Delivery O2 Flow Rate FiO2 04/24/17 07:47 100 21 04/24/17 04:01 78 28 157/99 99 04/24/17 04:00 102 04/24/17 03:01 76 23 153/81 98 04/24/17 02:01 76 20 159/87 98 04/24/17 02:00 72 04/24/17 01:01 76 22 143/82 99 04/24/17 00:01 97.8 76 22 144/84 100 04/24/17 00:00 86 04/23/17 23:01 74 19 154/75 100 04/23/17 22:02 74 38 154/85 98 04/23/17 22:00 76 04/23/17 21:01 72 20 153/82 99 04/23/17 20:01 96.7 72 18 145/77 100 04/23/17 20:00 73 04/23/17 19:33 100 21 04/23/17 19:01 70 20 161/86 100 04/23/17 18:16 74 04/23/17 18:16 74 23 126/69 100 04/23/17 18:00 76 21 160/90 100 04/23/17 18:00 76 04/23/17 16:00 97.9 76 25 147/91 99 04/23/17 16:00 76 04/23/17 15:00 76 23 159/83 99 04/23/17 15:00 76 04/23/17 14:00 74 04/23/17 14:00 74 23 144/88 99 04/23/17 04/23/17 04/24/17 15:00 23:00 07:00 Intake Total 1401 ml 1188 ml Output Total 800 ml 500 ml Balance 601 ml 688 ml IV Total 1242 ml 901 ml Tube Feeding 167 ml TPN/PPN 39 ml Other 120 ml 120 ml Output Urine Total 800 ml 500 ml # Bowel Movements 2 Laboratory Tests Test 04/23/17 04/24/17 05:00 05:55 White Blood Count 9.5 TH/MM3 10.0 TH/MM3 Red Blood Count 2.58 MIL/MM3 2.82 MIL/MM3 Hemoglobin 8.3 GM/DL 9.0 GM/DL Hematocrit 25.4 % 27.5 % Mean Corpuscular Volume 98.7 FL 97.5 FL Mean Corpuscular Hemoglobin 32.0 PG 31.8 PG Mean Corpuscular Hemoglobin 32.5 % 32.6 % Concent Red Cell Distribution Width 16.6 % 16.9 % Platelet Count 214 TH/MM3 231 TH/MM3 Mean Platelet Volume 7.2 FL 7.5 FL Neutrophils (%) (Auto) 73.6 % 78.1 % Lymphocytes (%) (Auto) 11.7 % 8.3 % Monocytes (%) (Auto) 13.7 % 8.9 % Eosinophils (%) (Auto) 0.8 % 3.0 % Basophils (%) (Auto) 0.2 % 1.7 % Neutrophils # (Auto) 7.0 TH/MM3 7.8 TH/MM3 Lymphocytes # (Auto) 1.1 TH/MM3 0.8 TH/MM3 Monocytes # (Auto) 1.3 TH/MM3 0.9 TH/MM3 Eosinophils # (Auto) 0.1 TH/MM3 0.3 TH/MM3 Basophils # (Auto) 0.0 TH/MM3 0.2 TH/MM3 CBC Comment DIFF FINAL AUTO DIFF Differential Comment AUTO DIFF CONFIRMED Ovalocytes 1+ [place] Cells 1+ Keratocytes OCC Laboratory Tests Test 04/23/17 04/24/17 05:00 05:55 Sodium Level 147 MEQ/L 140 MEQ/L Potassium Level 3.5 MEQ/L 2.6 MEQ/L Chloride Level 115 MEQ/L 106 MEQ/L Carbon Dioxide Level 19.5 MEQ/L 23.5 MEQ/L Anion Gap 13 MEQ/L 11 MEQ/L Blood Urea Nitrogen 7 MG/DL 4 MG/DL Creatinine 0.59 MG/DL 0.70 MG/DL Estimat Glomerular Filtration 101 ML/MIN 83 ML/MIN Rate Random Glucose 83 MG/DL 223 MG/DL Calcium Level 7.4 MG/DL 7.2 MG/DL Phosphorus Level 1.8 MG/DL 1.1 MG/DL Magnesium Level 1.5 MG/DL 1.3 MG/DL Total Bilirubin 1.1 MG/DL 0.9 MG/DL Direct Bilirubin 0.6 MG/DL 0.4 MG/DL Indirect Bilirubin 0.5 MG/DL 0.5 MG/DL Aspartate Amino Transf 310 U/L 158 U/L (AST/SGOT) Alanine Aminotransferase 1014 U/L 759 U/L (ALT/SGPT) Alkaline Phosphatase 123 U/L 124 U/L Total Protein 5.4 GM/DL 5.4 GM/DL Albumin 2.6 GM/DL 2.5 GM/DL Protein Corrected Calcium 8.1 MG/DL Microbiology Date/Time Procedure Status Source Growth 04/20/17 12:10 Aerobic Blood Culture - Preliminary Resulted Blood Peripheral NO GROWTH IN 2 DAYS 04/20/17 12:10 Anaerobic Blood Culture - Preliminary Resulted Blood Peripheral NO GROWTH IN 2 DAYS 04/20/17 12:15 Aerobic Blood Culture - Preliminary Resulted Blood Peripheral NO GROWTH IN 2 DAYS 04/20/17 12:15 Anaerobic Blood Culture - Final Resulted Blood Peripheral QNS - SEE AEROBE REPORT GENERAL: Patient is in no acute distress. Confused. HEENT: EOMI, No icterus. Decreased swelling at the R. lateral neck at angle of the jaw. No erythema. Non tender. NECK: Supple. LUNGS: Clear breath sounds bilateral. CARDIAC: Regular rate and rhythm. No audible murmur. ABDOMEN: Soft, non tender. EXTREMITIES: No CCE. SKIN: No rash. NEURO: Confused. following simple commands. Assessment & Plan 1. Altered mental status. Metabolic Encephalopathy vs infection. 2. Sepsis. MSSA. 3 Facial swelling/abscess. Erythema resolved. . RECOMMEND: Continue IV Unasyn 3 g q6hrs Follow Blood cultures. LP ordered. Follow results. Monitor clinical status. Discussed with RN and Patients daughter at bedside. Iglesia Real MD Apr 24, 2017 12:14
--- NOTE | 2017-04-24 13:55 | PD.RAD ---
Post Procedure Progress Note Pre Procedure Diagnosis: (1) Acute metabolic encephalopathy Post Procedure Diagnosis: (1) Acute metabolic encephalopathy Procedure Date: Apr 24, 2017 Supervising Radiologist: Kaushik Miller JR Proceduralist/Assist: Eileen Guzmán, RT(R), Anabel Reese RT(R)() Anesthesia: Local Plan of Activity Patient to Unit: Critical Care Patient Condition: Good See PACS Report for procedural detail/treatment Spinal Procedure Lumbar Puncture L3-L4 Fluid Removal (CCs): 9 Fluid Description: Clear Puncture Time: 13:35 Jr. Paul,Kaushik Mandel MD Apr 24, 2017 13:54
[2017-04-24 14:42] LABS: GROSS BLOOD TUBE #1 0 (0); GROSS BLOOD TUBE #2 0 (0); GROSS BLOOD TUBE #3 0 (0); GROSS BLOOD TUBE #4 0 (0); SUPERNATE COLOR TUBE #1 CLEAR (CLEAR); SUPERNATE COLOR TUBE #2 CLEAR (CLEAR); SUPERNATE COLOR TUBE #3 CLEAR (CLEAR); SUPERNATE COLOR TUBE #4 CLEAR (CLEAR); VOLUME TUBE # 4 2.5 ML
[2017-04-24 14:43] LABS: WBC TUBE #4 0 /MM3 (0-10)
[2017-04-24 14:51] LABS: CSF LYMPHOCYTES 0 %; CSF NEUTROPHILS 0 %
--- NOTE | 2017-04-24 16:19 | RADHPO ---
EXAM DATE/TIME: 04/24/2017 13:01 [place] COMPARISON: No previous studies available for comparison. INDICATIONS : Patient is in need of a lumbar puncture for evaluation of CSF. altered mental status. MEDICAL HISTORY : History of altered mental status, abnormal gait and imbalance, narcotic and ETOH abuse, depression, C AD, hyponatremia, pneuminia, sepsis due to MRSA infection, facial celllulitis, normcyotic anemia, HTN . SURGICAL HISTORY : History of cardiac catheterization, cardiac stents, thyroidectomy. ENCOUNTER: Initial ACUITY: 2 weeks PAIN SCORE: 0/10 LUMBAR PUNCTURE TIME: 1335 hours FLUORO TIME: 0.5 minutes IMAGE SERIES: 0 ACCESS LEVEL: L3-4 FLUID: 9 cc of clear CSF was collected and sent to the laboratory for analysis. PROCEDURE : 1. Fluoroscopic guided lumbar puncture. The risks, benefits and alternatives to the procedure were explained and verbal and written consent w as obtained. The site was prepped in sterile fashion. Full sterile technique was used, including ca p, mask, sterile gloves and gown and a large sterile sheet. Hand hygiene and 2% chlorhexidine and/or betadine/alcohol prep was utilized per protocol for cutaneous antisepsis. The skin and subcutaneous tissues were infiltrated with local anesthetic solution. With fluoroscopic guidance the lumbar thecal sac was punctured at the level above. The fluid describ ed above was removed without difficulty. The patient tolerated the procedure well and there were no complications. CONCLUSION: Uncomplicated fluoroscopically guided lumbar puncture. Kaushik Miller Jr., MD on April 24, 2017 at 16:17 Board Certified Radiologist. This report was verified electronically.
[2017-04-24 16:50] LABS: CALCIUM-PROTEIN CORRECTED 7.8 MG/DL (8.5-10.1)
[2017-04-24] MEDS ORDERED: POTASSIUM CHLORIDE 25 MEQ EFFERVESCENT TAB NG ONE (18:30)
[2017-04-24] MEDS ORDERED: MAGNESIUM SULFATE 1 GM PREMIX 100 ML IV ONE (18:30)
[2017-04-24] MEDS ORDERED: THIAMINE HCL 100 MG TAB NG ONE (18:30)
[2017-04-24] MEDS: POTASSIUM CHLOR 10 MEQ PREMIX 100 ML IV SCH ×3 (18:45→20:57)
[2017-04-24] MEDS ORDERED: CALCIUM GLUCONATE INJ 1 GM in DEXTROSE 5% IN WATER 100ML INJ 100 ML IV ONE ×2 (23:30)
[2017-04-25] VITALS (22 sets, daily range): BP systolic 140–169; BP diastolic 82–103; PULSE 88–100; RESP 20–31; TEMP 97.2–98; O2SAT 96–100
[2017-04-25] MEDS: DEXT 5%-NACL 0.45% 1000 ML INJ 1,000 ML IV SCH ×2 (01:28→12:00)
[2017-04-25] MEDS: CHLORHEXIDINE GLUCONATE 2 % 1 PACK (2 CLOTHS) TOP SCH (03:35)
[2017-04-25] MEDS: AMPICILLIN-SULBACTAM INJ 3 GM in SODIUM CHLORIDE 0.9% INJ 100 ML IV SCH ×4 (03:35→21:22)
[2017-04-25 05:06] LABS: AUTOMATED NEUTROPHIL # 7.6 TH/MM3 (1.8-7.7); BASOPHIL # 0.5 TH/MM3 (0-0.2); BASOPHIL % 4.2 % (0.0-2.0); EOSINOPHIL # 0.4 TH/MM3 (0-0.4); EOSINOPHIL % 3.3 % (0.0-4.0); HEMATOCRIT 28.8 % (35.0-46.0); LYMPH % 12.6 % (9.0-44.0); LYMPHOCYTE # 1.4 TH/MM3 (1.0-4.8); MEAN CELL VOLUME 96.2 FL (80.0-100.0); MEAN CORPUSCULAR HEMOGLOBIN 31.6 PG (27.0-34.0); MEAN CORPUSCULAR HGB CONC 32.8 % (32.0-36.0); MONO % 10.2 % (0.0-8.0); NEUT % 69.7 % (16.0-70.0); PLATELET COUNT 260 TH/MM3 (150-450); RED BLOOD COUNT 2.99 MIL/MM3 (4.00-5.30); RED CELL DISTRIBUTION WIDTH 18.9 % (11.6-17.2)
[2017-04-25 05:08] LABS: HEMO FLAGS AUTO DIFF
[2017-04-25 05:19] LABS: OVALOCYTES 1+ (NORMAL); PLATELET ESTIMATE SMEAR NORMAL (NORMAL); PLATELET MORPHOLOGY NORMAL (NORMAL); POTASSIUM 3.4 MEQ/L (3.5-5.1); SCAN/DIFF AUTO DIFF CONFIRMED
[2017-04-25 05:31] LABS: BICARBONATE 24.3 MEQ/L (21.0-32.0); INDIRECT BILIRUBIN 0.5 MG/DL (0.0-0.8); MAGNESIUM 1.6 MG/DL (1.5-2.5); TOTAL BILIRUBIN ADULT 0.9 MG/DL (0.2-1.0)
[2017-04-25 05:39] LABS: CALCIUM-PROTEIN CORRECTED 7.7 MG/DL (8.5-10.1)
[2017-04-25] MEDS: DOCUSATE SODIUM 50 MG/SENNA 8.6 MG TAB PO SCH ×2 (08:30→20:35)
[2017-04-25] MEDS: ARTIFICIAL TEARS OPTH SOLN 15 ML BTL EACH EYE SCH ×3 (09:00→17:05)
[2017-04-25 09:14] LABS: HSV 1,PCR Negative (Negative)
[2017-04-25] MEDS ORDERED: MAGNESIUM SULFATE 1 GM PREMIX 100 ML IV ONE (09:30)
[2017-04-25] MEDS ORDERED: THIAMINE HCL 100 MG TAB PO ONE (09:30)
[2017-04-25] MEDS: THIAMINE INJ 100 MG in SODIUM CHLORIDE 0.9% INJ 100 ML IV SCH (10:03)
[2017-04-25] MEDS: LOSARTAN 25 MG TAB PO SCH (10:03)
[2017-04-25] MEDS: PANTOPRAZOLE SODIUM 40 MG VIAL IV SCH (10:03)
[2017-04-25] MEDS: POTASSIUM CHLOR 10 MEQ PREMIX 100 ML IV SCH ×3 (10:04→13:35)
[2017-04-25] MEDS ORDERED: SODIUM PHOSPHATE INJ 15 MMOL in SODIUM CHLORIDE 0.9% INJ 150 ML IV ONE (11:00)
[2017-04-25] MEDS: SODIUM CHLORIDE 0.9% FLUSH 10 ML FLUSH IV FLUSH SCH ×2 (11:19→20:36)
--- NOTE | 2017-04-25 14:32 | HHI.PR ---
Subjective Remarks Patient seen this afternoon around 1 PM. Marked improvement. Patient pulled out her G-tube overnight. Past bedside swallow evaluation and tolerated diet. She is disoriented, but appropriate conversation with some confounding. sHe denies any pain. Denies any chest pain or shortness of breath. Discussed with daughter, who became to retention to transport patient to SNF in [place]. Daughter does report that patient is a daily drinker, very poor , agrees with description of "tea and toast" diet. Objective Vital Signs Date Time Temp Pulse Resp B/P Pulse Ox O2 Delivery O2 Flow Rate FiO2 04/25/17 13:00 97.9 96 23 149/83 98 04/25/17 12:13 94 31 165/82 99 04/25/17 11:00 96 25 145/90 98 04/25/17 10:19 92 28 165/101 99 04/25/17 10:00 92 28 161/98 99 04/25/17 09:00 94 24 162/88 98 04/25/17 08:00 97.7 92 23 161/83 97 04/25/17 07:00 92 20 156/97 100 04/25/17 06:00 88 04/25/17 06:00 99 22 160/90 96 04/25/17 04:00 98.0 96 27 156/86 99 04/25/17 04:00 96 04/25/17 03:00 96 22 160/85 99 04/25/17 02:00 92 24 154/83 99 04/25/17 02:00 90 04/25/17 02:00 91 04/25/17 01:00 93 22 157/93 99 04/25/17 00:00 92 04/25/17 00:00 97.2 92 26 157/89 99 04/24/17 23:00 90 22 152/91 99 04/24/17 22:00 90 04/24/17 20:30 100 21 04/24/17 20:00 90 04/24/17 20:00 97.8 90 32 140/78 100 04/24/17 18:00 84 28 154/82 99 04/24/17 18:00 84 04/24/17 16:37 80 21 141/77 100 04/24/17 16:37 80 04/24/17 16:00 82 04/24/17 16:00 82 28 170/90 100 I/O 04/24/17 04/24/17 04/24/17 04/25/17 04/25/17 04/25/17 07:00 15:00 23:00 07:00 15:00 23:00 Intake Total 1418 ml 268 ml 867 ml Output Total 1500 ml 2750 ml 2300 ml 1650 ml Balance -82 ml -2482 ml -1433 ml -1650 ml Intake Oral 0 ml 0 ml IV Total 1178 ml 606 ml Tube Feeding 148 ml 141 ml Other 240 ml 120 ml 120 ml Output Urine Total 1500 ml 2750 ml 2300 ml 1650 ml # Bowel Movements 1 1 1 Result Diagram: 04/25/17 0500 04/25/17 0500 Imaging Last Impressions Lumbar Puncture Fluoroscopy 04/24/17 0000 Signed Impressions: Service Date/Time: April 13:01 - CONCLUSION: Uncomplicated fluoroscopically guided lumbar puncture. Kaushik Miller Jr., MD Brain MRI 04/24/17 0000 Signed Impressions: Service Date/Time: April 09:54 - CONCLUSION: 1. Limited examination due to motion artifact. 2. No acute abnormality identified. Alfredito Colorado MD Abdomen X-Ray 04/23/17 0000 Signed Impressions: Service Date/Time: Sunday, April 23, 2017 11:10 - CONCLUSION: There is an NG tube in place. The tip appears to be in the proximal small bowel. Wenceslao Rivera MD Lower Extremity Ultrasound 04/22/17 0000 Signed Impressions: Service Date/Time: Saturday, April 22, 2017 15:40 - CONCLUSION: 1. No DVT identified. Alfredito Colorado MD Head CT 04/19/17 0000 Signed Impressions: Service Date/Time: Wednesday, April 19, 2017 10:20 - CONCLUSION: No acute intracranial findings. Asher Mcgowan MD Liver Ultrasound 04/18/17 0000 Signed Impressions: Service Date/Time: Tuesday, April 18, 2017 18:17 - CONCLUSION: 1. Cholelithiasis with mild gallbladder wall thickening and minimal pericholecystic fluid. This raises concern for possible acute cholecystitis. Consider HIDA scan. Kaushik Miller Jr., MD Chest X-Ray 04/18/17 0000 Signed Impressions: Service Date/Time: Tuesday, April 18, 2017 08:55 - CONCLUSION: No acute cardiopulmonary disease identified. Asher Mcgowan MD Upper Extremity Ultrasound 04/17/17 Signed Impressions: Service Date/Time: April 22:59 - CONCLUSION: 1. Nondiagnostic evaluation secondary to lack of patient cooperation. Sony Armstrong MD Neck CT 04/17/17 Signed Impressions: Service Date/Time: April 21:31 - CONCLUSION: 1. Edema involving the right neck. No abscess or hematoma. Kaushik Miller Jr., MD Abdomen/Pelvis CT 04/16/17 Signed Impressions: Service Date/Time: Sunday, April 16, 2017 21:00 - CONCLUSION: 1. No acute abnormality. 2. Cholelithiasis. 3. Small bilateral pleural effusions. Kaushik Miller Jr., MD Neck Magnetic Resonance Angiography 04/15/17 Signed Impressions: Service Date/Time: Saturday, April 15, 2017 15:20 - CONCLUSION: 1. Limited examination due to motion. These were the best obtainable images given the patient's state of cooperation. 2. No gross significant stenosis of either carotid artery observed. 3. Left vertebral artery grossly patent. Right is not visualized. Kaushik Miller Jr., MD Tibia/Fibula X-Ray 04/13/17 Signed Impressions: Service Date/Time: Thursday, April 13, 2017 16:19 - CONCLUSION: 1. Moderate arthritic changes involving the femoral tibial and patellofemoral joints. 2. No acute fracture or dislocation. Alex Whiteside MD Head Magnetic Resonance Angiography 04/13/17 Signed Impressions: Service Date/Time: Saturday, April 15, 2017 15:20 - CONCLUSION: 1. Significantly limited study due to motion. These were the best obtainable images given the patient's state of cooperation. 2. Scattered areas of mild luminal narrowing secondary to atherosclerotic plaque. Details given above. Kaushik Miller Jr., MD Foot X-Ray 04/13/17 Signed Impressions: Service Date/Time: Thursday, April 13, 2017 15:31 - CONCLUSION: 1. Arthritic changes involving the tarso-tarsal and tarsal-metatarsals joints in the midfoot. 2. Bony fusion of the left 1st metatarsophalangeal joint. 3. Plantar calcaneal spur. 4. No acute fracture or dislocation. Alex Whiteside MD Objective Remarks GENERAL: Patient sitting up in bed. Appears comfortable. Watching TV. Alert. Believes she is in [place]. Confounding. SKIN: Warm and dry. HEAD: Normocephalic. EYES: No scleral icterus. No injection or drainage. NECK: Supple, trachea midline. No JVD. CARDIOVASCULAR: Regular rate and rhythm without murmurs, gallops, or rubs. RESPIRATORY: Breath sounds equal bilaterally. No accessory muscle use. GASTROINTESTINAL: Abdomen soft, non-tender, nondistended. MUSCULOSKELETAL: No cyanosis. Left lower extremity edema. Unchanged. No redness. BACK: Nontender without obvious deformity. No CVA tenderness. A/P Assessment and Plan =====04/25/17======= //Encephalopathy. Today with marked improvement. Possibly secondary to thiamine deficiency resolving with replacement. Tolerating diet. NG tube out. EEG and lumbar puncture reviewed.Neurology following. Appreciate assistance //Malnutrition, with Refeeding syndrome. Potassium, magnesium, phosphorus replaced. Monitor. //Discharge planning. Patient may be stable for discharge to SNF within the next 1-2 days. //Transaminitis. Continues improving. //Acute encephalopathy -likely due to sepsis- //patient has a history of ETOH abuse in the past //Frequent falls CT head, MRI head with no acute abnormality. continue neuro checks Stopped CIWA protocol continue IV Abx continue to keep NPO for now due to altered mentation --Continue NG tube feeding. PT/ST following. 04/25 Today with marked improvement. Possibly secondary to thiamine deficiency resolving with replacement. Tolerating diet. NG tube out. EEG and lumbar puncture reviewed.Neurology following. Appreciate assistance //sepsis due to right facial cellulitis ( the site of previous central line) and questionable cholecystitis //bacteremia with staph aureus continue broad spectrum IV antibiotic. blood cultures with staph aureus. will repeat the blood cultures and check echo. ID following. Appreciate assistance. Continue antibiotics as per infectious disease. //right facial cellulitis- at the site of previous central line -neck CT with no hematoma or abscess follow blood cultures and continue broad spectrum IV antibiotics surgery consult appreciated and no need for surgical intervention at this time //cholecystitis with elevated LFT's keep NPO continue IV Abx -LFT's and 10 you improving . GI consult appreciated Continue to follow liver function //Hypertension Coronary artery disease status post stent 3 On nadolol 80 mg by mouth daily and losartan 25 mg daily for hypertension; of note the po meds are on hold due to change in mental status As needed labetalol/hydralazine/vasotec to keep systolic blood pressure less than 160 //Hypothyroidism TSH currently elevated 8.37 . resume levothyroxine when able to take po. TSH to be repeated in 2-3 weeks as outpatient. Sliding-scale insulin with Accu-Cheks every 6 hours to maintain euglycemia/low regimen //Normocytic anemia No signs of active bleeding. No indications for transfusion of blood products at the present time will monitor H/H for now. 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 Arthritic changes to the tarsal/tarsal and tarsometatarsal joints. Calcaneal spur. Old fracture secondary tarsal. X-ray left tib/fib revealed moderate arthritic changes to the patellofemoral and femoral tibial joints. PT to follow. //Hypo osmolar Hyponatremia-improved. //Hypokalemia-replaced. //[id number]. Cortisol within normal limits. Uric acid 2.6 at the lower end of normal. 1/2saline at 100 cc an hour Discharge Planning Transfer to medical floor. Patient may be stable for discharge to SNF or rehabilitation within the next 1-2 days. Rachid Morales MD Apr 25, 2017 14:32
--- NOTE | 2017-04-25 15:18 | HHI.IDPN ---
Note Infectious Disease Note ID follow up Patient awake and alert but confused. Ate little food today. Now upright in bed holding the telephone to her left ear but not conversing. Speech is more fluent. Afebrile. LFTs remain elevated. LP - 04/24. CSF unremarkable. Blood cultures 04/18 MSSA. Blood culture 04/20 NEGATIVE. 2D ECHO - No vegetations seen. Antibiotics Unasyn. Lines Peripheral Past Medical History Coronary artery disease with 3 stents Hypertension Depression Hypothyroidism Chronic narcotic use Chronic benzodiazepine u Allergies: Coded Allergies: Sulfa (Verified Allergy, Severe, Rash, 04/13/17) Objective Vital Signs Date Time Temp Pulse Resp B/P Pulse Ox O2 Delivery O2 Flow Rate FiO2 04/25/17 13:00 97.9 96 23 149/83 98 04/25/17 12:13 94 31 165/82 99 04/25/17 11:00 96 25 145/90 98 04/25/17 10:19 92 28 165/101 99 04/25/17 10:00 92 28 161/98 99 04/25/17 09:00 94 24 162/88 98 04/25/17 08:00 97.7 92 23 161/83 97 04/25/17 07:00 92 20 156/97 100 04/25/17 06:00 88 04/25/17 06:00 99 22 160/90 96 04/25/17 04:00 98.0 96 27 156/86 99 04/25/17 04:00 96 04/25/17 03:00 96 22 160/85 99 04/25/17 02:00 92 24 154/83 99 04/25/17 02:00 90 04/25/17 02:00 91 04/25/17 01:00 93 22 157/93 99 04/25/17 00:00 92 04/25/17 00:00 97.2 92 26 157/89 99 04/24/17 23:00 90 22 152/91 99 04/24/17 22:00 90 04/24/17 20:30 100 21 04/24/17 20:00 90 04/24/17 20:00 97.8 90 32 140/78 100 04/24/17 18:00 84 28 154/82 99 04/24/17 18:00 84 04/24/17 16:37 80 21 141/77 100 04/24/17 16:37 80 04/24/17 16:00 82 04/24/17 16:00 82 28 170/90 100 04/24/17 04/24/17 04/25/17 15:00 23:00 07:00 Intake Total 1418 ml 268 ml 867 ml Output Total 1500 ml 2750 ml 2300 ml Balance -82 ml -2482 ml -1433 ml Intake Oral 0 ml 0 ml IV Total 1178 ml 606 ml Tube Feeding 148 ml 141 ml Other 240 ml 120 ml 120 ml Output Urine Total 1500 ml 2750 ml 2300 ml # Bowel Movements 1 1 1 Laboratory Tests Test 04/24/17 04/25/17 05:55 05:00 White Blood Count 10.0 TH/MM3 11.0 TH/MM3 Red Blood Count 2.82 MIL/MM3 2.99 MIL/MM3 Hemoglobin 9.0 GM/DL 9.4 GM/DL Hematocrit 27.5 % 28.8 % Mean Corpuscular Volume 97.5 FL 96.2 FL Mean Corpuscular Hemoglobin 31.8 PG 31.6 PG Mean Corpuscular Hemoglobin 32.6 % 32.8 % Concent Red Cell Distribution Width 16.9 % 18.9 % Platelet Count 231 TH/MM3 260 TH/MM3 Mean Platelet Volume 7.5 FL 7.7 FL Neutrophils (%) (Auto) 78.1 % 69.7 % Lymphocytes (%) (Auto) 8.3 % 12.6 % Monocytes (%) (Auto) 8.9 % 10.2 % Eosinophils (%) (Auto) 3.0 % 3.3 % Basophils (%) (Auto) 1.7 % 4.2 % Neutrophils # (Auto) 7.8 TH/MM3 7.6 TH/MM3 Lymphocytes # (Auto) 0.8 TH/MM3 1.4 TH/MM3 Monocytes # (Auto) 0.9 TH/MM3 1.1 TH/MM3 Eosinophils # (Auto) 0.3 TH/MM3 0.4 TH/MM3 Basophils # (Auto) 0.2 TH/MM3 0.5 TH/MM3 CBC Comment AUTO DIFF AUTO DIFF Differential Comment AUTO DIFF AUTO DIFF CONFIRMED CONFIRMED Ovalocytes 1+ 1+ Angelique Cells 1+ Keratocytes OCC Platelet Estimate NORMAL Platelet Morphology Comment NORMAL Laboratory Tests Test 04/24/17 04/24/17 04/24/17 04/25/17 05:55 13:00 16:10 05:00 Sodium Level 140 MEQ/L 140 MEQ/L 138 MEQ/L Potassium Level 2.6 MEQ/L 3.0 MEQ/L 3.4 MEQ/L Chloride Level 106 MEQ/L 105 MEQ/L 104 MEQ/L Carbon Dioxide Level 23.5 MEQ/L 25.0 MEQ/L 24.3 MEQ/L Anion Gap 11 MEQ/L 10 MEQ/L 10 MEQ/L Blood Urea Nitrogen 4 MG/DL 3 MG/DL 2 MG/DL Creatinine 0.70 MG/DL 0.55 MG/DL 0.57 MG/DL Estimat Glomerular Filtration 83 ML/MIN 109 ML/MIN 105 ML/MIN Rate Random Glucose 223 MG/DL 156 MG/DL 146 MG/DL Calcium Level 7.2 MG/DL 6.9 MG/DL 6.9 MG/DL Protein Corrected Calcium 8.1 MG/DL 7.8 MG/DL 7.7 MG/DL Phosphorus Level 1.1 MG/DL 1.5 MG/DL 2.1 MG/DL Magnesium Level 1.3 MG/DL 1.6 MG/DL Total Bilirubin 0.9 MG/DL 0.9 MG/DL Direct Bilirubin 0.4 MG/DL 0.4 MG/DL Indirect Bilirubin 0.5 MG/DL 0.5 MG/DL Aspartate Amino Transf 158 U/L 105 U/L (AST/SGOT) Alanine Aminotransferase 759 U/L 612 U/L (ALT/SGPT) Alkaline Phosphatase 124 U/L 125 U/L Total Protein 5.4 GM/DL 5.4 GM/DL 5.5 GM/DL Albumin 2.5 GM/DL 2.4 GM/DL 25-Hydroxy Vitamin D Total 35.7 ng/ML Microbiology Date/Time Procedure Status Source Growth 04/24/17 13:35 Gram Stain - Final Resulted Cerebral Spinal Fluid Lumbar Puncture 04/24/17 13:35 CSF Culture - Preliminary Resulted Cerebral Spinal Fluid Lumbar Puncture NO GROWTH IN 24 HOURS. 04/24/17 13:35 Acid Fast Stain - Final Resulted Cerebral Spinal Fluid Lumbar Puncture NO ACID FAST BACILLI SEEN 04/24/17 13:35 Mycobacterial Culture Resulted Cerebral Spinal Fluid Lumbar Puncture Pending 04/24/17 13:35 Fungal Smear - Final Resulted Cerebral Spinal Fluid Lumbar Puncture NO FUNGAL ELEMENTS SEEN. 04/24/17 13:35 Fungal Culture Resulted Cerebral Spinal Fluid Lumbar Puncture Pending GENERAL: Patient is in no acute distress. More alert. Confused. HEENT: EOMI, No icterus. Swelling at the R. lateral neck at angle of the jaw now significantly decreased. No erythema. Non tender. NECK: Supple. LUNGS: Clear breath sounds bilateral. CARDIAC: Regular rate and rhythm. No audible murmur. ABDOMEN: Soft, non tender. EXTREMITIES: No CCE. SKIN: No rash. NEURO: Confused. Assessment & Plan 1. Altered mental status. Metabolic Encephalopathy vs infection. Improvement probably from treatment with thiamine. 2. Sepsis. MSSA. 3 Facial swelling/abscess. Erythema resolved. . RECOMMEND: Continue Unasyn IV. plan until 08/29. Monitor clinical status. Discussed with RN. I will see Iglesia Cai MD Apr 25, 2017 15:18
--- NOTE | 2017-04-25 18:04 | MG ---
cc: CAROLINA MCFADDEN Lab No: [id number] Date: 04/25/17 Age: 71 Sex: F Race: TECHNIQUE 17 channel EEG. DESCRIPTION The background rhythm is comprised of a general slow rhythm in the theta frequency at 5-6 Hz. There is fairly prominent muscle artifact obscuring much of the tracing. I do not see any gross epileptiform discharges but these could be obscured by the muscle artifact. Hyperventilation was not done. Photic results in a poor driving response. INTERPRETATION Abnormal study and ____ generalized slowing consistent with an encephalopathy. MD FRANCES Abel/MARTY /5:48 PM /6:00 PM
[2017-04-25] MEDS: LABETALOL HCL 100 MG/20 ML VIAL IV PUSH PRN ×2 (18:23→20:36)
--- NOTE | 2017-04-25 19:43 | HHI.PR ---
Review/Management Diagnosis metabolic encephalopathy. No evidence of encephalitis on csf. Diagnosis/Plan: Subjective Subjective Comments No acute events reported denies headache confusion without change Active Medications Current Medications Medications (Trade) Dose Ordered Sig/Laina Route Start Time Stop Time Status Last Admin (Cozaar) 25 mg DAILY PO 04/14/17 09:00 04/25/17 10:03 (Catapres) 0.1 mg Q6H PRN PO 04/13/17 17:15 04/20/17 18:55 (Tylenol) 650 mg Q4H PRN PO 04/13/17 17:15 04/17/17 10:20 (Narcan Inj) 0.4 mg UNSCH PRN IV 04/13/17 17:15 (Trandate Inj) 10 mg Q1HR PRN IV PUSH 04/13/17 18:00 04/25/17 18:23 (Apresoline Inj) 10 mg Q1HR PRN IV PUSH 04/13/17 18:00 04/22/17 21:18 (Nitroglycerin 2% Oint) 2 inch Q6HR PRN TOPICAL 04/13/17 18:00 (NS Flush) 2 ml UNSCH PRN IV FLUSH 04/13/17 18:00 (NS Flush) 2 ml BID IV FLUSH 04/13/17 21:00 04/25/17 11:19 (Protonix Inj) 40 mg DAILY IV 04/14/17 09:00 04/25/17 10:03 (Tears Naturale Opth Soln) 1 drop TID EACH EYE 04/13/17 18:00 04/24/17 18:46 (Zofran Inj) 4 mg Q6H PRN IV 04/13/17 18:00 04/15/17 23:43 Miscellaneous Information 1 Q361D XX 04/13/17 18:00 04/13/17 18:00 (Chlorhexidine 2% Cloth) Taper DAILY@04 TOP 04/14/17 04:00 04/10/18 03:59 04/25/17 03:35 (Chlorhexidine 2% Cloth) 3 pack UNSCH PRN TOP 04/13/17 18:00 (Louann-Colace) 1 tab BID PO 04/13/17 21:00 04/21/17 08:17 (Milk Of Magnesia Liq) 30 ml Q12H PRN PO 04/13/17 18:00 (Senokot) 17.2 mg Q12H PRN PO 04/13/17 18:00 (Dulcolax Supp) 10 mg DAILY PRN RECTAL 04/13/17 18:00 04/22/17 13:12 (Lactulose Liq) 30 ml DAILY PRN PO 04/13/17 18:00 (Folate) 1 mg DAILY PO 04/14/17 09:00 Hold 04/17/17 10:20 (Theragran) 1 tab DAILY PO 04/14/17 09:00 Hold 04/17/17 10:20 (Corgard) 80 mg DAILY PO 04/14/17 09:00 Hold 04/17/17 10:21 (Vitamin B1) 100 mg DAILY PO 04/17/17 10:00 Hold 04/17/17 10:00 Levothyroxine Sodium 75 mcg 75 mcg DAILY@0600 PO 04/18/17 06:00 (Vancomycin Consult Pharmacy) 0 ml @ 0 mls/hr UNSCH OTHER 04/18/17 08:30 Enalaprilat 1.25 mg 1.25 mg Q8H PRN IV PUSH 04/19/17 11:00 Ampicillin Sodium/ Sulbactam Sodium 3 gm/Sodium Chloride 100 ml @ 200 mls/hr Q6H IV 04/21/17 16:00 04/25/17 16:29 (Thiamine Inj/NS Inj) 101 ml @ 101 mls/hr DAILY IV 04/24/17 09:15 04/25/17 10:03 Allergies Allergies Coded Allergies Sulfa (Verified Allergy, Severe, Rash, 04/13/17) Exam I&O / VS 04/24/17 04/24/17 04/25/17 15:00 23:00 07:00 Intake Total 1418 ml 268 ml 867 ml Output Total 1500 ml 2750 ml 2300 ml Balance -82 ml -2482 ml -1433 ml Intake Oral 0 ml 0 ml IV Total 1178 ml 606 ml Tube Feeding 148 ml 141 ml Other 240 ml 120 ml 120 ml Output Urine Total 1500 ml 2750 ml 2300 ml # Bowel Movements 1 1 1 Vital Signs Date Time Temp Pulse Resp B/P Pulse Ox O2 Delivery O2 Flow Rate FiO2 04/25/17 18:03 100 28 166/103 98 04/25/17 17:00 98 24 154/89 99 04/25/17 16:00 98 26 157/94 99 04/25/17 14:00 100 24 140/98 98 04/25/17 13:00 97.9 96 23 149/83 98 04/25/17 12:13 94 31 165/82 99 04/25/17 12:00 97 04/25/17 11:00 96 25 145/90 98 04/25/17 10:19 92 28 165/101 99 04/25/17 10:00 92 28 161/98 99 04/25/17 09:00 94 24 162/88 98 04/25/17 08:00 98 21 04/25/17 08:00 97.7 92 23 161/83 97 04/25/17 08:00 93 04/25/17 07:00 92 20 156/97 100 04/25/17 06:00 88 04/25/17 06:00 99 22 160/90 96 04/25/17 04:00 98.0 96 27 156/86 99 04/25/17 04:00 96 04/25/17 03:00 96 22 160/85 99 04/25/17 02:00 92 24 154/83 99 04/25/17 02:00 90 04/25/17 02:00 91 04/25/17 01:00 93 22 157/93 99 04/25/17 00:00 92 04/25/17 00:00 97.2 92 26 157/89 99 04/24/17 23:00 90 22 152/91 99 04/24/17 22:00 90 04/24/17 20:30 100 21 04/24/17 20:00 90 04/24/17 20:00 97.8 90 32 140/78 100 Exam Comments alert, disoriented to place--thinks in [place], follow commands CN intact Motor--no focal deficits Objective Radiology Results MRI brain--motion artifact, no gross changes Micro and Labs Laboratory Tests Test 04/25/17 05:00 White Blood Count 11.0 Red Blood Count 2.99 Hemoglobin 9.4 Hematocrit 28.8 Mean Corpuscular Volume 96.2 Mean Corpuscular Hemoglobin 31.6 Mean Corpuscular Hemoglobin 32.8 Concent Red Cell Distribution Width 18.9 Platelet Count 260 Mean Platelet Volume 7.7 Neutrophils (%) (Auto) 69.7 Lymphocytes (%) (Auto) 12.6 Monocytes (%) (Auto) 10.2 Eosinophils (%) (Auto) 3.3 Basophils (%) (Auto) 4.2 Neutrophils # (Auto) 7.6 Lymphocytes # (Auto) 1.4 Monocytes # (Auto) 1.1 Eosinophils # (Auto) 0.4 Basophils # (Auto) 0.5 CBC Comment AUTO DIFF Differential Comment AUTO DIFF CONFIRMED Platelet Estimate NORMAL Platelet Morphology Comment NORMAL Ovalocytes 1+ Sodium Level 138 Potassium Level 3.4 Chloride Level 104 Carbon Dioxide Level 24.3 Anion Gap 10 Blood Urea Nitrogen 2 Creatinine 0.57 Estimat Glomerular Filtration 105 Rate Random Glucose 146 Calcium Level 6.9 Protein Corrected Calcium 7.7 Phosphorus Level 2.1 Magnesium Level 1.6 Total Bilirubin 0.9 Direct Bilirubin 0.4 Indirect Bilirubin 0.5 Aspartate Amino Transf 105 (AST/SGOT) Alanine Aminotransferase 612 (ALT/SGPT) Alkaline Phosphatase 125 Total Protein 5.5 Albumin 2.4 25-Hydroxy Vitamin D Total 35.7 Date/Time Procedure Status Source Growth 04/24/17 13:35 Gram Stain - Final Resulted Cerebral Spinal Fluid Lumbar Puncture 04/24/17 13:35 CSF Culture - Preliminary Resulted Cerebral Spinal Fluid Lumbar Puncture NO GROWTH IN 24 HOURS. 04/24/17 13:35 Fungal Smear - Final Resulted Cerebral Spinal Fluid Lumbar Puncture NO FUNGAL ELEMENTS SEEN. 04/24/17 13:35 Fungal Culture Resulted Cerebral Spinal Fluid Lumbar Puncture Pending 04/24/17 13:35 Acid Fast Stain - Final Resulted Cerebral Spinal Fluid Lumbar Puncture NO ACID FAST BACILLI SEEN 04/24/17 13:35 Mycobacterial Culture Resulted Cerebral Spinal Fluid Lumbar Puncture Pending Lawson Medina PhD Apr 25, 2017 19:43
[2017-04-26] VITALS (20 sets, daily range): BP systolic 125–192; BP diastolic 80–121; PULSE 86–104; RESP 18–33; TEMP 97.8–99.6; O2SAT 97–99
[2017-04-26] MEDS: LABETALOL HCL 100 MG/20 ML VIAL IV PUSH PRN ×2 (01:38→04:38)
[2017-04-26] MEDS: CHLORHEXIDINE GLUCONATE 2 % 1 PACK (2 CLOTHS) TOP SCH (04:00)
[2017-04-26] MEDS: AMPICILLIN-SULBACTAM INJ 3 GM in SODIUM CHLORIDE 0.9% INJ 100 ML IV SCH ×4 (04:38→21:19)
[2017-04-26] MEDS: LEVOTHYROXINE SODIUM 75 MCG TAB PO SCH (06:00)
[2017-04-26 06:36] LABS: BICARBONATE 21.3 MEQ/L (21.0-32.0); INDIRECT BILIRUBIN 0.7 MG/DL (0.0-0.8); MAGNESIUM 1.5 MG/DL (1.5-2.5); POTASSIUM 3.5 MEQ/L (3.5-5.1); TOTAL BILIRUBIN ADULT 1.1 MG/DL (0.2-1.0)
[2017-04-26] MEDS: DOCUSATE SODIUM 50 MG/SENNA 8.6 MG TAB PO SCH ×2 (09:00→21:00)
[2017-04-26] MEDS: LOSARTAN 25 MG TAB PO SCH (09:00)
[2017-04-26] MEDS: ARTIFICIAL TEARS OPTH SOLN 15 ML BTL EACH EYE SCH ×3 (09:00→18:00)
[2017-04-26] MEDS: SODIUM CHLORIDE 0.9% FLUSH 10 ML FLUSH IV FLUSH SCH ×2 (09:00→18:50)
[2017-04-26 09:45] LABS: HEMATOCRIT 32.9 % (35.0-46.0); MEAN CELL VOLUME 95.9 FL (80.0-100.0); MEAN CORPUSCULAR HEMOGLOBIN 31.9 PG (27.0-34.0); MEAN CORPUSCULAR HGB CONC 33.2 % (32.0-36.0); PLATELET COUNT 104 TH/MM3 (150-450); RED BLOOD COUNT 3.43 MIL/MM3 (4.00-5.30); RED CELL DISTRIBUTION WIDTH 20.1 % (11.6-17.2); WHITE BLOOD COUNT 13.6 TH/MM3 (4.0-11.0)
[2017-04-26] MEDS ORDERED: MAGNESIUM SULFATE 1 GM PREMIX 100 ML IV ONE (09:45)
[2017-04-26 09:51] LABS: HEMO FLAGS AUTO DIFF
[2017-04-26] MEDS ORDERED: CALCIUM GLUCONATE INJ 2 GM in SODIUM CHLORIDE 0.9% INJ 100 ML IV ONE (10:00)
[2017-04-26 10:19] LABS: BANDS 4 % (0-6); NEUTROPHIL # MANUAL DIFF 11.6 TH/MM3 (1.8-7.7); PLATELET ESTIMATE SMEAR LOW (NORMAL); PLATELET MORPHOLOGY NORMAL (NORMAL); POLYS (SEG NEUTROPHILS) 81 % (16-70); ROULEAUX PRESENT (NORMAL); SCAN/DIFF FINAL DIFF MANUAL; WBC DIFF SAMPLE 100
[2017-04-26 10:55] LABS: AUTOMATED NEUTROPHIL # 10.2 TH/MM3 (1.8-7.7); BASOPHIL # 0.3 TH/MM3 (0-0.2); EOSINOPHIL # 0.1 TH/MM3 (0-0.4); EOSINOPHIL % 0.4 % (0.0-4.0); HEMATOCRIT 32.3 % (35.0-46.0); HEMO FLAGS AUTO DIFF; LYMPHOCYTE # 0.8 TH/MM3 (1.0-4.8); MEAN CELL VOLUME 95.8 FL (80.0-100.0); MEAN CORPUSCULAR HEMOGLOBIN 31.4 PG (27.0-34.0); MEAN CORPUSCULAR HGB CONC 32.8 % (32.0-36.0); MONO % 14.6 % (0.0-8.0); PLATELET COUNT 291 TH/MM3 (150-450); RED BLOOD COUNT 3.37 MIL/MM3 (4.00-5.30); RED CELL DISTRIBUTION WIDTH 20.3 % (11.6-17.2); WHITE BLOOD COUNT 13.3 TH/MM3 (4.0-11.0)
[2017-04-26 10:59] LABS: POTASSIUM 3.9 MEQ/L (3.5-5.1)
[2017-04-26 11:01] LABS: BICARBONATE 22.5 MEQ/L (21.0-32.0)
[2017-04-26 11:16] LABS: CALCIUM-PROTEIN CORRECTED 7.7 MG/DL (8.5-10.1)
[2017-04-26 11:33] LABS: BANDS 5 % (0-6); BASOPHILS 1 % (0-2); NEUTROPHIL # MANUAL DIFF 10.6 TH/MM3 (1.8-7.7); PLATELET ESTIMATE SMEAR NORMAL (NORMAL); PLATELET MORPHOLOGY NORMAL (NORMAL); POLYS (SEG NEUTROPHILS) 75 % (16-70); SCAN/DIFF FINAL DIFF MANUAL; WBC DIFF SAMPLE 100
[2017-04-26] MEDS: PANTOPRAZOLE SODIUM 40 MG VIAL IV SCH (11:58)
[2017-04-26] MEDS: THIAMINE INJ 100 MG in SODIUM CHLORIDE 0.9% INJ 100 ML IV SCH (11:58)
[2017-04-26] MEDS ORDERED: SODIUM CHLOR 0.9% 1000 ML INJ 1,000 ML IV SCH (18:45)
--- NOTE | 2017-04-26 18:53 | HHI.PR ---
Subjective Remarks Patient seen this morning. No appreciable change from yesterday. Mostly appropriate conversation with confounding. Denies any pain. Daughter not at bedside with exam. Objective Vital Signs Date Time Temp Pulse Resp B/P Pulse Ox O2 Delivery O2 Flow Rate FiO2 04/26/17 16:00 99.6 94 23 97 04/26/17 14:00 100 26 97 04/26/17 09:00 99 21 04/26/17 08:00 99.1 98 27 125/82 04/26/17 05:00 86 26 166/101 04/26/17 04:36 88 24 175/106 04/26/17 04:00 90 26 166/99 04/26/17 03:27 90 27 169/100 04/26/17 03:00 96 28 173/112 04/26/17 02:00 90 23 164/102 99 04/26/17 01:36 165/106 04/26/17 01:35 88 28 165/106 97 04/26/17 01:30 90 18 192/104 98 04/26/17 01:29 92 30 192/104 98 04/26/17 01:27 90 25 184/121 98 04/26/17 00:00 97.8 88 20 144/80 97 04/25/17 20:29 94 29 169/103 98 04/25/17 20:00 98 21 04/25/17 20:00 92 27 163/95 97 04/25/17 19:00 92 21 144/90 97 I/O 04/25/17 04/25/17 04/25/17 04/26/17 04/26/17 04/26/17 07:00 15:00 23:00 07:00 15:00 23:00 Intake Total 867 ml 1659 ml 447 ml 1337 ml 904 ml Output Total 2300 ml 2950 ml 600 ml 500 ml 1200 ml Balance -1433 ml -1291 ml -153 ml 837 ml -296 ml Intake Oral 0 ml 200 ml 150 ml 900 ml 500 ml IV Total 606 ml 1232 ml 297 ml 437 ml 404 ml Tube Feeding 141 ml 177 ml Other 120 ml 50 ml Output Urine Total 2300 ml 2950 ml 600 ml 500 ml 1200 ml # Bowel Movements 1 1 1 Result Diagram: 04/26/17 1015 04/26/17 1015 Objective Remarks GENERAL: Patient sitting up in bed. Appears comfortable. Watching TV. Alert.. Confounding as before. She says it is 2016, which is small improvement from yesterday.. SKIN: Warm and dry. HEAD: Normocephalic. EYES: No scleral icterus. No injection or drainage. NECK: Supple, trachea midline. No JVD. CARDIOVASCULAR: Regular rate and rhythm without murmurs, gallops, or rubs. RESPIRATORY: Breath sounds equal bilaterally. No accessory muscle use. GASTROINTESTINAL: Abdomen soft, non-tender, nondistended. MUSCULOSKELETAL: No cyanosis. Left lower extremity edema. Unchanged. No redness. BACK: Nontender without obvious deformity. No CVA tenderness. A/P Assessment and Plan =====04/26/17======= //Encephalopathy. Stable from yesterday. -Hyponatremia. Sodium 129, down from 138 yesterday. Recheck 129, stable. Replace magnesium. Start on normal saline. -Hypokalemia resolved for now 3.5. //Transaminitis. Continues improving. //Acute encephalopathy -likely due to sepsis- //patient has a history of ETOH abuse in the past //Frequent falls CT head, MRI head with no acute abnormality. continue neuro checks Stopped CIWA protocol continue IV Abx continue to keep NPO for now due to altered mentation --Continue NG tube feeding. PT/ST following. 04/25 Today with marked improvement. Possibly secondary to thiamine deficiency resolving with replacement. Tolerating diet. NG tube out. EEG and lumbar puncture reviewed.Neurology following. Appreciate assistance //sepsis due to right facial cellulitis ( the site of previous central line) and questionable cholecystitis //bacteremia with staph aureus continue broad spectrum IV antibiotic. blood cultures with staph aureus. will repeat the blood cultures and check echo. ID following. Appreciate assistance. Continue antibiotics as per infectious disease. //right facial cellulitis- at the site of previous central line -neck CT with no hematoma or abscess follow blood cultures and continue broad spectrum IV antibiotics surgery consult appreciated and no need for surgical intervention at this time //cholecystitis with elevated LFT's keep NPO continue IV Abx -LFT's and 10 you improving . GI consult appreciated Continue to follow liver function //Hypertension Coronary artery disease status post stent 3 On nadolol 80 mg by mouth daily and losartan 25 mg daily for hypertension; of note the po meds are on hold due to change in mental status As needed labetalol/hydralazine/vasotec to keep systolic blood pressure less than 160 //Hypothyroidism TSH currently elevated 8.37 . resume levothyroxine when able to take po. TSH to be repeated in 2-3 weeks as outpatient. Sliding-scale insulin with Accu-Cheks every 6 hours to maintain euglycemia/low regimen //Normocytic anemia No signs of active bleeding. No indications for transfusion of blood products at the present time will monitor H/H for now. 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 Arthritic changes to the tarsal/tarsal and tarsometatarsal joints. Calcaneal spur. Old fracture secondary tarsal. X-ray left tib/fib revealed moderate arthritic changes to the patellofemoral and femoral tibial joints. PT to follow. //Hypo osmolar Hyponatremia-improved. //Hypokalemia-replaced. //[id number]. Cortisol within normal limits. Uric acid 2.6 at the lower end of normal. //Prophylaxis. Avoid and regulation secondary to liver dysfunction, treated INR. Discharge Planning Transfer to medical floor. Did have some hyponatremia. Monitoring electrolytes. Patient may be stable for discharge to SNF or rehabilitation within the next 2 days. Rachid Morales MD Apr 26, 2017 18:53
[2017-04-27] VITALS (16 sets, daily range): BP systolic 115–178; BP diastolic 52–106; PULSE 92–118; RESP 20–39; TEMP 96.4–99.4; O2SAT 91–99
[2017-04-27] MEDS: AMPICILLIN-SULBACTAM INJ 3 GM in SODIUM CHLORIDE 0.9% INJ 100 ML IV SCH ×4 (04:00→21:36)
[2017-04-27] MEDS: CHLORHEXIDINE GLUCONATE 2 % 1 PACK (2 CLOTHS) TOP SCH (04:00)
[2017-04-27] MEDS: LEVOTHYROXINE SODIUM 75 MCG TAB PO SCH (06:00)
[2017-04-27 07:29] LABS: HEMATOCRIT 29.2 % (35.0-46.0); MEAN CELL VOLUME 95.7 FL (80.0-100.0); MEAN CORPUSCULAR HEMOGLOBIN 31.4 PG (27.0-34.0); MEAN CORPUSCULAR HGB CONC 32.8 % (32.0-36.0); PLATELET COUNT 231 TH/MM3 (150-450); RED BLOOD COUNT 3.05 MIL/MM3 (4.00-5.30); RED CELL DISTRIBUTION WIDTH 20.3 % (11.6-17.2); WHITE BLOOD COUNT 14.2 TH/MM3 (4.0-11.0)
[2017-04-27 07:31] LABS: HEMO FLAGS AUTO DIFF
[2017-04-27 07:48] LABS: BANDS 3 % (0-6); NEUTROPHIL # MANUAL DIFF 13.2 TH/MM3 (1.8-7.7); PLATELET ESTIMATE SMEAR NORMAL (NORMAL); PLATELET MORPHOLOGY NORMAL (NORMAL); POLYS (SEG NEUTROPHILS) 90 % (16-70); SCAN/DIFF FINAL DIFF MANUAL; WBC DIFF SAMPLE 100
[2017-04-27 07:57] LABS: BICARBONATE 24.2 MEQ/L (21.0-32.0); INDIRECT BILIRUBIN 0.6 MG/DL (0.0-0.8); MAGNESIUM 1.7 MG/DL (1.5-2.5)
[2017-04-27 08:00] LABS: POTASSIUM 2.9 MEQ/L (3.5-5.1)
[2017-04-27] MEDS ORDERED: NS + KCL 20 MEQ INJ 1,000 ML IV SCH (08:15)
[2017-04-27] MEDS: MAGNESIUM OXIDE 400 MG TAB PO SCH (09:00)
[2017-04-27] MEDS: ARTIFICIAL TEARS OPTH SOLN 15 ML BTL EACH EYE SCH ×3 (09:00→18:00)
[2017-04-27] MEDS: MULTIVITAMIN TAB PO SCH (09:00)
[2017-04-27] MEDS: THIAMINE HCL 100 MG TAB PO SCH (09:00)
[2017-04-27] MEDS: LOSARTAN 25 MG TAB PO SCH (09:00)
[2017-04-27] MEDS: DOCUSATE SODIUM 50 MG/SENNA 8.6 MG TAB PO SCH ×2 (09:00→20:58)
[2017-04-27] MEDS: PANTOPRAZOLE SODIUM 40 MG VIAL IV SCH (09:12)
[2017-04-27] MEDS: SODIUM CHLORIDE 0.9% FLUSH 10 ML FLUSH IV FLUSH SCH ×2 (09:13→21:35)
[2017-04-27] MEDS: POTASSIUM CHLOR 20 MEQ PREMIX 100 ML IV SCH ×3 (10:02→14:16)
[2017-04-27] MEDS ORDERED: HALOPERIDOL LACTATE 5 MG/ML AMP IM ONE (12:00)
[2017-04-27] MEDS ORDERED: HALOPERIDOL LACTATE 5 MG/ML AMP IM PRN (12:45)
[2017-04-27 13:55] LABS: CSF CRYPTOCOCCUS AG CONF ND (NOT DETECTD)
[2017-04-27] MEDS: hydrALAZINE HCL 20 MG/ML VIAL IV PUSH PRN (15:55)
--- NOTE | 2017-04-27 20:33 | HHI.PR ---
Subjective Remarks Patient seen this morning around 9:30 AM. Patient asleep, does not awake to verbal or tactile stimulation, including sternal rub, however appears to be answering yes and no questions with nodding, when asked if she wants to go home , shrug shoulders and smirk's. Later called by nursing report the patient is awake, screaming, throwing objects. Objective Vital Signs Date Time Temp Pulse Resp B/P Pulse Ox O2 Delivery O2 Flow Rate FiO2 04/27/17 19:45 98 21 04/27/17 16:18 104 30 139/77 99 04/27/17 16:00 98.3 96 28 164/106 91 04/27/17 16:00 96 04/27/17 15:00 96 22 168/106 97 04/27/17 14:00 94 22 164/88 99 04/27/17 13:00 94 23 161/79 98 04/27/17 12:19 102 30 161/96 98 04/27/17 12:00 118 04/27/17 12:00 96.4 178/89 98 04/27/17 09:00 96 22 165/85 97 04/27/17 08:23 98 21 04/27/17 08:00 108 04/27/17 07:00 99.4 96 21 147/82 96 04/27/17 05:48 92 39 160/69 93 04/27/17 03:48 98.1 92 20 142/82 98 04/26/17 23:25 98.7 102 33 150/84 98 04/26/17 21:16 104 28 154/88 97 04/26/17 20:30 97 21 I/O 04/26/17 04/26/17 04/26/17 04/27/17 04/27/17 04/27/17 07:00 15:00 23:00 07:00 15:00 23:00 Intake Total 1337 ml 904 ml 588 ml 339 ml 756 ml Output Total 500 ml 1200 ml 650 ml 800 ml 1500 ml Balance 837 ml -296 ml -62 ml -461 ml -744 ml Intake Oral 900 ml 500 ml 300 ml 0 ml IV Total 437 ml 404 ml 288 ml 339 ml 756 ml Output Urine Total 500 ml 1200 ml 650 ml 800 ml 1500 ml # Bowel Movements 1 1 Result Diagram: 04/27/1771404/27/17714 Objective Remarks GENERAL: answers questions with nodding and shaking head. When asked about pain , points to her hip/low back. SKIN: Warm and dry. HEAD: Normocephalic. EYES: No scleral icterus. No injection or drainage. NECK: Supple, trachea midline. No JVD. CARDIOVASCULAR: Regular rate and rhythm without murmurs, gallops, or rubs. RESPIRATORY: Breath sounds equal bilaterally. No accessory muscle use. GASTROINTESTINAL: Abdomen soft, non-tender, nondistended. MUSCULOSKELETAL: No cyanosis. Left lower extremity edema. Unchanged. No redness. BACK: Nontender without obvious deformity. No CVA tenderness. A/P Assessment and Plan =====04/27/17======= -Worsening encephalopathy. Possible psychosis. Haldol, restraints. Psychiatry consult. -Hypokalemia. Potassium 2.9. Replaced. -Leukocytosis 14.2. No fevers. Continue to monitor. Tachycardia and tachypnea secondary to agitation. Continues on antibiotics for bacteremia Transaminitis continues improving. Monitor. //Acute encephalopathy -likely due to sepsis- //patient has a history of ETOH abuse in the past //Frequent falls CT head, MRI head with no acute abnormality. continue neuro checks Stopped CIWA protocol continue IV Abx continue to keep NPO for now due to altered mentation --Continue NG tube feeding. PT/ST following. 04/25 Today with marked improvement. Possibly secondary to thiamine deficiency resolving with replacement. Tolerating diet. NG tube out. EEG and lumbar puncture reviewed.Neurology following. Appreciate assistance //sepsis due to right facial cellulitis ( the site of previous central line) and questionable cholecystitis //bacteremia with staph aureus continue broad spectrum IV antibiotic. blood cultures with staph aureus. will repeat the blood cultures and check echo. ID following. Appreciate assistance. Continue antibiotics as per infectious disease. //right facial cellulitis- at the site of previous central line -neck CT with no hematoma or abscess follow blood cultures and continue broad spectrum IV antibiotics surgery consult appreciated and no need for surgical intervention at this time //cholecystitis with elevated LFT's keep NPO continue IV Abx -LFT's and 10 you improving . GI consult appreciated Continue to follow liver function //Hypertension Coronary artery disease status post stent 3 On nadolol 80 mg by mouth daily and losartan 25 mg daily for hypertension; of note the po meds are on hold due to change in mental status As needed labetalol/hydralazine/vasotec to keep systolic blood pressure less than 160 //Hypothyroidism TSH currently elevated 8.37 . resume levothyroxine when able to take po. TSH to be repeated in 2-3 weeks as outpatient. Sliding-scale insulin with Accu-Cheks every 6 hours to maintain euglycemia/low regimen //Normocytic anemia No signs of active bleeding. No indications for transfusion of blood products at the present time will monitor H/H for now. 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 Arthritic changes to the tarsal/tarsal and tarsometatarsal joints. Calcaneal spur. Old fracture secondary tarsal. X-ray left tib/fib revealed moderate arthritic changes to the patellofemoral and femoral tibial joints. PT to follow. //Hypo osmolar Hyponatremia-improved. //Hypokalemia-replaced. //[id number]. Cortisol within normal limits. Uric acid 2.6 at the lower end of normal. //Prophylaxis. Avoid and regulation secondary to liver dysfunction, treated INR. Discharge Planning patient with agitation, on restraints.. Monitoring electrolytes. Patient may be stable for discharge to SNF or rehabilitation within the next 2 days. Rachid Morales MD Apr 27, 2017 20:33 Rachid Morales MD Apr 27, 2017 20:33
[2017-04-28] VITALS (9 sets, daily range): BP systolic 128–145; BP diastolic 66–99; PULSE 102–113; RESP 22–34; TEMP 97.6–99.1; O2SAT 94–99
[2017-04-28] MEDS: CHLORHEXIDINE GLUCONATE 2 % 1 PACK (2 CLOTHS) TOP SCH ×2 (04:00→21:53)
[2017-04-28] MEDS: AMPICILLIN-SULBACTAM INJ 3 GM in SODIUM CHLORIDE 0.9% INJ 100 ML IV SCH ×4 (05:09→21:53)
[2017-04-28] MEDS: LEVOTHYROXINE SODIUM 75 MCG TAB PO SCH (06:00)
[2017-04-28 08:13] LABS: AUTOMATED NEUTROPHIL # 12.3 TH/MM3 (1.8-7.7); BASOPHIL # 0.5 TH/MM3 (0-0.2); BASOPHIL % 3.6 % (0.0-2.0); EOSINOPHIL # 0.1 TH/MM3 (0-0.4); EOSINOPHIL % 0.9 % (0.0-4.0); HEMATOCRIT 29.1 % (35.0-46.0); LYMPHOCYTE # 0.7 TH/MM3 (1.0-4.8); MEAN CELL VOLUME 96.6 FL (80.0-100.0); MEAN CORPUSCULAR HEMOGLOBIN 31.3 PG (27.0-34.0); MEAN CORPUSCULAR HGB CONC 32.4 % (32.0-36.0); MONO % 8.4 % (0.0-8.0); NEUT % 82.1 % (16.0-70.0); PLATELET COUNT 306 TH/MM3 (150-450); RED BLOOD COUNT 3.02 MIL/MM3 (4.00-5.30); RED CELL DISTRIBUTION WIDTH 20.8 % (11.6-17.2); WHITE BLOOD COUNT 14.8 TH/MM3 (4.0-11.0)
[2017-04-28 08:21] LABS: POTASSIUM 3.1 MEQ/L (3.5-5.1)
[2017-04-28 08:25] LABS: BICARBONATE 23.2 MEQ/L (21.0-32.0); MAGNESIUM 1.6 MG/DL (1.5-2.5)
[2017-04-28 08:30] LABS: INDIRECT BILIRUBIN 0.5 MG/DL (0.0-0.8); TOTAL BILIRUBIN ADULT 0.8 MG/DL (0.2-1.0)
[2017-04-28 08:36] LABS: HEMO FLAGS AUTO DIFF
[2017-04-28 08:59] LABS: PLATELET ESTIMATE SMEAR NORMAL (NORMAL); PLATELET MORPHOLOGY NORMAL (NORMAL); SCAN/DIFF AUTO DIFF CONFIRMED
[2017-04-28] MEDS: SODIUM CHLORIDE 0.9% FLUSH 10 ML FLUSH IV FLUSH SCH ×2 (09:00→21:53)
[2017-04-28] MEDS: ARTIFICIAL TEARS OPTH SOLN 15 ML BTL EACH EYE SCH ×3 (09:00→18:00)
[2017-04-28] MEDS: THIAMINE HCL 100 MG TAB PO SCH (09:12)
[2017-04-28] MEDS: DOCUSATE SODIUM 50 MG/SENNA 8.6 MG TAB PO SCH ×2 (09:12→21:53)
[2017-04-28] MEDS: MULTIVITAMIN TAB PO SCH (09:12)
[2017-04-28] MEDS: LOSARTAN 25 MG TAB PO SCH (09:12)
[2017-04-28] MEDS: MAGNESIUM OXIDE 400 MG TAB PO SCH (09:12)
[2017-04-28] MEDS: PANTOPRAZOLE SODIUM 40 MG VIAL IV SCH (09:13)
[2017-04-28] MEDS ORDERED: POTASSIUM CHLORIDE 10 MEQ CONTROLLED RELEASE TAB PO ONE (10:00)
[2017-04-28] MEDS ORDERED: MAGNESIUM SULFATE 1 GM PREMIX 100 ML IV ONE (10:00)
[2017-04-28] MEDS: POTASSIUM CHLOR 10 MEQ PREMIX 100 ML IV SCH ×3 (10:41→13:27)
--- NOTE | 2017-04-28 13:30 | HHI.PR ---
Subjective Remarks Patient says that her confusion is improving. She still disoriented. Tells me she is in [employer]. Improved from yesterday however Nursing reports that agitation has resolved. She is tolerating ensure. Objective Vital Signs Date Time Temp Pulse Resp B/P Pulse Ox O2 Delivery O2 Flow Rate FiO2 04/28/17 12:00 102 04/28/17 12:00 97.6 102 32 145/82 04/28/17 08:00 98 21 04/28/17 08:00 98.5 104 04/28/17 08:00 104 04/28/17 08:00 104 04/28/17 08:00 98.5 104 34 128/99 04/28/17 04:13 99.1 108 23 135/73 99 04/28/17 04:00 113 04/28/17 00:13 98.5 112 22 128/82 98 04/28/17 00:00 108 04/27/17 20:13 97.9 114 20 115/52 98 04/27/17 20:00 113 04/27/17 19:45 98 21 04/27/17 16:18 104 30 139/77 99 04/27/17 16:00 98.3 96 28 164/106 91 04/27/17 16:00 96 04/27/17 15:00 96 22 168/106 97 04/27/17 14:00 94 22 164/88 99 I/O 04/27/17 04/27/17 04/27/17 04/28/17 04/28/17 04/28/17 06:59 14:59 22:59 06:59 14:59 22:59 Intake Total 339 ml 756 ml 822 ml 350 ml Output Total 800 ml 1500 ml Balance -461 ml -744 ml 822 ml 350 ml Intake Oral 0 ml 300 ml 250 ml IV Total 339 ml 756 ml 522 ml 100 ml Output Urine Total 800 ml 1500 ml # Bowel Movements 1 1 1 Result Diagram: 04/28/17 0810 04/28/17 0810 Objective Remarks GENERAL: In bed. Appears comfortable. Disoriented as before. SKIN: Warm and dry. HEAD: Normocephalic. EYES: No scleral icterus. No injection or drainage. NECK: Supple, trachea midline. No JVD. CARDIOVASCULAR: Regular rate and rhythm without murmurs, gallops, or rubs. RESPIRATORY: Breath sounds equal bilaterally. No accessory muscle use. GASTROINTESTINAL: Abdomen soft, non-tender, nondistended. MUSCULOSKELETAL: No cyanosis. Left lower extremity edema. Unchanged. No redness. BACK: Nontender without obvious deformity. No CVA tenderness. A/P Assessment and Plan =====04/28/17======= //Encephalopathy. Agitation improved today. Could be delirium on top of dementia. Psychiatry consult pending. Continue Haldol as needed. //Hypokalemia potassium 3.2. Replaced again. //Leukocytosis 14.8. Could be secondary to extreme agitation yesterday. No fevers. Continue to monitor for signs of infection. ID following. Appreciate assistance. Transaminitis continues improving. Continue to monitor. //Acute encephalopathy -likely due to sepsis- //patient has a history of ETOH abuse in the past //Frequent falls CT head, MRI head with no acute abnormality. continue neuro checks Stopped CIWA protocol continue IV Abx continue to keep NPO for now due to altered mentation --Continue NG tube feeding. PT/ST following. 04/25 Today with marked improvement. Possibly secondary to thiamine deficiency resolving with replacement. Tolerating diet. NG tube out. EEG and lumbar puncture reviewed.Neurology following. Appreciate assistance //sepsis due to right facial cellulitis ( the site of previous central line) and questionable cholecystitis //bacteremia with staph aureus continue broad spectrum IV antibiotic. blood cultures with staph aureus. will repeat the blood cultures and check echo. ID following. Appreciate assistance. Continue antibiotics as per infectious disease. //right facial cellulitis- at the site of previous central line -neck CT with no hematoma or abscess follow blood cultures and continue broad spectrum IV antibiotics surgery consult appreciated and no need for surgical intervention at this time //cholecystitis with elevated LFT's keep NPO continue IV Abx -LFT's and 10 you improving . GI consult appreciated Continue to follow liver function //Hypertension Coronary artery disease status post stent 3 On nadolol 80 mg by mouth daily and losartan 25 mg daily for hypertension; of note the po meds are on hold due to change in mental status As needed labetalol/hydralazine/vasotec to keep systolic blood pressure less than 160 //Hypothyroidism TSH currently elevated 8.37 . resume levothyroxine when able to take po. TSH to be repeated in 2-3 weeks as outpatient. Sliding-scale insulin with Accu-Cheks every 6 hours to maintain euglycemia/low regimen //Normocytic anemia No signs of active bleeding. No indications for transfusion of blood products at the present time will monitor H/H for now. 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 Arthritic changes to the tarsal/tarsal and tarsometatarsal joints. Calcaneal spur. Old fracture secondary tarsal. X-ray left tib/fib revealed moderate arthritic changes to the patellofemoral and femoral tibial joints. PT to follow. //Hypo osmolar Hyponatremia-improved. //Hypokalemia-replaced. //[id number]. Cortisol within normal limits. Uric acid 2.6 at the lower end of normal. //Prophylaxis. Avoid and regulation secondary to liver dysfunction, treated INR. Discharge Planning patient with agitation, on restraints.. Monitoring electrolytes. -Patient may be stable for discharge to SNF or rehabilitation if she remains off restraints. Rachid Morales MD Apr 28, 2017 13:30
--- NOTE | 2017-04-28 17:53 | PD.CONS ---
Provisional Diagnosis Admission Date April 13, 2017 at 17:24 Crowder I. 1. Delirium, due to multiple etiologies Crowder II. Deferred History of Present Illness Service Psychiatry Consult Requested By Dr. Morales Reason for Consult R/o psychosis Primary Care Physician No Primary Care Physician HPI Ms. Kaminski is a 71 year-old female with no known psychiatric history who presented initially to the ED on 04/13 following a fall. Patient was encephalopathic on presentation and was found to be significantly hyponatremic with a sodium of 115 among other derangements. I see concern initially for possible alcohol withdrawal as it was felt she may have been underestimating her level of consumption. Patient has had ongoing encephalopathy during the hospital stay with a waxing and waning course. Ongoing medical issues include facial cellulitis, anemia, hypothyroidism, transaminitis. Psychiatry is consulted for psychosis. Reviewing the EMR, I see no prior psychiatric contact within our system. Patient seen and examined. Chart reviewed. Case discussed with nursing staff reports that the patient has been persistently confused but not particularly agitated or aggressive. On my examination today, the patient is responding to internal stimuli when I enter the room to introduce myself. She is quite confused, see full mental status testing, below. Thought process fairly disorganized consistent with an underlying encephalopathic process. 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 She denies any SI or HI. No obvious issues with mood. Psychiatric interview is limited by degree of encephalopathy. Given the patient's confusional state, I have obtained collateral information from her daughter, Raysa Garcia. Ms. Garcia reports that the patient has no psychiatric history. There is no family psychiatric history. Ms. Garcia reports that the patient was not a heavy drinker prior to admission. She says that prior to admission the patient had been in her normal state of mental health although she had been somewhat distressed by the patient's son's passing about 1 year ago. Ms. Garcia notes that following admission, the patient has been the more or less persistently confused, although she has had episodes of clearer thinking. Psychoeducation provided regarding the delirium diagnosis. Past psychiatric history: The patient is likely an unreliable historian. She denies a history of psychiatric treatment either inpatient or outpatient. She denies a history of suicide attempts. Family history: The patient does not report any family history of psychiatric illness. Chemical dependency history: The patient says that she drinks less than a bottle of wine a day. 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 She says that she is single and has no children, although she is listed as having at least 4 children. Review of Systems ROS Limitations: Poor Historian Other ROS limited because of encephalopathy Past Family Social History Coded Allergies: Sulfa (Verified Allergy, Severe, Rash, 04/13/17) Past Medical History See electronic medical record Active Scripts Oxycodone-Acetaminophen (Percocet)5-325 mg Tab1 Tab PO Q6H PRN (PAIN) #20 TAB Ref 0 Prov:Man Baptiste MD 04/13/17 Reported Medications Nadolol 80 Mg Tab80 Mg PO DAILY #30 TAB Ref 0 04/13/17 Losartan 25 Mg Tab25 Mg PO DAILY #30 TAB Ref 0 04/13/17 Levothyroxine 75 Mcg Tab75 Mcg PO DAILY #30 TAB Ref 0 04/13/17 Escitalopram 10 Mg Tab10 Mg PO DAILY #30 TAB Ref 0 04/13/17 Alprazolam 0.25 Mg Tab0.25 Mg PO DIRECTED PRN (ANXIETY) Ref 0 04/13/17 Current Medications Medications (Trade) Dose Ordered Sig/Laina Route Start Time Stop Time Status Last Admin (Cozaar) 25 mg DAILY PO 04/14/17 09:00 04/28/17 09:12 (Catapres) 0.1 mg Q6H PRN PO 04/13/17 17:15 04/20/17 18:55 (Tylenol) 650 mg Q4H PRN PO 04/13/17 17:15 04/17/17 10:20 (Narcan Inj) 0.4 mg UNSCH PRN IV 04/13/17 17:15 (Trandate Inj) 10 mg Q1HR PRN IV PUSH 04/13/17 18:00 04/26/17 04:38 (Apresoline Inj) 10 mg Q1HR PRN IV PUSH 04/13/17 18:00 04/27/17 15:55 (Nitroglycerin 2% Oint) 2 inch Q6HR PRN TOPICAL 04/13/17 18:00 (NS Flush) 2 ml UNSCH PRN IV FLUSH 04/13/17 18:00 (NS Flush) 2 ml BID IV FLUSH 04/13/17 21:00 04/28/17 09:00 (Protonix Inj) 40 mg DAILY IV 04/14/17 09:00 04/28/17 09:13 (Tears Naturale Opth Soln) 1 drop TID EACH EYE 04/13/17 18:00 04/26/17 13:00 (Zofran Inj) 4 mg Q6H PRN IV 04/13/17 18:00 04/15/17 23:43 Miscellaneous Information 1 Q361D XX 04/13/17 18:00 04/13/17 18:00 (Chlorhexidine 2% Cloth) Taper DAILY@04 TOP 04/14/17 04:00 04/10/18 03:59 04/28/17 04:00 (Chlorhexidine 2% Cloth) 3 pack UNSCH PRN TOP 04/13/17 18:00 (Louann-Colace) 1 tab BID PO 04/13/17 21:00 04/28/17 09:12 (Milk Of Magnesia Liq) 30 ml Q12H PRN PO 04/13/17 18:00 (Senokot) 17.2 mg Q12H PRN PO 04/13/17 18:00 (Dulcolax Supp) 10 mg DAILY PRN RECTAL 04/13/17 18:00 04/22/17 13:12 (Lactulose Liq) 30 ml DAILY PRN PO 04/13/17 18:00 (Folate) 1 mg DAILY PO 04/14/17 09:00 Hold 04/17/17 10:20 (Theragran) 1 tab DAILY PO 04/14/17 09:00 04/28/17 09:12 (Corgard) 80 mg DAILY PO 04/14/17 09:00 Hold 04/17/17 10:21 (Vitamin B1) 100 mg DAILY PO 04/17/17 10:00 04/28/17 09:12 (Synthroid) 75 mcg DAILY@0600 PO 04/18/17 06:00 Enalaprilat 1.25 mg 1.25 mg Q8H PRN IV PUSH 04/19/17 11:00 04/26/17 14:16 (Unasyn Inj/NS Inj) 100 ml @ 200 mls/hr Q6H IV 04/21/17 16:00 04/28/17 16:28 (Mag-Ox) 400 mg DAILY PO 04/27/17 09:00 04/28/17 09:12 (Haldol Inj) 2 mg Q6H PRN IM 04/27/17 12:45 04/27/17 12:42 Family History See above Social History See above Patient's Strengths (min. 2) In a monitored setting. Supportive family. Physical Exam Physical examination completed by the primary team. On my examination today, the patient is laying in bed. She is somewhat ill-appearing. No hand tremor, no diaphoresis, no mydriasis or other signs of GABAergic withdrawal noted. EOMI. Labs and vital signs reviewed: Vital Signs Vital Signs Date Time Temp Pulse Resp B/P Pulse Ox O2 Delivery O2 Flow Rate FiO2 04/28/17 16:00 106 04/28/17 16:00 98.2 30 140/66 04/28/17 08:00 98 21 I/O 04/27/17 04/27/17 04/28/17 08:00 16:00 00:00 Intake Total 339 ml 756 ml 822 ml Output Total 800 ml 1500 ml Balance -461 ml -744 ml 822 ml Lab Results Item Value Date Time White Blood Count 14.8 TH/MM3 H 04/28/17 0810 Hemoglobin 9.4 GM/DL L 04/28/17 0810 Platelet Count 306 TH/MM3 # 04/28/17 0810 Sodium Level 132 MEQ/L L 04/28/17 0810 Potassium Level 3.1 MEQ/L L 04/28/17 0810 Chloride Level 98 MEQ/L 04/28/17 0810 Carbon Dioxide Level 23.2 MEQ/L 04/28/17 0810 Blood Urea Nitrogen 9 MG/DL 04/28/17 0810 Creatinine 0.65 MG/DL 04/28/17 0810 Aspartate Amino Transf (AST/SGOT) 53 U/L H 04/28/17 0810 Alanine Aminotransferase (ALT/SGPT) 244 U/L H 04/28/17 0810 Alkaline Phosphatase 124 U/L H 04/28/17 0810 Free Thyroxine 1.17 NG/DL 04/25/17 0500 Lipase 568 U/L H 04/18/17 1240 Thyroid Stimulating Hormone 3rd Gen 8.370 uIU/ML H 04/13/17 2245 Hepatitis A IgM Antibody NEGATIVE 04/20/17 1210 Hepatitis B Surface Antigen NEGATIVE 04/20/17 1210 Hepatitis B Core IgM Antibody NEGATIVE 04/20/17 1210 Hepatitis C Antibody NEGATIVE 04/20/17 1210 Herpes Simplex Virus I DNA (PCR) Negative 04/24/17 1335 Herpes Simplex Virus II DNA (PCR) Negative 04/24/17 1335 Urine Opiates Screen POS H 04/13/17 2118 Urine Barbiturates Screen NEG 04/13/17 2118 Urine Amphetamines Screen NEG 04/13/17 2118 Urine Benzodiazepines Screen NEG 04/13/17 2118 Urine Cocaine Screen NEG 04/13/17 2118 Urine Cannabinoids Screen NEG 04/13/17 2118 Ethyl Alcohol Level LESS THAN 3 MG/DL 04/13/17 1830 Vitamin B12 Level 561 PG/ML 04/15/17 1745 Folate 16.9 NG/ML 04/15/17 1745 Brain MRI from 04/13 and 04/24 were both degraded by motion artifact but read as no acute process. EEG from 04/25 reveals generalized slowing consistent with encephalopathy. EKG from admission was read as A. fib with RVR with a QTC of 462 ms. Mental Status Examination Patient is in hospital gown. She is fairly disheveled. She is awake and alert and oriented to person only. Registration is 3 out of 3 and her recall is 0 out of 3 at 3 minutes. She is able to name one of 2 items. She is able to spell the word world forwards but gives it backwards as DRR. She is unable to do vigilance a testing. She is unable to repeat a phrase. She is unable to give the current president. No motor abnormalities noted. Speech is rambling. Focus and concentration are impaired. Memory, including autobiographical memory seems somewhat impaired. No identified issues with mood. Affect is blunted. Thought process disorganized. Associations somewhat loose. No tulio delusions. Appears internally preoccupied. Denies suicidal or homicidal ideation. Insight and judgment are poor. Assessment & Plan Problem List: (1) Delirium due to multiple etiologies ICD Code: F05 Assessment & Plan This is a 71-year-old female with psychiatric history as detailed above who is presently admitted to the [facility] for ongoing medical management. Psychiatry is consulted to assess for psychosis. The patient is presently delirious with significant impairments in orientation and focus/ concentration. She has apparently been encephalopathic for much of her hospital stay although there may have been an episode of transient clearing late last week. According to her daughter, the patient has no history of significant psychiatric illness and so new onset of a primary psychotic illness would be unlikely at the patient's age, and the form of her current illness is more consistent with an acute confusional state them with psychosis of psychiatric origin. In addition to treating/ameliorating the underlying causes of her confusional state which could include resolving cellulitis, cholecystitis /transaminitis, anemia, extended hospital stay etc., I recommend the following: --Consider temporary use a low dose of a scheduled antipsychotic such as Haldol 1mg IV BID while in house. This could be titrated to 1mg TID if needed, e.g. to help manage agitation. QTc was on the longer side when initially assessed, and so I would recommend repeating EKG prior to administration of Haldol to ensure this interval has not widened. --Limit use of opiates, antihistamines, anticholinergics and benzodiazepines as all can worsen mental status. Med list currently appears relatively free of deliriogenic medications. --Encourage frequent reorientation and mobilization as able with physical therapy. --Limit use of restraints. Prefer a sitter if needed for behavioral redirection. --Recommend aggressive management of any constipation or urinary retention. --[place] to provide minimal disruptions at night for natural sleep. Shades up and out of bed as able during the day. --I am happy to follow up as needed to assist with further management of this patient. Case d/w RN. Thank you very much for this consultation. Discharge Planning Per primary team. Patient does not require psychiatric hospitalization at this time. Sony Orr MD Apr 28, 2017 17:53
--- NOTE | 2017-04-28 19:36 | HHI.IDPN ---
Note Infectious Disease Note ID follow up Patient is still confused. Very talkative. Not making sense. Speech is more fluent. Afebrile. WBC remain elevated. RN notes that mendoza was removed today. Has some redness at the perineum. O2 sat in the 90 on ambient air. Blood cultures 04/18 MSSA. Blood culture 04/20 NEGATIVE. 2D ECHO - No vegetations seen. Antibiotics Unasyn. Lines Peripheral Past Medical History Coronary artery disease with 3 stents Hypertension Depression Hypothyroidism Chronic narcotic use Chronic benzodiazepine u Allergies: Coded Allergies: Sulfa (Verified Allergy, Severe, Rash, 04/13/17) Objective Vital Signs Date Time Temp Pulse Resp B/P Pulse Ox O2 Delivery O2 Flow Rate FiO2 04/28/17 16:00 106 04/28/17 16:00 98.2 106 30 140/66 04/28/17 12:00 102 04/28/17 12:00 97.6 102 32 145/82 04/28/17 08:00 98 21 04/28/17 08:00 98.5 104 04/28/17 08:00 104 04/28/17 08:00 104 04/28/17 08:00 98.5 104 34 128/99 04/28/17 04:13 99.1 108 23 135/73 99 04/28/17 04:00 113 04/28/17 00:13 98.5 112 22 128/82 98 04/28/17 00:00 108 04/27/17 20:13 97.9 114 20 115/52 98 04/27/17 20:00 113 04/27/17 19:45 98 21 04/27/17 04/27/17 04/28/17 15:00 23:00 07:00 Intake Total 756 ml 822 ml 350 ml Output Total 1500 ml Balance -744 ml 822 ml 350 ml Intake Oral 0 ml 300 ml 250 ml IV Total 756 ml 522 ml 100 ml Output Urine Total 1500 ml # Bowel Movements 1 1 1 Laboratory Tests Test 04/27/17 04/28/17 07:15 08:10 White Blood Count 14.2 TH/MM3 14.8 TH/MM3 Red Blood Count 3.05 MIL/MM3 3.02 MIL/MM3 Hemoglobin 9.6 GM/DL 9.4 GM/DL Hematocrit 29.2 % 29.1 % Mean Corpuscular Volume 95.7 FL 96.6 FL Mean Corpuscular Hemoglobin 31.4 PG 31.3 PG Mean Corpuscular Hemoglobin 32.8 % 32.4 % Concent Red Cell Distribution Width 20.3 % 20.8 % Platelet Count 231 TH/MM3 306 TH/MM3 Mean Platelet Volume 8.3 FL 8.2 FL Neutrophils (%) (Auto) % 82.1 % Lymphocytes (%) (Auto) % 5.0 % Monocytes (%) (Auto) % 8.4 % Eosinophils (%) (Auto) % 0.9 % Basophils (%) (Auto) % 3.6 % Neutrophils # (Auto) TH/MM3 12.3 TH/MM3 Lymphocytes # (Auto) TH/MM3 0.7 TH/MM3 Monocytes # (Auto) TH/MM3 1.2 TH/MM3 Eosinophils # (Auto) TH/MM3 0.1 TH/MM3 Basophils # (Auto) TH/MM3 0.5 TH/MM3 CBC Comment AUTO DIFF AUTO DIFF Differential Total Cells 100 Counted Neutrophils % (Manual) 90 % Band Neutrophils % 3 % Lymphocytes % 4 % Monocytes % 3 % Neutrophils # (Manual) 13.2 TH/MM3 Differential Comment FINAL DIFF AUTO DIFF MANUAL CONFIRMED Platelet Estimate NORMAL NORMAL Platelet Morphology Comment NORMAL NORMAL Red Cell Morphology Comment NORMAL Laboratory Tests Test 04/27/17 04/27/17 04/28/17 07:15 20:57 08:10 Sodium Level 133 MEQ/L 132 MEQ/L Potassium Level 2.9 MEQ/L 3.1 MEQ/L Chloride Level 97 MEQ/L 98 MEQ/L Carbon Dioxide Level 24.2 MEQ/L 23.2 MEQ/L Anion Gap 12 MEQ/L 11 MEQ/L Blood Urea Nitrogen 7 MG/DL 9 MG/DL Creatinine 0.66 MG/DL 0.65 MG/DL Estimat Glomerular Filtration 89 ML/MIN 90 ML/MIN Rate Random Glucose 99 MG/DL 96 MG/DL Calcium Level 7.6 MG/DL 8.2 MG/DL Phosphorus Level 2.4 MG/DL 2.5 MG/DL Magnesium Level 1.7 MG/DL 1.6 MG/DL Total Bilirubin 1.0 MG/DL 0.8 MG/DL Direct Bilirubin 0.4 MG/DL 0.3 MG/DL Indirect Bilirubin 0.6 MG/DL 0.5 MG/DL Aspartate Amino Transf 54 U/L 53 U/L (AST/SGOT) Alanine Aminotransferase 305 U/L 244 U/L (ALT/SGPT) Alkaline Phosphatase 120 U/L 124 U/L Total Protein 5.6 GM/DL 6.1 GM/DL Albumin 2.1 GM/DL 2.2 GM/DL Ammonia 19 MCMOL/L GENERAL: Patient is in no acute distress. Alert. Confused. HEENT: EOMI, No icterus. Swelling at the R. lateral neck at angle of the jaw now resolved. No erythema. Non tender. NECK: Supple. LUNGS: Clear breath sounds. CARDIAC: Regular rate and rhythm. No audible murmur. ABDOMEN: Soft, non tender. EXTREMITIES: No CCE. SKIN: No rash. NEURO: Confused. Assessment & Plan 1. Altered mental status. Metabolic Encephalopathy vs infection. Improvement probably from treatment with thiamine. 2. Sepsis. MSSA. 3 Facial swelling/abscess. Erythema resolved. . 4. Leukocytosis persist. R/O UTI. RECOMMEND: Continue Unasyn IV. plan until 08/29. Follow UA ordered. Monitor clinical status. Follow WBC. Discussed with RN. Iglesia Real MD Apr 28, 2017 19:36
[2017-04-28 20:04] LABS: BLOOD, URINE NEG (NEG); GLUCOSE,URINE NEG (NEG); KETONE, URINE NEG (NEG); NITRITE,URINE NEG (NEG)
[2017-04-28 20:20] LABS: URINE COLOR YELLOW (YELLW/STRAW)
[2017-04-28 20:22] LABS: COMMENT (UR) CULT NOT INDICATED; CULTURE IF INDICATED CULT NOT INDICATED; SQUAMOUS EPITHELIAL CELL URINE 0-5 /hpf (0-5)
[2017-04-29] VITALS (8 sets, daily range): BP systolic 140–160; BP diastolic 74–99; PULSE 102–115; RESP 24–36; TEMP 97.5–98.6; O2SAT 95–98
[2017-04-29] MEDS: AMPICILLIN-SULBACTAM INJ 3 GM in SODIUM CHLORIDE 0.9% INJ 100 ML IV SCH ×4 (03:37→21:30)
[2017-04-29 04:57] LABS: POTASSIUM 3.3 MEQ/L (3.5-5.1)
[2017-04-29] MEDS: LEVOTHYROXINE SODIUM 75 MCG TAB PO SCH (04:59)
[2017-04-29 05:13] LABS: AUTOMATED NEUTROPHIL # 12.9 TH/MM3 (1.8-7.7); BASOPHIL # 0.1 TH/MM3 (0-0.2); BASOPHIL % 0.6 % (0.0-2.0); EOSINOPHIL # 0.3 TH/MM3 (0-0.4); EOSINOPHIL % 2.1 % (0.0-4.0); HEMATOCRIT 25.5 % (35.0-46.0); LYMPH % 5.8 % (9.0-44.0); LYMPHOCYTE # 0.9 TH/MM3 (1.0-4.8); MEAN CELL VOLUME 96.3 FL (80.0-100.0); MEAN CORPUSCULAR HEMOGLOBIN 31.5 PG (27.0-34.0); MEAN CORPUSCULAR HGB CONC 32.8 % (32.0-36.0); MONO % 8.2 % (0.0-8.0); NEUT % 83.3 % (16.0-70.0); PLATELET COUNT 357 TH/MM3 (150-450); RED BLOOD COUNT 2.65 MIL/MM3 (4.00-5.30); RED CELL DISTRIBUTION WIDTH 19.6 % (11.6-17.2); WHITE BLOOD COUNT 15.5 TH/MM3 (4.0-11.0)
[2017-04-29 05:20] LABS: HEMO FLAGS DIFF FINAL
[2017-04-29 06:40] LABS: BICARBONATE 23.1 MEQ/L (21.0-32.0); INDIRECT BILIRUBIN 0.3 MG/DL (0.0-0.8); MAGNESIUM 1.8 MG/DL (1.5-2.5); TOTAL BILIRUBIN ADULT 0.6 MG/DL (0.2-1.0)
[2017-04-29] MEDS ORDERED: POTASSIUM CHLORIDE 10 MEQ CONTROLLED RELEASE TAB PO ONE (08:45)
[2017-04-29] MEDS: MULTIVITAMIN TAB PO SCH (08:57)
[2017-04-29] MEDS: THIAMINE HCL 100 MG TAB PO SCH (08:57)
[2017-04-29] MEDS: MAGNESIUM OXIDE 400 MG TAB PO SCH (08:57)
[2017-04-29] MEDS: LOSARTAN 25 MG TAB PO SCH (08:57)
[2017-04-29] MEDS: SODIUM CHLORIDE 0.9% FLUSH 10 ML FLUSH IV FLUSH SCH ×2 (08:58→21:30)
[2017-04-29] MEDS: PANTOPRAZOLE SODIUM 40 MG VIAL IV SCH (08:58)
[2017-04-29] MEDS: ARTIFICIAL TEARS OPTH SOLN 15 ML BTL EACH EYE SCH ×3 (09:00→18:00)
[2017-04-29] MEDS: DOCUSATE SODIUM 50 MG/SENNA 8.6 MG TAB PO SCH ×2 (09:00→21:00)
[2017-04-29] MEDS ORDERED: MULTIVITAMIN INJ 10 ML, THIAMINE INJ 100 MG, FOLIC ACID INJ 1 MG in DEXT 5%-NACL 0.45% ... IV SCH (10:00)
--- NOTE | 2017-04-29 10:07 | HHI.PR ---
Subjective Remarks Patient seen this morning around 9 AM. Sitting in chair. Says she feels all right. Denies any pain. Denies any shortness of breath. She says she is eating, however nursing reports very poor appetite. Nursing reports that patient tends to eat more when her daughter is here. Patient refuses to be fed. Objective Vital Signs Date Time Temp Pulse Resp B/P Pulse Ox O2 Delivery O2 Flow Rate FiO2 04/29/17 08:00 98.5 104 30 140/99 04/29/17 08:00 104 04/29/17 07:39 98 04/29/17 04:00 103 04/29/17 04:00 98.3 102 28 160/84 95 04/29/17 00:00 98.6 104 24 147/74 95 04/29/17 00:00 104 04/28/17 20:00 98.8 111 24 142/74 94 04/28/17 20:00 111 04/28/17 19:20 99 21 04/28/17 16:00 106 04/28/17 16:00 98.2 106 30 140/66 04/28/17 12:00 102 04/28/17 12:00 97.6 102 32 145/82 I/O 04/28/17 04/28/17 04/28/17 04/29/17 04/29/17 04/29/17 07:00 15:00 23:00 07:00 15:00 23:00 Intake Total 350 ml 876 ml 320 ml 200 ml Balance 350 ml 876 ml 320 ml 200 ml Intake Oral 250 ml 360 ml 220 ml 100 ml IV Total 100 ml 516 ml 100 ml 100 ml # Voids 2 2 2 1 # Bowel Movements 1 0 0 1 1 Result Diagram: 04/29/17 0440 04/29/17 0440 Imaging Last Impressions Lumbar Puncture Fluoroscopy 04/24/17 0000 Signed Impressions: Service Date/Time: April 13:01 - CONCLUSION: Uncomplicated fluoroscopically guided lumbar puncture. Kaushik Miller Jr., MD Brain MRI 04/24/17 0000 Signed Impressions: Service Date/Time: April 09:54 - CONCLUSION: 1. Limited examination due to motion artifact. 2. No acute abnormality identified. Alfredito Colorado MD Abdomen X-Ray 6/7/17 0000 Signed Impressions: Service Date/Time: Sunday, April 23, 2017 11:10 - CONCLUSION: There is an NG tube in place. The tip appears to be in the proximal small bowel. Wenceslao Rivera MD Lower Extremity Ultrasound 04/22/17 0000 Signed Impressions: Service Date/Time: Saturday, April 22, 2017 15:40 - CONCLUSION: 1. No DVT identified. Alfredito Colorado MD Head CT 04/19/17 Signed Impressions: Service Date/Time: Wednesday, April 19, 2017 10:20 - CONCLUSION: No acute intracranial findings. Asher Mcgowan MD Liver Ultrasound 04/18/17 Signed Impressions: Service Date/Time: Tuesday, April 18, 2017 18:17 - CONCLUSION: 1. Cholelithiasis with mild gallbladder wall thickening and minimal pericholecystic fluid. This raises concern for possible acute cholecystitis. Consider HIDA scan. Kaushik Miller Jr., MD Chest X-Ray 04/18/17 Signed Impressions: Service Date/Time: Tuesday, April 18, 2017 08:55 - CONCLUSION: No acute cardiopulmonary disease identified. Asher Mcgowan MD Upper Extremity Ultrasound 04/17/17 Signed Impressions: Service Date/Time: April 22:59 - CONCLUSION: 1. Nondiagnostic evaluation secondary to lack of patient cooperation. Sony Armstrong MD Neck CT 04/17/17 0000 Signed Impressions: Service Date/Time: April 21:31 - CONCLUSION: 1. Edema involving the right neck. No abscess or hematoma. Kaushik Miller Jr., MD Abdomen/Pelvis CT 04/16/17 Signed Impressions: Service Date/Time: Sunday, April 16, 2017 21:00 - CONCLUSION: 1. No acute abnormality. 2. Cholelithiasis. 3. Small bilateral pleural effusions. Kaushik Miller Jr., MD Neck Magnetic Resonance Angiography 04/15/17 0000 Signed Impressions: Service Date/Time: Saturday, April 15, 2017 15:20 - CONCLUSION: 1. Limited examination due to motion. These were the best obtainable images given the patient's state of cooperation. 2. No gross significant stenosis of either carotid artery observed. 3. Left vertebral artery grossly patent. Right is not visualized. Kaushik Miller Jr., MD Tibia/Fibula X-Ray 04/13/17 0000 Signed Impressions: Service Date/Time: Thursday, April 13, 2017 16:19 - CONCLUSION: 1. Moderate arthritic changes involving the femoral tibial and patellofemoral joints. 2. No acute fracture or dislocation. Alex Whiteside MD Head Magnetic Resonance Angiography 04/13/17 0000 Signed Impressions: Service Date/Time: Saturday, April 15, 2017 15:20 - CONCLUSION: 1. Significantly limited study due to motion. These were the best obtainable images given the patient's state of cooperation. 2. Scattered areas of mild luminal narrowing secondary to atherosclerotic plaque. Details given above. Kaushik Miller Jr., MD Foot X-Ray 04/13/17 0000 Signed Impressions: Service Date/Time: Thursday, April 13, 2017 15:31 - CONCLUSION: 1. Arthritic changes involving the tarso-tarsal and tarsal-metatarsals joints in the midfoot. 2. Bony fusion of the left 1st metatarsophalangeal joint. 3. Plantar calcaneal spur. 4. No acute fracture or dislocation. Alex Whiteside MD Objective Remarks GENERAL: In chair. Appears comfortable. Disoriented as before. SKIN: Warm and dry. HEAD: Normocephalic. EYES: No scleral icterus. No injection or drainage. NECK: Supple, trachea midline. No JVD. CARDIOVASCULAR: Regular rate and rhythm without murmurs, gallops, or rubs. RESPIRATORY: Breath sounds equal bilaterally. No accessory muscle use. GASTROINTESTINAL: Abdomen soft, non-tender, nondistended. MUSCULOSKELETAL: No cyanosis. +1 bilateral lower extremity edema. No erythema. No broken skin. BACK: Nontender without obvious deformity. No CVA tenderness. A/P Assessment and Plan =====04/28/17======= Encephalopathy/delirium. Appreciate psychiatry assistance. EKG pending for QTC , after which can schedule Haldol 1 mg IV twice a day. Potassium low. Replace potassium Hypernatremia. 132. Stable. Likely secondary to malnutrition. [place] appetite. Monitor. Malnutrition. Poor appetite. Appreciate dietary assistance. Start Marinol. Monitor. Leukocytosis. Increasing. 15.8. Continue Unasyn for facial cellulitis which has improved. Appreciate infectious disease assistance. Transaminitis continues improving today. //Acute encephalopathy -likely due to sepsis- //patient has a history of ETOH abuse in the past //Frequent falls CT head, MRI head with no acute abnormality. continue neuro checks Stopped CIWA protocol continue IV Abx continue to keep NPO for now due to altered mentation --Continue NG tube feeding. PT/ST following. 04/25 Today with marked improvement. Possibly secondary to thiamine deficiency resolving with replacement. Tolerating diet. NG tube out. EEG and lumbar puncture reviewed.Neurology following. Appreciate assistance //sepsis due to right facial cellulitis ( the site of previous central line) and questionable cholecystitis //bacteremia with staph aureus continue broad spectrum IV antibiotic. blood cultures with staph aureus. will repeat the blood cultures and check echo. ID following. Appreciate assistance. Continue antibiotics as per infectious disease. //right facial cellulitis- at the site of previous central line -neck CT with no hematoma or abscess follow blood cultures and continue broad spectrum IV antibiotics surgery consult appreciated and no need for surgical intervention at this time //cholecystitis with elevated LFT's keep NPO continue IV Abx -LFT's and 10 you improving . GI consult appreciated Continue to follow liver function //Hypertension Coronary artery disease status post stent 3 On nadolol 80 mg by mouth daily and losartan 25 mg daily for hypertension; of note the po meds are on hold due to change in mental status As needed labetalol/hydralazine/vasotec to keep systolic blood pressure less than 160 //Hypothyroidism TSH currently elevated 8.37 . resume levothyroxine when able to take po. TSH to be repeated in 2-3 weeks as outpatient. Sliding-scale insulin with Accu-Cheks every 6 hours to maintain euglycemia/low regimen //Normocytic anemia No signs of active bleeding. No indications for transfusion of blood products at the present time will monitor H/H for now. 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 Arthritic changes to the tarsal/tarsal and tarsometatarsal joints. Calcaneal spur. Old fracture secondary tarsal. X-ray left tib/fib revealed moderate arthritic changes to the patellofemoral and femoral tibial joints. PT to follow. //Hypo osmolar Hyponatremia-improved. //Hypokalemia-replaced. //[id number]. Cortisol within normal limits. Uric acid 2.6 at the lower end of normal. //Prophylaxis. Avoid and regulation secondary to liver dysfunction, treated INR. Discharge Planning Poor nutrition. Continued electrolyte abnormalities. Monitoring -Patient may be stable for discharge to SNF or rehabilitation if she remains off restraints. Rachid Morales MD Apr 29, 2017 10:07
--- NOTE | 2017-04-29 10:29 | EKG ---
Date Performed: 04/29/2017 Time Performed: 08:43:00 PTAGE: 71 years EKG: BASELINE ARTIFACT PRESENT. Probable SINUS TACHYCARDIA WITH FREQUENT SUPRAVENTRICULAR PREMAT URE COMPLEXES PVCs ABNORMAL RHYTHM ECG I cannot accurately compare given artifact on both EKGs. PREVIOUS TRACING : 04/13/2017 18.20 DOCTOR: Wagner Villa Interpretating Date/Time 04/29/2017 10:27:25
[2017-04-29] MEDS: DRONABINOL 2.5 MG CAP PO SCH ×2 (12:10→16:10)
[2017-04-29] MEDS ORDERED: SODIUM CHLORID 0.9% 500 ML INJ 500 ML IV ONE (12:30)
[2017-04-29] MEDS: NS + KCL 20 MEQ INJ 1,000 ML IV SCH (13:11)
[2017-04-29 19:52] LABS: VDRL CSF NON-REACTIVE (())
[2017-04-30] VITALS (11 sets, daily range): BP systolic 140–199; BP diastolic 79–105; PULSE 84–115; RESP 20–30; TEMP 98.3–98.7; O2SAT 96–98
[2017-04-30] MEDS: NS + KCL 20 MEQ INJ 1,000 ML IV SCH ×2 (00:08→20:45)
[2017-04-30] MEDS: CHLORHEXIDINE GLUCONATE 2 % 1 PACK (2 CLOTHS) TOP SCH (03:46)
[2017-04-30] MEDS: AMPICILLIN-SULBACTAM INJ 3 GM in SODIUM CHLORIDE 0.9% INJ 100 ML IV SCH ×4 (03:46→20:45)
[2017-04-30 05:10] LABS: AUTOMATED NEUTROPHIL # 10.3 TH/MM3 (1.8-7.7); BASOPHIL # 0.1 TH/MM3 (0-0.2); BASOPHIL % 0.8 % (0.0-2.0); EOSINOPHIL # 0.4 TH/MM3 (0-0.4); EOSINOPHIL % 3.1 % (0.0-4.0); HEMATOCRIT 26.4 % (35.0-46.0); LYMPH % 8.2 % (9.0-44.0); LYMPHOCYTE # 1.1 TH/MM3 (1.0-4.8); MEAN CELL VOLUME 95.6 FL (80.0-100.0); MEAN CORPUSCULAR HEMOGLOBIN 30.6 PG (27.0-34.0); MONO % 9.3 % (0.0-8.0); NEUT % 78.6 % (16.0-70.0); PLATELET COUNT 391 TH/MM3 (150-450); RED BLOOD COUNT 2.76 MIL/MM3 (4.00-5.30); WHITE BLOOD COUNT 13.1 TH/MM3 (4.0-11.0)
[2017-04-30 05:12] LABS: POTASSIUM 3.8 MEQ/L (3.5-5.1)
[2017-04-30 05:16] LABS: BICARBONATE 20.3 MEQ/L (21.0-32.0); MAGNESIUM 1.8 MG/DL (1.5-2.5)
[2017-04-30 05:45] LABS: HEMO FLAGS AUTO DIFF
[2017-04-30] MEDS: LEVOTHYROXINE SODIUM 75 MCG TAB PO SCH (06:20)
[2017-04-30 07:20] LABS: SCAN/DIFF AUTO DIFF CONFIRMED
[2017-04-30] MEDS: SODIUM CHLORIDE 0.9% FLUSH 10 ML FLUSH IV FLUSH SCH ×2 (09:00→20:45)
[2017-04-30] MEDS: ARTIFICIAL TEARS OPTH SOLN 15 ML BTL EACH EYE SCH ×3 (09:00→18:00)
[2017-04-30] MEDS: LOSARTAN 25 MG TAB PO SCH (09:14)
[2017-04-30] MEDS: MAGNESIUM OXIDE 400 MG TAB PO SCH (09:14)
[2017-04-30] MEDS: MULTIVITAMIN TAB PO SCH (09:14)
[2017-04-30] MEDS: THIAMINE HCL 100 MG TAB PO SCH (09:14)
[2017-04-30] MEDS: DOCUSATE SODIUM 50 MG/SENNA 8.6 MG TAB PO SCH ×2 (09:14→20:18)
[2017-04-30] MEDS: PANTOPRAZOLE SODIUM 40 MG VIAL IV SCH (09:14)
[2017-04-30] MEDS: LABETALOL HCL 100 MG/20 ML VIAL IV PUSH PRN ×2 (09:17→13:06)
[2017-04-30] MEDS: DRONABINOL 2.5 MG CAP PO SCH ×2 (11:07→16:00)
--- NOTE | 2017-04-30 15:19 | HHI.PR ---
Subjective Remarks Patient lying in bed. 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 She denies any pain. Nursing reports she has not slept well for several days. Objective Vital Signs Date Time Temp Pulse Resp B/P Pulse Ox O2 Delivery O2 Flow Rate FiO2 04/30/17 13:07 94 04/30/17 13:07 94 30 140/85 04/30/17 12:00 102 04/30/17 12:00 98.3 102 20 172/92 04/30/17 09:19 110 29 159/85 04/30/17 09:19 110 04/30/17 09:13 112 29 199/105 04/30/17 09:13 112 04/30/17 04:30 98.7 102 24 154/87 98 04/30/17 04:00 111 04/30/17 04:00 98.6 106 28 149/81 96 04/30/17 00:00 115 04/30/17 00:00 98.6 106 28 149/81 96 04/29/17 20:00 115 04/29/17 20:00 98.4 115 24 158/89 95 04/29/17 19:20 97 21 04/29/17 16:00 106 04/29/17 16:00 98.1 106 36 150/93 I/O 04/29/17 04/29/17 04/29/17 04/30/17 04/30/17 04/30/17 07:00 15:00 23:00 07:00 15:00 23:00 Intake Total 200 ml 708 ml 1320 ml Balance 200 ml 708 ml 1320 ml Intake Oral 100 ml 200 ml 320 ml IV Total 100 ml 508 ml 1000 ml # Voids 2 2 4 # Bowel Movements 1 1 2 Result Diagram: 04/30/17 0435 04/30/17 0435 Imaging Last Impressions Lumbar Puncture Fluoroscopy 04/24/17 0000 Signed Impressions: Service Date/Time: April 13:01 - CONCLUSION: Uncomplicated fluoroscopically guided lumbar puncture. Kaushik Miller Jr., MD Brain MRI 04/24/17 0000 Signed Impressions: Service Date/Time: April 09:54 - CONCLUSION: 1. Limited examination due to motion artifact. 2. No acute abnormality identified. Alfredito Colorado MD Abdomen X-Ray 04/23/17 0000 Signed Impressions: Service Date/Time: Sunday, April 23, 2017 11:10 - CONCLUSION: There is an NG tube in place. The tip appears to be in the proximal small bowel. Wenceslao Rivera MD Lower Extremity Ultrasound 04/22/17 0000 Signed Impressions: Service Date/Time: Saturday, April 22, 2017 15:40 - CONCLUSION: 1. No DVT identified. Alfredito Colorado MD Head CT 04/19/17 Signed Impressions: Service Date/Time: Wednesday, April 19, 2017 10:20 - CONCLUSION: No acute intracranial findings. Asher Mcgowan MD Liver Ultrasound 04/18/17 0000 Signed Impressions: Service Date/Time: Tuesday, April 18, 2017 18:17 - CONCLUSION: 1. Cholelithiasis with mild gallbladder wall thickening and minimal pericholecystic fluid. This raises concern for possible acute cholecystitis. Consider HIDA scan. Kaushik Miller Jr., MD Chest X-Ray 04/18/17 Signed Impressions: Service Date/Time: Tuesday, April 18, 2017 08:55 - CONCLUSION: No acute cardiopulmonary disease identified. Asher Mcgowan MD Upper Extremity Ultrasound 04/17/17 0000 Signed Impressions: Service Date/Time: April 22:59 - CONCLUSION: 1. Nondiagnostic evaluation secondary to lack of patient cooperation. Sony Armstrong MD Neck CT 04/17/17 0000 Signed Impressions: Service Date/Time: April 21:31 - CONCLUSION: 1. Edema involving the right neck. No abscess or hematoma. Kaushik Miller Jr., MD Abdomen/Pelvis CT 04/16/17 0000 Signed Impressions: Service Date/Time: Sunday, April 16, 2017 21:00 - CONCLUSION: 1. No acute abnormality. 2. Cholelithiasis. 3. Small bilateral pleural effusions. Kaushik Miller Jr., MD Neck Magnetic Resonance Angiography 04/15/17 0000 Signed Impressions: Service Date/Time: Saturday, April 15, 2017 15:20 - CONCLUSION: 1. Limited examination due to motion. These were the best obtainable images given the patient's state of cooperation. 2. No gross significant stenosis of either carotid artery observed. 3. Left vertebral artery grossly patent. Right is not visualized. Kaushik Miller Jr., MD Tibia/Fibula X-Ray 04/13/17 0000 Signed Impressions: Service Date/Time: Thursday, April 13, 2017 16:19 - CONCLUSION: 1. Moderate arthritic changes involving the femoral tibial and patellofemoral joints. 2. No acute fracture or dislocation. Alex Whiteside MD Head Magnetic Resonance Angiography 04/13/17 0000 Signed Impressions: Service Date/Time: Saturday, April 15, 2017 15:20 - CONCLUSION: 1. Significantly limited study due to motion. These were the best obtainable images given the patient's state of cooperation. 2. Scattered areas of mild luminal narrowing secondary to atherosclerotic plaque. Details given above. Kaushik Miller Jr., MD Foot X-Ray 04/13/17 0000 Signed Impressions: Service Date/Time: Thursday, April 13, 2017 15:31 - CONCLUSION: 1. Arthritic changes involving the tarso-tarsal and tarsal-metatarsals joints in the midfoot. 2. Bony fusion of the left 1st metatarsophalangeal joint. 3. Plantar calcaneal spur. 4. No acute fracture or dislocation. Alex Whiteside MD Objective Remarks GENERAL: Lying in bed. Appears comfortable. Disoriented as before. No appreciable change on exam. SKIN: Warm and dry. HEAD: Normocephalic. EYES: No scleral icterus. No injection or drainage. NECK: Supple, trachea midline. No JVD. CARDIOVASCULAR: Regular rate and rhythm without murmurs, gallops, or rubs. RESPIRATORY: Breath sounds equal bilaterally. No accessory muscle use. GASTROINTESTINAL: Abdomen soft, non-tender, nondistended. MUSCULOSKELETAL: No cyanosis. +1 bilateral lower extremity edema. No erythema. No broken skin. BACK: Nontender without obvious deformity. No CVA tenderness. A/P Assessment and Plan =====04/30/17======= Nursing reports poor sleep. Add Seroquel at night. EKG reviewed with QTC 456. Malnutrition. Poor appetite. No improvement. Increase Marinol, which was started on 04/29. Psychosis with white count on exam. No fevers. Monitor. Infectious disease following. Appreciate assistance. Transaminitis. Recheck LFTs tomorrow. Encephalopathy/delirium. EKG was QTC 450s. We'll opt for Seroquel at night. Appreciate psychiatry assistance. //Acute encephalopathy -likely due to sepsis- //patient has a history of ETOH abuse in the past //Frequent falls CT head, MRI head with no acute abnormality. continue neuro checks Stopped CIWA protocol continue IV Abx continue to keep NPO for now due to altered mentation --Continue NG tube feeding. PT/ST following. 04/25 Today with marked improvement. Possibly secondary to thiamine deficiency resolving with replacement. Tolerating diet. NG tube out. EEG and lumbar puncture reviewed.Neurology following. Appreciate assistance //sepsis due to right facial cellulitis ( the site of previous central line) and questionable cholecystitis //bacteremia with staph aureus continue broad spectrum IV antibiotic. blood cultures with staph aureus. will repeat the blood cultures and check echo. ID following. Appreciate assistance. Continue antibiotics as per infectious disease. //right facial cellulitis- at the site of previous central line -neck CT with no hematoma or abscess follow blood cultures and continue broad spectrum IV antibiotics surgery consult appreciated and no need for surgical intervention at this time //cholecystitis with elevated LFT's keep NPO continue IV Abx -LFT's and 10 you improving . GI consult appreciated Continue to follow liver function //Hypertension Coronary artery disease status post stent 3 On nadolol 80 mg by mouth daily and losartan 25 mg daily for hypertension; of note the po meds are on hold due to change in mental status As needed labetalol/hydralazine/vasotec to keep systolic blood pressure less than 160 //Hypothyroidism TSH currently elevated 8.37 . resume levothyroxine when able to take po. TSH to be repeated in 2-3 weeks as outpatient. Sliding-scale insulin with Accu-Cheks every 6 hours to maintain euglycemia/low regimen //Normocytic anemia No signs of active bleeding. No indications for transfusion of blood products at the present time will monitor H/H for now. 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 Arthritic changes to the tarsal/tarsal and tarsometatarsal joints. Calcaneal spur. Old fracture secondary tarsal. X-ray left tib/fib revealed moderate arthritic changes to the patellofemoral and femoral tibial joints. PT to follow. //Hypo osmolar Hyponatremia-improved. //Hypokalemia-replaced. //[id number]. Cortisol within normal limits. Uric acid 2.6 at the lower end of normal. //Prophylaxis. Avoid and regulation secondary to liver dysfunction, treated INR. Discharge Planning Poor nutrition. Continued electrolyte abnormalities. Monitoring -Patient may be stable for discharge to SNF or rehabilitation if she remains off restraints. Discharge Planning Poor nutrition. Continued electrolyte abnormalities. Monitoring -Patient may be stable for discharge to SNF or rehabilitation if she remains off restraints. Rachid Morales MD Apr 30, 2017 15:19
--- NOTE | 2017-04-30 16:28 | HHI.PYPN ---
Subjective Remarks Patient seen in follow-up for delirium. Chart reviewed. No Haldol PRN required. Case discussed with RN, who reports patient remains quite confused but has not been physically aggressive or assaultive. On my examination today, patient is OOB to chair, frankly responding to internal stimuli prior to my introducing myself. She is otherwise calm. 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 She is awake and oriented to person only. Focus/concentration remain impaired. Affect is blunted. No SI/HI. Review of Systems ROS Limitations: Poor Historian Except as stated in HPI: all other systems reviewed are Neg Objective Alert: Yes [place]: Person Mood: Calm Affect: Blunted Memory Intact: Comment (Impaired on clinical exam) Hallucinations: Auditory (responding to internal stimuli. No reported CAH.) Delusions: Yes Delusion Type: Other (believes she is in [employer] store) Suicidal: Ideation (No SI) Homicidal: Ideation (No HI) Insight/Judgment Poor Remarks No motor abnormalities noted. TP tangential. Speech rambling. Unable to do Vigilance A. Unable to spell WORLD backward. Labs Test 04/30/17 04:35 White Blood Count 13.1 TH/MM3 Red Blood Count 2.76 MIL/MM3 Hemoglobin 8.4 GM/DL Hematocrit 26.4 % Mean Corpuscular Volume 95.6 FL Mean Corpuscular Hemoglobin 30.6 PG Mean Corpuscular Hemoglobin 32.0 % Concent Red Cell Distribution Width 19.0 % Platelet Count 391 TH/MM3 Mean Platelet Volume 8.2 FL Neutrophils (%) (Auto) 78.6 % Lymphocytes (%) (Auto) 8.2 % Monocytes (%) (Auto) 9.3 % Eosinophils (%) (Auto) 3.1 % Basophils (%) (Auto) 0.8 % Neutrophils # (Auto) 10.3 TH/MM3 Lymphocytes # (Auto) 1.1 TH/MM3 Monocytes # (Auto) 1.2 TH/MM3 Eosinophils # (Auto) 0.4 TH/MM3 Basophils # (Auto) 0.1 TH/MM3 CBC Comment AUTO DIFF Differential Comment AUTO DIFF CONFIRMED Sodium Level 131 MEQ/L Potassium Level 3.8 MEQ/L Chloride Level 98 MEQ/L Carbon Dioxide Level 20.3 MEQ/L Anion Gap 13 MEQ/L Blood Urea Nitrogen 7 MG/DL Creatinine 0.49 MG/DL Estimat Glomerular Filtration 125 ML/MIN Rate Random Glucose 76 MG/DL Calcium Level 7.9 MG/DL Phosphorus Level 2.6 MG/DL Magnesium Level 1.8 MG/DL Albumin 2.0 GM/DL Labs reviewed. Ongoing anemia, leukocytosis noted. EKG sinus tach with PVCs. QTc 456ms. Vitals/IOs Vital Signs Date Time Temp Pulse Resp B/P Pulse Ox O2 Delivery O2 Flow Rate FiO2 04/30/17 15:44 98 04/30/17 13:07 94 04/30/17 13:07 30 140/85 04/30/17 12:00 98.3 04/29/17 19:20 21 Intake and Output 04/29/17 04/29/17 04/30/17 08:00 16:00 00:00 Intake Total 200 ml 708 ml Balance 200 ml 708 ml Assessment & Plan Problem List: (1) Delirium due to multiple etiologies ICD Code: F05 Assessment & Plan Patient remains delirious. In light of borderline prolonged QTc, agree with replacing Haldol IV with Seroquel at HS. If ordered Seroquel 50mg dose qHS is too sedating, could consider tapering to 37.5mg or even 25mg qHS if needed. On the other hand, if daytime agitation becomes an issue and patient is not sedated , could consider adding additional doses during the day (e.g. Seroquel 12.5- 25mg BID at 9am and 3pm and 50mg qHS). RN reports patient may be d/c'd to SNF on Friday. If so, recommend including in discharge paperwork an instruction to receiving facility to regularly reassess need for antipsychotic medications going forward and to discontinue these medications when able given the metabolic and other side-effects, which should be monitored while patient is on antipsychotics with weight, lipid panel and fasting glucose/HgbA1c at least q 6 months. Recommend patient be seen by psychiatrist in consultation at receiving facility, if available, to follow up delirium. Otherwise, delirium management recs as before. Thank you for this consultation. Please call or page with questions. Justification for Cont. Inpt. Per primary team Discharge Planning Per primary team. Patient does not require inpatient psychiatry at this time. Sony Orr MD Apr 30, 2017 16:28
[2017-04-30] MEDS: MEGESTROL ACETATE 40 MG TAB PO SCH (20:18)
[2017-04-30] MEDS: QUEtiapine FUMARATE 25 MG TAB PO SCH (20:18)
[2017-05-01] VITALS (9 sets, daily range): BP systolic 115–171; BP diastolic 60–87; PULSE 92–108; RESP 18–46; TEMP 97.6–98.8; O2SAT 94–98
--- NOTE | 2017-05-01 00:01 | HHI.IDPN ---
Subjective Subjective Remarks No Fevers Continues very confused Talkative but not oriented at all. Antibiotics Unasyn Lines Peripheral Past Medical History Coronary artery disease with 3 stents Hypertension Depression Hypothyroidism Chronic narcotic use Chronic benzodiazepine u Allergies: Coded Allergies: Sulfa (Verified Allergy, Severe, Rash, 04/13/17) Review of Systems Constitutional Constitutional Remarks No fever chills Objective . Vital Signs Date Time Temp Pulse Resp B/P Pulse Ox O2 Delivery O2 Flow Rate FiO2 04/30/17 20:00 98.3 99 26 153/79 97 04/30/17 19:45 97 21 04/30/17 16:00 84 04/30/17 16:00 98.4 84 25 167/87 04/30/17 15:44 98 04/30/17 13:07 94 04/30/17 13:07 94 30 140/85 04/30/17 12:00 102 04/30/17 12:00 98.3 102 20 172/92 04/30/17 09:19 110 29 159/85 04/30/17 09:19 110 04/30/17 09:13 112 29 199/105 04/30/17 09:13 112 04/30/17 04:30 98.7 102 24 154/87 98 04/30/17 04:00 111 04/30/17 04:00 98.6 106 28 149/81 96 04/30/17 00:00 115 04/30/17 00:00 98.6 106 28 149/81 96 04/29/17 04/29/17 04/30/17 15:00 23:00 07:00 Intake Total 708 ml 1320 ml Balance 708 ml 1320 ml Intake Oral 200 ml 320 ml IV Total 508 ml 1000 ml # Voids 2 4 # Bowel Movements 1 2 . Laboratory Tests Test 04/29/17 04/30/17 04:40 04:35 White Blood Count 15.5 TH/MM3 13.1 TH/MM3 Red Blood Count 2.65 MIL/MM3 2.76 MIL/MM3 Hemoglobin 8.3 GM/DL 8.4 GM/DL Hematocrit 25.5 % 26.4 % Mean Corpuscular Volume 96.3 FL 95.6 FL Mean Corpuscular Hemoglobin 31.5 PG 30.6 PG Mean Corpuscular Hemoglobin 32.8 % 32.0 % Concent Red Cell Distribution Width 19.6 % 19.0 % Platelet Count 357 TH/MM3 391 TH/MM3 Mean Platelet Volume 8.2 FL 8.2 FL Neutrophils (%) (Auto) 83.3 % 78.6 % Lymphocytes (%) (Auto) 5.8 % 8.2 % Monocytes (%) (Auto) 8.2 % 9.3 % Eosinophils (%) (Auto) 2.1 % 3.1 % Basophils (%) (Auto) 0.6 % 0.8 % Neutrophils # (Auto) 12.9 TH/MM3 10.3 TH/MM3 Lymphocytes # (Auto) 0.9 TH/MM3 1.1 TH/MM3 Monocytes # (Auto) 1.3 TH/MM3 1.2 TH/MM3 Eosinophils # (Auto) 0.3 TH/MM3 0.4 TH/MM3 Basophils # (Auto) 0.1 TH/MM3 0.1 TH/MM3 CBC Comment DIFF FINAL AUTO DIFF Differential Comment AUTO DIFF CONFIRMED Laboratory Tests Test 04/29/17 04/30/17 04:40 04:35 Sodium Level 132 MEQ/L 131 MEQ/L Potassium Level 3.3 MEQ/L 3.8 MEQ/L Chloride Level 98 MEQ/L 98 MEQ/L Carbon Dioxide Level 23.1 MEQ/L 20.3 MEQ/L Anion Gap 11 MEQ/L 13 MEQ/L Blood Urea Nitrogen 11 MG/DL 7 MG/DL Creatinine 0.55 MG/DL 0.49 MG/DL Estimat Glomerular Filtration 109 ML/MIN 125 ML/MIN Rate Random Glucose 99 MG/DL 76 MG/DL Calcium Level 7.3 MG/DL 7.9 MG/DL Phosphorus Level 2.6 MG/DL 2.6 MG/DL Magnesium Level 1.8 MG/DL 1.8 MG/DL Total Bilirubin 0.6 MG/DL Direct Bilirubin 0.3 MG/DL Indirect Bilirubin 0.3 MG/DL Aspartate Amino Transf 52 U/L (AST/SGOT) Alanine Aminotransferase 178 U/L (ALT/SGPT) Alkaline Phosphatase 111 U/L Total Protein 5.5 GM/DL Albumin 1.9 GM/DL 2.0 GM/DL Total Creatine Kinase 165 U/L Physical Exam GENERAL: This is a chronically ill patient who is confused. SKIN: Erythema in groin / genital area HEAD: No more swelling on right side of face EYES: Pupils equal round and reactive. . ENT: Nose without bleeding, purulent drainage or septal hematoma. Throat without erythema, tonsillar hypertrophy or exudate. Uvula midline. Airway patent. NECK: Trachea midline. No JVD or lymphadenopathy. Supple, nontender, no meningeal signs. right jaw/ swelling and indurated no redness CARDIOVASCULAR: Regular rate and rhythm without murmurs, gallops, or rubs. RESPIRATORY: Clear GASTROINTESTINAL: Abdomen soft, non-tender, nondistended. No hepato-splenomegaly , or palpable masses. No guarding. MUSCULOSKELETAL: Extremities without clubbing, cyanosis, or edema. No joint tenderness, effusion, or edema noted. No calf tenderness. Negative Homans sign bilaterally. NEUROLOGICAL: Very confused Assessment & Plan Diagnosis: (1) Cellulitis and abscess of face Plan: Resolved (2) Sepsis due to methicillin susceptible Staphylococcus aureus Plan: Repeat blood culture negative Echo negative On Unasyn (3) Leucocytosis Plan: Improved Follow CBC Flor Palacio MD May 01, 2017 00:01
[2017-05-01] MEDS: CHLORHEXIDINE GLUCONATE 2 % 1 PACK (2 CLOTHS) TOP SCH (01:05)
[2017-05-01] MEDS: AMPICILLIN-SULBACTAM INJ 3 GM in SODIUM CHLORIDE 0.9% INJ 100 ML IV SCH ×2 (03:23→10:18)
[2017-05-01] MEDS: LEVOTHYROXINE SODIUM 75 MCG TAB PO SCH (06:23)
[2017-05-01] MEDS: ARTIFICIAL TEARS OPTH SOLN 15 ML BTL EACH EYE SCH ×3 (09:00→18:00)
[2017-05-01] MEDS: DOCUSATE SODIUM 50 MG/SENNA 8.6 MG TAB PO SCH ×2 (10:16→20:50)
[2017-05-01] MEDS: LOSARTAN 25 MG TAB PO SCH (10:16)
[2017-05-01] MEDS: MAGNESIUM OXIDE 400 MG TAB PO SCH (10:16)
[2017-05-01] MEDS: MEGESTROL ACETATE 40 MG TAB PO SCH ×2 (10:16→20:50)
[2017-05-01] MEDS: MULTIVITAMIN TAB PO SCH (10:17)
[2017-05-01] MEDS: THIAMINE HCL 100 MG TAB PO SCH (10:17)
[2017-05-01] MEDS: PANTOPRAZOLE SODIUM 40 MG VIAL IV SCH (10:18)
[2017-05-01] MEDS: NS + KCL 20 MEQ INJ 1,000 ML IV SCH ×2 (10:19→20:50)
[2017-05-01] MEDS: SODIUM CHLORIDE 0.9% FLUSH 10 ML FLUSH IV FLUSH SCH ×2 (10:19→20:50)
[2017-05-01] MEDS: DRONABINOL 2.5 MG CAP PO SCH ×2 (11:00→17:04)
--- NOTE | 2017-05-01 11:25 | HHI.PR ---
Subjective Remarks Hospital day #18 for this 71-year-old female who is a poor historian. Apparently she has been admitted and treated for delirium and sepsis. Patient has tolerated adjustments in her medication. CT/MRI of the brain are without acute abnormality. She is now tolerating her diet after a short time of NG tube feeding. She had some evidence of cholecystitis with elevated LFTs which improved 05/01 Patient seen and evaluated today in follow-up for encephalopathy and cellulitis. Care plan discussed with JIGGER ARTISAN and with infectious disease consultation. Overall cellulitis is improved on antibiotics. Patient also with some erythema possibly yeast in the groin for which nystatin was started. Care plan and discharge planning also discussed with case management and we are looking for [facility] for [facility]. Objective Vitals Vital Signs Date Time Temp Pulse Resp B/P Pulse Ox O2 Delivery O2 Flow Rate FiO2 05/01/17 10:07 94 21 05/01/17 08:00 98.1 100 25 144/76 05/01/17 08:00 100 05/01/17 04:00 106 05/01/17 04:00 98.8 92 18 115/60 96 05/01/17 00:00 106 05/01/17 00:00 98.8 101 24 122/60 97 04/30/17 20:00 98.3 99 26 153/79 97 04/30/17 20:00 98 04/30/17 19:45 97 21 04/30/17 16:00 84 04/30/17 16:00 98.4 84 25 167/87 04/30/17 15:44 98 04/30/17 13:07 94 04/30/17 13:07 94 30 140/85 04/30/17 12:00 102 04/30/17 12:00 98.3 102 20 172/92 I/O 04/30/17 04/30/17 04/30/17 05/01/17 05/01/17 05/01/17 06:59 14:59 22:59 06:59 14:59 22:59 Intake Total 1320 ml 120 ml 340 ml 660 ml Balance 1320 ml 120 ml 340 ml 660 ml Intake Oral 320 ml 120 ml 120 ml 60 ml IV Total 1000 ml 0 ml 220 ml 600 ml # Voids 4 3 3 3 # Bowel Movements 2 1 0 0 Result Diagram: 04/30/1743404/30/17434 Objective Remarks GENERAL: This is a frail, elderly female, in no apparent distress. CARDIOVASCULAR: Regular rate and rhythm without murmurs, gallops, or rubs. RESPIRATORY: Clear to auscultation. Breath sounds equal bilaterally. No wheezes , rales, or rhonchi. GASTROINTESTINAL: Abdomen soft, non-tender, nondistended. Normal active bowel sounds MUSCULOSKELETAL: Extremities without clubbing, cyanosis, or edema. NEURO: Confused, oriented to person. Procedures central line placement. Date of Insertion: April 13, 2017 Line: Central Venous Catheter Side: Right Location: Jugular A/P Problem List: (1) Delirium due to multiple etiologies ICD Code: F05 Status: Acute Plan: Tolerating care without the need of Haldol or restraints. No new events. Psychiatric consult appreciated (2) Cellulitis and abscess of face ICD Code: L03.211 Status: Acute Plan: discontinue antibiotics Follow clinically. Assessment and Plan protonix po teds/scds Discharge Planning Likely discharge to rehabilitation once approval obtained Dea Albright MD May 01, 2017 11:25
[2017-05-01] MEDS: NYSTATIN 100,000 U/GM PWD 15 GM BTL TOPICAL SCH ×2 (17:05→22:10)
[2017-05-01] MEDS: QUEtiapine FUMARATE 25 MG TAB PO SCH (20:50)
[2017-05-02] VITALS: BP 140/72; PULSE 120; RESP 22; TEMP 98.7; O2SAT 98
[2017-05-02 04:00] VITALS: BP 174/85; PULSE 112; RESP 27; TEMP 98.8; O2SAT 96
[2017-05-02] MEDS: CHLORHEXIDINE GLUCONATE 2 % 1 PACK (2 CLOTHS) TOP SCH (04:23)
[2017-05-02 04:44] LABS: AUTOMATED NEUTROPHIL # 7.8 TH/MM3 (1.8-7.7); BASOPHIL # 0.1 TH/MM3 (0-0.2); BASOPHIL % 0.9 % (0.0-2.0); EOSINOPHIL # 0.2 TH/MM3 (0-0.4); EOSINOPHIL % 1.5 % (0.0-4.0); HEMATOCRIT 25.3 % (35.0-46.0); HEMO FLAGS DIFF FINAL; LYMPH % 6.7 % (9.0-44.0); LYMPHOCYTE # 0.7 TH/MM3 (1.0-4.8); MEAN CELL VOLUME 94.3 FL (80.0-100.0); MEAN CORPUSCULAR HEMOGLOBIN 30.5 PG (27.0-34.0); MEAN CORPUSCULAR HGB CONC 32.3 % (32.0-36.0); MONO % 13.3 % (0.0-8.0); NEUT % 77.6 % (16.0-70.0); PLATELET COUNT 601 TH/MM3 (150-450); RED BLOOD COUNT 2.68 MIL/MM3 (4.00-5.30); RED CELL DISTRIBUTION WIDTH 18.1 % (11.6-17.2); WHITE BLOOD COUNT 10.1 TH/MM3 (4.0-11.0)
[2017-05-02 04:52] LABS: POTASSIUM 3.2 MEQ/L (3.5-5.1)
[2017-05-02 04:56] LABS: BICARBONATE 22.7 MEQ/L (21.0-32.0)
[2017-05-02] MEDS: LEVOTHYROXINE SODIUM 75 MCG TAB PO SCH (05:54)
[2017-05-02] MEDS: NYSTATIN 100,000 U/GM PWD 15 GM BTL TOPICAL SCH (05:54)
[2017-05-02] MEDS ORDERED: PANTOPRAZOLE SOD 40 MG DELAYED RELEASE TAB PO SCH (09:00)
[2017-05-02] MEDS ORDERED: FOLI1TAB6 PO (13:38)
[2017-05-02] MEDS ORDERED: ALBU0.08 INH (13:38)
[2017-05-02] MEDS ORDERED: GNP100TA3 PO ×2 (13:38→15:13)
[2017-05-02] MEDS ORDERED: POLY99.0 EACH EYE (13:38)
--- NOTE | 2017-05-02 13:39 | HHI.DCPOC ---
Discharge Care Plan Diagnosis: (1) Cellulitis and abscess of face (2) Delirium due to multiple etiologies Goals to Promote Your Health * To prevent worsening of your condition and complications * To maintain your health at the optimal level Directions to Meet Your Goals Take your medications as prescribed Follow your dietary instruction Follow activity as directed Keep your appointments as scheduled Take your immunizations and boosters as scheduled If your symptoms worsen call your PCP, if no PCP go to Urgent Care Center or Emergency Room Smoking is Dangerous to Your Health. Avoid second hand smoke Call the 24-hour hour crisis hotline for domestic abuse at Dea Albright MD May 02, 2017 13:39
--- NOTE | 2017-05-02 13:53 | HHI.DS ---
Discharge Summary Admission Date April 13, 2017 at 17:24 Discharge Date: May 02, 2017 Admitting Diagnosis metabolic encephalopathy,hyponatremia (1) Delirium due to multiple etiologies ICD Code: F05 (2) Cellulitis and abscess of face ICD Code: L03.211 Procedures central line placement. Brief History - From Admission 71-year-old female. Date of admission 04/13/2017. Past medical history includes gait imbalance disorder with frequent falls, hypertension, depression, coronary artery disease status post stent 3, chronic benzodiazepine narcotic use and hypothyroidism. Of note she had an episode of altered mental status approximate 1 year ago due to chronic melatonin overdose according to her daughter Danielle. During the hospital sensation she actually struck her head and had 15 darwin placed at the affected site. She presents to [facility] today being brought in by her neighbor after recurrent falls on her left side. This is likely, she fell on her left leg and striking her left shoulder and left lower extremity against a wall Imaging of the leg revealed no acute fractures the left lower extremity or foot. Old left metatarsal fracture and degenerative joint disease was noted. She received morphine, Zofran with some relief. She became more agitated and received 4 mg of Ativan total and 12 mg of morphine for management of acute delirium and pain. CT head revealed no acute intracranial abnormalities except for right maxillary sinusitis/ethmoids cell sinusitis. Pertinent laboratories revealed a sodium 115. Initial thought this patient who drinks 2-4 alcoholic next daily likely more due to a son who years ago from cancer was going to withdrawals with falls at home to alcohol use. Alcohol level EGD was less than 3. Urine toxicology positive for opiates only which she takes Percocet as needed. 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 This has been held. Sodium is increased from 115 to 122 in the interim. Currently at 120 after being switched to half-normal saline. Every 2 hours sodiums continued to be drawn CBC/BMP: 05/02/17 0430 05/02/17 0430 Significant Findings Laboratory Tests Test 04/30/17 05/02/17 04:35 04:30 White Blood Count 13.1 TH/MM3 (4.0-11.0) Red Blood Count 2.76 MIL/MM3 2.68 MIL/MM3 (4.00-5.30) (4.00-5.30) Hemoglobin 8.4 GM/DL 8.2 GM/DL (11.6-15.3) (11.6-15.3) Hematocrit 26.4 % 25.3 % (35.0-46.0) (35.0-46.0) Red Cell Distribution Width 19.0 % 18.1 % (11.6-17.2) (11.6-17.2) Neutrophils (%) (Auto) 78.6 % 77.6 % (16.0-70.0) (16.0-70.0) Lymphocytes (%) (Auto) 8.2 % 6.7 % (9.0-44.0) (9.0-44.0) Monocytes (%) (Auto) 9.3 % (0.0-8.0) 13.3 % (0.0-8.0) Neutrophils # (Auto) 10.3 TH/MM3 7.8 TH/MM3 (1.8-7.7) (1.8-7.7) Monocytes # (Auto) 1.2 TH/MM3 1.3 TH/MM3 (0-0.9) (0-0.9) Sodium Level 131 MEQ/L 133 MEQ/L (136-145) (136-145) Carbon Dioxide Level 20.3 MEQ/L (21.0-32.0) Creatinine 0.49 MG/DL (0.50-1.00) Calcium Level 7.9 MG/DL 7.7 MG/DL (8.5-10.1) (8.5-10.1) Albumin 2.0 GM/DL (3.4-5.0) Platelet Count 601 TH/MM3 (150-450) Lymphocytes # (Auto) 0.7 TH/MM3 (1.0-4.8) Potassium Level 3.2 MEQ/L (3.5-5.1) Random Glucose 142 MG/DL (74-106) Imaging Last Impressions Lumbar Puncture Fluoroscopy 04/24/17 0000 Signed Impressions: Service Date/Time: April 13:01 - CONCLUSION: Uncomplicated fluoroscopically guided lumbar puncture. Kaushik Miller Jr., MD Brain MRI 04/24/17 Signed Impressions: Service Date/Time: April 09:54 - CONCLUSION: 1. Limited examination due to motion artifact. 2. No acute abnormality identified. Alfredito Colorado MD Abdomen X-Ray 04/23/17 Signed Impressions: Service Date/Time: Sunday, April 23, 2017 11:10 - CONCLUSION: There is an NG tube in place. The tip appears to be in the proximal small bowel. Wencselao Rivera MD Lower Extremity Ultrasound 04/22/17 Signed Impressions: Service Date/Time: Saturday, April 22, 2017 15:40 - CONCLUSION: 1. No DVT identified. Alfredito Colorado MD Head CT 04/19/17 Signed Impressions: Service Date/Time: Wednesday, April 19, 2017 10:20 - CONCLUSION: No acute intracranial findings. Asher Mcgowan MD Liver Ultrasound 04/18/17 Signed Impressions: Service Date/Time: Tuesday, April 18, 2017 18:17 - CONCLUSION: 1. Cholelithiasis with mild gallbladder wall thickening and minimal pericholecystic fluid. This raises concern for possible acute cholecystitis. Consider HIDA scan. Kaushik Miller Jr., MD Chest X-Ray 04/18/17 Signed Impressions: Service Date/Time: Tuesday, April 18, 2017 08:55 - CONCLUSION: No acute cardiopulmonary disease identified. Asher Mcgowan MD Upper Extremity Ultrasound 04/17/17 0000 Signed Impressions: Service Date/Time: April 22:59 - CONCLUSION: 1. Nondiagnostic evaluation secondary to lack of patient cooperation. Sony Armstrong MD Neck CT 04/17/17 0000 Signed Impressions: Service Date/Time: April 21:31 - CONCLUSION: 1. Edema involving the right neck. No abscess or hematoma. Kaushik Miller Jr., MD Abdomen/Pelvis CT 04/16/17 0000 Signed Impressions: Service Date/Time: Sunday, April 16, 2017 21:00 - CONCLUSION: 1. No acute abnormality. 2. Cholelithiasis. 3. Small bilateral pleural effusions. Kaushik Miller Jr., MD Neck Magnetic Resonance Angiography 04/15/17 Signed Impressions: Service Date/Time: Saturday, April 15, 2017 15:20 - CONCLUSION: 1. Limited examination due to motion. These were the best obtainable images given the patient's state of cooperation. 2. No gross significant stenosis of either carotid artery observed. 3. Left vertebral artery grossly patent. Right is not visualized. Kaushik Miller Jr., MD Tibia/Fibula X-Ray 04/13/17 Signed Impressions: Service Date/Time: Thursday, April 13, 2017 16:19 - CONCLUSION: 1. Moderate arthritic changes involving the femoral tibial and patellofemoral joints. 2. No acute fracture or dislocation. Alex Whiteside MD Head Magnetic Resonance Angiography 04/13/17 Signed Impressions: Service Date/Time: Saturday, April 15, 2017 15:20 - CONCLUSION: 1. Significantly limited study due to motion. These were the best obtainable images given the patient's state of cooperation. 2. Scattered areas of mild luminal narrowing secondary to atherosclerotic plaque. Details given above. Kaushik Miller Jr., MD Foot X-Ray 04/13/17 Signed Impressions: Service Date/Time: Thursday, April 13, 2017 15:31 - CONCLUSION: 1. Arthritic changes involving the tarso-tarsal and tarsal-metatarsals joints in the midfoot. 2. Bony fusion of the left 1st metatarsophalangeal joint. 3. Plantar calcaneal spur. 4. No acute fracture or dislocation. Alex Whiteside MD PE at Discharge GENERAL: This is a frail, elderly female, in no apparent distress. CARDIOVASCULAR: Regular rate and rhythm without murmurs, gallops, or rubs. RESPIRATORY: Clear to auscultation. Breath sounds equal bilaterally. No wheezes , rales, or rhonchi. GASTROINTESTINAL: Abdomen soft, non-tender, nondistended. Normal active bowel sounds MUSCULOSKELETAL: Extremities without clubbing, cyanosis, or edema. NEURO: Confused, oriented to person. Pt update on day of discharge please seen progress note Hospital Course 1 Encephalopathy/delirium. seen by psychiatry, seroquel recommended, likely due to sepsis, patient has a history of ETOH abuse in the past. CT head, MRI head with no acute abnormality. continue neuro checks 2. right facial cellulitis blood cultures with staph aureus. TT echo poor quality but no evidence of endocarditis.Seen by ID and unasyn given. 3. cholecystitis with elevated LFT's, Surgery consult appreciated and no need for surgical intervention at this time 4. Hypertension Coronary artery disease status post stent 3, On nadolol 80 mg by mouth daily and losartan 25 mg daily for hypertension; of note the po meds are on hold due to change in mental status As needed labetalol/hydralazine/vasotec to keep systolic blood pressure less than 160 5. Hypothyroidism, TSH currently elevated 8.37 on levothyroxine when able to take po. TSH to be repeated in 2-3 weeks as outpatient. Pt Condition on Discharge: Good Discharge Disposition: Discharge to SNF Discharge Time: > 30 minutes Discharge Instructions DIET: Follow Instructions for: As Tolerated, No Restrictions Activities you can perform: Regular-No Restrictions New Medications: Albuterol Neb (Albuterol Neb) 2.5 Mg/3 Ml Neb 2.5 MG INH Q2HR NEB PRN SOB/WHEEZING #31 NEBULE Folic Acid (Folic Acid) 1 Mg Tablet 1 MG PO DAILY vitamin #31 TAB Polyvinyl Alcohol Opth Drops (Artificial Tears Opth Drops) 1.4% Soln 1 DROP EACH EYE TID dry eye Days 30 ML Thiamine HCl (Gnp Vitamin B-1) 100 Mg Tab 100 MG PO DAILY vitamin #31 TAB Continued Medications: Alprazolam (Alprazolam) 0.25 Mg Tab 0.25 MG PO DIRECTED PRN ANXIETY Ref 0 TAB Escitalopram (Escitalopram) 10 Mg Tab 10 MG PO DAILY #30 Ref 0 TAB Levothyroxine (Levothyroxine) 75 Mcg Tab 75 MCG PO DAILY Thyroid #30 Ref 0 TAB Losartan (Losartan) 25 Mg Tab 25 MG PO DAILY Blood Pressure Management #30 Ref 0 TAB Nadolol (Nadolol) 80 Mg Tab 80 MG PO DAILY #30 Ref 0 TAB Oxycodone-Acetaminophen (Percocet) 5-325 mg Tab 1 TAB PO Q6H PRN PAIN #20 Ref 0 TAB Dea Albright MD May 02, 2017 13:53
[2017-05-02] MEDS ORDERED: PERC5TAB12 PO (15:15)
[2017-05-02] MEDS ORDERED: ALPR0.25 PO (15:15)
[2017-05-03] MEDS ORDERED: ALPR0.25 PO (10:02)
== END 2017-05-02 07:30 | DRG 70 ==
LOC: PHED 15:05 → PHEDA 17:24 → PHICU 22:24 → PH3B 04-17 18:15 → PHICU 04-18 11:51 → UNDODISIN 04-20 16:30 → PHICU 04-26 00:50
PROVIDERS: ADMIT Hospitalist; ATTEND Hospitalist
PROC: 05HM33Z Insertion of Infusion Device into Right Internal Jugular Vein, Percutaneous Approach (ICD-10-PCS; principal; 2017-04-13)
PROC: 0T9B70Z Drainage of Bladder with Drainage Device, Via Natural or Artificial Opening (ICD-10-PCS; 2017-04-13)
PROC: 009U3ZX Drainage of Spinal Canal, Percutaneous Approach, Diagnostic (ICD-10-PCS; 2017-04-24)
DX: G93.41 Metabolic encephalopathy (principal); A41.01 Sepsis due to Methicillin susceptible Staphylococcus aureus; K72.00 Acute and subacute hepatic failure without coma; E43 Unspecified severe protein-calorie malnutrition; J18.9 Pneumonia, unspecified organism; E87.0 Hyperosmolality and hypernatremia; E87.1 Hypo-osmolality and hyponatremia; K81.9 Cholecystitis, unspecified; F10.231 Alcohol dependence with withdrawal delirium; L03.211 Cellulitis of face; F05 Delirium due to known physiological condition; T82.7XXA Infection and inflammatory reaction due to other cardiac and vascular devices, implants and grafts, initial encounter; L03.221 Cellulitis of neck; T80.212A Local infection due to central venous catheter, initial encounter; E83.42 Hypomagnesemia; M41.85 Other forms of scoliosis, thoracolumbar region; D64.9 Anemia, unspecified; S80.12XA Contusion of left lower leg, initial encounter; I10 Essential (primary) hypertension; F32.9 Major depressive disorder, single episode, unspecified; E03.9 Hypothyroidism, unspecified; F41.9 Anxiety disorder, unspecified; I25.10 Atherosclerotic heart disease of native coronary artery without angina pectoris; M19.90 Unspecified osteoarthritis, unspecified site; S80.02XA Contusion of left knee, initial encounter; W01.0XXA Fall on same level from slipping, tripping and stumbling without subsequent striking against object, initial encounter; Y93.9 Activity, unspecified; Y92.099 Unspecified place in other non-institutional residence as the place of occurrence of the external cause; Y99.9 Unspecified external cause status; Z88.2 Allergy status to sulfonamides; R29.6 Repeated falls; E87.6 Hypokalemia; Z95.5 Presence of coronary angioplasty implant and graft; Z79.891 Long term (current) use of opiate analgesic; J32.0 Chronic maxillary sinusitis; J32.2 Chronic ethmoidal sinusitis; Z87.891 Personal history of nicotine dependence; Z79.899 Other long term (current) drug therapy; M77.32 Calcaneal spur, left foot; Y92.009 Unspecified place in unspecified non-institutional (private) residence as the place of occurrence of the external cause; G89.29 Other chronic pain; M54.9 Dorsalgia, unspecified; Z80.1 Family history of malignant neoplasm of trachea, bronchus and lung; Z80.9 Family history of malignant neoplasm, unspecified; E83.51 Hypocalcemia; R79.89 Other specified abnormal findings of blood chemistry; E83.39 Other disorders of phosphorus metabolism
CPT/HCPCS: 36600; 62270; 70450; 70490; 70544; 70548; 70551; 70553; 71010; 73590; 73630; 74000; 74176; 76705; 76937; 77003; 80048; 80053; 80069; 80074; 80076; 80202; 80307; 81001; 82010; 82140; 82306; 82533; 82550; 82552; 82607; 82728; 82746; 82805; 82945; 82948; 83010; 83540; 83550; 83605; 83615; 83690; 83735; 83930; 83935; 84100; 84132; 84155; 84157; 84295; 84300; 84439; 84443; 84478; 84484; 84550; 85007; 85025; 85027; 85044; 85610; 85730; 86038; 86256; 86376; 86403; 86592; 86850; 86880; 86900; 86901; 87015; 87040; 87070; 87102; 87116; 87149; 87186; 87205; 87206; 87529; 87641; 89051; 93005; 93306; 93970; 93971; 94150; 95819; 96374; 96375; 99292; A9579; C9113; J0295; J0360; J0610; J1630; J1756; J2060; J2270; J2405; J2543; J3370; J3411; J3475; J3480; J7030; J7040; J7050; L3260; Q0167